=== PATIENT | male | born 1955 | race Caucasian/White ===

== ENCOUNTER 2023-05-24 15:45 | Emergency (ER) | payer OTHER, MEDICARE, SELFPAY ==
[2023-05-24 15:53] VITALS: BP 158/92; PULSE 96; RESP 16; TEMP 36.8; O2SAT 97; BMI 26.6
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
== END 2023-05-24 17:04 | disposition home or self-care (01) ==
PROVIDERS: Emergency Provider Emergency Medicine; PCP Specialist
DX: Z04.1 Encounter for examination and observation following transport accident (principal); R07.9 Chest pain, unspecified
CPT/HCPCS: 71045; 99283

== ENCOUNTER 2023-10-22 07:29 | Day surgery (SDC) | payer MEDICARE, SELFPAY ==
[2023-10-22] MEDS: LIDOCAINE 2% JELLY 10 ML UR (08:18)
[2023-10-22 08:20] VITALS: BP 140/90; PULSE 85; RESP 18; O2SAT 96
[2023-10-22 08:26] VITALS: BP 178/88; PULSE 83; RESP 18; O2SAT 97
--- NOTE | 2023-10-22 08:31 | P.URON_ITS ---
Urology Surgery Operative Note Operative Note Procedure Date: 10/22/23 Time Out Performed: yes Pre-op Diagnosis: Weak stream Post-op Diagnosis: same as pre-op Procedures performed: 1. Cystoscopy. Anesthesia: local Primary Surgeon: Jb Limon Complications: None Estimated blood loss (mL): 0 Findings: Obstructed prostate apex. High-grade bladder damage. No bladder tumors. Specimens: None Drains: None Indications for Procedures: This gentleman has a long history of BPH with LUTS for which he had a greenlight laser done in 2014. He did well after the procedure. Over the last year he has developed more bladder outlet obstructive symptoms with a weaker stream and incomplete emptying. Flomax has helped quite a bit but he is getting side effects from Flomax that is intolerable to him. He now presents for cystoscopy. He has signed an informed consent after risks were explained. Detailed description of Procedure: The patient was kept on the rmaljamar bed and brought into the endoscopy suite. He was in the supine position. Genitalia were sterilely prepped and draped in the usual fashion. 2% lidocaine was passed per urethra. Timeout was done by all parties in the room. We all agreed upon the patient's identification and the planned procedures for this patient. I then started by passing a flexible cystoscope per urethra and into the bladder. The anterior urethra was normal. The prostatic urethra showed regrowth and obstruction at the apex. The majority of the prostate and bladder neck were wide open. Careful panendoscopy in the bladder showed no evidence of any tumors or stones. There was high-grade trabeculation with multiple diverticuli. The scope was then removed. He was then discharged to home.
== END 2023-10-22 08:35 | disposition home or self-care (01) ==
PROVIDERS: PCP Specialist; Visit Provider Urology
PROC: (CPT 52000; principal; 2023-10-22 08:00)
DX: N40.1 Benign prostatic hyperplasia with lower urinary tract symptoms (principal); R39.14 Feeling of incomplete bladder emptying; R01.1 Cardiac murmur, unspecified; E78.00 Pure hypercholesterolemia, unspecified; E29.1 Testicular hypofunction; G47.30 Sleep apnea, unspecified; R39.12 Poor urinary stream; N32.89 Other specified disorders of bladder; N32.3 Diverticulum of bladder; H40.9 Unspecified glaucoma; I10 Essential (primary) hypertension; Z79.899 Other long term (current) drug therapy; Z87.891 Personal history of nicotine dependence
CPT/HCPCS: 52000

== ENCOUNTER 2024-01-23 19:56 | Outpatient (OUT) | payer MEDICARE, SELFPAY ==
--- OUTSIDE RECORDS SUMMARY | 2024-01-23 20:00 | XMS_ITS | CCD ---
Author Organization [facility] Care Team Providers Care Supervisor [place] Name Role Phone Nicolasa Favian Unavailable [phone] Favian Baldwin Admitting UnavailSaray Cobb Primary Care Unavailable Favian Baldwin Attending Unavailviky Mckeon, Saray Chaudhry Primary Care Unavailable Favian Baldwin Attending Unavailabl Favian Amhadi Admitting Unavailabl e MCKEON ., DR SARAY Chaudhry Attending Unavailable LINDA ., DR SARAY Chaudhry Consulting Unavailable MCKEON ., DR SARAY Chaudhry Primary Care Unavailable MCKEON ., DR SARAY Chaudhry Admitting Unavailable GUILLE NATHAN Attending Unavailable GUILLE NATHAN Attending Unavailable Shanti Estrella Attending Unavailable Stewart Mahajan Attending Unavailable Stewart Mahajan Attending Unavailable Stewart Mahajan Attending Unavailable Jb LIMON Attending Unavailable Jb LIMON Attending Unavailable SARAY MCKEON Referring Unavailable WESLEY FRANK Attending UnavailStewart Figueroa Admitting Unavailable Stewart Mahajan Attending Unavailable Stewart Mahajan Attending Unavailable Stewart Mahajan Admitting Unavailable Shanti Estrella Admitting Unavailable Shanti Estrella Attending Unavailable Jb LIMON Attending Unavailable Stewart Mahajan Attending Unavailable Stewart Mahajan Attending Unavailable SARAY MCKEON Attending Unavailable Stewart Mahajan Attending Unavailable Medications Current Medications Medication Drug Class(es) Dates Sig (Normalized) Sig (Original) atorvastatin 20 mg oral tablet (1 source) HMG-CoA Reductase Inhibitor Atorvastatin Calcium 20 MG Oral for 90 Days Active Citalopram (1 source) Serotonin Reuptake Inhibitor Citalopram Hydrobromide Active dicyclomine hydrochloride 20 mg oral tablet (1 source) Anticholinergic Dicyclomine HCl 20 MG Oral for 90 Days Active DULoxetine 60 mg delayed release oral capsule (1 source) Serotonin and Norepinephrine Reuptake Inhibitor DULoxetine HCl 60 MG Oral for 90 Days Active lansoprazole (2 sources) Proton Pump Inhibitor Prevacid A ctive Losartan (2 sources) Angiotensin 2 Receptor Arturo Losartan Potassium Active meloxicam 15 mg oral tablet (2 sources) Nonsteroidal Anti-inflammatory Drug take 1 tablet by mouth every twenty-four hours Meloxicam 15 MG 1 tablet Orally Once a day Active testosterone cypionate 200 mg/ml injectable solution (1 source) Androgen Testosterone Cypionate 200 MG/ML Intramuscular for 84 Days Active 12 hr timolol 5 mg/ml ophthalmic solution (1 source) beta-Adrenergic Arturo Timolol Maleate 0.5 % Ophthalmic for 80 Days Active Completed/Discontinued Medications Medication Drug Class(es) Dates Sig (Normalized) Sig (Original) busPIRone hydrochloride 5 mg oral tablet (2 sources) take 1 tablet by mouth every twelve hours busPIRone HCl 5 MG 1 tablet Orally Twice a day Not-Taking latanoprost 0.05 mg/ml ophthalmic solution (1 source) Prostaglandin Analog Latanoprost 0.005 % Ophthalmic for 108 Days Not-Taking Problems Problem Classification Problem Date Documented Date Episodic/Chronic Aortic; peripheral; and visceral artery aneurysms (4 sources) Abdominal aortic aneurysm 3.0 to 5.5 centimeters in male; Translations: [Abdominal aortic aneurysm, without rupture] Onset: 2 Resolved: 2 Chronic Disorders of lipid metabolism (4 sources) Pure hypercholesterolemia, unspecified; Translations: [PURE HYPERCHOLESTEROLEMIA UNSPEC] Onset: 3 Chronic Essential hypertension (1 source) Essential (primary) hypertension; Translations: [ESSENTIAL PRIMARY HYPERTENSION] Onset: 3 Chronic Other endocrine disorders (1 source) Testicular hypofunction; Translations: [TESTICULAR HYPOFUNCTION] Onset: 3 Chronic Other male genital disorders (1 source) Disorder of prostate, unspecified; Translations: [DISORDER OF PROSTATE UNSPECIFIED] Onset: 3 Episodic Unclassified (1 source) Abdominal aortic aneurysm, without rupture, unspecified; Translations: [Abdominal aortic aneurysm, without rupture, unspecified] Onset: 2 Unclassified (1 source) Occlusion and stenosis of bilateral carotid arteries; Translations: [Occlusion and stenosis of bilateral carotid arteries] Onset: 2 Results Test Name Value Interpretation Reference Range Facil ity Discharge Note - PTon 2023 Discharge Note - PT [id number] 0TIFF [facility] Ambulatory Visit Summaryon 0 01-14-2024 Ambulatory Visit Summary ASHLEY STAPLES :1955 Visit Date:01/14/2024 Ambulatory Visit Instructions Your Diagnosis BPH with obstruction/lower urinary tract symptoms Hypogonadism male Your Care Team Attending Physician - STEPHEN RODGERS, Jb Abad Primary Care Physician - Keyshawn RODGERS, Stewart Zamarripa This Is Your Medications List alfuzosin (alfuzosin 10 mg ER Tab) Contact prescribing physician if questions or concerns Misc Prescription (Misc DME Prescription) Misc Prescription (Misc DME Prescription) atorvastatin (atorvastatin 20 mg Tab) cholecalciferol (Vitamin D3) dicyclomine (dicyclomine 20 mg Tab) ketoconazole topical (ketoconazole Top 2% Crm) lansoprazole (lansoprazole 30 mg Cap-DR) latanoprost ophthalmic losartan (losartan 100 mg Tab) pseudoephedrine (Sudafed) testosterone (Testosterone Cypionate 200 mg/mL intramuscular solution) vortioxetine (Trintellix 5 mg oral tablet) Procedures Performed Cystoscopy (10/22/2023), Epidural injection of lumbar spine using fluoroscopic guidance (08/11/2020), Epidural injection of lumbar spine using fluoroscopic guidance (04/30/2019), Interlaminar Epidural Steroid Injection (02/27/2018), Epidural injection of lumbar spine using fluoroscopic guidance (10/25/2016), Epidural injection of lumbar spine using fluoroscopic guidance (03/15/2016), Laser ablation of prostate (02/24/2015), Urodynamics (01/21/2015), Lumbar epidural steroid injection (01/28/2014), Lumbar epidural steroid injection (08/27/2013), Stripping of varicose vein of lower limb (10/15/1989), Cholecystectomy, History of shoulder surgery, LASIK, Low back disc surgery, Torn meniscus repair. Discharge Vitals Heart Rate (Peripheral) 78 Respiratory Rate 16 Blood Pressure 138/83 Height 179 cm Height 70 in Weight 86.5 kg Weight 190.3 lb BMI 27 What to do next Scheduled Follow-Up Appointments 2023 1:00 PM EDT With: Where: [facility] [place] [facility] [address] [place] [address]- \.br\ You Need to Schedule the Following Appointments\.br\ Follow Up with STEPHEN RODGERS, Jb Abad, IRVINL When: \.br\ Where:\.br\ [facility] [address]br\ [place] [address]-\.br\ [phone]\.br\ Medications\.br\ What How Much When Instructions\.br\ Unchanged alfuzosin (alfuzosin 10 mg ER Tab)\.br\ Unchanged atorvastatin (atorvastatin 20 mg Tab) 1 Tablets By Mouth Every day Contact prescribing physician if questions or concerns \.br\ Unchanged cholecalciferol (Vitamin D3) By Mouth Every day Contact prescribing physician if questions or concerns \.br\ Unchanged dicyclomine (dicyclomine 20 mg Tab) 1 Tablets By Mouth 3 times a day Contact prescribing physician if questions or concerns \.br\ Unchanged ketoconazole topical (ketoconazole Top 2% Crm) 1 Application Topical Every day Contact prescribing physician if questions or concerns \.br\ Unchanged lansoprazole (lansoprazole 30 mg Carlos-) See instructions TAKE 1 CAPSULE BY MOUTH DAILY Contact prescribing physician if questions or concerns \.br\ Unchanged latanoprost ophthalmic 1 Drops Both eyes Once a day (at bedtime) Contact prescribing physician if questions or concerns \.br\ Unchanged losartan (losartan 100 mg Tab) See instructions TAKE 1 TABLET BY MOUTH DAILY Contact prescribing physician if questions or concerns \.br\ Unchanged Misc Prescription (Misc DME Prescription) See instructions 18G 1 needles to use to draw up his testosterone Contact prescribing physician if questions or concerns \.br\ Unchanged Misc Prescription (Misc DME Prescription) See instructions 21G1 needles to administer the testosterone Contact prescribing physician if questions or concerns \.br\ Unchanged pseudoephedrine (Sudafed) By Mouth Every 6 hours Contact prescribing physician if questions or concerns \.br\ Unchanged testosterone (Testosterone Cypionate 200 mg/ mL intramuscular solution) 1 Milliliter Intramuscular Every other week Contact prescribing physician if questions or concerns \.br\ Unchanged vortioxetine (Trintellix 5 mg oral tablet) Contact prescribing physician if questions or concerns \.br\ Allergies\.br\ No Known Allergies\.br\ Problems\.br\ Ongoing - Any problem that you are currently receiving treatment for.\.br\ BPH with obstruction/lower urinary tract symptoms\.br\ CPAP (continuous positive airway pressure) dependence\.br\ Gastroesophageal reflux disease without esophagitis\.br\ Glaucoma\.br\ Heart murmur\.br\ Hypercholesterolem ia\.br\ Hypogonadism male\.br\ Incomplete bladder emptying\.br\ Low back pain\.br\ Over weight\.br\ Primary hypertension\.br\ Prostate cancer screening\.br\ Shoulder pain, left\.br\ Sleep apnea\.br\ Historical - Any problem that you are no longer receiving treatment for.\.br\ BPH (benign prostatic hyperplasia)\.br\ Enlarged prostate\.br\ Hypogonadism in male\.br\ Patient Survey\.br\ You may receive a survey via text or e-mail asking about your office visit. Please share your experience with us by completing your survey. We appreciate your feedback and thank you for choosing us for your care.\.br\ Education Materials\.br\ Benign Prostatic Hyperplasia\.br\ \.br\ Benign prostatic hyperplasia (BPH) is an enlarged prostate gland that is caused by the normal aging process. The prostate may get bigger as a man gets older. The condition is not caused by cancer. The prostate is a walnut-sized gland that is involved in the production of semen. It is located in front of the rectum and below the bladder. The bladder stores urine. The urethra carries stored urine out of the body.\.br\ An enlarged prostate can press on the urethra. This can make it harder to pass urine. The buildup of urine in the bladder can cause infection. Back pressure and infection may progress to bladder damage and kidney (renal) failure.\.br\ What are the causes?\.br\ This condition is part of the normal aging process. However, not all men develop problems from this condition. If the prostate enlarges away from the urethra, urine flow will not be blocked. If it enlarges toward the urethra and compresses it, there will be problems passing urine.\.br\ What increases the risk?\.br\ This condition is more likely to develop in men older than 50 years.\.br\ What are the signs or symptoms?\.br\ Symptoms of this condition include:\.br\ ? \.br\ Getting up often during the night to urinate.\.br\ ? \.br\ Needing to urinate frequently during the day.\.br\ ? \.br\ Difficulty starting urine flow.\.br\ ? \.br\ Decrease in size and strength of your urine stream.\.br\ ? \.br\ Leaking (dribbling) after urinating.\.br\ ? \.br\ Inability to pass urine. This needs immediate treatment.\.br\ ? \.br\ Inability to completely empty your bladder.\.br\ ? \.br\ Pain when you pass urine. This is more common if there is also an infection.\.br\ ? \.br\ Urinary tract infection (UTI).\.br\ How is this diagnosed?\.br\ This condition is diagnosed based on your medical history, a physical exam, and your symptoms. Tests will also be done, such as:\.br\ ? \.br\ A post-void bladder scan. This measures any amount of urine that may remain in your bladder after you finish urinating.\.br\ ? \.br\ A digital rectal exam. In a rectal exam, your health care provider checks your prostate by putting a lubricated, gloved finger into your rectum to feel the back of your prostate gland. This exam detects the size of your gland and any abnormal lumps or growths.\.br\ ? \.br\ An exam of your urine (urinalysis).\.br\ ? \.br\ A prostate specific antigen (PSA) screening. This is a blood test used to screen for prostate cancer.\.br\ ? \.br\ An ultrasound. This test uses sound waves to electronically produce a picture of your prostate gland.\.br\ Your health care provider may refer you to a specialist in kidney and prostate diseases (urologist).\.br\ How is this treated?\.br\ Once symptoms begin, your health care provider will monitor your condition (active surveillance or watchful waiting). Treatment for this condition will depend on the severity of your condition. Treatment may include:\.br\ ? \.br\ Observation and yearly exams. This may be the only treatment needed if your condition and symptoms are mild.\.br\ ? \.br\ Medicines to relieve your symptoms, including:\.br\ ? \.br\ Medicines to shrink the prostate.\.br\ ? \.br\ Medicines to relax the muscle of the prostate.\.br\ ? \.br\ Surgery in severe cases. Surgery may include:\.br\ ? \.br\ Prostatectomy. In this procedure, the prostate tissue is removed completely through an open incision or with a laparoscope or robotics.\.br\ ? \.br\ Transurethral resection of the prostate (TURP). In this procedure, a tool is inserted through the opening at the tip of the penis (urethra). It is used to cut away tissue of the inner core of the prostate. The pieces are removed through the same opening of the penis. This removes the blockage.\.br\ ? \.br\ Transurethral incision (TUIP). In this procedure, small cuts are made in the prostate. This lessens the prostate's pressure on the urethra.\.br\ ? \.br\ Transurethral microwave thermotherapy (TUMT). This procedure uses microwaves to create heat. The heat destroys and removes a small amount of prostate tissue.\.br\ ? \.br\ Transurethral needle ablation (TUNA). This procedure uses radio frequencies to destroy and remove a small amount of prostate tissue.\.br\ ? \.br\ Interstitial laser coagulation (ILC). This procedure [facility] Patient Educationon 01-14-20 24 Patient Education Urology Benign Prostatic Hyperplasia Benign prostatic hyperplasia (BPH) is an enlarged prostate gland that is caused by the normal aging process. The prostate may get bigger as a man gets older. The condition is not caused by cancer. The prostate is a walnut-sized gland that is involved in the production of semen. It is located in front of the rectum and below the bladder. The bladder stores urine. The urethra carries stored urine out of the body. An enlarged prostate can press on the urethra. This can make it harder to pass urine. The buildup of urine in the bladder can cause infection. Back pressure and infection may progress to bladder damage and kidney (renal) failure. What are the causes? This condition is part of the normal aging process. However, not all men develop problems from this condition. If the prostate enlarges away from the urethra, urine flow will not be blocked. If it enlarges toward the urethra and compresses it, there will be problems passing urine. What increases the risk? This condition is more likely to develop in men older than 50 years. What are the signs or symptoms? Symptoms of this condition include: ? Getting up often during the night to urinate. ? Needing to urinate frequently during the day. ? Difficulty starting urine flow. ? Decrease in size and strength of your urine stream. ? Leaking (dribbling) after urinating. ? Inability to pass urine. This needs immediate treatment. ? Inability to completely empty your bladder. ? Pain when you pass urine. This is more common if there is also an infection. ? Urinary tract infection (UTI). How is this diagnosed? This condition is diagnosed based on your medical history, a physical exam, and your symptoms. Tests will also be done, such as: ? A post-void bladder scan. This measures any amount of urine that may remain in your bladder after you finish urinating. ? A digital rectal exam. In a rectal exam, your health care provider checks your prostate by putting a lubricated, gloved finger into your rectum to feel the back of your prostate gland. This exam detects the size of your gland and any abnormal lumps or growths. ? An exam of your urine (urinalysis). ? A prostate specific antigen (PSA) screening. This is a blood test used to screen for prostate cancer. ? An ultrasound. This test uses sound waves to electronically produce a picture of your prostate gland. Your health care provider may refer you to a specialist in kidney and prostate diseases (urologist). How is this treated? Once symptoms begin, your health care provider will monitor your condition (active surveillance or watchful waiting). Treatment for this condition will depend on the severity of your condition. Treatment may include: ? Observation and yearly exams. This may be the only treatment needed if your condition and symptoms are mild. ? Medicines to relieve your symptoms, including: ? Medicines to shrink the prostate. ? Medicines to relax the muscle of the prostate. ? Surgery in severe cases. Surgery may include: ? Prostatectomy. In this procedure, the prostate tissue is removed completely through an open incision or with a laparoscope or robotics. ? Transurethral resection of the prostate (TURP). In this procedure, a tool is inserted through the opening at the tip of the penis (urethra). It is used to cut away tissue of the inner core of the prostate. The pieces are removed through the same opening of the penis. This removes the blockage. ? Transurethral incision (TUIP). In this procedure, small cuts are made in the prostate. This lessens the prostate's pressure on the urethra. ? Transurethral microwave thermotherapy (TUMT). This procedure uses microwaves to create heat. The heat destroys and removes a small amount of prostate tissue. ? Transurethral needle ablation (TUNA). This procedure uses radio frequencies to destroy and remove a small amount of prostate tissue. ? Interstitial laser coagulation (ILC). This procedure uses a laser to destroy and remove a small amount of prostate tissue. ? Transurethral electrovaporization (TUVP). This procedure uses electrodes to destroy and remove a small amount of prostate tissue. ? Prostatic urethral lift. This procedure inserts an implant to push the lobes of the prostate away from the urethra. Follow these instructions at home: ? Take rejj-hvf-yiptyeb and prescription medicines only as told by your health care provider. ? Monitor your symptoms for any changes. Contact your health care provider with any changes. ? Avoid drinking large amounts of liquid before going to bed or out in public. ? Avoid or reduce how much caffeine or alcohol you drink. ? Give yourself time when you urinate. ? Keep all follow-up visits. This is important. Contact a health care provider if: ? You have unexplained back pain. ? Your symptoms do not get better with treatment. ? You develop side effects from the medicine (more content not included)... [facility] Urology Office/Clinic Noteon 01-14-2024 Urology Office/Clinic Note Chief Complaint S/P Cysto HPI Staff 3 month f/u to cysto done 10/22/23 Dx: BPH with obstruction/LUTS (green light laser by DLS 02/24/15, incomplete bladder emptying and hypogonadism male. Tamsulosin 0.4mg qd- could not tolerate SE (messed with libido) Started on Alfuzosin qd therapy instead *Testosterone INj 200mg q2wks from PCP. Feels empty only when he waits until the last minute to void. Getting up 0-1x/night. Stream is stronger, and easier to void with Alfuzosin. (vs without anything, flomax worked better) PVR 40ml History of Present Illness Tests reviewed: reviewed UA I have reviewed the previous health record information and history for this patient from Dr. Limon and CINTHIA Davis. I have reviewed and verified the staff HPI to be accurate for this encounter. Review of Systems PHQ Score Initial Depression Screen Score: 0 SCORE ROS - Provider Constitutional: denies weight loss, denies hot flashes. Eyes: denies eye problems. Gastrointestinal: denies nausea, denies vomiting. Cardiovascular: denies chest pain or angina. Integumentary: no dryness Musculoskeletal: denies musculoskeletal symptoms. ENMT: denies otolaryngeal symptoms. Respiratory: no shortness of breath. Heme/Lymph: denies easy bleeding tendency, denies easy bruising tendency. Psychiatric: no confusion, no anxiety. Genitourinary: See HPI. Physical Exam Vitals & Measurements HR: 78(Peripheral) RR: 16 BP: 138/83 HT: 70 in HT: 179 cm WT: 86.5 kg WT: 190.3 lb BMI: 27 General Appearance: alert, no distress, well nourished, well developed male. Genitourinary: normal scrotum, normal testes, normal urethra, normal epididymis, normal vas deferens/spermatic cord. Flank Pain: none. Bladder: nonpalpable. Assessment/Plan 1. BPH with obstruction/lower urinary tract symptoms (N40.1: Benign prostatic hyperplasia with lower urinary tract symptoms) S/p Green Light Laser of Prostate 02/24/[address] Ramos. S/p Cysto 10/22/23 - Prostate regrowth and obstruction at apex. Majority of bladder neck and prostate were wide open. Took Flomax 0.4mg bid 04/2023 but did not like SE so he was unwilling to stay on increased dosage despite this improving urinary sxs. Was taking Flomax 0.4mg qd. Pt was later switched to Alfuzosin ER 10mg qd at time of cysto. Feels this works well but is not as effective as Flomax but still is unwilling to retry Flomax due to SE affecting his libido. Admits he prefers Alfuzosin to no med. Feels his stream is good, steady. PVR today 40 (50) mL. UA today negative for blood and infection. Discussed TOVAR procedure options. Pt wishes to wait to proceed due to upcoming cataract surgery. Did advise pt procedures are scheduling out to March and would recommend he schedule soon so he has a spot. Pt will call with decision. -Cont Alfuzosin as above -Consider TOVAR procedures, pt to call to schedule 2. Hypogonadism male (E29.1: Testicular hypofunction) Latest testosterone level 912 drawn 12/26/22 Receives Testosterone injection 200mg every 2 weeks, primary care manages. [1] Follow-up With When Contact Information STEPHEN RODGERS, Jb Abad, URL [facility] [address] [place] [address] [phone] Additional Instructions: pt to call to schedule prostate procedure Patient Education Benign Prostatic Hyperplasia I, Herminia Shultz, personally scribed for Dr. Limon on 01/14/2024 14:49:57. . Documentation recorded by the scribe, Herminia Shultz, accurately reflects the services(s) I performed and decisions made by me. Authenticated by Dr. Limon on 01/14/2024 14:53:15. Problem List/Past Medical History Ongoing BPH with obstruction/lower urinary tract symptoms CPAP (continuous positive airway pressure) dependence Gastroesophageal reflux disease without esophagitis Glaucoma Heart murmur Hypercholesterolemia Hypogonadism male Incomplete bladder emptying Low back pain Over weight Primary hypertension Prostate cancer screening Shoulder pain, left Sleep apnea Historical BPH (benign prostatic hyperplasia) Enlarged prostate Hypogonadism in male Procedure/Surgical History Cystoscopy (10/22/2023), Epidural injection of lumbar spine using fluoroscopic guidance (08/11/2020), Epidural injection of lumbar spine using fluoroscopic guidance (04/30/2019), Interlaminar Epidural Steroid Injection (02/27/2018), Epidural injection of lumbar spine using fluoroscopic guidance (10/25/2016), Epidural injection of lumbar spine using fluoroscopic guidance (03/15/2016), Laser ablation of prostate (02/24/2015), Urodynamics (01/21/2015), Lumbar epidural steroid injection (01/28/2014), Lumbar epidural steroid injection (08/27/2013), Stripping of varicose vein of lower limb (10/15/1989), Cholecystectomy, History of shoulder surgery, LASIK, Low back disc surgery, Torn meniscus repair. Medications alfuzosin 10 mg ER Tab atorvastatin 20 mg Tab, 20 mg= 1 tab(s), Oral, Daily, (more content not included)... [facility] Comment on above: Result Comment: Elec tronically Signed By: Jb LIMON MD\.br\Date and Time Signed: 01/14/24 14:53 EDT\.br\Electronically Co-Signed By: Herminia Shultz\.br\Date and Time Co-Signed: 01/14/24 14:50 EDT Pre-Certification Formon Pre-Certification Form [id number] 0TIFF [facility] Testosterone F&Ton 4 Testosterone [Mass/Vol] 673 ng/dL Invalid Interpretation Code 264-886 [facility] Comment on above: Result Comment: Adul t male reference interval is based on a population of healthy nonobese males (BMI <30) between 19 and 39 years old. Leeroy et.al. JCEM 2017,102;4908-5735. PMID: [id number]. Performed By: #### 1 5221442, 2258929, 6601975, 9600245, 96345329, 66340473 ####[facility] [address] [place] [address] Testosterone Free [Mass/Vol] 12.5 pg/mL Invalid Interpretation Code 6.6-18.1 [facility] Comment on above: Result Comment: Perf ormed at: [facility] [address] [id number] PhD Reji Kang Performed at: [facility] [address] [id number] MD Arnold Colvin Performed By: #### 1 2122831, 1405172, 4156425, 4903443, 99332657, 73858677 ####[facility] [address] [place] [address] CBC w/ Auto Diffon 4 Basophil Absolute 0.0 E9/L Normal 0.0-0.2 [facility] Comment on above: Performed By: #### 1 4009748, 3848247, 2941136, 1567585, 61213340, 24265707 ####[address] [place] [address] Basophils/100 WBC (Bld) 0.7 % Normal 0.0-2.0 [facility] Comment on above: Performed By: #### 1 7278700, 5427861, 6010251, 5516951, 96006198, 25879253 ####[address] [place] [address] Eos Absolute 0.1 E9/L Normal 0.0-0.5 [facility] Comment on above: Performed By: #### 1 3711229, 1012608, 0189862, 9295264, 37029933, 38016771 ####[address] [address] Eosinophils/100 WBC (Bld) 1.8 % Normal 0.0-8.0 [facility] Comment on above: Performed By: #### 1 2982435, 3673204, 5915022, 6128546, 00892583, 02669744 ####[address] [address] Erythrocyte distribution width (RBC) [Ratio] 14.8 % High 10.9-14.2 [facility] Comment on above: Performed By: #### 1 5565285, 9093663, 1586735, 3050574, 70674925, 21171990 ####[address] [address] Hematocrit (Bld) [Volume fraction] 50.0 % High 37.7-49.0 [facility] Comment on above: Performed By: #### 1 1035937, 2138495, 9519485, 6560796, 47216683, 08136694 ####[address] [place] [address] Hemoglobin (Bld) [Mass/Vol] 16.6 g/dL Normal 13.5-17.5 [facility] Comment on above: Performed By: #### 1 0900844, 0347435, 0698672, 1599954, 70724771, 46255223 ####[facility] [address] [place] [address] Lymph Absolute 2.0 E9/L Normal 1.0-4.0 [facility] Comment on above: Performed By: #### 1 1224518, 6888237, 8320153, 6137111, 81369153, 31859139 ####[address] Lymphocytes/100 WBC (Bld) 33.2 % Normal 14.0-50.0 [facility] Comment on above: Performed By: #### 1 1410552, 4688208, 2161424, 5416803, 03729028, 06833751 ####[address] MCH (RBC) [Entitic mass] 28.8 pg Normal 27.0-34.0 [facility] Comment on above: Performed By: #### 1 9809627, 7436760, 4627615, 7417614, 84863388, 89651896 ####[address] [address] MCHC (RBC) [Mass/Vol] 33.0 g/dL Normal 31.4-36.0 [facility] Comment on above: Performed By: #### 1 4752776, 4796796, 5349394, 9493173, 09505965, 42039985 ####[address] [address] MCV (RBC) [Entitic vol] 87.4 fL Normal 80.0-100.0 [facility] Comment on above: Performed By: #### 1 4342387, 8727608, 8479405, 6224770, 71114490, 62810111 ####[address] [address] [place] Absolute 0.4 E9/L Normal 0.2-1.0 [facility] Comment on above: Performed By: #### 1 0353496, 9710414, 2687957, 9314414, 94286765, 81852919 ####[facility] [address] [place] [address] Monocytes/100 WBC (Bld) 6.9 % Normal 4.0-14.0 [facility] Comment on above: Performed By: #### 1 5496948, 4630707, 7319322, 8669391, 75795125, 13196033 ####[facility] [address] [place] [address] Neutro Absolute 3.4 E9/L Normal 2.0-7.5 [facility] Comment on above: Performed By: #### 1 5876201, 5610454, 9631259, 3917588, 55216005, 54825540 ####[address] [address] Neutro Auto 57.4 % Normal 36.0-75.0 [facility] Comment on above: Performed By: #### 1 5958927, 2450086, 8626683, 3771749, 99101479, 46380630 ####[address] [address] Platelet 176.0 E9/L Normal 150.0-500.0 [facility] Comment on above: Performed By: #### 1 8346737, 1865406, 4271498, 4845191, 02921541, 71529685 ####[address] [place] [address] Platelet mean volume (Bld) [Entitic vol] 8.5 fL Normal 6.4-10.8 [facility] Comment on above: Performed By: #### 1 8893896, 5724225, 8972358, 7983797, 94853902, 78170929 ####[address] [place] [address] RBC 5.8 E12/L Normal 4.3-5.9 [facility] Comment on above: Performed By: #### 1 8472651, 4009580, 0821252, 9481022, 22623977, 22081094 ####[facility] [address] [place] [address] WBC 5.9 E9/L Normal 4.0-11.0 [facility] Comment on above: Performed By: #### 1 0184461, 2987577, 6432563, 8668019, 69086042, 05158032 ####[facility] [address] [place] [address] CMPon 12-04-2023 Albumin [Mass/Vol] 4.7 g/dL Normal 3.3-5.0 [facility] Comment on above: Performed By: #### 1 3867398, 6538231, 8363793, 4580628, 48453729, 53437196 ####[address] [place] [address] Albumin/Globulin [Mass ratio] 1.7 {ratio} Normal 1.1-2.2 [facility] Comment on above: Performed By: #### 1 5665197, 0747393, 1168154, 5556062, 27570011, 72494991 ####[facility] [address] [place] [address] Alk Phos 45 Int._Unit/L Normal 21-98 [facility] Comment on above: Performed By: #### 1 3120134, 4422668, 2763458, 9004200, 61031248, 41646421 ####[facility] [address] [place] [address] ALT 23 Int._Unit/L Normal 6-46 [facility] Comment on above: Performed By: #### 1 3796678, 1528816, 1560754, 8239759, 84037869, 88867564 ####[facility] [address] [place] [address] Anion gap [Moles/Vol] 9 mmol/L Normal 6-16 [facility] Comment on above: Performed By: #### 1 1323710, 0452549, 6572137, 0940597, 32075894, 78332860 ####[facility] [address] [place] [address] AST 19 Int._Unit/L Normal 5-43 [facility] Comment on above: Performed By: #### 1 5190104, 9840549, 5261897, 8734158, 35783121, 30821173 ####[facility] [address] [place] [address] Bili Total 0.8 mg/dL Normal 0.0-1.1 [facility] Comment on above: Performed By: #### 1 6238242, 3287814, 9681009, 1179033, 27418357, 23203920 ####[facility] [address] [place] [address] BUN/Creat Ratio 16 No Units Normal 10-20 [facility] Comment on above: Performed By: #### 1 6834675, 6627723, 8916259, 1214950, 78347535, 71979626 ####[facility] [address] [place] [address] Calcium [Mass/Vol] 9.9 mg/dL Normal 8.9-11.1 [facility] Comment on above: Performed By: #### 1 0400292, 9069764, 1977921, 5252670, 58930391, 97536130 ####[facility] [address] [place] [address] Chloride [Moles/Vol] 97 mmol/L Low 101-111 [facility] Comment on above: Performed By: #### 1 8103016, 0004988, 3571292, 0959066, 44739472, 02425770 ####[facility] [address] [place] [address] CO2 [Moles/Vol] 34 mmol/L High 21-31 [facility] Comment on above: Performed By: #### 1 3410532, 6208668, 2818835, 1487208, 77799345, 80889002 ####[facility] [address] [place] [address] Creatinine [Mass/Vol] 0.9 mg/dL Normal 0.5-1.3 [facility] Comment on above: Performed By: #### 1 7177605, 5879185, 7992308, 4577940, 88416741, 72878873 ####[facility] [address] [place] [address] Globulin (S) [Mass/Vol] 2.7 g/dL Normal 1.4-4.0 [facility] Comment on above: Performed By: #### 1 6343793, 2436371, 7707198, 7477196, 80198007, 17732764 ####[facility] [address] [place] [address] Glucose [Mass/Vol] 119 mg/dL Normal 55-199 [facility] Comment on above: Performed By: #### 1 2100192, 3666194, 2805852, 6080297, 78536283, 25090204 ####[facility] [address] [place] [address] Potassium [Moles/Vol] 4.0 mmol/L Normal 3.5-5.3 [facility] Comment on above: Performed By: #### 1 0998076, 0456401, 6711887, 2485755, 37031104, 04772377 ####[facility] [address] [place] [address] Protein [Mass/Vol] 7.4 g/dL Normal 6.0-7.8 [facility] Comment on above: Performed By: #### 1 3261353, 8548364, 7463082, 7497809, 57501057, 38593887 ####[facility] [address] [place] [address] Sodium [Moles/Vol] 136 mmol/L Normal 135-145 [facility] Comment on above: Performed By: #### 1 1348694, 5056809, 6980914, 3242583, 64528991, 91724426 ####[facility] [address] [facility] [place] [address] Urea nitrogen [Mass/Vol] 14 mg/dL Normal 5-21 [facility] Comment on above: Performed By: #### 1 0860455, 4589549, 5037023, 2778330, 75225271, 77161704 ####[facility] [address] [facility] [place] [address] Lipid Panelon 12-04-2023 Cholesterol [Mass/Vol] 147 mg/dL Normal 120-200 [facility] Comment on above: Performed By: #### 1 0213547, 5349449, 0092895, 3967069, 95655415, 15259670 ####[facility] [address] [place] [address] Cholesterol in HDL [Mass/Vol] 49 mg/dL Invalid Interpretation Code [facility] Comment on above: Result Comment: '>= 60 LOW RISK' '<= 40 HIGH RISK' Performed By: #### 1 7396214, 2752226, 1638832, 1558187, 44715709, 27021483 ####[facility] [address] [place] [address] Cholesterol in LDL [Mass/Vol] 80 mg/dL Normal <=129 [facility] Comment on above: Performed By: #### 1 8403468, 3666755, 7628336, 0194484, 61712050, 98448799 ####[facility] [address] [place] [address] Cholesterol in VLDL [Mass/Vol] 24 mg/dL Normal 7-40 [facility] Comment on above: Performed By: #### 1 1227858, 6564380, 4389499, 6519000, 57821246, 70970198 ####[facility] [address] [place] [address] Triglyceride [Mass/Vol] 120 mg/dL Normal <=149 [facility] Comment on above: Performed By: #### 1 5132049, 0565328, 4041160, 1419156, 71301542, 94238206 ####[facility] [address] [place] [address] PSA Screen, Totalon 12-04-19 PSA Scrn Tot. 0.6 ng/mL Normal 0.1-3.5 [facility] Comment on above: Result Comment: The concentration of PSA determined by different manufacturers can vary due to differences in assay methods and reagent specificity. Values obtained from different assay methods cannot be used interchangeably. The methodology used for this result was chemiluminescence using [employer] PSA reagent. Performed By: #### 1 5802983, 1494045, 8207220, 6716546, 80136025, 86852546 ####[facility] [address] [place] [address] Vitamin D 25 Hydroxyon 12-04 Vitamin D 25 Hydroxy 65.1 ng/mL Normal 30.0-100.0 [facility] Comment on above: Performed By: #### 5 81744907 ####[facility] [address] [place] [address] eGFRon 12-04-2023 eGFR 92 mL/min/1.73 m2 Normal >=59 [facility] Comment on above: Order Comment: Order added by Discern Expert. Performed By: #### 1 2816497, 7390279, 3402464, 0507576, 91309418, 52004844 ####[address] [place] [address] Ambulatory Visit Summaryon 0 11-29-2023 Ambulatory Visit Summary ASHLEY STAPLES :1955 Visit Date:11/29/2023 Ambulatory Visit Instructions Your Diagnosis Hypogonadism male Primary hypertension Heart murmur BMI 27.0-27.9,adult Over weight Former smoker Your Care Team Attending Physician - Stewart Mahajan MD Primary Care Physician - Stewart Mahajan MD This Is Your Medications List Misc Prescription (Misc DME Prescription) Misc Prescription (Misc DME Prescription) atorvastatin (atorvastatin 20 mg Tab) cholecalciferol (Vitamin D3) dicyclomine (dicyclomine 20 mg Tab) ketoconazole topical (ketoconazole Top 2% Crm) lansoprazole (lansoprazole 30 mg Cap-DR) latanoprost ophthalmic losartan (losartan 100 mg Tab) pseudoephedrine (Sudafed) testosterone (Testosterone Cypionate 200 mg/mL intramuscular solution) timolol ophthalmic (Timolol Maleate (Eqv-Timoptic) 0.5% ophthalmic solution) vortioxetine (Trintellix 5 mg oral tablet) Procedures Performed Epidural injection of lumbar spine using fluoroscopic guidance (08/11/2020), Epidural injection of lumbar spine using fluoroscopic guidance (04/30/2019), Interlaminar Epidural Steroid Injection (02/27/2018), Epidural injection of lumbar spine using fluoroscopic guidance (10/25/2016), Epidural injection of lumbar spine using fluoroscopic guidance (03/15/2016), Laser ablation of prostate (02/24/2015), Urodynamics (01/21/2015), Lumbar epidural steroid injection (01/28/2014), Lumbar epidural steroid injection (08/27/2013), Stripping of varicose vein of lower limb (10/15/1989), Cholecystectomy, History of shoulder surgery, LASIK, Low back disc surgery, Torn meniscus repair. Discharge Vitals Temperature (Oral) 36.7 ?C Heart Rate (Peripheral) 72 Respiratory Rate 16 Blood Pressure 126/72 Height 179 cm Height 70 in Weight 87.2 kg Weight 191.84 lb BMI 27.22 What to do next Scheduled Follow-Up Appointments Sunday 7:40 AM EST With: Where: [facility] Invalid Interpretation Code [address] [place] [address]- \.br\ 2023 1:00 PM EDT \.br\ With:\.br\ Where: [facility] Office/Clini c Noteon 11-29-2023 Family Medicine Office/Clinic Note HPI Staff Ashley is a 68 year old male presenting for 6 month follow up hypogonadism and htn Patient is here for follow up on hypertension. How often are you checking your blood pressure? Doesnt check BP at home What are your average readings? N/A, Not checking at home Yearly BMP: ??_ flu: UTD 08/29/23 questions/concerns: newly rxed trintellix by Dr Jarquin and it's working History of Present Illness - Pt doing well. - Need test rechecked. - No other issues today. Review of Systems PHQ Score Initial Depression Screen Score: 0 SCORE Physical Exam Vitals & Measurements T: 36.7 ?C(Oral) HR: 72(Peripheral) RR: 16 BP: 126/72 SpO2: 99% HT: 70 in HT: 179 cm WT: 87.2 kg WT: 191.84 lb BMI: 27.22 General: alert, no acute distress ENMT: oral mucosa moist, Cardiovascular: regular rate and rhythm, normal peripheral perfusion Respiratory: Lungs CTA, respirations non labored Extremities: no deformity, no trauma Neurological: oriented x 4, LOC appropriate for age, CN II-XII intact, motor strength equal & normal bilaterally, speech normal Abdomen: Soft, Nontender, Non-distended, + BS Assessment/Plan 1. Hypogonadism male (E29.1: Testicular hypofunction) - Will recheck labs in the next week. - Follow up in 6 months Ordered: Body Mass Index (BMI) documented 3008F CBC w/ Auto Diff Comprehensive Metabolic Panel Current tobacco non-user 1036F Depression Screening Negative 3352F Influenza immunization administered or previously received 4274F Lipid Panel Most recent diastolic blood pressure <80 mm Hg 3078F Patient screen for fall risk: no falls in last year or 1 fall with no injury in last year 1101F PSA Screen, Total Systolic BP <130 mm Hg (Most Recent) 3074F Testosterone F&T 2. Primary hypertension (I10: Essential (primary) hypertension) - At goal. - Follow up in 6 months Ordered: Body Mass Index (BMI) documented 3008F CBC w/ Auto Diff Comprehensive Metabolic Panel Current tobacco non-user 1036F Depression Screening Negative 3352F Influenza immunization administered or previously received 4274F Lipid Panel Most recent diastolic blood pressure <80 mm Hg 3078F Patient screen for fall risk: no falls in last year or 1 fall with no injury in last year 1101F PSA Screen, Total Systolic BP <130 mm Hg (Most Recent) 3074F Testosterone F&T 3. Heart murmur (R01.1: Cardiac murmur, unspecified) - Long hx of heart mumur - NO symptoms - Pt states he has been worked up for this. Ordered: Body Mass Index (BMI) documented 3008F CBC w/ Auto Diff Comprehensive Metabolic Panel Current tobacco non-user 1036F Depression Screening Negative 3352F Influenza immunization administered or previously received 4274F Lipid Panel Most recent diastolic blood pressure <80 mm Hg 3078F Patient screen for fall risk: no falls in last year or 1 fall with no injury in last year 1101F PSA Screen, Total Systolic BP <130 mm Hg (Most Recent) 3074F Testosterone F&T 4. BMI 27.0-27.9,adult (Z68.27: Body mass index [BMI] 27.0-27.9, adult) - BMI education given Ordered: Body Mass Index (BMI) documented 3008F CBC w/ Auto Diff Comprehensive Metabolic Panel Current tobacco non-user 1036F Depression Screening Negative 3352F Influenza immunization administered or previously received 4274F Lipid Panel Most recent diastolic blood pressure <80 mm Hg 3078F Patient screen for fall risk: no falls in last year or 1 fall with no injury in last year 1101F PSA Screen, Total Systolic BP <130 mm Hg (Most Recent) 3074F Testosterone F&T 5. Over weight (E66.3: Overweight) - Diet and exercise advised Ordered: Body Mass Index (BMI) documented 3008F CBC w/ Auto Diff Comprehensive Metabolic Panel Current tobacco non-user 1036F Depression Screening Negative 3352F Influenza immunization administered or previously received 4274F Lipid Panel Most recent diastolic blood pressure <80 mm Hg 3078F Patient screen for fall risk: no falls in last year or 1 fall with no injury in last year 1101F PSA Screen, Total Systolic BP <130 mm Hg (Most Recent) 3074F Testosterone F&T 6. Former smoker (Z87.891: Personal history of nicotine dependence) - Please continue to not smoke. 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 Normal [facility] Comment on above: Result Comment: Elec tronically Signed By: Keyshawn RODGERS, Stewart Zamarripa\.br\Date and Time Signed: 11/29/23 10:50 EST Patient Educationon 11-29-19 24 Patient Education Nutrition BMI for Adults What is BMI? Body mass index (BMI) is a number that is calculated from a person's weight and height. BMI can help estimate how much of a person's weight is composed of fat. BMI does not measure body fat directly. Rather, it is an alternative to procedures that directly measure body fat, which can be difficult and expensive. BMI can help identify people who may be at higher risk for certain medical problems. What are BMI measurements used for? BMI is used as a screening tool to identify possible weight problems. It helps determine whether a person is obese, overweight, a healthy weight, or underweight. BMI is useful for: ? Identifying a weight problem that may be related to a medical condition or may increase the risk for medical problems. ? Promoting changes, such as changes in diet and exercise, to help reach a healthy weight. BMI screening can be repeated to see if these changes are working. How is BMI calculated? BMI involves measuring your weight in relation to your height. Both height and weight are measured, and the BMI is calculated from those numbers. This can be done either in [place] or metric measurements. Note that charts and online BMI calculators are available to help you find your BMI quickly and easily without having to do these calculations yourself. To calculate your BMI in [place] measurements: 1. Measure your weight in pounds (lb). 2. Multiply the number of pounds by 703. ? For example, for a person who weighs 180 lb, multiply that number by 703, which equals 126,540. 3. Measure your height in inches. Then multiply that number by itself to get a measurement called inches squared. ? For example, for a person who is 70 inches tall, the inches squared measurement is 70 inches x 70 inches, which equals 4,900 inches squared. 4. Divide the total from step 2 (number of lb x 703) by the total from step 3 (inches squared): 126,540 ? 4,900 = 25.8. This is your BMI. To calculate your BMI in metric measurements: 1. Measure your weight in kilograms (kg). 2. Measure your height in meters (m). Then multiply that number by itself to get a measurement called meters squared. ? For example, for a person who is 1.75 m tall, the meters squared measurement is 1.75 m x 1.75 m, which is equal to 3.1 meters squared. 3. Divide the number of kilograms (your weight) by the meters squared number. In this example: 70 ? 3.1 = 22.6. This is your BMI. What do the results mean? BMI charts are used to identify whether you are underweight, normal weight, overweight, or obese. The following guidelines will be used: ? Underweight: BMI less than 18.5. ? Normal weight: BMI between 18.5 and 24.9. ? Overweight: BMI between 25 and 29.9. ? Obese: BMI of 30 or above. Keep these notes in mind: ? Weight includes both fat and muscle, so someone with a muscular build, such as an athlete, may have a BMI that is higher than 24.9. In cases like these, BMI is not an accurate measure of body fat. ? To determine if excess body fat is the cause of a BMI of 25 or higher, further assessments may need to be done by a health care provider. ? BMI is usually interpreted in the same way for men and women. Where to find more information For more information about BMI, including tools to quickly calculate your BMI, go to these websites: ? Centers for Disease Control and Prevention: www.cdc.gov ? [place] [employer]: www.heart.org ? National Heart, Lung, and Blood [place]: www.nhlbi.nih.gov Summary ? Body mass index (BMI) is a number that is calculated from a person's weight and height. ? BMI may help estimate how much of a person's weight is composed of fat. BMI can help identify those who may be at higher risk for certain medical problems. ? BMI can be measured using [place] measurements or metric measurements. ? BMI charts are used to identify whether you are underweight, normal weight, overweight, or obese. This information is not intended to replace advice given to you by your health care provider. Make sure you discuss any questions you have with your health care provider. Document Revised: 06/23/2020 Document Reviewed: 04/30/2020 [employer] Patient Education ? 2022 [employer]. [facility] Consultation Noteon 11-26-19 Consultation Note [id number]#1.0 0TIFF [facility] Plan of Care - PT/OT/Speecho n 11-15-2023 Plan of Care - PT/OT/Speech [id number]#1.0 0TIFF [facility] Physician Referralon 024 Physician Referral [id number]#1. 00TIFF [facility] Consultation Noteon 11-02-19 Consultation Note [id number]#1.0 0TIFF [facility] Operative Reporton Operative Report [id number]#1.0 0TIFF [facility] Insurance Correspondenceon 0 10-17-2023 Insurance Correspondence [id number] 0TIFF [facility] Physician Referralon 024 Physician Referral [id number]#1. 00TIFF [facility] Ambulatory Visit Summaryon 0 10-16-2023 Ambulatory Visit Summary ASHLEY STAPLES :1955 Visit Date:10/16/2023 Ambulatory Visit Instructions Your Diagnosis Rash Hypercholesterolemia Primary hypertension BMI 27.0-27.9,adult Excess weight Former smoker Gastroesophageal reflux disease without esophagitis Other chronic pain, Other chronic pain Chronic left shoulder pain Your Care Team Attending Physician - Stewart Mahajan MD Primary Care Physician - Stewart Mahajan MD This Is Your Medications List Misc Prescription (Misc DME Prescription) Misc Prescription (Misc DME Prescription) atorvastatin (atorvastatin 20 mg Tab) cholecalciferol (Vitamin D3) dicyclomine (dicyclomine 20 mg Tab) ketoconazole topical (ketoconazole Top 2% Crm) lansoprazole (lansoprazole 15 mg Cap-DR) latanoprost ophthalmic losartan (losartan 100 mg Tab) mirtazapine (Remeron 15 mg Tab) pseudoephedrine (Sudafed) tamsulosin (tamsulosin 0.4 mg Cap) testosterone (Testosterone Cypionate 200 mg/mL intramuscular solution) timolol ophthalmic (Timolol Maleate (Eqv-Timoptic) 0.5% ophthalmic solution) Procedures Performed Epidural injection of lumbar spine using fluoroscopic guidance (08/11/2020), Epidural injection of lumbar spine using fluoroscopic guidance (04/30/2019), Interlaminar Epidural Steroid Injection (02/27/2018), Epidural injection of lumbar spine using fluoroscopic guidance (10/25/2016), Epidural injection of lumbar spine using fluoroscopic guidance (03/15/2016), Laser ablation of prostate (02/24/2015), Urodynamics (01/21/2015), Lumbar epidural steroid injection (01/28/2014), Lumbar epidural steroid injection (08/27/2013), Stripping of varicose vein of lower limb (10/15/1989), Cholecystectomy, History of shoulder surgery, LASIK, Low back disc surgery, Torn meniscus repair. Discharge Vitals Temperature (Temporal Artery) 37.1 ?C Heart Rate (Peripheral) 82 Respiratory Rate 16 Blood Pressure 152/84 Height 179 cm Height 70 in Weight 87.1 kg Weight 191.62 lb BMI 27.18 What to do next Scheduled Follow-Up Appointments 2023 10:15 AM EST With: Stewart Mahajan MD Where: [facility] [place] [facility] [address] [place] [id number]- \.br\ Medications\.br\ What How Much When Instructions\.br\ New ketoconazole topical (ketoconazole Top 2% Crm) 1 Application Topical Every day Pickup at [facility]/pharmacy #[id number]\.br\ Unchanged atorvastatin (atorvastatin 20 mg Tab) 1 Tablets By Mouth Every day\.br\ Unchanged cholecalciferol (Vitamin D3) By Mouth Every day\.br\ Unchanged dicyclomine (dicyclomine 20 mg Tab) 1 Tablets By Mouth 3 times a day\.br\ Unchanged lansoprazole (lansoprazole 15 mg Cap-DR) By Mouth Every day\.br\ Unchanged latanoprost ophthalmic 1 Drops Both eyes Once a day (at bedtime)\.br\ Unchanged losartan (losartan 100 mg Tab) 100 Milligram By Mouth Every day\.br\ Unchanged mirtazapine (Remeron 15 mg Tab) 1 Tablets By Mouth At bedtime\.br\ Unchanged Misc Prescription (Misc DME Prescription) See instructions 18G 1 needles to use to draw up his testosterone \.br\ Unchanged Misc Prescription (Misc DME Prescription) See instructions 21G1 needles to administer the testosterone \.br\ Unchanged pseudoephedrine (Sudafed) By Mouth Every 6 hours\.br\ Unchanged tamsulosin (tamsulosin 0.4 mg Cap) 1 Capsules By Mouth Every day\.br\ Unchanged testosterone (Testosterone Cypionate 200 mg/ mL intramuscular solution) 1 Milliliter Intramuscular Every other week\.br\ Unchanged timolol ophthalmic (Timolol Maleate (Eqv-Timoptic) 0.5% ophthalmic solution) INSTILL 1 DROP INTO BOTH EYES EVERY MORNING \.br\ Pharmacy Information\.br\ [facility]/pharmacy #[id number]: [address], [place] [phone]\.br\ Allergies\.br\ No Known Allergies\.br\ Problems\.br\ Ongoing - Any problem that you are currently receiving treatment for.\.br\ BPH with obstruction/lower urinary tract symptoms\.br\ CPAP (continuous positive airway pressure) dependence\.br\ Gastroesophageal reflux disease without esophagitis\.br\ Glaucoma\.br\ Heart murmur\.br\ Hypercholesterolem ia\.br\ Hypogonadism male\.br\ Incomplete bladder emptying\.br\ Low back pain\.br\ Over weight\.br\ Primary hypertension\.br\ Prostate cancer screening\.br\ Rash\.br\ Shoulder pain, left\.br\ Sleep apnea\.br\ Stomach cramps\.br\ Historical - Any problem that you are no longer receiving treatment for.\.br\ BPH (benign prostatic hyperplasia)\.br\ Enlarged prostate\.br\ Hypogonadism in male\.br\ Patient Survey\.br\ You may receive a survey via text or e-mail asking about your office visit. Please share your experience with us by completing your survey. We appreciate your feedback and thank you for choosing us for your care.\.br\ \.br\ [facility] Office/Clini c Noteon 10-16-2023 Family Medicine Office/Clinic Note HPI Staff Ashley is a 68 year old male presenting for acute visit Acute: growth on chest right side of collarbone and now spreading to right side and now some on his leg, not a growth more like a rash. Itches sometimes, first noticed it about a month ago but it wasn't bothering him but when he showers and water gets on it really noticeable with the redness flu: UTD questions/concerns: needs refills of atorvastatin History of Present Illness Patient presents for multiple complaints today. Patient has a rash on his chest that is getting worse. Patient states it itches but has no other concerns. Patient states it gets worse after a shower. Patient has multiple Ortho complaints. Patient has an orthopedic surgeon. Patient needs refills of medication. Patient states he recently had to go up with his PPI from 15-30 as he was having symptoms of GERD. Patient states is well-controlled and would like a prescription for that. Review of Systems PHQ Score Initial Depression Screen Score: 2 SCORE Physical Exam Vitals & Measurements T: 37.1 ?C(Temporal Artery) HR: 82(Peripheral) RR: 16 BP: 152/84 SpO2: 98% HT: 70 in HT: 179 cm WT: 87.1 kg WT: 191.62 lb BMI: 27.18 General: alert, no acute distress ENMT: oral mucosa moist, Cardiovascular: regular rate and rhythm, normal peripheral perfusion Respiratory: Lungs CTA, respirations non labored Extremities: no deformity, no trauma Neurological: oriented x 4, LOC appropriate for age, CN II-XII intact, motor strength equal & normal bilaterally, speech normal Abdomen: Soft, Nontender, Non-distended, + BS Thumb on the right hand is triggering and patient states he sometimes gets the middle and the ring finger on the right triggering as well. Assessment/Plan 1. Rash (R21: Rash and other nonspecific skin eruption) Will treat with topical antifungal as I am unsure what type of rash this is. If no improvement in the next few weeks we will send to dermatology for further workup. Ordered: Body Mass Index (BMI) documented 3008F Current tobacco non-user 1036F Depression Screening Negative 3352F Influenza immunization administered or previously received 4274F Most recent diastolic blood pressure 80-89 mm Hg 3079F Most recent systolic blood pressure >= 140 mm Hg 3077F Patient screen for fall risk: no falls in last year or 1 fall with no injury in last year 1101F 2. Hypercholesterolemia (E78.00: Pure hypercholesterolemia, unspecified) Will refill the statin Ordered: Body Mass Index (BMI) documented 3008F Current tobacco non-user 1036F Depression Screening Negative 3352F Influenza immunization administered or previously received 4274F Most recent diastolic blood pressure 80-89 mm Hg 3079F Most recent systolic blood pressure >= 140 mm Hg 3077F Patient screen for fall risk: no falls in last year or 1 fall with no injury in last year 1101F 3. Primary hypertension (I10: Essential (primary) hypertension) Blood pressure is elevated today as the patient has recently changed his antidepressant. Patient states that has him very worked up. Will recheck in 6 weeks. Ordered: Body Mass Index (BMI) documented 3008F Current tobacco non-user 1036F Depression Screening Negative 3352F Influenza immunization administered or previously received 4274F Most recent diastolic blood pressure 80-89 mm Hg 3079F Most recent systolic blood pressure >= 140 mm Hg 3077F Patient screen for fall risk: no falls in last year or 1 fall with no injury in last year 1101F 4. BMI 27.0-27.9,adult (Z68.27: Body mass index [BMI] 27.0-27.9, adult) BMI education uploaded to the portal. Ordered: Body Mass Index (BMI) documented 3008F Current tobacco non-user 1036F Depression Screening Negative 3352F Influenza immunization administered or previously received 4274F Most recent diastolic blood pressure 80-89 mm Hg 3079F Most recent systolic blood pressure >= 140 mm Hg 3077F Patient screen for fall risk: no falls in last year or 1 fall with no injury in last year 1101F 5. Excess weight (E66.3: Overweight) Diet and exercise advised. Ordered: Body Mass Index (BMI) documented 3008F Current tobacco non-user 1036F Depression Screening Negative 3352F Influenza immunization administered or previously received 4274F Most recent diastolic blood pressure 80-89 mm Hg 3079F Most recent systolic blood pressure >= 140 mm Hg 3077F Patient screen for fall risk: no falls in last year or 1 fall with no injury in last year 1101F 6. Former smoker (Z87.891: Personal history of nicotine dependence) Please continue not to smoke. Ordered: Body Mass Index (BMI) documented 3008F Current tobacco non-user 1036F Depression Screening Negative 3352F Influenza immunization administered or previously received 4274F Most recent diastolic blood pressure 80-89 mm Hg 3079F Most recent systolic blood pressure >= 140 mm Hg 3077F Patient screen for fall risk: no falls in last year or 1 fall with no injury (more content not included)... [facility] Comment on above: Result Comment: Elec tronically Signed By: Keyshawn RODGERS, Stewart Zamarripa\.br\Date and Time Signed: 10/16/23 13:34 EST Consent for Procedure/Surger yon 09-21-2023 Consent for Procedure/Surgery [id number]#1.0 0TIFF [facility] Screenson 09-12-2023 Screens [id number]#1.0 0TIFF [facility] Ambulatory Visit Summaryon 1 11-11-2022 Ambulatory Visit Summary KOURTNEYNUPURBouchraASHLEY Bradley :1955 Visit Date:09/11/2023 Ambulatory Visit Instructions Your Diagnosis BPH with obstruction/lower urinary tract symptoms Incomplete bladder emptying Hypogonadism male Prostate cancer screening Other obstructive and reflux uropathy Tests Performed Urnls Dip Stick Auto w/o Microscopy POC 96839 Your Care Team Attending Physician - ALYSSA FRANK PA-C Primary Care Physician - Stewart Mahajan MD This Is Your Medications List Misc Prescription (Misc DME Prescription) Misc Prescription (Misc DME Prescription) atorvastatin (atorvastatin 20 mg Tab) cholecalciferol (Vitamin D3) dicyclomine (dicyclomine 20 mg Tab) duloxetine (duloxetine 60 mg Cap-DR) lansoprazole (lansoprazole 15 mg Cap-DR) latanoprost ophthalmic losartan (losartan 100 mg Tab) pseudoephedrine (Sudafed) tamsulosin (tamsulosin 0.4 mg Cap) testosterone (Testosterone Cypionate 200 mg/mL intramuscular solution) timolol ophthalmic (Timolol Maleate (Eqv-Timoptic) 0.5% ophthalmic solution) Procedures Performed Epidural injection of lumbar spine using fluoroscopic guidance (08/11/2020), Epidural injection of lumbar spine using fluoroscopic guidance (04/30/2019), Interlaminar Epidural Steroid Injection (02/27/2018), Epidural injection of lumbar spine using fluoroscopic guidance (10/25/2016), Epidural injection of lumbar spine using fluoroscopic guidance (03/15/2016), Laser ablation of prostate (02/24/2015), Urodynamics (01/21/2015), Lumbar epidural steroid injection (01/28/2014), Lumbar epidural steroid injection (08/27/2013), Stripping of varicose vein of lower limb (10/15/1989), Cholecystectomy, History of shoulder surgery, LASIK, Low back disc surgery, Torn meniscus repair. Discharge Vitals Heart Rate (Peripheral) 80 Respiratory Rate 16 Blood Pressure 132/79 Height 179 cm Height 70 in Weight 85 kg Weight 187 lb BMI 26.53 What to do next Scheduled Follow-Up Appointments Sunday 1:15 PM EST With: Keyshawn RODGERS, Stewart Zamarripa Where: [address] [address]- \.br\ You Need to Schedule the Following Appointments\.br\ Follow Up with [facility] When: \.br\ Comments:\.br\ our paleontology teacher will be contacting you for follow-up\.br\ Where:\.br\ [address]br\ [place] [address]\.br\ [facility] (1)\.br\ Medications\.br\ What How Much When Instructions\.br\ Changed tamsulosin (tamsulosin 0.4 mg Cap) 1 Capsules By Mouth Every day\.br\ Unchanged atorvastatin (atorvastatin 20 mg Tab) 1 Tablets By Mouth Every day\.br\ Unchanged cholecalciferol (Vitamin D3) By Mouth Every day\.br\ Unchanged dicyclomine (dicyclomine 20 mg Tab) 1 Tablets By Mouth 3 times a day\.br\ Unchanged duloxetine (duloxetine 60 mg Cap-DR) 60 Milligram By Mouth 2 times a day\.br\ Unchanged lansoprazole (lansoprazole 15 mg Cap-DR) By Mouth Every day\.br\ Unchanged latanoprost ophthalmic 1 Drops Both eyes Once a day (at bedtime)\.br\ Unchanged losartan (losartan 100 mg Tab) 100 Milligram By Mouth Every day\.br\ Unchanged Misc Prescription (Misc DME Prescription) See instructions 18G 1 needles to use to draw up his testosterone \.br\ Unchanged Misc Prescription (Misc DME Prescription) See instructions 21G1 needles to administer the testosterone \.br\ Unchanged pseudoephedrine (Sudafed) By Mouth Every 6 hours\.br\ Unchanged testosterone (Testosterone Cypionate 200 mg/ mL intramuscular solution) 1 Milliliter Intramuscular Every other week\.br\ Unchanged timolol ophthalmic (Timolol Maleate (Eqv-Timoptic) 0.5% ophthalmic solution) INSTILL 1 DROP INTO BOTH EYES EVERY MORNING \.br\ Test Results\.br\ Urnls Dip Stick Auto w/o Microscopy POC 02780 (09/11/2023)\.br\ Bilirubin Urine Dipstick - Negative\.br\ Blood Urine Dipstick - Negative\.br\ Glucose Urine Dipstick - Negative\.br\ Ketones Urine Dipstick - Negative\.br\ Leukocytes Urine Dipstick - Negative\.br\ Nitrite Urine Dipstick - Negative\.br\ Protein Urine Dipstick - Negative\.br\ Specific Hodgen Urine Dipstick - 1.020\.br\ Urine Appearance Urine Dipstick - Clear\.br\ Urine Color Urine Dipstick - Yellow\.br\ Urobilinogen Urine Dipstick - Normal 0.2-1 EU/dl\.br\ pH Urine Dipstick - 6\.br\ Allergies\.br\ No Known Allergies\.br\ Problems\.br\ Ongoing - Any problem that you are currently receiving treatment for.\.br\ BPH with obstruction/lower urinary tract symptoms\.br\ CPAP (continuous positive airway pressure) dependence\.br\ Gastroesophageal reflux disease without esophagitis\.br\ Glaucoma\.br\ Heart murmur\.br\ Hypercholesterolem ia\.br\ Hypogonadism male\.br\ Incomplete bladder emptying\.br\ Low back pain\.br\ Over weight\.br\ Primary hypertension\.br\ Prostate cancer screening\.br\ Shoulder pain, left\.br\ Sleep apnea\.br\ Stomach cramps\.br\ Historical - Any problem that you are no longer receiving treatment for.\.br\ BPH (benign prostatic hyperplasia)\.br\ Enlarged prostate\.br\ Hypogonadism in male\.br\ Patient Survey\.br\ You may receive a survey via text or e-mail asking about your office visit. Please share your experience with us by completing your survey. We appreciate your feedback and thank you for choosing us for your care.\.br\ Education Materials\.br\ Benign Prostatic Hyperplasia\.br\ \.br\ Benign prostatic hyperplasia (BPH) is an enlarged prostate gland that is caused by the normal aging process. The prostate may get bigger as a man gets older. The condition is not caused by cancer. The prostate is a walnut-sized gland that is involved in the production of semen. It is located in front of the rectum and below the bladder. The bladder stores urine. The urethra carries stored urine out of the body.\.br\ An enlarged prostate can press on the urethra. This can make it harder to pass urine. The buildup of urine in the bladder can cause infection. Back pressure and infection may progress to bladder damage and kidney (renal) failure.\.br\ What are the causes?\.br\ This condition is part of the normal aging process. However, not all men develop problems from this condition. If the prostate enlarges away from the urethra, urine flow will not be blocked. If it enlarges toward the urethra and compresses it, there will be problems passing urine.\.br\ What increases the risk?\.br\ This condition is more likely to develop in men older than 50 years.\.br\ What are the signs or symptoms?\.br\ Symptoms of this condition include:\.br\ ? \.br\ Getting up often during the night to urinate.\.br\ ? \.br\ Needing to urinate frequently during the day.\.br\ ? \.br\ Difficulty starting urine flow.\.br\ ? \.br\ Decrease in size and strength of your urine stream.\.br\ ? \.br\ Leaking (dribbling) after urinating.\.br\ ? \.br\ Inability to pass urine. This needs immediate treatment.\.br\ ? \.br\ Inability to completely empty your bladder.\.br\ ? \.br\ Pain when you pass urine. This is more common if there is also an infection.\.br\ ? \.br\ Urinary tract infection (UTI).\.br\ How is this diagnosed?\.br\ This condition is diagnosed based on your medical history, a physical exam, and your symptoms. Tests will also be done, such as:\.br\ ? \.br\ A post-void bladder scan. This measures any amount of urine that may remain in your bladder after you finish urinating.\.br\ ? \.br\ A digital rectal exam. In a rectal exam, your health care provider checks your prostate by putting a lubricated, gloved finger into your rectum to feel the back of your prostate gland. This exam detects the size of your gland and any abnormal lumps or growths.\.br\ ? \.br\ An exam of your urine (urinalysis).\.br\ ? \.br\ A prostate specific antigen (PSA) screening. This is a blood test used to screen for prostate cancer.\.br\ ? \.br\ An ultrasound. This test uses sound waves to electronically produce a picture of your prostate gland.\.br\ Your health care provider may refer you to a specialist in kidney and prostate diseases (urologist).\.br\ How is this treated?\.br\ Once symptoms begin, your health care provider will monitor your condition (active surveillance or watchful waiting). Treatment for this condition will depend on the severity of your condition. Treatment may include:\.br\ ? \.br\ Observation and yearly exams. This may be the only treatment needed if your condition and symptoms are mild.\.br\ ? \.br\ Medicines to relieve your symptoms, including:\.br\ ? \.br\ Medicines to shrink the prostate.\.br\ ? \.br\ Medicines to relax the muscle of the prostate.\.br\ ? \.br\ Surgery in severe cases. Surgery may include:\.br\ ? \.br\ Prostatectomy. In this procedure, the prostate tissue is removed completely through an open incision or with a laparoscope or robotics.\.br\ ? \.br\ Transurethral resection of the prostate (TURP). In this procedure, a tool is inserted through the opening at the tip of the penis (urethra). It is used to cut away tissue of the inner core of the prostate. The pieces are removed through the same opening of the penis. This removes the blockage.\.br\ ? \.br\ Transurethral incision (TUIP). In this procedure, small cuts are made in the prostate. This lessens the prostate's pressure on the urethra.\.br\ ? \.br\ Transurethral microwave thermotherapy (TUMT). This procedure uses microwaves to create heat. The heat destroys and removes a small amount of prostate tissue.\.br\ ? \.br\ Transurethral needle ablation (TUNA). This pr [facility] Patient Educationon 09-11-20 Patient Education Urology Benign Prostatic Hyperplasia Benign prostatic hyperplasia (BPH) is an enlarged prostate gland that is caused by the normal aging process. The prostate may get bigger as a man gets older. The condition is not caused by cancer. The prostate is a walnut-sized gland that is involved in the production of semen. It is located in front of the rectum and below the bladder. The bladder stores urine. The urethra carries stored urine out of the body. An enlarged prostate can press on the urethra. This can make it harder to pass urine. The buildup of urine in the bladder can cause infection. Back pressure and infection may progress to bladder damage and kidney (renal) failure. What are the causes? This condition is part of the normal aging process. However, not all men develop problems from this condition. If the prostate enlarges away from the urethra, urine flow will not be blocked. If it enlarges toward the urethra and compresses it, there will be problems passing urine. What increases the risk? This condition is more likely to develop in men older than 50 years. What are the signs or symptoms? Symptoms of this condition include: ? Getting up often during the night to urinate. ? Needing to urinate frequently during the day. ? Difficulty starting urine flow. ? Decrease in size and strength of your urine stream. ? Leaking (dribbling) after urinating. ? Inability to pass urine. This needs immediate treatment. ? Inability to completely empty your bladder. ? Pain when you pass urine. This is more common if there is also an infection. ? Urinary tract infection (UTI). How is this diagnosed? This condition is diagnosed based on your medical history, a physical exam, and your symptoms. Tests will also be done, such as: ? A post-void bladder scan. This measures any amount of urine that may remain in your bladder after you finish urinating. ? A digital rectal exam. In a rectal exam, your health care provider checks your prostate by putting a lubricated, gloved finger into your rectum to feel the back of your prostate gland. This exam detects the size of your gland and any abnormal lumps or growths. ? An exam of your urine (urinalysis). ? A prostate specific antigen (PSA) screening. This is a blood test used to screen for prostate cancer. ? An ultrasound. This test uses sound waves to electronically produce a picture of your prostate gland. Your health care provider may refer you to a specialist in kidney and prostate diseases (urologist). How is this treated? Once symptoms begin, your health care provider will monitor your condition (active surveillance or watchful waiting). Treatment for this condition will depend on the severity of your condition. Treatment may include: ? Observation and yearly exams. This may be the only treatment needed if your condition and symptoms are mild. ? Medicines to relieve your symptoms, including: ? Medicines to shrink the prostate. ? Medicines to relax the muscle of the prostate. ? Surgery in severe cases. Surgery may include: ? Prostatectomy. In this procedure, the prostate tissue is removed completely through an open incision or with a laparoscope or robotics. ? Transurethral resection of the prostate (TURP). In this procedure, a tool is inserted through the opening at the tip of the penis (urethra). It is used to cut away tissue of the inner core of the prostate. The pieces are removed through the same opening of the penis. This removes the blockage. ? Transurethral incision (TUIP). In this procedure, small cuts are made in the prostate. This lessens the prostate's pressure on the urethra. ? Transurethral microwave thermotherapy (TUMT). This procedure uses microwaves to create heat. The heat destroys and removes a small amount of prostate tissue. ? Transurethral needle ablation (TUNA). This procedure uses radio frequencies to destroy and remove a small amount of prostate tissue. ? Interstitial laser coagulation (ILC). This procedure uses a laser to destroy and remove a small amount of prostate tissue. ? Transurethral electrovaporization (TUVP). This procedure uses electrodes to destroy and remove a small amount of prostate tissue. ? Prostatic urethral lift. This procedure inserts an implant to push the lobes of the prostate away from the urethra. Follow these instructions at home: ? Take qkwg-wmr-smanqww and prescription medicines only as told by your health care provider. ? Monitor your symptoms for any changes. Contact your health care provider with any changes. ? Avoid drinking large amounts of liquid before going to bed or out in public. ? Avoid or reduce how much caffeine or alcohol you drink. ? Give yourself time when you urinate. ? Keep all follow-up visits. This is important. Contact a health care provider if: ? You have unexplained back pain. ? Your symptoms do not get better with treatment. ? You develop side effects from the medicine (more content not included)... [facility] Urology Office/Clinic Noteon 09-11-2023 Urology Office/Clinic Note Chief Complaint 3m PVR HPI Staff Dr. Limon pt 68 yo male here for 3 month f/u with PVR. Previous Dx: BPH, incomplete bladder emptying, hypogonadism. S/p green light laser of prostate 02/24/15. Began taking Tamsulosin 0.4mg BID at prior OV. Receives testosterone injection 200mg q2wks per PCP. Pt decreased Tamsulosin down to QD vs BID, due to it messing with his libido. Was doing well on the BID but isn't willing to go back on that dose due to side effects. Takes in the morning, has noticed improvement in stream. Does slow down in the evening. Dribbles when he does timed voids. Would like to discuss possible prostate procedure. States he had good results following Laser of Prostate done in 2015. Review of Systems PHQ Score Initial Depression Screen Score: 0 SCORE no fever, chills, malaise, myalgia. no rash/lesions. no chest pain, palpitations, or SOB. no abdominal pain, nausea, vomiting. no unilateral calf swelling, redness, pain Physical Exam Vitals & Measurements HR: 80(Peripheral) RR: 16 BP: 132/79 HT: 70 in HT: 179 cm WT: 85 kg WT: 187 lb BMI: 26.53 General: nontoxic, NAD Mouth: moist mucosa Lungs: normal respiratory effort Cardio: regular rate, good distal perfusion Abdomen: nondistended, no suprapubic distention or tenderness, no CVA tenderness Neurologic: Grossly normal Skin: No rashes or suspicious lesions Assessment/Plan UA today neg for infection or blood. 1. BPH with obstruction/lower urinary tract symptoms (N40.1: Benign prostatic hyperplasia with lower urinary tract symptoms) S/p Green Light Laser of Prostate 02/24/[address] Ramos States he had great improvement following procedure, but urination is starting to become bothersome again over the last year or so. Nocturia 1x. Denies straining w/ urination, weak stream unless he holds it for awhile. PRW started pt on Flomax BID at last ov April 2023. Pt decreased Tamsulosin down to QD vs BID, due to it messing with his libido. Was doing well on the BID but isn't willing to go back on that dose due to side effects. We discussed current dose and optional changes: adding an additional agent such as finasteride/dutasterid e Pt will be scheduled for cystoscopy with MD for visualization of the prostatic urethra and possible surgical planning. Discussed risks of cysto including but not limited to pain, bleeding, infection. Pt prescribed abx to reduce risk of infection. Pt understands risks/benefits and wishes to proceed. Ordered: E&M of Est. Patient Moderate 30-39 Min 61724 2. Incomplete bladder emptying (R33.9: Retention of urine, unspecified) improved, 252ml last visit, 50ml today since starting Flomax Ordered: E&M of Est. Patient Moderate 30-39 Min 15943 3. Hypogonadism male (E29.1: Testicular hypofunction) Latest testosterone level 912 drawn 12/26/22 Receives Testosterone injection 200mg every 2 weeks, primary care manages. Ordered: E&M of Est. Patient Moderate 30-39 Min 04378 4. Prostate cancer screening (Z12.5: Encounter for screening for malignant neoplasm of prostate) denies family hx prostate cancer PSA 12/26/22- 0.58 JOSH Apr 2023 nl Ordered: E&M of Est. Patient Moderate 30-39 Min 45558 Other obstructive and reflux uropathy (N13.8: Other obstructive and reflux uropathy) Orders: tamsulosin, 0.4 mg = 1 cap(s), Oral, Daily, # 180 caplet(s), Refills(s) 3, Pharmacy: [facility]/pharmacy #[id number], 179, cm, 04/27/23 9:12:00 EDT, Height/Length Dosing, 82.8, kg, 05/14/23 13:11:00 EDT, Weight Dosing Urnls Dip Stick Auto w/o Microscopy POC 97198 Follow-up With When Contact Information [facility] [address] [place] [address] Business (1) Additional Instructions: our paleontology teacher will be contacting you for follow-up Patient Education Benign Prostatic Hyperplasia Problem List/Past Medical History Ongoing BPH with obstruction/lower urinary tract symptoms CPAP (continuous positive airway pressure) dependence Gastroesophageal reflux disease without esophagitis Glaucoma Heart murmur Hypercholesterolemia Hypogonadism male Incomplete bladder emptying Low back pain Over weight Primary hypertension Prostate cancer screening Shoulder pain, left Sleep apnea Stomach cramps Historical BPH (benign prostatic hyperplasia) Enlarged prostate Hypogonadism in male Procedure/Surgical History Epidural injection of lumbar spine using fluoroscopic guidance (08/11/2020), Epidural injection of lumbar spine using fluoroscopic guidance (04/30/2019), Interlaminar Epidural Steroid Injection (02/27/2018), Epidural injection of lumbar spine using fluoroscopic guidance (10/25/2016), Epidural injection of lumbar spine using fluoroscopic guidance (03/15/2016), Laser ablation of prostate (02/24/2015), Urodynamics (01/21/2015), Lumbar epidural steroid injection (01/28/2014), Lumbar epidural steroid injection (08/27/2013), Stripping of varicose vein (more content not included)... [facility] Comment on above: Result Comment: Elec tronically Signed By: ALYSSA FRANK PA-C\Date and Time Signed: 09/11/23 12:28 EST PT - Progress Noteson 2022 PT - Progress Notes [id number] 0TIFF [facility] Plan of Care - PT/OT/Speecho n 07-06-2023 Plan of Care - PT/OT/Speech [id number] CD:127 [facility] RAD - MISCon 05-30-2023 RAD - MISC [id number] 0CD:127 [facility] Family Medicine Office/Clini c Noteon 05-15-2023 Family Medicine Office/Clinic Note Chief Complaint establish care, check left shoulder HPI Staff establish care, former patient of Dr Mckeon's Establish Care: History: GERD, HTN, hypercholesterolemia, sleep apnea,hypogonadism Last provider: Linda Any recent labs: 12/2022 Health Maintenance UTD: Colonoscopy: unsure when may be due PSA: 0.58 12/26/22 covid: UTD redent phq9-5 recent charlie-0 Acute: Current issues/complaints: needs his bentyl ( dicyclomine) refilled left shoulder bothering him some, scoped in Dec. then had PT, was a little better, it's bothering him again History of Present Illness Ashley Staples is a 67-year-old male who presents today for an evaluation. He takes medication for hypertension. He has low testosterone. He states that his body does not produce testosterone. He gets an injection twice a month at his house administered by his . It is prescribed by Dr. Mckeon. He states that he already feels better with the dosage. He is still using his CPAP machine. He does not like using it. He had to go in for another study and he quit using it a few years ago. It has been 3 years since he got it changed. He no longer smokes. He has acid reflux. He takes lansoprazole 15 mg. He was taking 30 mg when it was covered. He has a heart murmur. He has had it tacked out since he was a child. He denies any lightheadedness or dizziness. He is and does not have any children. He worked at [employer]. He retired early. Review of Systems PHQ Score Initial Depression Screen Score: 1 Physical Exam Vitals & Measurements T: 36.7 ?C(Oral) HR: 80(Peripheral) RR: 14 BP: 118/80 SpO2: 99% HT: 70 in HT: 179 cm WT: 82.8 kg WT: 182.16 lb BMI: 25.84 General: alert, no acute distress Cardiovascular: regular rate and rhythm, normal peripheral perfusion Respiratory: Lungs CTA, respirations non labored Extremities: no deformity, no trauma. Limited range of motion to the left shoulder secondary to pain. Neurological: oriented x 4, LOC appropriate for age, CN II-XII intact, motor strength equal & normal bilaterally, speech normal Assessment/Plan 1. Primary hypertension (I10: Essential (primary) hypertension) Patient is at goal today. Patient should continue taking his losartan as needed. We will continue to monitor. 2. Hypogonadism in male (E29.1: Testicular hypofunction) Continue taking testosterone. Patient to get labs at next lab draw. Patient is agreeable to this. We will review patient's previous labs. 3. Gastroesophageal reflux disease without esophagitis (K21.9: Gastro-esophageal reflux disease without esophagitis) Well controlled on PPI. No other issues at this time. 4. CPAP (continuous positive airway pressure) dependence (Z99.89: Dependence on other enabling machines and devices) Continue using your CPAP machine. 5. Smoker (F17.200: Nicotine dependence, unspecified, uncomplicated) Patient is not a smoker. We are going to remove this at this time. 6. Heart murmur (R01.1: Cardiac murmur, unspecified) Patient does have a 3 out of 6 systolic murmur. Patient is asymptomatic at this time, so we will continue to monitor. No further work-up needed at this time. 7. Shoulder pain, left (M25.512: Pain in left shoulder) We will send back to physical therapy for further review and further treatment of this. We will follow up as needed. 8. Stomach cramps (R10.9: Unspecified abdominal pain) We will refill the Bentyl. 9. BMI 25.0-25.9,adult (Z68.25: Body mass index [BMI] 25.0-25.9, adult) BMI education given 10. Overweight (E66.3: Overweight) As above. We will see the patient back in 6 months. We will get lab work at that time. Portions of this record may have been created with voice recognition artificial intelligence software, specifically Sw[employer]dom, [employer] and or Take[employer]. Substitutions may have occurred due to the inherent limitations of voice recognition and artificial intelligence software. Documentation services were performed after patient or guardian consented to allow [employer] to record this visit. TODD mailing specialist and provider reviewed before signing. TODD: Karmen Justice Follow-up No qualifying data available Problem List/Past Medical History Ongoing BPH (benign prostatic hyperplasia) CPAP (continuous positive airway pressure) dependence Enlarged prostate Gastroesophageal reflux disease without esophagitis Glaucoma Heart murmur Hypercholesterolemia Hypogonadism in male Hypogonadism male Incomplete bladder emptying Low back pain Over weight Primary hypertension Shoulder pain, left Sleep apnea Stomach cramps Historical No qualifying data Procedure/Surgical History Epidural injection of lumbar spine using fluoroscopic guidance (08/11/2020), Epidural injection of lumbar spine using fluoroscopic guidance (04/30/2019), Interlaminar Epidural Steroid Injection (02/27/2018), Epidural injection of lumbar spi (more content not included)... [facility] Comment on above: Result Comment: Elec tronically Signed By: Stewart Mahajan MD\.br\Date and Time Signed: 05/15/23 08:32 EDT\.br\Electronically Co-Signed By: Karmen Justice\.br\Date and Time Co-Signed: 05/14/23 17:19 EDT Physician Referralon 023 Physician Referral [id number]. 00CD:127 [facility] Ambulatory Visit Summaryon 0 05-14-2023 Ambulatory Visit Summary ASHLEY STAPLES :1955 Visit Date:05/14/2023 Ambulatory Visit Instructions Your Diagnosis Primary hypertension Hypogonadism in male Gastroesophageal reflux disease without esophagitis CPAP (continuous positive airway pressure) dependence Smoker Heart murmur Shoulder pain, left Stomach cramps BMI 25.0-25.9,adult Overweight Your Care Team Attending Physician - Stewart Mahajan MD. Primary Care Physician - Stewart Mahajan MD This Is Your Medications List Misc Prescription (Misc DME Prescription) Misc Prescription (Misc DME Prescription) atorvastatin (atorvastatin 20 mg Tab) cholecalciferol (Vitamin D3) dicyclomine (Bentyl) duloxetine (duloxetine 60 mg Cap-DR) lansoprazole (lansoprazole 15 mg Cap-DR) latanoprost ophthalmic losartan (losartan 100 mg Tab) pseudoephedrine (Sudafed) tamsulosin (tamsulosin 0.4 mg Cap) testosterone (Testosterone Cypionate 200 mg/mL intramuscular solution) timolol ophthalmic (Timolol Maleate (Eqv-Timoptic) 0.5% ophthalmic solution) Procedures Performed Epidural injection of lumbar spine using fluoroscopic guidance (08/11/2020), Epidural injection of lumbar spine using fluoroscopic guidance (04/30/2019), Interlaminar Epidural Steroid Injection (02/27/2018), Epidural injection of lumbar spine using fluoroscopic guidance (10/25/2016), Epidural injection of lumbar spine using fluoroscopic guidance (03/15/2016), Laser ablation of prostate (02/24/2015), Urodynamics (01/21/2015), Lumbar epidural steroid injection (01/28/2014), Lumbar epidural steroid injection (08/27/2013), Stripping of varicose vein of lower limb (10/15/1989), Cholecystectomy, History of shoulder surgery, LASIK, Low back disc surgery, Torn meniscus repair. What to do next Scheduled Follow-Up Appointments Sunday 10:45 AM EDT With: Jb LIMON MD Where: [facility] Invalid Interpretation Code [address] [place] [address]- \.br\ Sunday 1:00 PM EDT \.br\ With:\.br\ Where: [facility] Ambulatory Visit Summaryon 0 04-27-2023 Ambulatory Visit Summary ASHLEY STAPLES DOB:1955 Visit Date:12/26/2022 Ambulatory Visit Instructions Your Diagnosis Acute lumbar back pain Your Care Team Attending Physician - LINDA RODGERS, SARAY Chaudhry Primary Care Physician - Stewart Mahajan MD This Is Your Medications List Misc Prescription (Misc DME Prescription) Misc Prescription (Misc DME Prescription) atorvastatin (atorvastatin 20 mg Tab) cholecalciferol (Vitamin D3) dicyclomine (Bentyl) duloxetine (duloxetine 60 mg Cap-DR) lansoprazole (lansoprazole 15 mg Cap-DR) latanoprost ophthalmic losartan (losartan 100 mg Tab) pseudoephedrine (Sudafed) testosterone (Testosterone Cypionate 200 mg/mL intramuscular solution) timolol ophthalmic (Timolol Maleate (Eqv-Timoptic) 0.5% ophthalmic solution) Procedures Performed Epidural injection of lumbar spine using fluoroscopic guidance (08/11/2020), Epidural injection of lumbar spine using fluoroscopic guidance (04/30/2019), Interlaminar Epidural Steroid Injection (02/27/2018), Epidural injection of lumbar spine using fluoroscopic guidance (10/25/2016), Epidural injection of lumbar spine using fluoroscopic guidance (03/15/2016), Laser ablation of prostate (02/24/2015), Urodynamics (01/21/2015), Lumbar epidural steroid injection (01/28/2014), Lumbar epidural steroid injection (08/27/2013), Stripping of varicose vein of lower limb (10/15/1989), Cholecystectomy, History of shoulder surgery, LASIK, Low back disc surgery, Torn meniscus repair. What to do next Scheduled Follow-Up Appointments Sunday 1:00 PM EDT With: Stewart Mahajan MD Where: [facility] Invalid Interpretation Code [address] [place] [address]- \.br\ Sunday 1:00 PM EDT \.br\ With:\.br\ Where: [facility] Patient Educationon 04-27-20 Patient Education Urology Benign Prostatic Hyperplasia Benign prostatic hyperplasia (BPH) is an enlarged prostate gland that is caused by the normal aging process. The prostate may get bigger as a man gets older. The condition is not caused by cancer. The prostate is a walnut-sized gland that is involved in the production of semen. It is located in front of the rectum and below the bladder. The bladder stores urine. The urethra carries stored urine out of the body. An enlarged prostate can press on the urethra. This can make it harder to pass urine. The buildup of urine in the bladder can cause infection. Back pressure and infection may progress to bladder damage and kidney (renal) failure. What are the causes? This condition is part of the normal aging process. However, not all men develop problems from this condition. If the prostate enlarges away from the urethra, urine flow will not be blocked. If it enlarges toward the urethra and compresses it, there will be problems passing urine. What increases the risk? This condition is more likely to develop in men older than 50 years. What are the signs or symptoms? Symptoms of this condition include: ? Getting up often during the night to urinate. ? Needing to urinate frequently during the day. ? Difficulty starting urine flow. ? Decrease in size and strength of your urine stream. ? Leaking (dribbling) after urinating. ? Inability to pass urine. This needs immediate treatment. ? Inability to completely empty your bladder. ? Pain when you pass urine. This is more common if there is also an infection. ? Urinary tract infection (UTI). How is this diagnosed? This condition is diagnosed based on your medical history, a physical exam, and your symptoms. Tests will also be done, such as: ? A post-void bladder scan. This measures any amount of urine that may remain in your bladder after you finish urinating. ? A digital rectal exam. In a rectal exam, your health care provider checks your prostate by putting a lubricated, gloved finger into your rectum to feel the back of your prostate gland. This exam detects the size of your gland and any abnormal lumps or growths. ? An exam of your urine (urinalysis). ? A prostate specific antigen (PSA) screening. This is a blood test used to screen for prostate cancer. ? An ultrasound. This test uses sound waves to electronically produce a picture of your prostate gland. Your health care provider may refer you to a specialist in kidney and prostate diseases (urologist). How is this treated? Once symptoms begin, your health care provider will monitor your condition (active surveillance or watchful waiting). Treatment for this condition will depend on the severity of your condition. Treatment may include: ? Observation and yearly exams. This may be the only treatment needed if your condition and symptoms are mild. ? Medicines to relieve your symptoms, including: ? Medicines to shrink the prostate. ? Medicines to relax the muscle of the prostate. ? Surgery in severe cases. Surgery may include: ? Prostatectomy. In this procedure, the prostate tissue is removed completely through an open incision or with a laparoscope or robotics. ? Transurethral resection of the prostate (TURP). In this procedure, a tool is inserted through the opening at the tip of the penis (urethra). It is used to cut away tissue of the inner core of the prostate. The pieces are removed through the same opening of the penis. This removes the blockage. ? Transurethral incision (TUIP). In this procedure, small cuts are made in the prostate. This lessens the prostate's pressure on the urethra. ? Transurethral microwave thermotherapy (TUMT). This procedure uses microwaves to create heat. The heat destroys and removes a small amount of prostate tissue. ? Transurethral needle ablation (TUNA). This procedure uses radio frequencies to destroy and remove a small amount of prostate tissue. ? Interstitial laser coagulation (ILC). This procedure uses a laser to destroy and remove a small amount of prostate tissue. ? Transurethral electrovaporization (TUVP). This procedure uses electrodes to destroy and remove a small amount of prostate tissue. ? Prostatic urethral lift. This procedure inserts an implant to push the lobes of the prostate away from the urethra. Follow these instructions at home: ? Take zvps-idc-vtyyjdx and prescription medicines only as told by your health care provider. ? Monitor your symptoms for any changes. Contact your health care provider with any changes. ? Avoid drinking large amounts of liquid before going to bed or out in public. ? Avoid or reduce how much caffeine or alcohol you drink. ? Give yourself time when you urinate. ? Keep all follow-up visits. This is important. Contact a health care provider if: ? You have unexplained back pain. ? Your symptoms do not get better with treatment. ? You develop side effects from the medicine (more content not included)... [facility] Discharge Note - PTon 2022 Discharge Note - PT [id number] 0CD:127 [facility] Family Medicine Office/Clini c Noteon 03-13-2023 Family Medicine Office/Clinic Note Chief Complaint Subsequent Medicare Wellness visit Review of Systems PHQ Score Initial Depression Screen Score: 0 Physical Exam Vitals & Measurements HR: 76(Peripheral) BP: 136/86 SpO2: 98% HT: 175 cm HT: 69 in WT: 81.9 kg WT: 180.18 lb BMI: 26.74 Assessment/Plan 1. Annual visit for general adult medical examination without abnormal findings (Z00.00: Encounter for general adult medical examination without abnormal findings) The patient was given a customized and personalized print out of all the current AHRQ USPSTF?s recommendations for preventative services and all current CDC recommended immunizations, relevant risk recommendations and the following patient brochures were given. Reviewed Medicare preventative services checklist. CDC-Falls Prevention and home safety screening reviewed. Patient denies any falls in last 12 months, voices no worry about falling, exhibits no problems with sitting, standing, or ambulating. Pt voices understanding with keeping walk way area free of clutter to prevent tripping and/or falling. [place] Advance Directives reviewed, patient does not have advanced directives and declined further information at time. Patient denies any problems with ADL?s and Instrumental ADL?s. Cognitive screening completed with memory and clock face drawing, no deficits noted. Immunization Record reviewed with the patient, and is up to date. Shingrix vaccine is up to date. COVID vaccines have been administered, with 1 booster. Allergies and medications reviewed and up to date. Patient denies concerns with taking medication as prescribed, reviewed OTC medications with patient, medication list up to date. Blood tests were reviewed: Discussed what tests need to be updated. Labs were ordered, and completed in office today. Colonoscopy not on file, per patient, this was possibly done at unknown facility. Cologuard information provided to patient, if he considers testing at later time. Reviewed pain symptoms with patient: back pain present 04/23, states better since PT was completed 03/08/2023. Take ibuprofen states effectiveness. Reviewed all outside providers that patient follows. Last visit summary notes available in chart and/or have been requested. AWV has been scheduled, 03/21/2024 Medicare provides yearly screening for alcohol and depression concerns. This is completed during our Medicare Wellness visit for those who do not have a current diagnosis of depression or concerns with alcohol use. I spent a total of 17 minutes on this date of service which included preparing to see the patient, face to face patient care, completing clinical documentation, obtaining and/or reviewing separately obtained history, counseling and educating the patient with handouts. Explanations were provided with reviewing questionnaires. AUDIT risk assessment screening completed, risk score 0 with patient denying concerns with use. Completed PHQ-2 risk assessment for depression with risk score 0, negative findings. Patient has been reminded to notify the provider if there would be a change or concerns with symptoms with fear, unable to sleep, worrying too much or feeling down and/or sad with lost of interest with daily activities. Will continue to monitor with screening yearly during Medicare wellness visits. 2. Encounter for hepatitis C screening test for low risk patient (Z11.59: Encounter for screening for other viral diseases) Discussed with patient the risk of Hepatitis C for people born between 9484-8215. Handout CDC-Hepatitis C given. Patient to have labs drawn for Hepatitis C screening based on year of . Will follow up with PCP at next appointment. 3. HTN (hypertension) (I10: Essential (primary) hypertension) Patient is taking losartan daily as directed. HTN stoplight reviewed with BP goal to be <140/90. Reviewed different factors that can alter blood pressure readings. Education handout provided with signs and symptoms to monitor for and report to provider. Patient is encouraged to increase portions of fruit, vegetables, fiber and increase exercise as much as tolerable. Reviewed importance with monitoring foods high in salt content and encouraged to limit intake, if unsure encouraged to discuss with their PCP. Encouraged to eat more chicken, fish and lean white meats and limits red meats in diet. Discussed importance with keeping BP under good control to reduce CVA risk factors. Patient remains active with Golf and gardening. Will continue to f/u with PCP during office visits and as needed. 4. Enlarged prostate (N40.0: Benign prostatic hyperplasia without lower urinary tract symptoms) Patient has follow up with Urology, Dr Limon, 04/27/2023. Denies issues or concerns at this time. 5. Low back pain (M54.50: Low back pain, unspecified) Patient completed PT 03/08/2023 and takes ibuprofen as prescribed. States effectiveness of medication. Patient will follow up with PCP needed. 6. Glaucoma (H40.9: Unspecified glaucoma) Patient follows with Dr. Brandt (more content not included)... Normal [facility] Comment on above: Result Comment: Elec tronically Signed By: Shanti Augustin\.br\Date and Time Signed: 03/13/23 08:09 EDT\.br\Electronically Co-Signed By: Deni Monge\.br\Date and Time Co-Signed: 03/09/23 15:42 EDT [place] 03-13-2023 Screens [id number] CD:127 Normal [facility] .Interpretation:on HCV Ab IA Ql Comment Invalid Interpretation Code [facility] Comment on above: Result Comment: Not infected with HCV unless early or acute infection is suspected (which may be delayed in an immunocompromised individual), or other evidence exists to indicate HCV infection. Performed at: [facility] [address] [id number] PhD Reji Kang Performed By: #### 2 [id number] ####[facility] [address] [place] [address] HCV Antibody RFX to [facility] [place] 03-11-2023 HCV IgG IA Ql Non-Reactive Invalid Interpretation Code Non Reactive [facility] Comment on above: Result Comment: Perf ormed at: [facility] [place] [address] [place] [id number] PhD Reji Kang Performed By: #### 2 [id number] ####[facility] [address] [place] [address] Ambulatory Visit Summaryon 0 03-09-2023 Ambulatory Visit Summary ASHLEY STAPLES :1955 Visit Date:03/09/2023 Ambulatory Visit Instructions Your Diagnosis Annual visit for general adult medical examination without abnormal findings Encounter for hepatitis C screening test for low risk patient HTN (hypertension) Enlarged prostate Low back pain Glaucoma Your Care Team Attending Physician - Keyshawn RODGERS, Stewart Chaudhry. Primary Care Physician - LINDA RODGERS, SARAY Chaudhry This Is Your Medications List atorvastatin (atorvastatin 20 mg Tab) busPIRone (busPIRone 10 mg Tab) cholecalciferol (Vitamin D3) citalopram dicyclomine (dicyclomine 20 mg Tab) duloxetine (duloxetine 60 mg Cap-DR) ibuprofen lansoprazole (Prevacid 15 mg Tab-Dis) latanoprost ophthalmic losartan testosterone (Testosterone Cypionate 200 mg/mL intramuscular solution) timolol ophthalmic (Timolol Maleate (Eqv-Timoptic) 0.5% ophthalmic solution) Procedures Performed Epidural injection of lumbar spine using fluoroscopic guidance (08/11/2020), Epidural injection of lumbar spine using fluoroscopic guidance (04/30/2019), Interlaminar Epidural Steroid Injection (02/27/2018), Epidural injection of lumbar spine using fluoroscopic guidance (10/25/2016), Epidural injection of lumbar spine using fluoroscopic guidance (03/15/2016), Lumbar epidural steroid injection (01/28/2014), Lumbar epidural steroid injection (08/27/2013), Stripping of varicose vein of lower limb (10/15/1989), Cholecystectomy, History of shoulder surgery, LASIK, Low back disc surgery, Torn meniscus repair. Discharge Vitals Heart Rate (Peripheral) 76 Blood Pressure 136/86 Height 175 cm Height 69 in Weight 81.9 kg Weight 180.18 lb BMI 26.74 What to do next Scheduled Follow-Up Appointments Sunday 9:00 AM EDT With: STEPHEN RODGERS, Jb Abad Where: [facility] [place] [id number] \.br\ Medications\.br\ What How Much When Instructions\.br\ Unchanged atorvastatin (atorvastatin 20 mg Tab) 1 Tablets By Mouth Every day\.br\ Unchanged busPIRone (busPIRone 10 mg Tab) 1 Tablets By Mouth Every day\.br\ Unchanged cholecalciferol (Vitamin D3) By Mouth Every day\.br\ Unchanged citalopram 20 Milligram By Mouth Every day\.br\ Unchanged dicyclomine (dicyclomine 20 mg Tab) 1 Tablets By Mouth 3 times a day\.br\ Unchanged duloxetine (duloxetine 60 mg Cap-DR) 60 Milligram By Mouth 2 times a day\.br\ Unchanged ibuprofen 600 Milligram By Mouth Every 8 hours as needed for as needed for pain\.br\ Unchanged lansoprazole (Prevacid 15 mg Tab-Dis) 1 Tablets By Mouth Every day\.br\ Unchanged latanoprost ophthalmic 1 Drops Both eyes Once a day (at bedtime)\.br\ Unchanged losartan 100 Milligram By Mouth Every day\.br\ Unchanged testosterone (Testosterone Cypionate 200 mg/ mL intramuscular solution) 1 Milliliter Intramuscular Every other week Unsure of actual dosage - believes its 1ml Q 2 weeks \.br\ Unchanged timolol ophthalmic (Timolol Maleate (Eqv-Timoptic) 0.5% ophthalmic solution) INSTILL 1 DROP INTO BOTH EYES EVERY MORNING \.br\ Allergies\.br\ No Known Allergies\.br\ Problems\.br\ Ongoing - Any problem that you are currently receiving treatment for.\.br\ BMI 26.0-26.9,adult\.b r\ CPAP (continuous positive airway pressure) dependence\.br\ Enlarged prostate\.br\ GERD (gastroesophageal reflux disease)\.br\ Glaucoma\.br\ Heart murmur\.br\ HTN (hypertension)\.br \ Hypercholesterolem ia\.br\ Low back pain\.br\ Over weight\.br\ Sleep apnea\.br\ Smoker\.br\ Education Materials\.br\ DASH Eating Plan\.br\ DASH stands for Dietary Approaches to Stop Hypertension. The DASH eating plan is a healthy eating plan that has been shown to:\.br\ ? \.br\ Reduce high blood pressure (hypertension).\.b r\ ? \.br\ Reduce your risk for type 2 diabetes, heart disease, and stroke.\.br\ ? \.br\ Help with weight loss.\.br\ What are tips for following this plan?\.br\ Reading food labels\.br\ ? \.br\ Check food labels for the amount of salt (sodium) per serving. Choose foods with less than 5 percent of the Daily Value of sodium. Generally, foods with less than 300 milligrams (mg) of sodium per serving fit into this eating plan.\.br\ ? \.br\ To find whole grains, look for the word whole as the first word in the ingredient list.\.br\ Shopping\.br\ ? \.br\ Buy products labeled as low-sodium or no salt added. \.br\ ? \.br\ Buy fresh foods. Avoid canned foods and pre-made or frozen meals.\.br\ Cooking\.br\ ? \.br\ Avoid adding salt when cooking. Use salt-free seasonings or herbs instead of table salt or sea salt. Check with your health care provider or pharmacist before using salt substitutes.\.br\ ? \.br\ Do not faria foods. Cook foods using healthy methods such as baking, boiling, grilling, roasting, and broiling instead.\.br\ ? \.br\ Cook with heart-healthy oils, such as olive, canola, avocado, soybean, or sunflower oil.\.br\ Meal planning\.br\ \.br\ ? \.br\ Eat a balanced diet that includes:\.br\ ? \.br\ 4 or more servings of fruits and 4 or more servings of vegetables each day. Try to fill one-half of your plate with fruits and vegetables.\.br\ ? \.br\ 6?8 servings of whole grains each day.\.br\ ? \.br\ Less than 6 oz (170 g) of lean meat, poultry, or fish each day. A 3-oz (85-g) serving of meat is about the same size as a deck of cards. One egg equals 1 oz (28 g).\.br\ ? \.br\ 2?3 servings of low-fat dairy each day. One serving is 1 cup (237 mL).\.br\ ? \.br\ 1 serving of nuts, seeds, or beans 5 times each week.\.br\ ? \.br\ 2?3 servings of heart-healthy fats. Healthy fats called omega-3 fatty acids are found in foods such as walnuts, flaxseeds, fortified milks, and eggs. These fats are also found in cold-water fish, such as sardines, salmon, and mackerel.\.br\ ? \.br\ Limit how much you eat of:\.br\ ? \.br\ Canned or prepackaged foods.\.br\ ? \.br\ Food that is high in trans fat, such as some fried foods.\.br\ ? \.br\ Food that is high in saturated fat, such as fatty meat.\.br\ ? \.br\ Desserts and other sweets, sugary drinks, and other foods with added sugar.\.br\ ? \.br\ Full-fat dairy products.\.br\ ? \.br\ Do not salt foods before eating.\.br\ ? \.br\ Do not eat more than 4 egg yolks a week.\.br\ ? \.br\ Try to eat at least 2 vegetarian meals a week.\.br\ ? \.br\ Eat more home-cooked food and less restaurant, buffet, and fast food.\.br\ Lifestyle\.br\ ? \.br\ When eating at a restaurant, ask that your food be prepared with less salt or no salt, if possible.\.br\ ? \.br\ If you drink alcohol:\.br\ ? \.br\ Limit how much you use to:\.br\ ? \.br\ 0?1 drink a day for women who are not .\.br\ ? \.br\ 0?2 drinks a day for men.\.br\ ? \.br\ Be aware of how much alcohol is in your drink. In the [place] one drink equals one 12 oz bottle of beer (355 mL), one 5 oz glass of wine (148 mL), or one 1? oz glass of hard liquor (44 mL).\.br\ General information\.br\ ? \.br\ Avoid eating more than 2,300 mg of salt a day. If you have hypertension, you may need to reduce your sodium intake to 1,500 mg a day.\.br\ ? \.br\ Work with your health care provider to maintain a healthy body weight or to lose weight. Ask what an ideal weight is for you.\.br\ ? \.br\ Get at least 30 minutes of exercise that causes your heart to beat faster (aerobic exercise) most days of the week. Activities may include walking, swimming, or biking.\.br\ ? \.br\ Work with your health care provider or dietitian to adjust your eating plan to your individual calorie needs.\.br\ What foods should I eat?\.br\ Fruits\.br\ All fresh, dried, or frozen fruit. Canned fruit in natural juice (without added sugar).\.br\ Vegetables\.br\ Fresh or frozen vegetables (raw, steamed, roasted, or grilled). Low-sodium or reduced-sodium tomato and vegetable juice. Low-sodium or reduced-sodium tomato sauce and tomato paste. Low-sodium or reduced-sodium canned vegetables.\.br\ Grains\.br\ Whole-grain or whole-wheat bread. Whole-grain or whole-wheat pasta. Brown rice. Oatmeal. Quinoa. Bulgur. Whole-grain and low-sodium cereals. Makenzie bread. Low-fat, low-sodium crackers. Whole-wheat flour tortillas.\.br\ Meats and other proteins\.br\ Skinless chicken or turkey. Ground chicken or turkey. Pork with fat trimmed off. Fish and seafood. Egg whites. Dried beans, peas, or lentils. Unsalted nuts, nut butters, and seeds. Unsalted canned beans. Lean cuts of beef with fat trimmed off. Low-sodium, lean precooked or cured meat, such as sausages or meat loaves.\.br\ Dairy\.br\ Low-fat (1%) or fat-free (skim) milk. Reduced-fat, low-fat, or fat-free cheeses. Nonfat, low-sodium ricotta or cottage cheese. Low-fat or nonfat yogurt. Low-fat, low-sodium cheese.\.br\ Fats and oils\.br\ Soft margarine without trans fats. Vegetable oil. Reduced-fat, low-fat, or light mayonnaise and salad dressings (reduced-sodium). Canola, safflower, olive, avocado, soybean, and sunflower oils. Avocado.\.br\ Seasonings and condiments\.br\ Herbs. Spices. Seasoning mixes without salt.\.br\ Other foods\.br\ Unsalted popcorn and pretzels. Fat-free sweets.\.br\ The items listed above may not be a complete list of foods and beverages you can eat. Contact a dietitian for more information.\.br\ What foods should I avoid? [facility] Ambulatory Visit Summary ASHLEY STAPLES :1955 Visit Date:03/09/2023 Ambulatory Visit Instructions Your Diagnosis Annual visit for general adult medical examination without abnormal findings Encounter for hepatitis C screening test for low risk patient HTN (hypertension) Enlarged prostate Your Care Team Attending Physician - Keyshawn RODGERS, Stewart Chaudhry. Primary Care Physician - LINDA RODGERS, SARAY Chaudhry This Is Your Medications List atorvastatin (atorvastatin 20 mg Tab) busPIRone (busPIRone 10 mg Tab) cholecalciferol (Vitamin D3) citalopram dicyclomine (dicyclomine 20 mg Tab) duloxetine (duloxetine 60 mg Cap-DR) ibuprofen lansoprazole (Prevacid 15 mg Tab-Dis) latanoprost ophthalmic losartan testosterone (Testosterone Cypionate 200 mg/mL intramuscular solution) timolol ophthalmic (Timolol Maleate (Eqv-Timoptic) 0.5% ophthalmic solution) Procedures Performed Epidural injection of lumbar spine using fluoroscopic guidance (08/11/2020), Epidural injection of lumbar spine using fluoroscopic guidance (04/30/2019), Interlaminar Epidural Steroid Injection (02/27/2018), Epidural injection of lumbar spine using fluoroscopic guidance (10/25/2016), Epidural injection of lumbar spine using fluoroscopic guidance (03/15/2016), Lumbar epidural steroid injection (01/28/2014), Lumbar epidural steroid injection (08/27/2013), Stripping of varicose vein of lower limb (10/15/1989), Cholecystectomy, History of shoulder surgery, LASIK, Low back disc surgery, Torn meniscus repair. What to do next Scheduled Follow-Up Appointments Sunday 9:00 AM EDT With: STEPHEN RODGERS, Jb Abad Where: [facility] [address] [id number]- \.br\ Medications\.br\ What How Much When Instructions\.br\ Unchanged atorvastatin (atorvastatin 20 mg Tab) 1 Tablets By Mouth Every day\.br\ Unchanged busPIRone (busPIRone 10 mg Tab) 1 Tablets By Mouth Every day\.br\ Unchanged cholecalciferol (Vitamin D3) By Mouth Every day\.br\ Unchanged citalopram 20 Milligram By Mouth Every day\.br\ Unchanged dicyclomine (dicyclomine 20 mg Tab) 1 Tablets By Mouth 3 times a day\.br\ Unchanged duloxetine (duloxetine 60 mg Cap-DR) 60 Milligram By Mouth 2 times a day\.br\ Unchanged ibuprofen 600 Milligram By Mouth Every 8 hours as needed for as needed for pain\.br\ Unchanged lansoprazole (Prevacid 15 mg Tab-Dis) 1 Tablets By Mouth Every day\.br\ Unchanged latanoprost ophthalmic 1 Drops Both eyes Once a day (at bedtime)\.br\ Unchanged losartan 100 Milligram By Mouth Every day\.br\ Unchanged testosterone (Testosterone Cypionate 200 mg/ mL intramuscular solution) 1 Milliliter Intramuscular Every other week Unsure of actual dosage - believes its 1ml Q 2 weeks \.br\ Unchanged timolol ophthalmic (Timolol Maleate (Eqv-Timoptic) 0.5% ophthalmic solution) INSTILL 1 DROP INTO BOTH EYES EVERY MORNING \.br\ Allergies\.br\ No Known Allergies\.br\ Problems\.br\ Ongoing - Any problem that you are currently receiving treatment for.\.br\ BMI 26.0-26.9,adult\.b r\ CPAP (continuous positive airway pressure) dependence\.br\ Enlarged prostate\.br\ GERD (gastroesophageal reflux disease)\.br\ Glaucoma\.br\ Heart murmur\.br\ HTN (hypertension)\.br \ Hypercholesterolem ia\.br\ Low back pain\.br\ Over weight\.br\ Sleep apnea\.br\ Smoker\.br\ \.br\ [facility] Patient Educationon 03-09-20 Patient Education Cardiovascular Hypertension, Adult High blood pressure (hypertension) is when the force of blood pumping through the arteries is too strong. The arteries are the blood vessels that carry blood from the heart throughout the body. Hypertension forces the heart to work harder to pump blood and may cause arteries to become narrow or stiff. Untreated or uncontrolled hypertension can lead to a heart attack, heart failure, a stroke, kidney disease, and other problems. A blood pressure reading consists of a higher number over a lower number. Ideally, your blood pressure should be below 120/80. The first ( top ) number is called the systolic pressure. It is a measure of the pressure in your arteries as your heart beats. The second ( bottom ) number is called the diastolic pressure. It is a measure of the pressure in your arteries as the heart relaxes. What are the causes? The exact cause of this condition is not known. There are some conditions that result in high blood pressure. What increases the risk? Certain factors may make you more likely to develop high blood pressure. Some of these risk factors are under your control, including: ? Smoking. ? Not getting enough exercise or physical activity. ? Being overweight. ? Having too much fat, sugar, calories, or salt (sodium) in your diet. ? Drinking too much alcohol. Other risk factors include: ? Having a personal history of heart disease, diabetes, high cholesterol, or kidney disease. ? Stress. ? Having a family history of high blood pressure and high cholesterol. ? Having obstructive sleep apnea. ? Age. The risk increases with age. What are the signs or symptoms? High blood pressure may not cause symptoms. Very high blood pressure (hypertensive crisis) may cause: ? Headache. ? Fast or irregular heartbeats (palpitations). ? Shortness of breath. ? Nosebleed. ? Nausea and vomiting. ? Vision changes. ? Severe chest pain, dizziness, and seizures. How is this diagnosed? This condition is diagnosed by measuring your blood pressure while you are seated, with your arm resting on a flat surface, your legs uncrossed, and your feet flat on the floor. The cuff of the blood pressure monitor will be placed directly against the skin of your upper arm at the level of your heart. Blood pressure should be measured at least twice using the same arm. Certain conditions can cause a difference in blood pressure between your right and left arms. If you have a high blood pressure reading during one visit or you have normal blood pressure with other risk factors, you may be asked to: ? Return on a different day to have your blood pressure checked again. ? Monitor your blood pressure at home for 1 week or longer. If you are diagnosed with hypertension, you may have other blood or imaging tests to help your health care provider understand your overall risk for other conditions. How is this treated? This condition is treated by making healthy lifestyle changes, such as eating healthy foods, exercising more, and reducing your alcohol intake. You may be referred for counseling on a healthy diet and physical activity. Your health care provider may prescribe medicine if lifestyle changes are not enough to get your blood pressure under control and if: ? Your systolic blood pressure is above 130. ? Your diastolic blood pressure is above 80. Your personal target blood pressure may vary depending on your medical conditions, your age, and other factors. Follow these instructions at home: Eating and drinking ? Eat a diet that is high in fiber and potassium, and low in sodium, added sugar, and fat. An example of this eating plan is called the DASH diet. DASH stands for Dietary Approaches to Stop Hypertension. To eat this way: ? Eat plenty of fresh fruits and vegetables. Try to fill one half of your plate at each meal with fruits and vegetables. ? Eat whole grains, such as whole-wheat pasta, brown rice, or whole-grain bread. Fill about one fourth of your plate with whole grains. ? Eat or drink low-fat dairy products, such as skim milk or low-fat yogurt. ? Avoid fatty cuts of meat, processed or cured meats, and poultry with skin. Fill about one fourth of your plate with lean proteins, such as fish, chicken without skin, beans, eggs, or tofu. ? Avoid pre-made and processed foods. These tend to be higher in sodium, added sugar, and fat. ? Reduce your daily sodium intake. Many people with hypertension should eat less than 1,500 mg of sodium a day. ? Do not drink alcohol if: ? Your health care provider tells you not to drink. ? You are , may be , or are planning to become . ? If you drink alcohol: ? Limit how much you have to: ? 0?1 drink a day for women. ? 0?2 drinks a day for men. ? Know how much alcohol is in your drink. In the [place] one drink equals one 12 oz bottle of beer (355 mL), one 5 oz glass of wine (148 mL), or one 1? oz glass (more content not included)... Normal [facility] Physician Referralon 023 Physician Referral [id number]:127 Normal [facility] Physician Referralon 023 Physician Referral [id number] 31 [id number] 0CD:127 Normal [facility] Ambulatory Visit Summaryon 0 01-23-2023 Ambulatory Visit Summary ASHLEY STAPLES :1955 Visit Date:01/23/2023 Ambulatory Visit Instructions Your Diagnosis Over weight CPAP (continuous positive airway pressure) dependence Enlarged prostate GERD (gastroesophageal reflux disease) HTN (hypertension) Hypercholesterolemia Low back pain Sleep apnea Your Care Team Attending Physician - SARAY MCKEON MD Primary Care Physician - LINDA RODGERS, SARAY Chaudhry This Is Your Medications List atorvastatin (atorvastatin 20 mg Tab) busPIRone (busPIRone 10 mg Tab) cholecalciferol (Vitamin D3) citalopram dicyclomine (dicyclomine 20 mg Tab) duloxetine (duloxetine 60 mg Cap-DR) ibuprofen lansoprazole (Prevacid 15 mg Tab-Dis) latanoprost ophthalmic losartan testosterone (Testosterone Cypionate 200 mg/mL intramuscular solution) timolol ophthalmic (Timolol Maleate (Eqv-Timoptic) 0.5% ophthalmic solution) Procedures Performed Epidural injection of lumbar spine using fluoroscopic guidance (08/11/2020), Epidural injection of lumbar spine using fluoroscopic guidance (04/30/2019), Interlaminar Epidural Steroid Injection (02/27/2018), Epidural injection of lumbar spine using fluoroscopic guidance (10/25/2016), Epidural injection of lumbar spine using fluoroscopic guidance (03/15/2016), Lumbar epidural steroid injection (01/28/2014), Lumbar epidural steroid injection (08/27/2013), Stripping of varicose vein of lower limb (10/15/1989), Cholecystectomy, History of shoulder surgery, LASIK, Low back disc surgery, Torn meniscus repair. Discharge Vitals Heart Rate (Peripheral) 74 Respiratory Rate 16 Blood Pressure 120/76 Height 177.80 cm Height 70 in Weight 84.4 kg Weight 185.68 lb BMI 26.7 Medications What How Much When Instructions New dicyclomine (dicyclomine 20 mg Tab) 1 Tablets By Mouth 3 times a day Refills: 1 Pickup at [facility]/pharmacy #[id number] Unchanged atorvastatin (atorvastatin 20 mg Tab) 1 Tablets By Mouth Every day Unchanged busPIRone (busPIRone 10 mg Tab) 1 Tablets By Mouth Every day Unchanged cholecalciferol (Vitamin D3) By Mouth Every day Unchanged citalopram 20 Milligram By Mouth Every day Unchanged duloxetine (duloxetine 60 mg Cap-DR) 60 Milligram By Mouth 2 times a day Unchanged ibuprofen 600 Milligram By Mouth Every 8 hours as needed for as needed for pain Unchanged lansoprazole (Prevacid 15 mg Tab-Dis) 1 Tablets By Mouth Every day Unchanged latanoprost ophthalmic 1 Drops Both eyes Once a day (at bedtime) Unchanged losartan 100 Milligram By Mouth Every day Unchanged testosterone (Testosterone Cypionate 200 mg/ mL intramuscular solution) 1 Milliliter Intramuscular Every other week Unsure of actual dosage - believes its 1ml Q 2 weeks Unchanged timolol ophthalmic (Timolol Maleate (Eqv-Timoptic) 0.5% ophthalmic solution) INSTILL 1 DROP INTO BOTH EYES EVERY MORNING Pharmacy Information [facility]/pharmacy #[id number]: [address], [place] [id number] [phone] Allergies No Known Allergies Problems Ongoing - Any problem that you are currently receiving treatment for. BMI 26.0-26.9,adult CPAP (continuous positive airway pressure) dependence Enlarged prostate GERD (gastroesophageal reflux disease) Glaucoma Heart murmur HTN (hypertension) Hypercholesterolemia Low back pain Over weight Sleep apnea Smoker Normal [facility] Family Medicine Office/Clini c Noteon 01-23-2023 Family Medicine Office/Clinic Note Chief Complaint elevated blood sugars HPI Staff Elevated blood sugars feels it was diet related and things are better Health Maintenance: Colonoscopy: yes but unsure when PSA: 0.58 12/26/22 covid: UTD [id number] charlie-2 questions/concerns: History of Present Illness HYPOTESTOSTERONISM GERD HEART MURMUR HYPERCHOLESTEROLEMIA HTN LUCIA trouble urinating HAS HAD TROUBLE WITH THE PROSTATE. Still with problems o the back and would like pt at [facility] WITH DIARRHEA Review of Systems PHQ Score Initial Depression Screen Score: 0 Constitutional: no fever, no chills, no sweats, no weakness Skin: no Jaundice, no rash, no lesions, nopetechiae ENMT: no ear pain, no sore throat, no congestion, no hoarseness Respiratory: no shortness of breath, no cough, no orthopnea, no wheezing Cardiovascular: no chest pain, no palpitations, no edema Gastrointestinal: no nausea, no vomiting, no diarrhea, no GI bleeding Genitourinary: no dysuria, no hematuria, no discharge, no pain Musculoskeletal: no back pain, no trauma Neurologic: no headache, no dizziness, no numbness, no weakness Psychiatric: no sleeping problems, no irritability, no mood swings/depression. Additional ROS info: Except as noted in the above Review of Systems and in the History of Present Illness all other systems have been reviewed and are negative or noncontributory. Physical Exam Vitals & Measurements HR: 74(Peripheral) RR: 16 BP: 120/76 SpO2: 96% HT: 70 in HT: 177.80 cm WT: 84.4 kg WT: 185.68 lb BMI: 26.7 General: alert, no acute distress Skin: warm, dry Head: no trauma, normocephalic Neck: Trachea midline, no adenopathy, no tenderness Eye: normal conjunctiva, sclera clear ENMT: TM's clear, oral mucosa moist, no pharyngeal erythema or exudate Cardiovascular: regular rate and rhythm, normal peripheral perfusion 2/3 HOLOSYSTOLIC MURMUR Respiratory: Lungs CTA, respirations non labored Chest wall: no deformity. Gastrointestinal: soft, non distended, no tenderness, no guarding. Back: No tenderness, Normal ROM, Normal alignment. Extremities: no deformity, no trauma Neurological: oriented x 4, LOC appropriate for age, CN II-XII intact, motor strength equal & normal bilaterally, sensation equal & normal bilaterally, speech normal Psychiatric: cooperative, affect appropriate for age, normal judgement, normal psychiatric thoughts. Assessment/Plan REFER TO PT FOR LOW BACK PAIN. CONTINUE THE CICYCLOMINE EXPLAINED REFER TO RULOGY FOR BPH. MEDS REVIEWED DIET AND EXERCISE EXPLAINED. 1. Over weight (E66.3: Overweight) Ordered: Body Mass Index (BMI) documented 3008F Current tobacco non-user 1036F Depression Screening Negative 3352F Influenza immunization administered or previously received 4274F Most recent diastolic blood pressure <80 mm Hg 3078F Patient screen for fall risk: no falls in last year or 1 fall with no injury in last year 1101F Systolic BP <130 mm Hg (Most Recent) 3074F 2. CPAP (continuous positive airway pressure) dependence (Z99.89: Dependence on other enabling machines and devices) 3. Enlarged prostate (N40.0: Benign prostatic hyperplasia without lower urinary tract symptoms) 4. GERD (gastroesophageal reflux disease) (K21.9: Gastro-esophageal reflux disease without esophagitis) 5. HTN (hypertension) (I10: Essential (primary) hypertension) 6. Hypercholesterolemia (E78.00: Pure hypercholesterolemia, unspecified) 7. Low back pain (M54.50: Low back pain, unspecified) 8. Sleep apnea (G47.30: Sleep apnea, unspecified) Orders: dicyclomine, 20 mg = 1 tab(s), Oral, TID, # 270 tab(s), Refills(s) 1, Pharmacy: [facility]/pharmacy #[id number], 177.8, cm, 01/23/23 13:58:00 EDT, Height/Length Dosing, 84.4, kg, 01/23/23 13:58:00 EDT, Weight Dosing Follow-up No qualifying data available Problem List/Past Medical History Ongoing BMI 26.0-26.9,adult CPAP (continuous positive airway pressure) dependence Enlarged prostate GERD (gastroesophageal reflux disease) Glaucoma Heart murmur HTN (hypertension) Hypercholesterolemia Low back pain Over weight Sleep apnea Smoker Historical No qualifying data Procedure/Surgical History Epidural injection of lumbar spine using fluoroscopic guidance (08/11/2020), Epidural injection of lumbar spine using fluoroscopic guidance (04/30/2019), Interlaminar Epidural Steroid Injection (02/27/2018), Epidural injection of lumbar spine using fluoroscopic guidance (10/25/2016), Epidural injection of lumbar spine using fluoroscopic guidance (03/15/2016), Lumbar epidural steroid injection (01/28/2014), Lumbar epidural steroid injection (08/27/2013), Stripping of varicose vein of lower limb (10/15/1989), Cholecystectomy, History of shoulder surgery, LASIK, Low back disc surgery, Torn meniscus repair. Medications atorvastatin 20 mg Tab, 20 mg= 1 tab(s), Oral, Daily busPIRone 10 mg Tab, 10 mg= 1 tab(s), Oral, Daily, Not taking citalopram, 20 mg, Oral, (more content not included)... Normal [facility] Comment on above: Result Comment: Elec tronically Signed By: LINDA RODGERS, SARAY Chaudhry\.br\Date and Time Signed: 01/23/23 14:59 EDT TESTOSTERONE, TOTALon 2022 Testosterone [Mass/Vol] 912 ng/dL Normal 264-916 [facility] Comment on above: Result Comment: Adul t male reference interval is based on a population of healthy nonobese males (BMI <30) between 19 and 39 years old. Leeroy et.al. JCEM 2017,102;4502-1474. PMID: [id number]. Performed By: #### T ESTTOT #### [facility] [address] [place] [address] Dr. Clive Savage CBC AUTO DIFFon 12-26-2022 BASO # 0.0 103/ul Normal 0.0-0.1 [facility] Comment on above: Performed By: #### C BC #### [facility] [address] [place] [address] Dr. Clive Savage Basophils/100 WBC (Bld) 0.5 % Normal 0.2-2.0 [facility] Comment on above: Performed By: #### C BC #### [facility] [address] [place] [address] Dr. Clive Savage EO # 0.1 103/ul Normal 0.0-0.7 [facility] Comment on above: Performed By: #### C BC #### [facility] [address] [place] [address] Dr. Clive Savage Eosinophils/100 WBC (Bld) 2.1 % Normal 0.9-7.0 [facility] Comment on above: Performed By: #### C BC #### [facility] [address] [place] [address] Dr. Clive Savage Erythrocyte distribution width (RBC) [Ratio] 13.6 % Normal 11.0-15.0 [facility] Comment on above: Performed By: #### C BC #### [facility] [address] [place] [address] Dr. Clive Savage Hematocrit (Bld) [Volume fraction] 52.1 % Normal 42.0-54.0 [facility] Comment on above: Performed By: #### C BC #### [facility] [address] [place] [address] Dr. Clive Savage Hemoglobin (Bld) [Mass/Vol] 16.9 g/dL Normal 14.0-18.0 [facility] Comment on above: Performed By: #### C BC #### [facility] [address] [place] [address] Dr. Clive Savage IG # 0.01 10e3/ul Normal 0.00-0.03 [facility] Comment on above: Performed By: #### C BC #### [facility] [address] [place] [address] Dr. Clive Savage IG % 0.2 % Normal 0.0-0.5 [facility] Comment on above: Performed By: #### C BC #### [facility] [address] [place] [address] Dr. Clive Savage LYMPH # 1.9 103/ul Normal 1.2-3.8 [facility] Comment on above: Performed By: #### C BC #### [facility] [address] [place] [address] Dr. Clive Savage Lymphocytes/100 WBC (Bld) 32.6 % Normal 20.5-60.0 [facility] Comment on above: Performed By: #### C BC #### [facility] [address] [place] [address] Dr. Clive Savage MANUAL DIFF REQ NO Normal [facility] Comment on above: Performed By: #### C BC #### [facility] [address] [place] [address] Dr. Clive Savage MCH (RBC) [Entitic mass] 28.5 pg Normal 25.9-34.0 [facility] Comment on above: Performed By: #### C BC #### [facility] [address] [place] [address] Dr. Clive Savage MCHC (RBC) [Mass/Vol] 32.4 g/dL Normal 29.9-35.2 [facility] Comment on above: Performed By: #### C BC #### [facility] [address] [address] [address] Clive Savage MCV (RBC) [Entitic vol] 87.7 fL Normal 80.0-94.0 [facility] Comment on above: Performed By: #### C BC #### [facility] [address] [address] [address] Clive Savage MONO # 0.4 103/ul Normal 0.3-0.8 [facility] Comment on above: Performed By: #### C BC #### [facility] [address] [place] [address] Dr. Clive Savage Monocytes/100 WBC (Bld) 6.7 % Normal 1.7-12.0 [facility] Comment on above: Performed By: #### C BC #### [facility] [address] [place] [address] Dr. Clive Savage NEUT # 3.4 103/ul Normal 1.4-6.5 [facility] Comment on above: Performed By: #### C BC #### [facility] [address] [place] [address] Dr. Clive Savage Neutrophils/100 WBC (Bld) 57.9 % Normal 43.0-75.0 [facility] Comment on above: Performed By: #### C BC #### [facility] [address] [place] [address] Dr. Clive Savage Platelet mean volume (Bld) [Entitic vol] 9.1 fL Critically low 9.5-13.5 [facility] Comment on above: Performed By: #### C BC #### [facility] [address] [place] [address] Dr. Clive Savage PLT 169 103/ul Normal 150-450 [facility] Comment on above: Performed By: #### C BC #### [facility] [address] [place] [address] Dr. Clive Savage RBC 5.94 106/ul Normal 4.70-6.10 [facility] Comment on above: Performed By: #### C BC #### [facility] [address] [address] [address] Clive Savage WBC 5.8 103/ul Normal 4.0-11.0 [facility] Comment on above: Performed By: #### C BC #### [facility] [address] [address] [address] Clive Savage LIPID PROFILEon 12-26-2022 CHOL-HDL RATIO NORM SEE BELOW Normal [facility] Comment on above: Result Comment: 3.3 - 4.4 LOW RISK 4.4 - 7.1 AVERAGE RISK 7.1 - 11.0 MODERATE RISK >11.0 HIGH RISK Performed By: #### L IPID, CMP #### [facility] [address] [place] [address] Dr. Clive Savage Cholesterol [Mass/Vol] 132 mg/dL Normal <=200 [facility] Comment on above: Performed By: #### L IPID, CMP #### [facility] [address] [place] [address] Dr. Clive Savage Cholesterol in HDL [Mass/Vol] 45 mg/dL Normal 40-60 [facility] Comment on above: Performed By: #### L IPID, CMP #### [facility] [address] [place] [address] Dr. Clive Savage Cholesterol in LDL [Mass/Vol] 70.8 mg/dL Normal [facility] Comment on above: Performed By: #### L IPID, CMP #### [facility] [address] [address] [address] Clive Savage Cholesterol.total/ Cholesterol in HDL [Mass ratio] 2.9 {ratio} Normal [facility] Comment on above: Performed By: #### L IPID, CMP #### [facility] [address] [place] [address] Dr. Clive Savage HDL NORMAL > or = 60 mg/dl - LO W CARDIOVASCULAR RISK <40 mg/dl - HIGH CARDIOVASCULAR RISK Normal [facility] Comment on above: Performed By: #### L IPID, CMP #### [facility] [address] [place] [address] Dr. Clive Savage LDL CALC NORMAL SEE BELOW Normal [facility] Comment on above: Result Comment: <100 mg/dl OPTIMAL 100 - 129 mg/dl NEAR OR ABOVE OPTIMAL 130 - 159 mg/dl BORDERLINE HIGH 160 - 189 mg/dl HIGH >190 mg/dl VERY HIGH Performed By: #### L IPID, CMP #### [facility] [address] [place] [address] Dr. Clive Savage Triglyceride [Mass/Vol] 81 mg/dL Normal <=150 [facility] Comment on above: Performed By: #### L IPID, CMP #### [facility] [address] [address] [address] Clive Savage VLDL CALC 16.2 mg/dL Normal [facility] Comment on above: Performed By: #### L IPID, CMP #### [facility] [address] [place] [address] Dr. Clive Savage PROF 14(COMP METB)on 023 Albumin [Mass/Vol] 4.0 g/dL Normal 3.4-5.0 [facility] Comment on above: Performed By: #### L IPID, CMP #### [facility] [address] [place] [address] Dr. Clive Savage Albumin/Globulin [Mass ratio] 1.2 {ratio} Normal [facility] Comment on above: Performed By: #### L IPID, CMP #### [facility] [address] [place] [address] Dr. Clive Savage ALP [Catalytic activity/Vol] 60 U/L Normal 46-116 [facility] Comment on above: Performed By: #### L IPID, CMP #### [facility] [address] [place] [address] Dr. Clive Savage ALT [Catalytic activity/Vol] 42 U/L Normal 16-63 [facility] Comment on above: Performed By: #### L IPID, CMP #### [facility] [address] [place] [address] Dr. Clive Savage Anion gap [Moles/Vol] 6.6 mmol/L Normal [facility] Comment on above: Performed By: #### L IPID, CMP #### [facility] [address] [address] [address] Clive Savage AST [Catalytic activity/Vol] 17 U/L Normal 15-37 [facility] Comment on above: Performed By: #### L IPID, CMP #### [facility] [address] [address] [address] Clive Savage Bilirubin [Mass/Vol] 0.4 mg/dL Normal 0.2-1.0 [facility] Comment on above: Performed By: #### L IPID, CMP #### [facility] [address] [address] [address] Clive Savage Calcium [Mass/Vol] 9.4 mg/dL Normal 8.5-10.1 [facility] Comment on above: Performed By: #### L IPID, CMP #### [facility] [address] [place] [address] Dr. Clive Savage Chloride [Moles/Vol] 102 mmol/L Normal 98-107 [facility] Comment on above: Performed By: #### L IPID, CMP #### [facility] [address] [address] [address] Clive Savage CO2 [Moles/Vol] 34.8 mmol/L Critically high 21.0-32.0 [facility] Comment on above: Performed By: #### L IPID, CMP #### [facility] [address] [address] [address] Clive Savage Creatinine [Mass/Vol] 0.88 mg/dL Normal 0.70-1.30 [facility] Comment on above: Performed By: #### L IPID, CMP #### [facility] [address] [place] [address] Dr. Clive Savage EGFR-AF [place] ISLANDER >60 Normal >=60 [facility] Comment on above: Performed By: #### L IPID, CMP #### [facility] [address] [place] [address] Dr. Clive Savage EGFR-NON AF [place]ER >60 Normal >=60 [facility] Comment on above: Performed By: #### L IPID, CMP #### [facility] [address] [address] [address] Clive Savage Globulin (S) [Mass/Vol] 3.3 g/dL Normal [facility] Comment on above: Performed By: #### L IPID, CMP #### [facility] [address] [address] [address] Clive Savage Glucose [Mass/Vol] 123 mg/dL Critically high 74-106 T [facility] Comment on above: Performed By: #### L IPID, CMP #### [facility] [address] [address] [address] Clive Savage Potassium [Moles/Vol] 4.4 mmol/L Normal 3.5-5.1 [facility] Comment on above: Performed By: #### L IPID, CMP #### [facility] [address] [address] [address] Clive Savage Protein [Mass/Vol] 7.3 g/dL Normal 6.4-8.2 [facility] Comment on above: Performed By: #### L IPID, CMP #### [facility] [address] [address] [address] Clive Savage Sodium [Moles/Vol] 139 mmol/L Normal 136-145 [facility] Comment on above: Performed By: #### L IPID, CMP #### [facility] [address] [address] [address] Clive Savage Urea nitrogen [Mass/Vol] 9.0 mg/dL Normal 7.0-18.0 [facility] Comment on above: Performed By: #### L IPID, CMP #### [facility] [address] [address] [address] Clive Savage Urea nitrogen/Creatinin e [Mass ratio] 10.2 mg/mg Normal [facility] Comment on above: Performed By: #### L IPID, CMP #### [facility] [address] [address] [address] Clive Savage aortaon 09-27-2022 [facility] [address] [address] Ultrasound Report Signed Patient: Ashley Staples MR#: [id number] : 1955 Acct:[id number] Age/Sex: 67 / M ADM Date: 09/21/22 Loc: [facility]: [facility] Attending Dr: Favian Baldwin MD Ordering Provider: Favian Baldwin MD Date of Service: 09/21/22 US/US aorta: I71.4 Copies to: Favian Baldwin MD ULTRASOUND OF THE ABDOMINAL AORTA: CLINICAL INFORMATION: 3.5 cm abdominal aortic aneurysm COMPARISON : None TECHNIQUE AND FINDINGS: Multiple ultrasonographic scans of the abdominal aorta were obtained and show: Following measurement were obtained: Mid height: 2.8cm width : 2.8cm Distal height: 3.2cm width : 3.4cm US/US aorta IMPRESSION: 3.4 cm stable, infrarenal abdominal aortic aneurysm without, complicating features. Impression dictated by: Favian Baldwin MD09/28/2022 8:50 AM Dictation Location: [place] [address] Tech: Alyssa Munguia Transcribed By: LING 09/28/22 0850 Dictated By: Favian Baldwin MD 09/27/22 1522 Signed By: 09/28/22 0850 Normal [facility] US carotid doppler BIon 09-0 US carotid doppler BI [facility] [address] [place] [id number] Ultrasound Report Signed Patient: Ashley Staples MR#: [id number] : 1955 Acct:[id number] Age/Sex: 66 / M ADM Date: 06/15/22 Loc: [facility]: [facility] Attending Dr: Favian Baldwin MD Ordering Provider: Favian Baldwin MD Date of Service: 06/15/22 US/US carotid doppler BI: I65.23 Copies to: Favian Baldwin MD CAROTID DUPLEX INDICATION: Bruit PROCEDURE: Color-flow duplex scanning is used to interrogate the extracranial carotid arterial system, as well as both vertebral arteries. Both carotid bifurcations show some smooth homogeneous plaque formation. The right internal carotid artery shows a highest peak systolic velocity of 84 with an end-diastolic velocity of 21 cm per second. The velocities of the right common carotid artery are 81peak systolic and 14 cm/sec 1.30end-diastolic. The peak systolic velocity ratio of the internal to the common carotid artery is1.08. The right vertebral artery is patent with antegrade flow. The left internal carotid artery shows a highest peak systolic velocity of 109 with an end- diastolic velocity of 22 cm per second. The velocities of the left common carotid artery are 157peak systolic and 20cm/sec end-diastolic. The peak systolic velocity ratio of the internal to the common carotid artery is 1.3. The left vertebral artery is patent with antegrade flow. 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 BOTH VERTEBRAL ARTERIES ARE PATENT WITH ANTEGRADE FLOW. Impression dictated by: Favian Baldwin MD06/27/2022 12:23 PM Dictation Location: [place] [address] Tech: Alysas Munguia Transcribed By: LING 06/27/22 1223 Dictated By: Favian Baldwin MD 06/23/22 1234 Signed By: 06/27/22 1223 [facility] MRI Shoulder w/o Lefton 03-16 MRI Shoulder w/o Left HISTORY: Anterior and lateral shoulder pain for 2 years. With limited range of motion. TECHNIQUE: Routine non-contrast MRI of the shoulder , left side COMPARISON: None RESULT: Rotator Cuff Tendons: Mild tendinosis involving supraspinatus, infraspinatus, and subscapularis, without tear. Teres minor appears intact. Long Head Biceps Tendon: Intact with appropriate location. Muscle: Muscle bulk and signal intensity are within normal limits. Labrum: Appears grossly intact. Bones and Marrow: No evidence of fracture or bone marrow replacing process. Glenohumeral Joint: Cartilage appears grossly preserved. No joint effusion. Thickening of the joint capsule with increased signal, associated with adhesive capsulitis. Acromioclavicular Joint: Mild degenerative changes. Other: Mild subacromial-subdeltoid bursal thickening/fluid. IMPRESSION: Rotator cuff tendinosis without tear. Findings associated with adhesive capsulitis. Report reported and signed by Satnam Clayton on 04/12/2022 1452 Normal [facility] CNOVon 12-15-2021 CNOV Office Visit (DEVENDRAT ) ASHLEY STAPLES ([id number]) 1955 M Date Time Provider Department 12/15/21 9:00 AM PINO BARRON During your visit today, we recorded the following information about you: Pulse Blood pressure Weight 68/minute 148/79 83.5 kg Shasta Montess 12/15/2021 9:13 AM Signed Ashley Staples is a 66 year old year old right handed man Accompanied by: spouse. 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 What would you like to accomplish with this visit today? I want more information about what I got. Vital Signs: BP 148/79 Pulse 68 Wt 83.5 kg (184 lb) Pino Barron MD 12/16/2021 10:13 AM Signed [facility] New Patient Evaluation Ashley Staples : 1955 12/15/2021 9:30 AM Referral Source Saray Goldbergusky [facility] [address] Accompanied by: spouse Identifying Information: Ashley Staples is a 66 year old White, male with a past medical history of HTN, HLD, T2DM, AVS, AAA, testicular hypofunction, migraines and past neuropsychiatric history of anxiety who is presenting to [facility] today with a chief complaint of abnormal MRI findings. Subjective History of Present Illness: Mr. Staples presents to clinic today with his with an MRI scan with findings they were unable to interpret. The patient received the MRI as an order from his primary care provider for evaluation of panic attack and anxiety. Per patient was becoming increasingly anxious over the summer and on it culminated in an intense panic attack. The patient has been seeing his primary care provider for management of his anxiety and has been started on buspirone and Tegretol and reports notable benefits with these. 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 They were beginning to bother him over the summer and he became increasing hyper-focused on them and distressed by them around . When describes the panic attack she states that he had been drinking excess caffeine that day and was very hyper and agitated. He was unable to be calmed in the acute setting but eventually lied down in bed and felt better the next morning. In the days surrounding the panic attack noticed mild word finding difficulties. Patient reports that since starting BuSpar and Tegretol he feels that he is back to his normal self. states that he is improved to 99% at this point. However through the course of these events patient's primary care provider obtained an MRI which revealed white matter changes which they were unable to interpret. Patient's PCP referred him to our clinic for further evaluation. Patient reports a significant history of multiple brain injuries. He had multiple episodes of head trauma and loss of consciousness when he was a child and in his teen years. He denies ever having any brain bleeds but he is aware. Patient inquired if our clinic would be able to manage his anxiety medications. I discussed with him the need to obtain a psychiatrist and he was understanding. Neuropsychiatric symptoms ? Cognition: ? Memory: mild memory concerns but has been better than in the past ? Language: fluency, comprehension, naming, word finding ? Executive functioning: reasoning, judgement, planning; poor concentration at baseline ? Visuospatial: no losing items, getting lost, trouble putting on clothes, unable to perceive objects ? Fluctuations: no fluctuations, episodes of confusion, sundowning spells, episodes of nonsensical speech ? Behavior: ? Mood: good ? Personality: good ? Sleep: never poor ? Appetite: tegretol increased appetite, 10lb weight gain ? Hallucinations/Delusio ns: ? Socially inappropriate behavior: none ? Perseverative behaviors: denies ? Change in eating habits: denies ? Physical changes: denies ? Sense of Smell: denies difficulties ? Balance: denies difficulties ? Gait: denies difficulties ? Motor: deneis tremor, rigidity, weakness, myoclonus ? Continence: maintained Ability to function: ADLs: Independent Driving: yes, no concerns Medication Management: Independent Falls: denies Social History: Marital Status: Housing: with Agencies involved: none Education: 12 years Occupation: retired Reports that he has been smoking cigars. He has never used smokeless tobacco. Alcohol Use: Not Currently - used to binge drink but quit 5 years ago Denies drug use Past Medical History: The patient has a past medical history of Abdominal ao (more content not included)... Normal [facility] Vital Signs Date Time Vital Sign Value Performing Clinician Facility 09-21-2022 12:00-0500 Body height 180.34 cm Favian Pottsanna [facility] 09-21-2022 12:00-0500 Body mass index (BMI) [Ratio] 25.38 kg/m2 Favian Baldwin [facility] 09-21-2022 12:00-0500 Body temperature 97.4 [degF] Favian Baldwin Other [facility] 09-21-2022 12:00-0500 Body weight 82.56 kg Favian Baldwin Other [facility] 09-21-2022 12:00-0500 Diastolic blood pressure 66 mm[Hg] Favian Baldwin [facility] 09-21-2022 12:00-0500 SaO2% (BldA) [Mass fraction] 99 % Favian Baldwin [facility] 09-21-2022 12:00-0500 Systolic blood pressure 116 mm[Hg] Favian Baldwin [facility] 06-15-2022 13:30-0400 Body height 180.34 cm Favian Baldwin Other [facility] 06-15-2022 13:30-0400 Body mass index (BMI) [Ratio] 25.38 kg/m2 Favian Baldwin Other [facility] Other 06-15-2022 13:30-0400 Body temperature 97.4 [degF] Favian Baldwin Other [facility] Other 06-15-2022 13:30-0400 Body weight 82.56 kg Favian Baldwin Other [facility] Other 06-15-2022 13:30-0400 Diastolic blood pressure 78 mm[Hg] Favian Baldwin Other [facility] Other 06-15-2022 13:30-0400 SaO2% (BldA) [Mass fraction] 98 % Favian Baldwin [facility] Other 06-15-2022 13:30-0400 Systolic blood pressure 128 mm[Hg] Favian Baldwin [facility] Other Encounters Encounter Date Encounter Type Care Provider Facility Start: 01-14-2024 End: 01-15-2024 ambulatory Jb LIMON Facility: [place] Start: 12-04-2023 End: 12-05-2023 ambulatory Stewart Mahajan [place] Start: 11-29-2023 End: 11-30-2023 ambulatory Stewart Zamarripa Keyshawn Facility:[facility] Jessica ellington Start: 10-30-2023 End: 10-30-2023 ambulatory GUILLE NATHAN Not Available Start: 10-23-2023 End: 10-23-2023 ambulatory GUILLE Shipman NATHAN Not Available Start: 10-22-2023 End: 10-23-2023 ambulatory Jb R STEPHEN Facility:[id number] Start: 10-16-2023 End: 10-17-2023 ambulatory Stewart Mahajan Facility:[facility] Jessica ellington Start: 09-18-2023 ambulatory Shanti Estrella [facility] Start: 09-11-2023 End: 09-12-2023 ambulatory PAGisselleC ALYSSA FRANK [facility] [place] Start: 05-14-2023 End: 05-15-2023 ambulatory Stewart Mahajan Facility:[facility] Jessica [place] Start: 04-27-2023 End: 04-28-2023 ambulatory Jb R STEPHEN Facility:[facility] Start: 03-09-2023 End: 03-10-2023 ambulatory Shanti Estrella [place] Start: 01-23-2023 End: 01-24-2023 ambulatory SARAY MCKEON Facility:[facility] Jessica smalle Start: 12-26-2022 End: 12-27-[address] SARAY MCKEON . Facility: Start: 09-21-2022 Office outpatient visit 15 minutes [facility] Start: 09-21-2022 End: 09-21-2022 ambulatory Favian Baldwin [facility] Other Start: 06-15-2022 End: 06-15-2022 ambulatory Saray Mckeon [facility] Other Start: 06-15-2022 Office outpatient visit 15 minutes Favian Baldwin [facility] Procedures Date Procedure Procedure Detail Performing Clinician Start: 12-26-[address] SARAY BECERRAT . Comment on above: Performed By: #### P SAD #### [facility] [address] [place] [address] Dr. Clive Savage Plan of Treatment Date Care Activity Detail Author Start: 05-27-2024 ambulatory Ambulatory Facility:[facility] Start: 03-20-2024 ambulatory Ambulatory Facility:[facility] [place] Payers Date Payer Category Payer Medicare [id number] 2022 Private Health Insurance [facility] [id number] 2022 Self-pay 1960 Medicare [id number] 1955 Unknown [id number] 2.16.84 [id number] 1955 Unknown [id number] 2.16.84 0.1.583538.3.579.2.1259 1954 Unknown [id number] 2.16.84 0.1.147399.3.579.2.1259 1954 Unknown [id number] 2.16.8 40.1.098097.3.579.2.727 1954 Unknown [id number] 2.16.8 40.1.484240.3.579.2.727 1954 Unknown [id number] 2.16.8 40.1.712455.3.579.2.727 1954 Unknown [id number] 2.16.8 40.1.460483.3.579.2.727 1954 Unknown [id number] 2.16.8 40.1.995350.3.579.2.727 1954 Unknown [id number] 2.16.8 40.1.730058.3.579.2.727 1954 Unknown [id number] 2.16.8 40.1.639687.3.579.2.727 1954 Unknown [id number] 2.16.8 40.1.042581.3.579.2.727 1954 Unknown [id number] 2.16.8 40.1.014351.3.579.2.727 1954 Unknown [id number] 2.16.8 40.1.260500.3.579.2.727 1954 Unknown [id number] 2.16.8 40.1.911311.3.579.2.727 1954 Unknown [id number] 2.16.8 40.1.999430.3.579.2.727 1954 Unknown [id number] 2.16.8 40.1.271993.3.579.2.727 1954 Unknown [id number] 2.16.8 40.1.434373.3.579.2.727 1954 Unknown [id number] 2.16.8 40.1.735731.3.579.2.727 Medicare [id number] 2 .16.840.1.430083.19 Unknown [id number] 2.16.8 40.1.588060.3.579.2.531 Unknown [id number] 2.16.8 40.1.970240.3.579.2.531 Social History Date Type Detail Facility Sex Assigned At [facility] Other Clinical Note 04-27-2023 Note Date & Type Note Facility 04-27-2023 Note Chief Complaint referral for enlarged prostate HPI Staff Evaluation requested by Dr Saray Mckeon due to enlarged prostate. Pt is a new pt, last seen in our office 06/08/15 by DLS due to BPH, Incomplete Bladder Emptying, Post Void Dribbling, Frequency, Nocturia & Urgency. Pt states that he still feels as if he is not emptying and today his PVR is 252ml. S/P [facility] of Prostate 02/24/15 PSA 12/26/22- 0.58 Testosterone 12/26/22- 912 Dysuria: no Incomplete bladder emptying: pt feels he is not emptying Hematuria: no Frequency: a little more than before Urgency: no Nocturia: 1-2x Stream: no straining but has a weak stream unless he holds it for a while Leaking: no Post void dripping: yes Wearing pads/ Depends: no Urge incontinence: no Stress incontinence: no Incontinence without Sensory Awareness: no Abdominal pain: no Flank pain: no Sexual complaints: no History of Present Illness Tests reviewed: reviewed UA, PSA, Testosterone. I have reviewed the previous health record information and history for this patient from Dr. Limon. I have reviewed and verified the staff HPI to be accurate for this encounter. There have been no associated fever, chills, flank pain, or blood in the urine. Denies any urinary infections since last encounter. Review of Systems PHQ Score Initial Depression Screen Score: 0 ROS - Provider Constitutional: denies weight loss, denies hot flashes. Eyes: denies eye problems. Gastrointestinal: denies nausea, denies vomiting. Cardiovascular: denies chest pain or angina. Integumentary: no dryness Musculoskeletal: denies musculoskeletal symptoms. ENMT: denies otolaryngeal symptoms. Respiratory: no shortness of breath. Heme/Lymph: denies easy bleeding tendency, denies easy bruising tendency. Psychiatric: no confusion, no anxiety. Genitourinary: See HPI. Physical Exam Vitals & Measurements HR: 89(Peripheral) RR: 16 BP: 136/78 HT: 70 in HT: 179 cm WT: 85 kg WT: 187 lb BMI: 26.53 General Appearance: alert, no distress, well nourished, well developed male. Head: normocephalic . Eyes: normal orbit and globe. ENMT: normal examination of external ears. Chest: Lungs CTA, respirations non labored. Cardiovascular: regular rate and rhythm. Abdomen: soft, non distended, no tenderness, no mass or organomegaly, no hernia. Genitourinary: normal scrotum, normal testes, normal urethra, normal epididymis, normal vas deferens/spermatic cord. Flank Pain: none. Bladder: nonpalpable. Penis: normal shaft, normal glans. Lymph Nodes: unremarkable palpation of the cervical area. Skin: warm, dry, no bruising. Psychiatric: cooperative, affect appropriate for age, normal judgement, euthymic mood. Assessment/Plan Patient last seen by Dr. Ramos 2014. 1. BPH (benign prostatic hyperplasia) (N40.0: Benign prostatic hyperplasia without lower urinary tract symptoms) New patient referred by Dr. Mckeon for enlarged prostate. S/p Green Light Laser of Prostate 02/24/[address] Ramos. Patient unsure if he has tried Flomax in the past. States he had great improvement following procedure, but urination is starting to become bothersome again over the last year or so. Nocturia 1x. Denies straining w/ urination, weak stream unless he holds it for awhile. UA today neg for infection or blood. Discussed starting prostate medication to aide with urination. Will start Tamsulosin 0.4mg BID, trial for at least 2 months. Discussed side effects. Possible cystoscopic evaluation if symptoms would not improve. PSA 12/26/22- 0.58 Follow up in 3 months w/ PVR. All questions/concerns were discussed. Pt to call the office if he encounters any issues prior. Pt acknowledges understanding and agrees with plan. 2. Incomplete bladder emptying (R33.9: Retention of urine, unspecified) PVR 252 ml. Biggest complaint is that patient feels he is not emptying. Repeat PVR at next visit. 3. Hypogonadism male (E29.1: Testicular hypofunction) Latest testosterone level 912 drawn 12/26/22 Receives Testosterone injection 200mg every 2 weeks, primary care manages. Follow-up With When Contact Information Jb LIMON MD, [facility] [address], [place] [address]- Additional Instructions: 3 weeks w/ PVR Patient Education Benign Prostatic Hyperplasia I, Sanjuanita Espitia, personally scribed for Dr. Limon on 04/27/2023 10:03:31. . Documentation recorded by the scribe, Sanjuanita Espitia, accurately reflects the services(s) I performed and decisions made by me. Problem List/Past Medical History Ongoing BMI 26.0-26.9,adult BPH (benign prostatic hyperplasia) CPAP (continuous positive airway pressure) dependence Enlarged prostate GERD (gastroesophageal reflux disease) Glaucoma Heart murmur HTN (hypertension) Hypercholesterolemia Hypogonadism in male Hypogonadism male Incomplete bladder emptying Low yoni (more content not included)... [facility] Comment on above: Result Comment: Elec tronically Signed By: Jb LIMON MD\.br\Date and Time Signed: 04/27/23 10:06 EDT\.br\Electronically Co-Signed By: Sanjuanita Espitia\.br\Date and Time Co-Signed: 04/27/23 10:03 EDT Evaluation note 09-21-2022 Note Date & Type Note Facility 09-21-2022 Evaluation note Encounter Date Diagnosis Assessment Notes Sep, Abdominal aortic aneurysm (AAA) 3.0 cm to 5.5 cm in diameter in male (ICD-10 - I71.4) I reviewed the abdominal or aortic duplex today. His aneurysm remains small. We will see him in 2 years for continued surveillance. Patient understands agrees the plan all his questions were addressed. Is very likely this patient will never need repair. [facility] Other Evaluation note 06-15-2022 Note Date & Type Note Facility 06-15-2022 Evaluation note Encounter Date Diagnosis Assessment Notes Jun, Abdominal aortic aneurysm (AAA) 3.0 cm to 5.5 cm in diameter in male (ICD-10 - I71.4) I reviewed the carotid duplex results with the patient today. His carotid is normal and his carotid duplex today was normal today. I do not recommend any further surveillance or screening studies of the carotid arteries at this time. We were not able to complete the abdominal aortic ultrasound due to bowel gas. We want to reschedule this. Although I am not too concerned about the size since he was 3.5 last year. Patient understands agrees the plan all his questions were addressed. [facility] Other [facility] note 12-15-2021 Note Date & Type Note Facility 12-15-2021 Note HNO ID: [id number] Author: Pino Barron MD Service: ? Author Type: Physician Type: Progress Notes Filed: 12/16/2021 10:13 AM Note Text: [facility] New Patient Evaluation Ashley Staples : 1955 12/15/2021 9:30 AM Referral Source Saray [address] [facility] [address] Accompanied by: spouse Identifying Information: Ashley Staples is a 66 year old White, male with a past medical history of HTN, HLD, T2DM, AVS, AAA, testicular hypofunction, migraines and past neuropsychiatric history of anxiety who is presenting to [facility] today with a chief complaint of abnormal MRI findings. Subjective History of Present Illness: Mr. Staples presents to clinic today with his with an MRI scan with findings they were unable to interpret. The patient received the MRI as an order from his primary care provider for evaluation of panic attack and anxiety. Per patient was becoming increasingly anxious over the summer and on it culminated in an intense panic attack. The patient has been seeing his primary care provider for management of his anxiety and has been started on buspirone and Tegretol and reports notable benefits with these. 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 They were beginning to bother him over the summer and he became increasing hyper-focused on them and distressed by them around . When describes the panic attack she states that he had been drinking excess caffeine that day and was very hyper and agitated. He was unable to be calmed in the acute setting but eventually lied down in bed and felt better the next morning. In the days surrounding the panic attack noticed mild word finding difficulties. Patient reports that since starting BuSpar and Tegretol he feels that he is back to his normal self. states that he is improved to 99% at this point. However through the course of these events patient's primary care provider obtained an MRI which revealed white matter changes which they were unable to interpret. Patient's PCP referred him to our clinic for further evaluation. Patient reports a significant history of multiple brain injuries. He had multiple episodes of head trauma and loss of consciousness when he was a child and in his teen years. He denies ever having any brain bleeds but he is aware. Patient inquired if our clinic would be able to manage his anxiety medications. I discussed with him the need to obtain a psychiatrist and he was understanding. Neuropsychiatric symptoms ? Cognition: ? Memory: mild memory concerns but has been better than in the past ? Language: fluency, comprehension, naming, word finding ? Executive functioning: reasoning, judgement, planning; poor concentration at baseline ? Visuospatial: no losing items, getting lost, trouble putting on clothes, unable to perceive objects ? Fluctuations: no fluctuations, episodes of confusion, sundowning spells, episodes of nonsensical speech ? Behavior: ? Mood: good ? Personality: good ? Sleep: never poor ? Appetite: tegretol increased appetite, 10lb weight gain ? Hallucinations/Delusions: ? Socially inappropriate behavior: none ? Perseverative behaviors: denies ? Change in eating habits: denies ? Physical changes: denies ? Sense of Smell: denies difficulties ? Balance: denies difficulties ? Gait: denies difficulties ? Motor: deneis tremor, rigidity, weakness, myoclonus ? Continence: maintained Ability to function: ADLs: Independent Driving: yes, no concerns Medication Management: Independent Falls: denies Social History: Marital Status: Housing: with Agencies involved: none Education: 12 years Occupation: retired Reports that he has been smoking cigars. He has never used smokeless tobacco. Alcohol Use: Not Currently - used to binge drink but quit 5 years ago Denies drug use Past Medical History: The patient has a past medical history of Abdominal aortic aneurysm (AAA) without rupture (HCC), Anxiety, Aortic valve stenosis, Essential hypertension, Migraine, Testicular hypofunction, and Type 2 diabetes mellitus without complication, without long-term current use of insulin (HCC). Mental Health: Anxious If history of traumatic brain injury? Yes Past Surgical History: The patient has a past surgical history that includes epidural steroid lumbar/caudal (ag). Family History: The patient family history includes Parkinson?s Disease in his father. The patient He indicated that the status of his father is unknown. Family history of dementia: father in late stages of PD Family history of movement disorder: yes Medications: Current Outpatient Medications on File Prior to Visit Medication Sig - atorvastatin (LIPITOR) 20 (more content not included)... [facility] History general Narrative - Reported Note Date & Type Note Facility History general Narrative - Reported Type Medical History venous insufficiency Medical History AAA Surgical History back surgery 2010 Surgical History vein stripping 1989 Surgical History gall bladder Hospitalization History see surgical history [facility] Other History general Narrative - Reported Note Date & Type Note Facility History general Narrative - Reported Type Medical History venous insufficiency Medical History AAA Surgical History back surgery 2010 Surgical History vein stripping 1989 Surgical History gall bladder 2000 Hospitalization History see surgical history [facility] Other Summary Purpose Family History No Family History Records FoundNo Family History Records FoundNo Family History Records FoundNo Family History Records FoundNo Family History Records FoundNo Family History Records Found Advance Directives No Advanced Directives Records FoundNo Advanced Directives Records FoundNo Advanced Directives Records FoundNo Advanced Directives Records FoundNo Advanced Directives Records FoundNo Advanced Directives Records Found Additional Source Comments (unrecognized sect ion and content) No Status Records FoundNo Status Records FoundNo Status Records FoundNo Status Records FoundNo Status Records FoundNo Status Records Found INFORMATION SOURCE (unrecogn ized section and content) DATE CREATED AUTHOR 01/06/2022 [facility] DATE CREATED AUTHOR AUTHOR'S ORGANIZ ATION 04/13/2022 [facility] DATE CREATED AUTHOR AUTHOR'S ORGANIZ ATION 10/05/2022 [facility] DATE CREATED AUTHOR AUTHOR'S ORGANIZ ATION 01/02/2023 [facility] DATE CREATED AUTHOR AUTHOR'S ORGANIZ ATION 10/31/2023 [facility] EPIC DATE CREATED AUTHOR AUTHOR'S ORGANIZ ATION 01/16/2024 [facility] REASON FOR VISIT (unrecogniz ed section and content) 1 year follow up; AAA ,CAR I NITIAL2 MONTH FOLLOW UP; ABDOMINAL ULTRASOUND 10:30 FOR RECORDS PERTAINING TO PATIENTS WHO ARE OR HAVE BEEN ENROLLED IN A CHEMICAL DEPENDENCY/SUBSTANCEABUSE PROGRAM, SOME INFORMATION MAY BE OMITTED. This clinical summary was aggregated from multiple sources. Caution should be exercised in using it in the provision of clinical care. This summary normalizes information from multiple sources, and as a consequence, information in this document may materially change the coding, format and clinical context of patient data. In addition, data may be omitted in some cases. CLINICAL DECISIONS SHOULD BE BASED ON THE PRIMARY CLINICAL RECORDS. [employer] provides no warranty or guarantee of the accuracy or completeness of information in this document.
== END 2024-01-23 19:57 | disposition home or self-care (01) ==
LOC: SLEEP 19:56
PROVIDERS: PCP Nurse Practitioner Family; Visit Provider Nurse Practitioner Family
DX: G47.33 Obstructive sleep apnea (adult) (pediatric) (principal)
CPT/HCPCS: 95810

== ENCOUNTER 2024-06-02 10:09 | Emergency (ER) | payer MEDICARE, SELFPAY ==
[2024-06-02 10:19] VITALS: BP 130/70; PULSE 73; TEMP 36.8; O2SAT 97; BMI 27.3
[2024-06-02] MEDS: BACITRACIN 0.9 GM PACKET 1 PACKET TOPICAL (11:10)
--- NOTE | 2024-06-02 11:16 | ED.GENADUL1 ---
HPI HPI - General Adult General Chief complaint: Wound/Laceration Stated complaint: WOUND CHECK Time Seen by Provider: 06/02/24 10:30 Mode of arrival: walk-in History of Present Illness HPI narrative: The patient presented to us with area of redness and itching in the right foot, mentioned that he recently almost 2 days ago noticed that after he was wearing a new sandals , he mentioned that this new sandals irritated his foot There is no pain there is no fever no other complaints Related Data Home Medications ?Medication ?Instructions ?Recorded ?Confirmed atorvastatin 20 mg tablet 20 mg PO DAILY 10/18/23 10/18/23 cholecalciferol (vitamin D3) 10 400 unit PO DAILY 10/18/23 10/18/23 mcg (400 unit) capsule (Vitamin D3) duloxetine 60 mg capsule,delayed 60 mg PO BID 10/18/23 10/18/23 release lansoprazole 15 mg delayed 15 mg PO DAILY 10/18/23 10/18/23 release,disintegrating tablet latanoprost 0.005 % eye drops 1 drp ophthalmic (eye) QPM 10/18/23 10/18/23 losartan 100 mg tablet (Cozaar) 100 mg PO DAILY 10/18/23 10/18/23 pseudoephedrine HCl 30 mg tablet 30 mg PO Q4H PRN nasal congestion 10/18/23 10/18/23 (Sudafed) tamsulosin 0.4 mg capsule 0.4 mg PO Q24H 10/18/23 10/18/23 testosterone cypionate 200 mg/mL 100 mg IM QWEEK 10/18/23 10/18/23 intramuscular oil timolol maleate 0.5 % eye drops 1 drp ophthalmic (eye) DAILY 10/18/23 10/18/23 Previous Rx's ?Medication ?Instructions ?Recorded alfuzosin 10 mg tablet,extended 10 mg PO DAILY #30 tabs 10/22/23 release 24 hr alclometasone 0.05 % topical cream 1 applic topical DAILY #15 grams 06/02/24 cephalexin 500 mg capsule 500 mg PO Q8H 7 days #21 caps 06/02/24 Allergies Allergy/AdvReac Type Severity Reaction Status Date / Time No Known Drug Allergies Allergy Verified 05/24/23 15:53 Opioid HPI Opioid Management Most Recent Opioid Data: No Data to Display Review of Systems ROS Status of ROS 10 or more systems reviewed and unremarkable except as noted in history and below PFSH PFSH Surgical History (Updated 10/18/23 @ 10:27 by Marya Pedraza) S/P lateral meniscal repair ?Z98.890 - Other specified postprocedural states (ICD-10) H/O lumbar discectomy ?Z98.890 - Other specified postprocedural states (ICD-10) Hx of LASIK ?Z98.890 - Other specified postprocedural states (ICD-10) H/O arthroscopy of shoulder ?Z98.890 - Other specified postprocedural states (ICD-10) History of cholecystectomy ?Z90.49 - Acquired absence of other specified parts of digestive tract (ICD-10) H/O varicose vein stripping ?Z98.890 - Other specified postprocedural states (ICD-10) S/P epidural steroid injection ?Z92.241 - Personal history of systemic steroid therapy (ICD-10) Family History (Updated 10/18/23 @ 10:47 by Marya Pedraza) Other Bipolar 1 disorder Dementia Social History (Updated 10/18/23 @ 10:48 by Marya Basilio) Within the past year, how often did you have a drink containing alcohol: monthly or less Smoking status: Former smoker Non-prescribed substance use: denies use Previous occupational history: retired Highest level of school completed/degree received: high school graduate Exam Narrative Exam Narrative: Nurses notes and vital signs reviewed and patient is not hypoxic. Bilateral lower extremity evaluation: Evaluation of the patient's right foot showed that the patient have irritation of the skin around the small toe although the patient had no fungal infection between the toe webs and all the foot, but there is an area of almost 2 cm area of irritation and swelling. Mild redness no fluctuation Patient have a good anterior tibial pulse bilaterally and no vascular injury detected General: Well-appearing and in no apparent distress. Skin: Warm, dry, no pallor noted. No rash. Head: Normocephalic, atraumatic. Neck: Supple, non-tender. Eye: Pupils are equal, round and EOMI. No scleral icterus. Ears, Nose, Mouth, and Throat: TM are clear, no nasal mucosal hypertrophy. Oral mucosa is moist, no posterior oropharynx erythema, uvula is mid-line Cardiovascular: Regular Rate and Rhythm without murmur, gallop or rub. Respiratory: No accessory muscle use or respiratory distress. Lungs are clear to auscultation, no wheezing, rales or rhonchi Chest Wall: no tenderness Back: No midline thoracic or lumbar vertebral tenderness. No CVA tenderness GI: Abdomen is soft, non-distended. Normal bowel sounds. No masses appreciated. No tenderness to palpation. No rebound, guarding, or rigidity noted. Neurological: A&O x4. No cranial nerve dysfunction observed. No truncal ataxia. Moves all extremities. Sensation intact. Psychiatric: Cooperative and interactive. Normal mood and affect. Constitutional Vital Signs, click to edit/add: Last Vital Signs Temp 98.2 F 06/02/24 10:19 Pulse 73 06/02/24 10:19 Resp 18 06/02/24 10:19 BP 130/70 06/02/24 10:19 Pulse Ox 97 06/02/24 10:19 O2 Del Method Room Air 06/02/24 10:19 Course Vital Signs Vital signs: Vital Signs Temperature 98.2 F 06/02/24 10:19 Pulse Rate 73 06/02/24 10:19 Respiratory Rate 18 06/02/24 10:19 Blood Pressure 130/70 06/02/24 10:19 Pulse Oximetry 97 06/02/24 10:19 Oxygen Delivery Method Room Air 06/02/24 10:19 Temperature 98.2 F 06/02/24 10:19 Pulse Rate 73 06/02/24 10:19 Respiratory Rate 18 06/02/24 10:19 Blood Pressure 130/70 06/02/24 10:19 Pulse Oximetry 97 06/02/24 10:19 Oxygen Delivery Method Room Air 06/02/24 10:19 Medical Decision Making [facility] Narrative Medical decision making narrative: The patient can irritation looks more of a contact dermatitis as it is leaking and the skin is hardened but the patient have no signs of abscess formation The patient will be covered for possible cellulitis he had the lesion marked so that he follow-up and monitor The patient was started on Keflex in addition to a small dose steroid to be applied daily The patient is to follow up with primary care physician in next 2-3 days or to return to the emergency department should any of the signs or symptoms worsen or new symptoms develop. The patient agrees with the following Diagnosis and Treatment plan and the patient will be discharged home. Discharge Plan Discharge Stand Alone Forms: Portal Instructions Chief Complaint: Wound/Laceration Clinical Impression: Cellulitis of foot Contact dermatitis Qualifiers: Contact dermatitis type: allergic Contact dermatitis trigger: unspecified trigger Qualified Code(s): L23.9 - Allergic contact dermatitis, unspecified cause Patient Disposition: Home, Self-Care Time of Disposition Decision: 11:00 Condition: Good Prescriptions / Home Meds: New cephalexin 500 mg capsule 500 mg PO Q8H 7 Days Qty: 21 0RF alclometasone 0.05 % cream 1 applic topical DAILY Qty: 15 0RF Rx Instructions: for 5 days No Action duloxetine 60 mg capsule,delayed release(DR/EC) 60 mg PO BID tamsulosin 0.4 mg capsule 0.4 mg PO Q24H atorvastatin 20 mg tablet 20 mg PO DAILY lansoprazole 15 mg tablet,disintegrat, delay rel 15 mg PO DAILY latanoprost 0.005 % drops 1 drp ophthalmic (eye) QPM losartan [Cozaar] 100 mg tablet 100 mg PO DAILY pseudoephedrine HCl [Sudafed] 30 mg tablet 30 mg PO Q4H PRN (Reason: nasal congestion) Rx Instructions: DNExceed 4 doses/24h testosterone cypionate 200 mg/mL oil 100 mg IM QWEEK timolol maleate 0.5 % drops 1 drp ophthalmic (eye) DAILY cholecalciferol (vitamin D3) [Vitamin D3] 10 mcg (400 unit) capsule 400 unit PO DAILY alfuzosin 10 mg tablet extended release 24 hr 10 mg PO DAILY Qty: 30 6RF Rx Instructions: administer after the same meal each day Print Language: New Zealander Instructions: Contact Dermatitis (DC), Cellulitis (ED) Referrals: Shraddha Yeung NP [Primary Care Provider] - 1 week Rick Lazaro DPM [Physician] - 1 week
[2024-06-02 11:22] VITALS: PULSE 63; O2SAT 97
== END 2024-06-02 11:25 | disposition home or self-care (01) ==
PROVIDERS: Emergency Provider Emergency Medicine; PCP Nurse Practitioner Family
DX: L03.115 Cellulitis of right lower limb (principal); Z87.891 Personal history of nicotine dependence
CPT/HCPCS: 99283

== ENCOUNTER 2024-10-20 09:52 | Outpatient (OUT) | payer MEDICARE, SELFPAY ==
--- NOTE | 2024-10-20 10:01 | ECG_ITS ---
[facility] Test Date: 2024-10-20 Pat Name: ASHLEY CHAPMAN Department: Room: - Gender: Male [employer] Up Worker: : 1955 Requested By: CHRISTINE MITCHELL Order Number: [id number] Reading MD: VELMA ACOSTA Measurements Intervals [place] Rate: 62 P: 66 TN: 179 QRS: 42 QRSD: 84 T: 87 QT: 379 QTc: 387 Interpretive Statements SINUS RHYTHM POSSIBLE LEFT ATRIAL ENLARGEMENT [-0.1mV P WAVE IN V1/V2] MODERATE T-WAVE ABNORMALITY, CONSIDER LATERAL ISCHEMIA [-0.1+ mV T WAVE IN I/aVL/V5/V6] No previous ECG available for comparison Electronically Signed On 10-20-2024 20:27:14 EST by VELMA ACOSTA
[2024-10-20 11:27] LABS: Basophils Absolute Auto 0.1 10^3/uL (0.0-0.1); Basophils Percent Auto 1.1 % (0.2-2.0); Eosinophils Absolute Auto 0.1 10^3/uL (0.0-0.7); Eosinophils Percent Auto 2.6 % (0.9-7.0); Hematocrit 49.4 % (42.0-54.0); Immature Granulocytes Abs Auto 0.09 10^3/uL (0.00-0.03); Immature Granulocytes Pct Auto 1.7 % (0.0-0.5); Lymphocytes Absolute Auto 1.6 10^3/uL (1.2-3.8); Lymphocytes Percent Auto 29.4 % (20.5-60.0); Mean Corpuscular HGB Conc 32.4 g/dL (29.9-35.2); Mean Corpuscular Hemoglobin 28.8 pg (25.9-34.0); Monocytes Absolute Auto 0.5 10^3/uL (0.3-0.8); Monocytes Percent Auto 8.7 % (1.7-12.0); Neutrophils Absolute Auto 3.1 10^3/uL (1.4-6.5); Neutrophils Percent Auto 56.5 % (43.0-75.0); Platelet Count 142 10^3/uL (150-450); Red Blood Count 5.55 10^6/uL (4.70-6.10); Red Cell Distribution Width 13.1 % (11.0-15.0); White Blood Count 5.4 10^3/uL (4.0-11.0)
[2024-10-20 11:30] LABS: INR 1.03; Partial Thromboplastin Time 27.3 sec (22.3-36.2); Prothrombin Time 10.9 sec (9.0-11.6)
[2024-10-20 13:27] LABS: Anion Gap 13.1; BUN Creatinine Ratio 16.1; Calcium 9.4 mg/dL (8.5-10.1); Carbon Dioxide 28.3 mmol/L (21.0-32.0); Chloride 104 mmol/L (98-107); Estimated GFR (African America >60 (>=60 mL/min/1.73m^2); Estimated GFR (Non-African Ame >60 (>=60 mL/min/1.73m^2); Glucose 113 mg/dL (74-106); Potassium 4.4 mmol/L (3.5-5.1); Sodium 141 mmol/L (136-145)
== END 2024-10-20 09:53 | disposition home or self-care (01) ==
PROVIDERS: PCP Family Medicine; Visit Provider Urology
DX: Z01.810 Encounter for preprocedural cardiovascular examination (principal); Z01.812 Encounter for preprocedural laboratory examination; N40.1 Benign prostatic hyperplasia with lower urinary tract symptoms
CPT/HCPCS: 36415; 80048; 85025; 85610; 85730; 93005

== ENCOUNTER 2024-10-31 12:53 | Outpatient (OUT) | payer MEDICARE, SELFPAY ==
--- NOTE | 2024-10-31 13:00 | CA_ITS ---
Patient Name: ASHLEY CHAPMAN MR#: [id number] : 1955 Exam Date: 10/31/2024 Ordering Doctor: RADHA DAVIS M.D. ECHOCARDIOGRAM REPORT PROCEDURE: CA ECHO DOPPLER COMPLETE INDICATIONS: Murmur, hypertension COMPARISON: None. DESCRIPTION: COMPLETE ECHOCARDIOGRAM Real-time transthoracic echocardiography with 2D, M-mode, spectral and color flow Doppler performed. QUALITY: Technical quality was good. LEFT VENTRICLE: Normal chamber size. Moderate concentric left ventricular hypertrophy. LV EF: Normal left ventricular ejection fraction, (65%). DIASTOLIC: Grade I diastolic dysfunction. ATRIAL SEPTUM: LEFT ATRIUM: Mild dilatation. RIGHT ATRIUM: Normal chamber size. RIGHT VENTRICLE: Normal chamber size. Normal right ventricular systolic function. TRICUSPID VALVE: Normal mobility and thickness. No stenosis with trivial regurgitation. No evidence of pulmonary hypertension. RVSP 27 mmHg MITRAL VALVE: Normal mobility and thickness. No evidence of mitral valve stenosis. Moderate mitral annular calcification. Trivial mitral regurgitation. AORTIC VALVE: Normal trileaflet appearance. Mildly calcified aortic valve. Normal leaflet mobility. No evidence of aortic valve stenosis. No aortic regurgitation. AORTIC ROOT: Normal diameter and appearance. PULMONIC VALVE: Normal thickness and mobility. No stenosis. No regurgitation. PERICARDIUM: No evidence of pericardial effusion. IVC: Collapses with inspirations. PLEURA: CONCLUSION: 1. Moderate concentric left ventricular hypertrophy with normal systolic function. LVEF is 65%. 2. Normal right ventricular size and systolic function. 3. Grade I diastolic dysfunction. 4. No significant valvular dysfunction. 5. Normal right sided pressures. Adult Echocardiography Procedure Report Left Ventricle LVEDD (3.7 - 5.6 cm): 4.24 cm LVESD (2.2 - 4.0 cm): 2.92 cm LVIVS thickness (0.6 - 1.2 cm): 1.53 cm LVPW thickness (0.5 - 1.0 cm): 1.17 cm e': 0.05 m/s E - e': 20.34 LVOT Max Gradient: 5.42 mm[Hg] LVOT Area (cm2): 1.16 m/s Peak Velocity (LVOT): 1.16 m/s Mean Velocity (LVOT): 0.81 m/s LVOT Diameter 2.08 cm Left Atrium Left Atrium Systolic Dimension: 4.26 cm Mitral Valve MV E to A Ratio: 0.76 Mitral Valve A-Wave Peak Velocity: 1.45 m/s Mitral Valve E-Wave Peak Velocity: 1.10 m/s Right Ventricle Aorta AO Root Diam: 3.83 cm Aortic Valve AoV Area (Peak Alexis): 2.25 cm2, 3.45 cm2 AoV Area (VTI): 2.09 cm2, 3.33 cm2 Peak Velocity(Antegrade Flow): 1.15 m/s, 1.76 m/s Peak Gradient(Antegrade Flow): 5.26 mm[Hg], 12.44 mm[Hg] Mean Velocity(Antegrade Flow): 0.75 m/s, 1.30 m/s Mean Gradient(Antegrade Flow): 2.54 mm[Hg], 7.37 mm[Hg] Velocity Time Integral: 24.84 cm, 39.51 cm Tricuspid Valve Peak Velocity (Regurgitant Flow): 2.46 m/s Pulmonic Valve Mean Gradient: 2.62 mm[Hg] Mean Velocity: 0.73 m/s Peak Velocity: 1.21 m/s, 1.09 m/s Peak Gradient: 4.76 mm[Hg], 5.83 mm[Hg] Right Atrium Dictated by: Shankar Beltran M.D. on 11/01/2024 at 15:51 Approved by: Shankar Beltran M.D. on 11/01/2024 at 15:55
== END 2024-10-31 12:54 | disposition home or self-care (01) ==
LOC: CARD 12:53
PROVIDERS: PCP Family Medicine; Visit Provider Internal Medicine Cardiovascular Disease
DX: R01.1 Cardiac murmur, unspecified (principal)
CPT/HCPCS: 93306

== ENCOUNTER 2024-11-06 13:14 | Day surgery (SDC) | payer MEDICARE, SELFPAY ==
[2024-10-20 10:13] VITALS: BP 155/73; PULSE 68; TEMP 36.2; O2SAT 99; BMI 28.5
[2024-11-06] VITALS (14 sets, daily range): BP systolic 149–179; BP diastolic 82–97; PULSE 68–100; TEMP 36.2–36.8; O2SAT 93–99; BMI 28.8
[2024-11-06] MEDS: LACTATED RINGER'S SOLUTION 1,000 ML 50 ML IV (15:45)
[2024-11-06] MEDS: LEVOFLOXACIN IN DEXTROSE 5 % 500 MG/100 ML PREMIX 100 MG IV (15:45)
--- NOTE | 2024-11-06 16:48 | PM.URSON ---
Urology Surgery Operative Note Operative Note Procedure Date: 11/06/24 Time Out Performed: yes Pre-op Diagnosis: BPH with LUTS. Post-op Diagnosis: same as pre-op Procedures performed: 1. Cystoscopy. 2. Transurethral resection of the prostate. Anesthesia: GETA Primary Surgeon: Jb Limon Complications: None Estimated blood loss (mL): 10 Findings: Apical obstruction Specimens: Prostate chips Drains: 22 Citizen [place] three-way coud? Vasquez catheter taped to traction and CBI Indications for Procedures: This gentleman has BPH with LUTS. He had a greenlight laser done about a decade ago. He is not tolerating Flomax due to side effects. Endoscopically he has an obstructed apex and some lateral lobe regrowth. He is desirous for a transurethral resection of the prostate so that he can stay off of medications for BPH. He has signed an informed consent after risks were explained. Some of these risks include bleeding, infection, anesthesia, urinary incontinence both temporary and permanent, erectile dysfunction, possible persistence of his bladder outlet obstructive symptoms, retrograde ejaculation and possible need for other operations to name a few. Detailed description of Procedure: The patient was brought to the operating room and placed on the operating room table in the supine position. SCDs were placed on the lower extremities and turned on and functioning during the entire case. Timeout was done by all parties in the room. We all agreed upon the patient's identification and the planned procedures for this patient. Genn. anesthesia was then administered. The patient was then repositioned into the modified dorsal lithotomy position. All pressure points were satisfactorily padded. Genitalia were sterilely prepped and draped in usual fashion. I started by passing a 26 Citizen [place] Olympus resectoscope with a standard bipolar loop electrode per urethra and into the bladder. The ureteral orifices were marked with the electrode. I then brought the scope back into the prostatic urethra. There was a fair amount of regrowth posteriorly. The apex was also obstructed. I started at the posterior prostate and resected this down from the bladder neck to the Veru. The bladder neck was open. The lateral lobes had not regrown a lot. Some of the left lateral lobe was then resected. I then brought the scope back to the apex. This was opened up so as to relieve coapting obstructing lobes. The resection bed was coagulated. The Ilich was used to get all the chips out of the bladder and these were sent for permanent sections. Upon completion with the scope at the Veru, the prostatic urethra and bladder neck were now wide open. There was no bleeding. There were no chips remaining in the bladder. The scope was then removed. A 22 Citizen [place] three-way coud? was placed in the bladder. It was manually irrigated with a Radha syringe. 30 cc of fluid was placed in the balloon. It was taped to traction and CBI was started. It irrigated to clear color. The anesthetic was reversed. He was then transferred to a [facility] bed and wheeled to PACU in stable condition. Urinary Catheter Management Urinary Catheter Management 3-way Urethral: Cath placed during this visit: no
[2024-11-06] MEDS: SOLIFENACIN SUCCINATE 10 MG TABLET PO (17:04)
[2024-11-06] MEDS: 0.9 % SODIUM CHLORIDE 1,000 ML 80 ML IV (18:01)
[2024-11-06] MEDS: SODIUM CHLORIDE IRRIG SOLUTION 3,000 ML 3000 ML IRR ×2 (18:32→22:07)
[2024-11-06] MEDS: ATORVASTATIN CALCIUM 20 MG TABLET PO (22:07)
[2024-11-06] MEDS: DICYCLOMINE HCL 10 MG CAPSULE 20 MG PO (22:08)
[2024-11-06] MEDS: CEFAZOLIN SODIUM/DEXTROSE,ISO 1 GM/50 ML PREMIX IV (22:08)
[2024-11-06] MEDS: TEMAZEPAM 15 MG CAPSULE PO (22:54)
[2024-11-06] MEDS: HYDROCODONE/ACET 5-325 MG TABLET 1 TAB PO (23:32)
[2024-11-07] MEDS: SODIUM CHLORIDE IRRIG SOLUTION 3,000 ML 3000 ML IRR ×2 (00:15→02:45)
[2024-11-07 00:59] VITALS: BP 156/80
[2024-11-07] MEDS: HYDROMORPHONE HCL 0.5 MG/0.5 ML SYRINGE IV (01:58)
[2024-11-07 04:00] VITALS: BP 135/80; PULSE 97; TEMP 36.7; O2SAT 92
[2024-11-07] MEDS: CEFAZOLIN SODIUM/DEXTROSE,ISO 1 GM/50 ML PREMIX IV (04:01)
[2024-11-07] MEDS: OMEPRAZOLE 20 MG CAPSULE.DR PO (05:31)
[2024-11-07] MEDS: DICYCLOMINE HCL 10 MG CAPSULE 20 MG PO (05:31)
[2024-11-07] MEDS: SOLIFENACIN SUCCINATE 10 MG TABLET PO (09:27)
== END 2024-11-07 11:31 | disposition home or self-care (01) ==
LOC: SURGOUT 16:41 → MS 17:25
PROVIDERS: PCP Nurse Practitioner Family; Visit Provider Urology
PROC: (CPT 52630; principal; 2024-11-06 15:05)
DX: N40.1 Benign prostatic hyperplasia with lower urinary tract symptoms (principal); E78.00 Pure hypercholesterolemia, unspecified; K21.9 Gastro-esophageal reflux disease without esophagitis; R01.1 Cardiac murmur, unspecified; I10 Essential (primary) hypertension; Z90.49 Acquired absence of other specified parts of digestive tract; Z87.891 Personal history of nicotine dependence
CPT/HCPCS: 52630; 36415; 88305; J0690; J1100; J1171; J2250; J2405; J2704; J3010

== ENCOUNTER 2025-04-22 18:55 | Observation (INO) | payer MEDICARE, SELFPAY ==
--- OUTSIDE RECORDS SUMMARY | 2024-06-17 07:15 | XMS_ITS ---
Author Organization [facility] [place] Address [address] [place] [address] Care Team Providers Care Chiropractic Care Name Role Phone Stewart Mahajan MD Primary Care Provider Michelle EastpremaRick [phone] REASON FOR VISIT 10 day follow up RT foot infection Medications Medication SIG (Take, Route, Frequency, Duration) Notes Start Date End Date Status Sudafed 30 MG 2 tablets as needed Orally every 6 hrs Active Losartan Potassium 100 MG 1 tablet Orally Once a day Active Trintellix 5 MG 1 tablet Orally Once a day Active Testosterone 200 MG as directed Implant Active Vitamin D3 125 MCG (5000 UT) 1 capsule Orally Once a day Active Bactrim DS 800-160 MG 1 tablet Orally Tw ice a day for 10 days 06/06/2024 Active Atorvastatin Calcium 20 MG 1 tablet Orally Once a day Active Lansoprazole 15 MG 1 capsule before a m eal Orally Once a day Active Bentyl 10 MG/ML 1 mL Intramuscular F our times a day Active Alfuzosin HCl ER 10 MG 1 tablet immediat sujit after the same meal Orally Once a day Active Social History Tobacco Use: Social History Observation Description Date Details (start date - stop date) Former Smoker NA - NA Tobacco Control (Standard) Question Answer Notes Tobacco use: Former smoker Vital Signs Weight 180 lbs 06/17/2024 Height 69 in 06/17/2024 Temperature 98.2 degrees Fahrenheit 06/17/20 24 Heart Rate 95 /min 06/17/2024 BMI 26.58 kg/m2 06/17/2024 Oximetry 99 % 06/17/2024 Encounters Encounter Location Date Provider Diagnosis [facility] (PODIATRY) [address] [place] [address] [place] [address] 06/17/2024 Rick Lazaro Tinea pedis B35.3 Assessments Encounter Date Diagnosis (ICD Code) Assessment Notes Treatment Notes Treatment Clinical Notes Section Notes 06/17/2024 Tinea pedis (ICD-10 - B35.3) Patient is doing very well and has been in open toed shoes. He may return to close toed shoes regular shoes and activity as tolerated. Recommended [id number] antifungals directed to athletes feet for prevention and to monitor closely otherwise patient will follow-up as needed Plan Of Treatment Treatment Notes Assessment Notes Tinea pedis Patient is doing susie y well and has been in open toed shoes. He may return to close toed shoes regular shoes and activity as tolerated. Recommended [id number] antifungals directed to athletes feet for prevention and to monitor closely otherwise patient will follow-up as needed Progress Notes * Ulysses CHAPMAN WDOB:[birth year] (68 yo M)Acc No.[id number]:06/17/2024 Follow Up Patient: Ulysses AGUILERA W Provider: Layne Lazaro DPM MS :1955 A ge:68 Y S ex:Male Date:06/17/2024 Address:[address] [place], [place] [id number] Pcp:Stewart Mahajan MD Check In:11:11 AM ESTCheck O ut:11:39 AM EST Subjective: * Chief Complaints: * 1 0 day follow up RT foot infection * HPI: G eneral: PAtient returns to office today for reevaluation of right foot infection. He did finish his antibiotic on sunday. He is no longer having drainage to the area. He is wearing open toed shoes today, using paper tape and 4x4 gauze over the area of infection. It is dry, brown and has scabs across the top of the area. Patient did not use steroid cream over area, states that his foot did not itch and felt he did not need to use it. * Active Problem List ?Problem List has not been verified* Medical History: * Surgical History: b ack sx 2010shoulder sx 2021knee sx cataract sx 2023 * Hospitalization/Major Diagno stic Procedure: N o Hospitalization History. * Family History: N o Family History documented.. * Social History: T obacco Use: T obacco Control (Standard) T obacco use: F ormer smoker * Medications: T akingAlfuzosin HCl ER 10 MG Tablet Extended Release 24 Hour 1 tablet immediately after the same meal Orally Once a day Atorvastatin Calcium 20 MG Tablet 1 tablet Orally Once a day Bactrim DS(Sulfamethoxazole-Trimethoprim) 800-160 MG Tablet 1 tablet Orally Twice a day Bentyl(Dicyclomine HCl) 10 MG/ML Solution 1 mL Intramuscular Four times a day Lansoprazole 15 MG Capsule Delayed Release 1 capsule before a meal Orally Once a day Losartan Potassium 100 MG Tablet 1 tablet Orally Once a day Sudafed(Pseudoephedrine HCl) 30 MG Tablet 2 tablets as needed Orally every 6 hrs Testosterone 200 MG Pellet as directed Implant Trintellix(Vortioxetine HBr) 5 MG Tablet 1 tablet Orally Once a day Vitamin D3 125 MCG (5000 UT) Capsule 1 capsule Orally Once a day Medication List reviewed and reconciled with the patientTaking Alfuzosin HCl ER 10 MG Tablet Extended Release 24 Hour 1 tablet immediately after the same meal Orally Once a day Taking Atorvastatin Calcium 20 MG Tablet 1 tablet Orally Once a day Taking Bactrim DS(Sulfamethoxazole-Trimethoprim) 800-160 MG Tablet 1 tablet Orally Twice a day Taking Bentyl(Dicyclomine HCl) 10 MG/ML Solution 1 mL Intramuscular Four times a day Taking Lansoprazole 15 MG Capsule Delayed Release 1 capsule before a meal Orally Once a day Taking Losartan Potassium 100 MG Tablet 1 tablet Orally Once a day Taking Sudafed(Pseudoephedrine HCl) 30 MG Tablet 2 tablets as needed Orally every 6 hrs Taking Testosterone 200 MG Pellet as directed Implant Taking Trintellix(Vortioxetine HBr) 5 MG Tablet 1 tablet Orally Once a day Taking Vitamin D3 125 MCG (5000 UT) Capsule 1 capsule Orally Once a day Medication List reviewed and reconciled with the patient * Allergies: n o[Allergies Verified] Objective: * Vitals: W t:180lbs, Ht: 69 in, Temp:98.2F, HR:95/min, BMI:26.58Index, Pain scale:01-10, Oxygen sat %:99%, Ht-cm: 175.26 cm, Wt-k.65 kg. * Examination: P odiatry Examination: SKIN: s kin intact, n o sign of infection. Interdigital spaces are clean and dry. Stable dry scab over dorsal lateral foot. MUSCULOSKELETAL: N o pain to palpation, N o gross deformity, S trength equal & symmetric. NEUROLOGICAL: l ight touch sensation intact, n egative tinel's sign. VASCULAR: P edal pulses palpable, C apillary refill is brisk to toe, D igital hair intact. Assessment: * Assessment: 1. T dony gaspar - B35.3 (Primary) Plan: * Treatment: * Procedure Codes: * * Sign off status: Completed Visit Status: C HK (Check Out) true * Provider: Layne Lazaro DPM, MS Date: 06/17/2024 Generated for Sanjana cisse/Mable/Clementitting on: 04/22/2025 07:08 PM EDT History and Physical Notes * HPI (History of Present Illness) Category Sub-Category Detail Notes Category Not es General PAtient returns to office today for reevaluation of right foot infection. He did finish his antibiotic on sunday. He is no longer having drainage to the area. He is wearing open toed shoes today, using paper tape and 4x4 gauze over the area of infection. It is dry, brown and has scabs across the top of the area. Patient did not use steroid cream over area, states that his foot did not itch and felt he did not need to use it. Examination Category Sub-Category Detail Notes Category Not es Podiatry Examination SKIN: skin intact , no sign of infection. Interdigital spaces are clean and dry. Stable dry scab over dorsal lateral foot MUSCULOSKELETAL: No pain to palpation , No gross deformity, Strength equal & symmetric NEUROLOGICAL: light touch sensatio n intact, negative tinel's sign VASCULAR: Pedal pulses palpabl e, Capillary refill is brisk to toe, Digital hair intact
--- OUTSIDE RECORDS SUMMARY | 2024-12-03 10:45 | XMS_ITS ---
Author Organization [facility] [place] Address [address] [place] [address] Care Team Providers Care Farebox Repairer Name Role Phone Stewart Mahajan MD Primary Care Provider Rick Saldana [phone] REASON FOR VISIT right foot redness, ?tinea Medications Medication SIG (Take, Route, Frequency, Duration) Notes Start Date End Date Status Trintellix 5 MG 1 tablet Orally Once a day Active Vitamin D3 125 MCG (5000 UT) 1 capsule Orally Once a day Active Losartan Potassium 100 MG 1 tablet Orally Once a day Active Testosterone 200 MG as directed Implant Active Sudafed 30 MG 2 tablets as needed Orally every 6 hrs Active Atorvastatin Calcium 20 MG 1 tablet Orally Once a day Active Alfuzosin HCl ER 10 MG 1 tablet immediat sujit after the same meal Orally Once a day Active Lansoprazole 15 MG 1 capsule before a m eal Orally Once a day Active Bentyl 10 MG/ML 1 mL Intramuscular F our times a day Active Bactrim DS 800-160 MG 1 tablet Orally Tw ice a day for 10 days 06/06/2024 Not-Taking Social History Tobacco Use: Social History Observation Description Date Details (start date - stop date) Former Smoker NA - NA Tobacco Control (Standard) Question Answer Notes Tobacco use: Former smoker Vital Signs Height 69 in 12/03/2024 Temperature 98.2 degrees Fahrenheit 12/03/19 25 Heart Rate 71 /min 12/03/2024 Oximetry 98 % 12/03/2024 Encounters Encounter Location Date Provider Diagnosis [facility] (PODIATRY) [address] [place] [address] [place] [address] 12/03/2024 Rick Lazaro Other enthesopathy of right foot and ankle M77.51 Assessments Encounter Date Diagnosis (ICD Code) Assessment Notes Treatment Notes Treatment Clinical Notes Section Notes 12/03/2024 Other enthesopathy of right foot and ankle (ICD-10 - M77.51) Patient presents for follow-up secondary to residual pain that is seemingly deeper into the joint on the right fifth metatarsal phalangeal joint and findings are consistent with capsulitis. He does take ibuprofen on a daily basis and I recommended that he attempt meloxicam which was sent to his pharmacy today as well as a prednisone taper. If this does not alleviate his symptoms he will call for follow-up otherwise follow-up as needed Plan Of Treatment Treatment Notes Assessment Notes Other enthesopathy of right foot and ank le Patient presents for follow-up secondary to residual pain that is seemingly deeper into the joint on the right fifth metatarsal phalangeal joint and findings are consistent with capsulitis. He does take ibuprofen on a daily basis and I recommended that he attempt meloxicam which was sent to his pharmacy today as well as a prednisone taper. If this does not alleviate his symptoms he will call for follow-up otherwise follow-up as needed Progress Notes * Ulysses CHAPMAN WDOB:[birth year] (69 yo M)Acc No.[id number]:12/03/2024 Follow Up Patient: Jerardo WALTERSKOKOUlysses Shook Provider: Layne Lazaro DPM, MS :1955 A ge:69 Y S ex:Male Date:12/03/2024 Address:[address] [place], [place] [id number] Pcp:Stewart Mahajan MD Check In:02:41 PM ESTCheck O ut:03:22 PM EST Subjective: * Chief Complaints: * R ight foot redness, ?tinea * HPI: G eneral: Patient in office today for small bump to medial 5th toe on his right foot. Patient states that his last office visit he was diagnosed with athletes foot that never fully went away. He has been dealing with dryn skin, itchyness to the area of his medial 5th toe and redness to area. He states that when he is walking in shoes that it causes flares up and the bump become agitated. There is no visible bump or redness noted to the area today. He does use lotion for the dry skin. * Active Problem List ?Problem List has [...] Tablet 1 tablet Orally Once a day Bentyl(Dicyclomine HCl) 10 MG/ML Solution [...] Capsule 1 capsule Orally Once a day Taking Alfuzosin HCl ER 10 MG Tablet Extended Release 24 Hour 1 tablet immediately after the same meal Orally Once a day Taking Atorvastatin Calcium 20 MG Tablet 1 tablet Orally Once a day Taking Bentyl(Dicyclomine HCl) 10 MG/ML [...] Capsule 1 capsule Orally Once a day Not-Taking/PRNBactrim DS(Sulfamethoxazole-Trimethoprim) 800-160 MG Tablet 1 tablet Orally Twice a day Medication List reviewed and reconciled with the patientNot-Taking/PRN Bactrim DS(Sulfamethoxazole-Trimethoprim) 800-160 MG Tablet 1 tablet Orally Twice a day Medication List reviewed and reconciled with the patient * Allergies: n o[Allergies Verified] Objective: * Vitals: H t: 69 in, Temp:98.2F, HR:71/min, Pain scale:01-10, Oxygen sat %:98%, Ht-cm: 175.26 cm. * Examination: P odiatry Examination: SKIN: s kin intact, n o sign of infection. MUSCULOSKELETAL: M ild pain to palpation as with range of motion of the fifth MPJ mild adductovarus deformity of the fifth toe but otherwise N o gross deformity, S trength equal & symmetric. NEUROLOGICAL: l ight touch sensation intact, n egative tinel's sign. VASCULAR: P edal pulses palpable, C apillary refill is brisk to toe, no swelling or bruising. Assessment: * Assessment: 1. O ther enthesopathy of right foot and ankle - M77.51 (Primary) Plan: * Treatment: * Procedure Codes: * * Sign off status: Completed Visit Status: Tiffany TSE (Check Out) true * Provider: Layne Lazaro DPM, MS Date: 0 12/03/2024 Generated for [facility] tanna/Mable/Patriciasmitting on: 0 04/22/2025 07:07 PM EDT History and Physical Notes * HPI (History of Present Illness) Category Sub-Category Detail Notes Category Not es General Patient in offi ce today for small bump to medial 5th toe on his right foot. Patient states that his last office visit he was diagnosed with athletes foot that never fully went away. He has been dealing with dryn skin, itchyness to the area of his medial 5th toe and redness to area. He states that when he is walking in shoes that it causes flares up and the bump become agitated. There is no visible bump or redness noted to the area today. He does use lotion for the dry skin. Examination Category Sub-Category Detail Notes Category Not es Podiatry Examination SKIN: skin intact, no sign of infection MUSCULOSKELETAL: Mild pain to palpati on as with range of motion of the fifth MPJ mild adductovarus deformity of the fifth toe but otherwise No gross deformity, Strength equal & symmetric NEUROLOGICAL: light touch sensatio n intact, negative tinel's sign VASCULAR: Pedal pulses palpabl e, Capillary refill is brisk to toe, no swelling or bruising
--- OUTSIDE RECORDS SUMMARY | 2025-04-21 11:00 | XMS_ITS | Encounter Summary ---
Author Organization [facility] Address [address] [place] [address] Care Team Providers Care Hotel Guest Service Agent Name Role Phone Stewart Mahajan MD Primary Care Provider [phone] Reason for Referral * Clinic-Administered Medication (Routine) - Closed Specialty Diagnoses / Procedures Referred By Marika becerra Referred To Contact Orthopaedic Surgery Diagnoses Primary osteoarthritis of left knee Procedures L Inj/Asp: L knee Ulysses Maxwell DO [address] [place] [address] Phone: tel: fax: Referral ID Status Reason Start Date Expiration Date Visits Re quested Visits Authorized [id number] Closed 04/21/2025 10/18/2025 1 1 Reason for Visit * Reason Comments Pain Encounter Details Date Type Department Care Team (Latest Contact Info) Description 04/21/2025 11:00 AM EDT Procedure Visit [facility] [address] [address] Ulysses Maxwell DO [address] [place] [address] Primary osteoarthritis of left knee (Primary Dx); Left knee pain, unspecified chronicity Social History Tobacco Use Types Packs/Day Years Used Date Smoking Tobacco: Former Cigarettes Sex and Gender Information Value Date Recorded Sex Assigned at Not on file Legal Sex Male 7:10 PM EDT Gender Identity Not on file Sexual Orientation Not on file documented as of this encounter Last Filed Vital Signs Vital Sign Reading Time Taken Comments Blood Pressure - - Pulse - - Temperature - - Respiratory Rate - - Oxygen Saturation - - Inhaled Oxygen Concentration - - Weight 81.2 kg (179 lb) 04/21/2025 10:42 AM EDT Height 175.3 cm (5' 9 ) 04/21/2025 10:42 AM EDT Body Mass Index 26.43 04/21/2025 10:42 AM EDT documented in this encounter Progress Notes * Omaira Ramos MA - 04/21/2025 11:00 AM EDTAssociated Order(s): L Inj/Asp: L knee Post-Procedure Diagnose(s): Primary osteoarthritis of left knee L Inj/Asp: L knee on 04/21/2025 10:42 AM Indications: diagnostic evaluation Details: 22 G needle Medications: 2 mL sodium hyaluronate 16.8 MG/2ML Outcome: tolerated well, no immediate complications Consent was given by the patient. * Ulysses Maxwell DO - 04/21/2025 11:00 AM EDT GelSyn 1 of 3 Injection Left knee Patient is seen and evaluated today for left knee pain and stiffness. Continued swelling and stiffness despite conservative course with ice, Tylenol, NSAID's and compression. Occasional buckle sensation. Night disruption is present and increasing. Progression of pain. Occasional assistive device required. Here today to review non-operative conservative options and discuss indications and overview of knee arthroplasty. Physical Exam: The patient is examined in the office today. The left knee has mild aseptic swelling. Hypertrophic changes are noted. AROM is decreased with pain. Crepitance is present in multiple compartments. Tenderness is moderate to severe thru multiple compartments. Collateral ligaments are intact to stress testing at 0 and 30 degrees. Positive grind test of the patella. Gait is stiff and antalgic with occasional assistive device reported. Hip exam is stable. Negative bench and straight leg raise testing. NVM intact distally without footdrop. Calves are supple without sign of infection, ulceration or DVT. Xrays: Multiple weightbearing views (AP, Lateral and sunrise) are reviewed for the permanent PACS record. Advanced grade 3-4 degenerative changes are present of the left knee. No fracture, dislocation, tumor or infection seen. Images are reviewed with the patient at length. Assessment: Left knee Osteoarthritis-M17.12 Left knee pain-M25.562 Antalgic gait-R26 Treatment/Plan: The nature of the findings were discussed at length. Xray imaging and severity discussed. Conservative management with ice, heat, exercise, strengthening, weight loss, compression wrap/bracing was reviewed. Anti-inflammatory medication , if stable with GI and kidney function, was reviewed. OTC and prescription options were discussed. Tylenol dosing parameters and daily limits for breakt thru painwas reviewed. Cortisone injections can be provided up to 3 per year and no closer than a month interval. Hyaluronic acid viscosupplementation options and expectations were discussed at length. Patient is aware results are not guaranteed. We discussed the role of knee replacement surgery, indications, approach, implants, and rehab process were all reviewed. After lengthy discussion, the patient elects to move forward with viscosupplementation injection with GelSyn to the left knee. Under steriletechnique with the knee extended and supported, 2 ml of GelSyn was injected to the left knee suprapa tellar pouch. Needle was removed and adequate hemostasis was achieved. The patient tolerated the injection well. Post injection restriction of 50% activity reduction the day of the injection with icing techniques 1-2 times per 10-15 minutes to the knee was reviewed. Patient was ambulatory and discharged in stable condition. Any reactions, concerns or continued pain will be reported via phone callor return visit. All questions were answered. Follow-up next week for second GelSyn injection left knee. documented in this encounter Plan of Treatment Upcoming Encounters Date Type Department Care Team (Late st Contact Info) Description 04/28/2025 11:00 AM EDT Procedure Visit [facility] [address] [place] [id number] Ulysses Maxwell DO [address] [place] [address] 05/05/2025 11:00 AM EDT Procedure Visit [facility] [address] [place] [id number] Ulysses Maxwell DO [address] [place] [address] documented as of this encounter Procedures Procedure Name Priority Date/Time Associated Diagnosis Comments W[place] ARTHROCENTESIS ASPIR&/INJ MAJOR JT/BURSA W/O US Routine 04/21/2025 10:42 AM EDT Primary osteoarthritis of left knee documented in this encounter Results * W[place] ARTHROCENTESIS ASPIR&/INJ MAJOR JT/BURSA W/O US (04/21/2025 10:42 AM EDT) Omaira Woods MA - 04/21/2025 10:42 AM EDT Omaira Ramos MA 04/21/2025 11:52 AM L Inj/Asp: L knee on 04/21/2025 10:42 AM Indications: diagnostic evaluation Details: 22 G needle Medications: 2 mL sodium hyaluronate 16.8 MG/2ML Outcome: tolerated well, no immediate complications Consent was given by the patient. Ulysses Maxwell DO IN CLINIC/BEDSIDE ORDERABLES Final Result documented in this encounter Visit Diagnoses Diagnosis Primary osteoarthritis of left knee- Primary Left knee pain, unspecified chronicity documented in this encounter Administered Medications Inactive Administered Medications - up to 3 most recent administrations Medication Order MAR Action Action Date Dose Rate Site sodium hyaluronate (Gelsyn-3) injection 2 mL 2 mL, Intra-articular, Once PRN Procedure, Starting on Sun04/21/25 at 1042, For 1 doseIndications:Primary osteoarthritis of left knee Given 04/21/2025 10:42 AM EDT 2 mL documented in this encounter Care Teams Hotel Guest Service Agent Relationship Specialty Start Date End Date Stewart Mahajan MD [address] [place] [address] PCP - General Family Medicine 10/23/23 documented as of this encounter
[2025-04-22] VITALS (28 sets, daily range): BP systolic 180–230; BP diastolic 81–100; PULSE 69–80; TEMP 36.9; O2SAT 97–100; BMI 26.7; BMI 26.3
--- OUTSIDE RECORDS SUMMARY | 2025-04-22 19:08 | XMS_ITS | Clinical Summary ---
Author Organization [facility] Address [address] [place] [address] Care Team Providers Care Rn Pediatric Name Role Phone Stewart Mahajan MD Primary Care Provider [phone] Allergies No known active allergies Medications alfuzosin (Uroxatral) 10 mg 24 hr tablet Take 10 mg by mouth in the morning. Active testosterone cypionate (Depo-Testostero ne) 200 mg/mL injection 10/12/2021 Active atorvastatin (Lipitor) 20 mg tablet Take 20 mg by mouth at bedtime. Active Trintellix 5 mg tablet Take 5 mg by mouth 1 (one) time each day at the same time. Active losartan (Cozaar) 100 mg tablet Take 100 mg by mouth in the morning. 12/11/2021 Active lansoprazole (Prevacid) [address] capsule Take 30 mg by mouth before breakfast. 12/18/2023 Active Active Problems Problem Noted Date Diagnosed Date Pseudophakia 03/28/2024 Primary open angle glaucoma (POAG) of both eyes, mild stage 01/17/2024 Family History Medical History Relation Name Comments No Known Problems Father No Known Problems Mother Relation Name Status Comments Father Mother Alive Social History Tobacco Use Types Packs/Day Years Used Date Smoking Tobacco: Former Cigarettes Smokeless Tobacco: Never Tobacco Cessation:Counseling Given: Not Answered Alcohol Use Standard Drinks/Week Comments Not Currently 0 (1 standard drink = 0.6 oz pur e alcohol) rarely [place] Safety & Environment Answer Date Rec orded Fear of Current or Ex-Partner Not on file Emotionally Abused Not on file 12/06/2023 Physically Abused Not on file 12/06/2023 Sexually Abused Not on file 12/06/2023 Physically or Sexually Abused Not on file Sex and Gender Information Value Date Recorded Sex Assigned at Not on file Legal Sex Male 12:43 AM EDT Gender Identity Not on file Sexual Orientation Not on file Last Filed Vital Signs Vital Sign Reading Time Taken Comments Blood Pressure 142/84 10/24/2024 3:26 PM EST Pulse 74 10/24/2024 3:26 PM EST Temperature - - Respiratory Rate - - Oxygen Saturation 99% 10/24/2024 3:26 PM EST Inhaled Oxygen Concentration - - Weight 86.2 kg (190 lb) 10/24/2024 3:26 PM EST Height 177.8 cm (5' 10 ) 10/24/2024 3:26 PM EST Body Mass Index 27.26 10/24/2024 3:26 PM EST Plan of Treatment Health Maintenance Due Date Last Done Comments CT Colonography 1955 Colonoscopy 1955 Colorectal Cancer Screening 1955 FIT-DNA 1955 FIT 1955 FOBT 1955 Medicare Annual Wellness (AWV) 1955 Sigmoidoscopy 1954 Depression Screening 1966 Adult Tetanus 1976 Fall Risk Screening 2019 Pneumococcal Vaccine: 50+ Years (2 of 2 - PCV20 or PCV21) 09/13/2021 09/13/2020 COVID-19 Vaccine (4 - season) 2024 10/05/2021, 01/05/2021, 12/09/2020 Influenza Vaccine (#1) 2025 , 08/29/2023, 08/07/2022, Additional history exists Zoster Vaccines Completed 10/02/2020, 07/15, 09/28/2014 HIB Vaccines Aged Out No longer eligi ble based on patient's age to complete this topic HPV Vaccines Aged Out No longer eligi ble based on patient's age to complete this topic IPV Vaccines Aged Out No longer eligi ble based on patient's age to complete this topic Meningococcal B Vaccine Aged Out No l onger eligible based on patient's age to complete this topic Meningococcal Vaccine Aged Out No elinor quin eligible based on patient's age to complete this topic Rotavirus Vaccines Aged Out No longer eligible based on patient's age to complete this topic Insurance [employer] MEDICARE [place] [id number] Care Teams Rn Pediatric Relationship Specialty Start Date End Date Stewart Mahajan MD [address] [place] [id number] PCP - General Family Medicine 10/24/24
--- OUTSIDE RECORDS SUMMARY | 2025-04-22 19:08 | XMS_ITS | Clinical Summary ---
Author Organization [facility] Address [address] [place], [place] [id number] Care Team Providers Care Electronic Device Monitor Name Role Phone Saray Mckeon MD Unavailable [phone] Medications atorvastatin (LIPITOR) 20 mg tablet 10/03/20 21 Active busPIRone (BUSPAR) 10 mg tablet TAKE 1 AND 1/2 TABLET IN THE MORNING, 1 TABLET IN THE AFTERNOON, AND 1/2 TABLET AT BEDTIME 10/04/20 21 Active carBAMazepine XR (TEGRETOL XR) 100 mg 12 hr tablet Take 100 mg by mouth twice daily. 11/26/19 22 Active citalopram (CELEXA) 20 mg tablet 10/20/19 22 Active dicyclomine (BENTYL) 20 mg tablet Take 20 mg by mouth four times daily. 11/08/19 22 Active latanoprost (XALATAN) 0.005 % ophthalmic solution 10/05/20 21 Active losartan (COZAAR) 100 mg tablet 12/11/19 22 Active testosterone cypionate (DEPO-TESTOSTE CORWIN) 200 mg/mL injection INJECT 1ML INTRAMUSCULARLY ONCE EVERY 2 WEEKS 10/12/20 21 Active timolol maleate (TIMOPTIC) 0.5 % ophthalmic solution 11/13/19 22 Active BD LUER-ALEX SYRINGE 3 mL 18 x 1 1/2 USE FOR INJECTIONS 10/25/19 22 Active BD LUER-ALEX SYRINGE 3 mL 22 gauge x 1 USE TO INJECT TESTOSTERONE INTO THE MUSCLE EVERY OTHER WEEK 10/12/20 21 Active cholecalcifero l (VITAMIN D-3) 5,000 unit tab Take 5,000 Units by mouth once daily. Active diphenhydrAMIN E (BENADRYL) 25 mg capsule Take 25 mg by mouth every 6 hours as needed. Active pseudoephedrin e (SUDAFED) 30 mg tablet Take 30 mg by mouth every 4 hours as needed. Active Family History Medical History Relation Comments Parkinson s Disease Father Relation Status Comments Father Social History Tobacco Use Types Packs/Day Years Used Date Smoking Tobacco: Some Days Cigars Smokeless Tobacco: Never Alcohol Use Standard Drinks/Week Comments Not Currently 0 (1 standard drink = 0.6 oz pur e alcohol) Sex and Gender Information Value Date Recorded Sex Assigned at Not on file Legal Sex Male 8:24 AM EST Gender Identity Not on file Sexual Orientation Not on file Last Filed Vital Signs Vital Sign Reading Time Taken Comments Blood Pressure 148/79 12/15/2021 9:08 AM EST Pulse 68 12/15/2021 9:08 AM EST Temperature - - Respiratory Rate - - Oxygen Saturation - - Inhaled Oxygen Concentration - - Weight 83.5 kg (184 lb) 12/15/2021 9:08 AM EST Height - - Body Mass Index - - Plan of Treatment Health Maintenance Due Date Last Done Comments Abdominal Aortic Aneurysm Screening 1955 Anxiety Screening 1972 Depression Screening 1972 Hepatitis C Screening 1972 DTaP,Tdap,Td Vaccine (1 - Tdap) [address] Colonography 1999 Cologuard (FIT-DNA) 1999 Colonoscopy 1999 Colorectal Cancer Screening 1999 Diabetes Screening 1999 Fecal Occult Blood 1999 Sigmoidoscopy 1999 Pneumococcal Vaccine: 50+ (1 of 1 - PCV) 2004 Shingrix Vaccine (1 of 2) 2004 Covid-19 Vaccine (1 - 2023- season) 2024 Advance Directive Discussion 10/15/2024 Influenza Vaccine (#1) 2025 RSV Vaccine (1 - 1-dose 75+ series) 2029 Insurance [employer] MEDICARE Care Teams Electronic Device Monitor Relationship Specialty Start Date End Date Saray Mckeon MD [address] [place] [address] Referring Family Medicine 11/15/21
--- OUTSIDE RECORDS SUMMARY | 2025-04-22 19:08 | XMS_ITS | Encounter Summary ---
Author Organization [facility] Address [address] [facility] [place] [address] Care Team Providers Care Cardiac Cath Lab Manager Name Role Phone Stewart Mahajan MD Primary Care Provider [phone] Encounter Details Date Type Department Care Team (Latest Contact Info) Description 04/21/2025 Travel Social History Tobacco Use Types Packs/Day Years Used Date Smoking Tobacco: Former Cigarettes Sex and Gender Information Value Date Recorded Sex Assigned at Not on file Legal Sex Male 7:10 PM EDT Gender Identity Not on file Sexual Orientation Not on file documented as of this encounter Plan of Treatment Upcoming Encounters Date Type Department Care Team (Late st Contact Info) Description 04/28/2025 11:00 AM EDT Procedure Visit [facility] [address] [place] [facility] [address] Ulysses Maxwell, DO [address] [place] [address] 05/05/2025 11:00 AM EDT Procedure Visit [facility] [address] [place] [address] [facility] [place] [address] Ulysses Maxwell, [address] [place] [address] documented as of this encounter Visit Diagnoses Not on filedocumented in this encounter Care Teams Cardiac Cath Lab Manager Relationship Specialty Start Date End Date Stewart Mahajan MD [address] [place] [address] PCP - General Family Medicine 10/23/23 documented as of this encounter
--- OUTSIDE RECORDS SUMMARY | 2025-04-22 19:08 | XMS_ITS | Encounter Summary ---
Author Organization [facility] Address [address] [place] [address] Care Team Providers Care Horticultural Farmworker Name Role Phone Stewart Mahajan MD Primary Care Provider [phone] Encounter Details Date Type Department Care Team (Late st Contact Info) Description 04/21/2025 Bamboo flowsheet [facility] [address] [place] [address] Ulysses Maxwell, DO [address] [place], [place] [id number] Social History Tobacco Use Types Packs/Day Years [...] [facility] [address] [place] [address] Ulysses Maxwell, DO [address] [place], [place] [id number] 05/05/2025 11:00 AM EDT Procedure Visit [facility] [address] [place] [address] Ulysses Maxwell, DO [address] [place] [place] [address] documented as of this encounter Visit Diagnoses Not on filedocumented in this encounter Care Teams Horticultural Farmworker Relationship Specialty Start Date End Date Stewart Mahajan MD [address] [place] [address] PCP - General Family Medicine 10/23/23 documented as of this encounter
--- OUTSIDE RECORDS SUMMARY | 2025-04-22 19:08 | XMS_ITS | Patient Health Record ---
Author Organization The [facility] [place] Address [address] [place] [address] Care Team Providers Care Machine Etcher Name Role Phone Stewart Mahajan MD Primary Care Provider Rick Saldana [phone] Allergies No Known Allergies Reason For Referral No Information Medications Medication SIG (Take, Route, Frequency, Duration) Notes Start Date End Date Status Trintellix 5 MG 1 tablet Orally Once a day Active Atorvastatin Calcium 20 MG 1 tablet Orally Once a day Active Alfuzosin HCl ER 10 MG 1 tablet immediat sujit after the same meal Orally Once a day Active Vitamin D3 125 MCG (5000 UT) 1 capsule Orally Once a day Active Meloxicam 15 MG 1 tablet Orally Once a day for 30 days 12/03/2024 Active Losartan Potassium 100 MG 1 tablet Orally Once a day Active Lansoprazole 15 MG 1 capsule before a m eal Orally Once a day Active Bentyl 10 MG/ML 1 mL Intramuscular F our times a day Active predniSONE 10 MG 3 tablets once a day for 3 days, 2 tablets once a day for 3 days, 1 tablet once a day for 3 days Orally for 9 days 12/03/2024 Active Bactrim DS 800-160 MG 1 tablet Orally Tw ice a day for 10 days 06/06/2024 Not-Taking Testosterone 200 MG as directed Implant Active Sudafed 30 MG 2 tablets as needed Orally every 6 hrs Active Social History Tobacco Use: Social History Observation Description Date Details (start date - stop date) Former Smoker NA - NA Tobacco Control (Standard) Question Answer Notes Tobacco use: Former smoker Vital Signs Heart Rate 71 /min 12/03/2024 Temperature 98.2 degrees Fahrenheit 12/03/2024 Oximetry 98 % 12/03/2024 Height 69 in 12/03/2024 Weight 180 lbs 06/17/2024 BMI 26.58 kg/m2 06/17/2024 Encounters Encounter Location Date Provider Diagnosis [facility] (PODIATRY) [address] [place] [address] [place] [address] 12/03/2024 Rick Lazaro [facility] (PODIATRY) [address] [place] [address] [place] [address] 06/17/2024 Rick Lazaro Tinea pedis B35.3 [facility] (PODIATRY) [address] [place] [address] [place] [address] 12/03/2024 Rick Lazaro Other enthesopathy of right foot and ankle M77.51 [facility] (PODIATRY) [address] [place] [address] [place] [address] 06/06/2024 Rick Lazaro Cellulitis of right lower limb L03.115 and Tinea pedis B35.3 Assessments Encounter Date Diagnosis (ICD Code) Assessment Notes Treatment Notes Treatment Clinical Notes Section Notes 06/06/2024 Cellulitis of right lower limb (ICD-10 - L03.115) Patient presents upon referral from the emergency department. Patient has signs and symptoms of tinea pedis with superimposed cellulitis. Erythema has slightly gotten better with 5 days of Keflex I recommended that he continue until completed but also added 10 additional days of Bactrim DS. He should continue using the steroid cream on the intact skin but to avoid placing on the wound. I also recommended Betadine to be placed between the fourth and fifth toes as well as over the wound after washing with soap and water. Patient is to keep the area clean and keep open to air as much as possible. When he does need to wear close toed shoes he should place a 4 x 4 between his fourth and fifth toes. He will follow-up in a week no new x-rays are needed 06/06/2024 Tinea pedis (ICD-10 - B35.3) 06/17/2024 Tinea pedis (ICD-10 - B35.3) Patient is doing very well and has been in open toed shoes. He may return to close toed shoes regular shoes and activity as tolerated. Recommended [id number] antifungals directed to athletes feet for prevention and to monitor closely otherwise patient will follow-up as needed 12/03/2024 Other enthesopathy of right foot and [...] otherwise follow-up as needed Plan Of Treatment No Information Insurance Providers Payer Name Payer Address Payer Phone Subscriber Number Group Number Insured Name Patient Relationship to Insured Coverage Start Date Coverage End Date [facility] [employer] [address] [address] [place] [phone] [id number] Ulysses Staples Self - patient is the insured Medical (General) History Medical History History ICD Code arthritis GERD high blood pressure high cholesterol varicose veins Surgical History Surgery Date(Month/Year) cataract sx 2023 knee sx shoulder sx 2021 back sx 2010
--- OUTSIDE RECORDS SUMMARY | 2025-04-22 19:08 | XMS_ITS | Clinical Summary ---
Author Organization [facility] Healthcare Address [address] [place] [address] Care Team Providers Care Rn Medical Surgical Name Role Phone Stewart Mahajan MD Primary Care Provider [phone] Allergies No known active allergies Medications losartan (Cozaar) 100 MG tablet 1 (one) time each day at the same time Active latanoprost (Xalatan) 0.005 % ophthalmic solution 1 (one) time each day at the same time Active Cholecalciferol (Vitamin D3) 125 MCG (5000 UT) tablet dispersible Active atorvastatin (Lipitor) 20 MG tablet Take 20 mg by mouth Daily Active timolol (Betimol) 0.25 % ophthalmic solution 1 (one) time each day at the same time Active Vortioxetine HBr (Trintellix) 10 MG tablet Take by mouth Active alfuzosin ER (Uroxatral) 10 MG 24 hr tablet Take 10 mg by mouth Daily Do not crush, chew, or split. Active dicyclomine (Bentyl) 20 MG tablet Take 20 mg by mouth in the morning and 20 mg in the evening and 20 mg before bedtime. 11/19/19 24 Active testosterone cypionate (Depo-Testoster one) 200 MG/ML injection 09/24/20 23 Active lansoprazole (Prevacid) [address] capsule 12/18/19 24 Active pseudoephedrine (Sudafed) 30 MG tablet every 6 (six) hours Active Rexulti 1 MG tablet 03/25/20 25 Active B-D 5CC LUER-ALEX SYR 21GX1 21G X 1 5 ML misc USE TO ADMINISTER TESTOSTERONE EVERY 2 WEEKS 03/26/20 25 Active tamsulosin (Flomax) 0.4 MG 24 hr capsule TAKE 1 CAPSULE BY MOUTH ONCE A DAY *MONITOR FOR LIGHTHEADEDNESS OR DIZZINESS* 03/27/20 25 Active Hospital, Clinic, or Other Facility Administered Medication Ordered Dose Route Frequency Start Date End Date Status sodium hyaluronate (Gelsyn-3) injection 2 mLIndications:Primary osteoarthritis of left knee 2 mL IX Once PRN Procedure 04/21/2025 04/21/2025 Ended Active Problems Problem Noted Date Diagnosed Date Pseudophakia 03/28/2024 Primary open angle glaucoma (POAG) of both eyes, mild stage 01/17/2024 Resolved Problems Problem Noted Date Diagnosed Date Resolved Date Age-related nuclear cataract of both eyes 01/17/2024 03/28/2024 Encounters Date Type Department Care Team Description 04/21/2025 11:00 AM EDT Procedure Visit [facility] [address] [place] [address] Ulysses Maxwell DO Primary osteoarthritis of left knee (Primary Dx); Left knee pain, unspecified chronicity 04/21/2025 Bamboo flowsheet [facility] [address] [place] [address] Ulysses Maxwell DO 04/21/2025 Travel 04/07/2025 9:00 AM EDT Office Visit [facility] [address] [id number] Ulysses Maxwell DO Left knee pain, unspecified chronicity (Primary Dx); Primary osteoarthritis of left knee 04/07/2025 Bamboo flowsheet [facility] [address] [place] [address] Ulysses Maxwell DO 04/07/2025 Travel 03/20/2025 9:05 AM EDT Ancillary Procedure [facility] [address] [place] [address] 03/20/2025 8:45 AM EDT Office Visit [facility] [address] [place] [address] Dannie Wang NP Primary osteoarthritis of left knee (Primary Dx); Left knee pain, unspecified chronicity 03/20/2025 Bamboo flowsheet [facility] [address] [place] [address] Dannie Wang NP 03/20/2025 Travel from Last 3 Months Family History Medical History Relation Name Comments Hypertension Brother Hypertension Mother Relation Name Status Comments Brother Mother Social History Tobacco Use Types Packs/Day Years Used Date Smoking Tobacco: Former Cigarettes Tobacco Cessation:Counseling Given: Not Answered Sex and Gender Information Value Date Recorded Sex Assigned at Not on file Legal Sex Male 7:10 PM EDT Gender Identity Not on file Sexual Orientation Not on file Last Filed Vital Signs Vital Sign Reading Time Taken Comments Blood Pressure 140/80 04/14/2024 3:04 PM EDT Pulse - - Temperature - - Respiratory Rate - - Oxygen Saturation - - Inhaled Oxygen Concentration - - Weight 81.2 kg (179 lb) 04/21/2025 10:42 AM EDT Height 175.3 cm (5' 9 ) 04/21/2025 10:42 AM EDT Body Mass Index 26.43 04/21/2025 10:42 AM EDT Plan of Treatment Upcoming Encounters Date Type Department Care Team (Late st Contact Info) Description 04/28/2025 11:00 AM EDT Procedure Visit [facility] [address] [place] [facility] [place] [address] Ulysses Maxwell, [address] [place] [address] 05/05/2025 11:00 AM EDT Procedure Visit [facility] [address] [place] [facility] [place] [address] Ulysses Maxwell, [address] [place], [place] [id number] Procedures Procedure Name Priority Date/Time Associated Diagnosis Comments [place] ARTHROCENTESIS ASPIR&/INJ MAJOR JT/BURSA W/O US Routine 04/21/2025 10:42 AM EDT Primary osteoarthritis of left knee XR KNEE 3 VIEWS LEFT Routine 03/20/2025 9:02 AM EDT Left knee pain, unspecified chronicity from Last 3 Months Results * [place] ARTHROCENTESIS ASPIR&/INJ MAJOR JT/BURSA W/O US (04/21/2025 10:42 AM EDT) Narrative Omaira RamosJOSE CARLOS - 04/21/2025 10:42 AM EDT Omaira Ramos JOSE CARLOS 04/21/2025 11:52 AM L Inj/Asp: L knee on 04/21/2025 10:42 AM Indications: diagnostic evaluation Details: 22 G needle Medications: 2 mL sodium hyaluronate 16.8 MG/2ML Outcome: tolerated well, no immediate complications Consent was given by the patient. us Ulysses Maxwell DO IN CLINIC/BEDSIDE ORDERABLES Final Result * XR knee 3 views left (03/20/2025 9:02 AM EDT) Anatomical Region Laterality Modality Lower Extremities, Knee Left [facility] Imaging Narrative 03/20/2025 12:22 PM EDT Imaging Result: 03/20/2025: AP, Lat and [place] view of the left knee demonstrates medial joint space narrowing with subchondral sclerosis and flattening of the surfaces of tibial plateau and femoral condyle. Patella is noted to be midline with marginal osteophyte formation. Impression: osteoarthritis of the left knee. Dannie Wang APRN FOREPART ROUNDER-C us Dannie Wang NP IMG XR PROCEDURES Final Result from Last 3 Months Insurance [employer] MED[employer] Care Teams Rn Medical Surgical Relationship Specialty Start Date End Date Stewart Mahajan MD [address] [place] [address] PCP - General Family Medicine 10/23/23
--- NOTE | 2025-04-22 20:18 | PC.NURSE ---
this patient voices concerns of memory loss after a migraine today, this patient denies any recent falls, injury and trauma to cause this migraine. currently this patient no migraine and voices no concerns and shows no signs of distress
--- NOTE | 2025-04-22 20:28 | ED.GENADUL1 ---
HPI HPI - General Adult General Chief complaint: Headache Stated complaint: MEMORY LOSS W HEADACHE Time Seen by Provider: 04/22/25 20:09 Source: patient Mode of arrival: walk-in Limitations: no limitations History of Present Illness HPI narrative: past history of Hypertension. States last time he seen his PCP his blood pressure was 180s systolic. States no changes were made to his medications. Past history of migraines. States another migraine today about 4 or 4:30pm. Describes visual scintillations of spots in his right vision which is usually a sign of his migraine. No bad headache however. His became concern because he would ask her the same questions over after she had told him the answer. This went on for about 2 hours. He also was not able to recall some of the events of earlier activity today. For example, forgot who he played bull against. Now that he is here his memory has retuned and he is no longer asking same questions. His BP is 230 systolic but mild headache. No chest pain Related Data Home Medications ?Medication ?Instructions ?Recorded ?Confirmed atorvastatin 20 mg tablet 20 mg PO DAILY 10/18/23 04/22/25 cholecalciferol (vitamin D3) 10 2,000 unit PO DAILY 10/18/23 04/22/25 mcg (400 unit) capsule (Vitamin D3) lansoprazole 15 mg delayed 30 mg PO DAILY 10/18/23 04/22/25 release,disintegrating tablet losartan 100 mg tablet (Cozaar) 100 mg PO DAILY 10/18/23 04/22/25 pseudoephedrine HCl 30 mg tablet 30 mg PO Q4H PRN nasal congestion 10/18/23 11/06/24 (Sudafed) testosterone cypionate 200 mg/mL 100 mg IM .Q14 days 10/18/23 04/22/25 intramuscular oil dicyclomine 20 mg tablet 20 mg PO TID 10/20/24 04/22/25 vortioxetine 5 mg tablet 5 mg PO DAILY 10/20/24 04/22/25 (Trintellix) brexpiprazole 1 mg tablet (Rexulti) 1 mg PO DAILY 04/22/25 04/22/25 tamsulosin 0.4 mg capsule 0.4 mg PO Q24H 04/22/25 04/22/25 Allergies Allergy/AdvReac Type Severity Reaction Status Date / Time No Known Drug Allergies Allergy Verified 04/22/25 19:18 Opioid HPI Opioid Management Most Recent Opioid Data: Last Pain Scale 0 11/07/24, 02:58 Review of Systems ROS Status of ROS 10 or more systems reviewed and unremarkable except as noted in history and below [facility] History (Updated 04/22/25 @ 22:22 by Yefri Valdivia MD) BPH (benign prostatic hyperplasia) ?N40.0 - Benign prostatic hyperplasia without lower urinary tract symptoms (ICD-10) GERD (gastroesophageal reflux disease) ?K21.9 - Gastro-esophageal reflux disease without esophagitis (ICD-10) Glaucoma ?H40.9 - Unspecified glaucoma (ICD-10) Heart murmur ?R01.1 - Cardiac murmur, unspecified (ICD-10) Hypercholesterolemia ?E78.00 - Pure hypercholesterolemia, unspecified (ICD-10) Hypogonadism Overweight ?E66.3 - Overweight (ICD-10) Low back pain ?M54.50 - Low back pain, unspecified (ICD-10) Hypertension ?I10 - Essential (primary) hypertension (ICD-10) Left anterior shoulder pain ?M25.512 - Pain in left shoulder (ICD-10) Sleep apnea ?G47.30 - Sleep apnea, unspecified (ICD-10) Surgical History History of prostate surgery ?Z98.890 - Other specified postprocedural states (ICD-10) Hx of cystoscopy ?Z98.890 - Other specified postprocedural states (ICD-10) S/P lateral meniscal repair ?Z98.890 - Other specified postprocedural states (ICD-10) H/O lumbar discectomy ?Z98.890 - Other specified postprocedural states (ICD-10) Hx of LASIK ?Z98.890 - Other specified postprocedural states (ICD-10) H/O arthroscopy of shoulder ?Z98.890 - Other specified postprocedural states (ICD-10) History of cholecystectomy ?Z90.49 - Acquired absence of other specified parts of digestive tract (ICD-10) H/O varicose vein stripping ?Z98.890 - Other specified postprocedural states (ICD-10) S/P epidural steroid injection ?Z92.241 - Personal history of systemic steroid therapy (ICD-10) Family History (Updated 11/06/24 @ 13:32 by Henrietta Balbuena RN) Other Bipolar 1 disorder Dementia Family history of cancer Family history of hypertension Social History (Updated 11/06/24 @ 13:31 by Henrietta Balbuena RN) Within the past year, how often did you have a drink containing alcohol: monthly or less Smoking status: Former smoker Second hand tobacco smoke exposure: No Non-prescribed substance use: denies use Previous occupational history: retired Highest level of school completed/degree received: high school graduate Little interest or pleasure in doing things: not at all Feeling down, depressed, or hopeless: not at all Exam Constitutional Vital Signs, click to edit/add: Last Vital Signs Temp 98.4 F 04/22/25 19:12 Pulse 78 04/22/25 20:07 Resp 18 04/22/25 20:07 BP 193/85 H 04/22/25 21:30 Pulse Ox 99 04/22/25 21:40 O2 Del Method Room Air 04/22/25 19:12 Common normals: no apparent distress, average body habitus, oriented x3, no limitations, healthy appearing, alert and well nourished [facility] Common normals: normocephalic and head/scalp atraumatic Eye Common normals: PERRL, EOMs intact bilaterally and conjunctivae normal Respiratory Common normals: normal respiratory effort, no retractions, no use of accessory muscles and clear to auscultation bilaterally Cardio Common normals: regular rate, regular rhythm, S1 normal heart sound and S2 normal heart sound GI Common normals: Normal to inspection, nondistended, normoactive bowel sounds present, soft to palpation and non-tender Extremity Common normals: normal to inspection and full ROM Neuro Common normals: oriented x3, CN's II-XII intact bilaterally, moves all extremities and no focal motor deficits Psych Appearance: grossly normal Course Vital Signs Vital signs: Vital Signs Temperature 98.4 F 04/22/25 19:12 Pulse Rate 80 04/22/25 19:12 Respiratory Rate 18 04/22/25 19:12 Blood Pressure 224/94 H 04/22/25 19:12 Pulse Oximetry 99 04/22/25 19:12 Oxygen Delivery Method Room Air 04/22/25 19:12 Temperature 98.4 F 04/22/25 19:12 Pulse Rate 78 04/22/25 20:07 Respiratory Rate 18 04/22/25 20:07 Blood Pressure 193/85 H 04/22/25 21:30 Pulse Oximetry 99 04/22/25 21:40 Oxygen Delivery Method Room Air 04/22/25 19:12 Medical Decision Making MDM Narrative Medical decision making narrative: patient presents with transient loss of memory and confusion. Kept asking his same question several times after she answered him. 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 Patient is back to his normal self with NIH 0. His BP is elevated at 230/96. Treated with Hydralazine and repeart BP 193/85. CT brain without acute findings and labs unremarkable. labs WNL as well. Discussed with Hospitalist Dr Dumont and he has accepted the patient and will manage his BP from here Lab Data Labs: Lab Results 04/22/25 Range/Units 21:15 WBC 7.9 (4.0-11.0) 10^3/uL RBC 5.28 (4.70-6.10) 10^6/uL Hgb 15.5 (14.0-18.0) g/dL Hct 46.2 (42.0-54.0) % MCV 87.5 (80.0-94.0) fL MCH 29.4 (25.9-34.0) pg MCHC 33.5 (29.9-35.2) g/dL RDW 13.5 (11.0-15.0) % Plt Count 174 (150-450) 10^3/uL MPV 9.9 (9.5-13.5) fL Neut % (Auto) 77.3 H (43.0-75.0) % Lymph % (Auto) 17.4 L (20.5-60.0) % Centre % (Auto) 4.4 (1.7-12.0) % Eos % (Auto) 0.5 L (0.9-7.0) % Baso % (Auto) 0.3 (0.2-2.0) % Neut # (Auto) 6.1 (1.4-6.5) 10^3/uL Lymph # (Auto) 1.4 (1.2-3.8) 10^3/uL Centre # (Auto) 0.4 (0.3-0.8) 10^3/uL Eos # (Auto) 0.0 (0.0-0.7) 10^3/uL Baso # (Auto) 0.0 (0.0-0.1) 10^3/uL Abs Immat Gran (auto) 0.01 (0.00-0.03) 10^3/uL Imm/Tot Granulo (auto) 0.1 (0.0-0.5) % Sodium 141 (136-145) mmol/L Potassium 3.8 (3.5-5.1) mmol/L Chloride 101 (98-107) mmol/L Carbon Dioxide 32.0 (21.0-32.0) mmol/L Anion Gap 11.8 BUN 13.0 (7.0-18.0) mg/dL Creatinine 0.78 (0.70-1.30) mg/dL Est GFR ( Amer) >60 (>=60 mL/min/1.73m^2) Est GFR (Non-Af Amer) >60 (>=60 mL/min/1.73m^2) BUN/Creatinine Ratio 16.7 Glucose 105 (74-106) mg/dL Calcium 9.9 (8.5-10.1) mg/dL Troponin I High Sens 19.8 (4.0-76.1) pg/mL Discharge Plan Discharge Chief Complaint: Headache Clinical Impression: TIA (transient ischemic attack), Hypertension Patient Disposition: Admitted as Observation
--- NOTE | 2025-04-22 20:36 | CT_ITS ---
The [address] [address] Patient Name: ASHLEY CHAPMAN MRN: [id number] date: 1955 Sex: M Assigned Patient Location: ER Current Patient Location: ED.MAIN Accession/Order Number: [id number] Exam Date: 04/22/2025 20:59 Report Date: 04/22/2025 21:07 At the request of: DEEPAK VALDIVIA MD Procedure: CT stroke head/brain wo con CT BRAIN WITHOUT CONTRAST: CLINICAL HISTORY: TIA COMPARISON: None TECHNIQUE: Contiguous axial unenhanced images were obtained through the brain. This CT exam was performed using one or more following dose reduction techniques: Automated exposure control, adjustment of the mA and/or kV according to patient size, or use of iterative reconstruction technique. FINDINGS: There is no evidence of midline shift, intra or extra-axial fluid collection, hemorrhage or CT evidence of acute large vascular distribution stroke. Chronic small vessel ischemic disease noted. Intracranial vascular calcifications. Visualized intraorbital contents appear unremarkable. Visualized paranasal sinuses are clear. The surrounding soft tissues are normal. CT/CT stroke head/brain wo con IMPRESSION: NO ACUTE INTRACRANIAL ABNORMALITY. MILD CHRONIC SMALL VESSEL CHANGES Findings were communicated to Dr. Valdivia over the telephone 04/22/2025 9:06 PM Impression dictated by: Peter Curtis M.D. 04/22/2025 9:07 PM Dictation Location: [place] [address] Electronically authenticated by: [id number] Y Date: 04/22/2025 21:07
[2025-04-22] MEDS: HYDRALAZINE HCL 20 MG/ML VIAL 5 MG IVP (21:16)
[2025-04-22 21:41] LABS: Hematocrit 46.2 % (42.0-54.0); Hemoglobin 15.5 g/dL (14.0-18.0); Immature Granulocytes Abs Auto 0.01 10^3/uL (0.00-0.03); Immature Granulocytes Pct Auto 0.1 % (0.0-0.5); Lymphocytes Absolute Auto 1.4 10^3/uL (1.2-3.8); Mean Corpuscular HGB Conc 33.5 g/dL (29.9-35.2); Mean Corpuscular Hemoglobin 29.4 pg (25.9-34.0); Mean Corpuscular Volume 87.5 fL (80.0-94.0); Platelet Count 174 10^3/uL (150-450); Red Blood Count 5.28 10^6/uL (4.70-6.10); White Blood Count 7.9 10^3/uL (4.0-11.0)
[2025-04-22 22:04] LABS: Anion Gap 11.8; Blood Urea Nitrogen 13.0 mg/dL (7.0-18.0); Calcium 9.9 mg/dL (8.5-10.1); Carbon Dioxide 32.0 mmol/L (21.0-32.0); Chloride 101 mmol/L (98-107); Estimated GFR (African America >60 (>=60 mL/min/1.73m^2); Estimated GFR (Non-African Ame >60 (>=60 mL/min/1.73m^2); Glucose 105 mg/dL (74-106); Potassium 3.8 mmol/L (3.5-5.1); Sodium 141 mmol/L (136-145)
--- OUTSIDE RECORDS SUMMARY | 2025-04-22 22:17 | XMS_ITS | CCD ---
Author Organization [facility] Care Team Providers Care Accounts Payable Manager Name Role Phone Favian Baldwin Unavailable [phone] MCKEON ., DR AURE Chaudhry Attending Unavailable MCKEON ., DR AURE Chaudhry Consulting Unavailable MCKEON ., DR AURE Chaudhry Primary Care Unavailable MCKEON ., DR AURE Chaudhry Admitting Unavailable Sunita Carty MD Primary Care Provider Jb Mitchell Admitting Unavailable Jb Mitchell Attending Unavailable Favian Baldwin Admitting UnavailFavian Clarke Attending UnavailSunita Melchor Primary Care Unavailable RADHA DAVIS Attending Sunita Quarles MD Primary Care Provider [phone] MD Sunita Carty Admitting Unavailable MD Sunita Carty Attending Unavailable Sunita Carty Attending Unavailable Sunita aCrty Attending Unavailable Sunita Carty Attending Unavailable Jb MITCHELL Attending Unavailable Jb MITCHELL Attending Unavailable Jb MITCHELL Attending Unavailable Sunita Carty Attending Unavailable Sunita Carty Referring Unavailable Sunita Carty Admitting Unavailable Sunita Carty Admitting Unavailable Sunita Carty Attending Unavailable Jb MITCHELL Attending Unavailable MD Sunita Carty Admitting Unavailable MD Sunita Carty Attending Unavailable Yolanda Guajardo Attending Unavaila MD Sunita Rashid Attending Unavailable MD Sunita Carty Attending Unavailable MD Sunita Carty Attending Unavailable MD Sunita Carty Attending Unavailable JOSIE EAST Attending Unavailable SUNITA CARTY Referring Unavailable GUILLE NATHAN Attending Unavailable GUILLE NATHAN Referring Unavailable ASHLEY STEIN Attending Unavailable GUILLE NATHAN Referring Unavailable MAYE WASHINGTON Attending Unavailable GUILLE NATHAN Attending Unavailable GUILLE NATHAN Attending Unavailable GUILLE NATHAN Referring Unavailable GUILLE NATHAN Attending Unavailable Jb MITCHELL Attending Unavailable Shanti Estrella Attending Unavailable Sunita Carty Attending Unavailable Shanti Estrella Attending Unavailable Medications Current Medications Medication Drug Class(es) Dates Sig (Normalized) Sig (Original) 24 hr alfuzosin hydrochloride 10 mg extended release oral tablet (14 sources) alpha-Adrenergic Arturo take 1 tablet by mouth once daily, then take 1 tablet by mouth every twenty-four hours alfuzosin ER (Uroxatral) 10 MG 24 hr tablet Take 10 mg by mouth Daily Do not crush, chew, or split. Active atorvastatin 20 mg oral tablet (15 sources) HMG-CoA Reductase Inhibitor take 1 tablet by mouth once daily atorvastatin (Lipitor) 20 MG tablet Take 20 mg by mouth Daily Active B-D 5CC LUER-ALEX SYR 21GX1 21G X 1 5 ML misc (2 sources) Start: 03-26-2025 B-D 5CC LUER-ALEX SYR 21GX1 21G X 1 5 ML misc USE TO ADMINISTER TESTOSTERONE EVERY 2 WEEKS 03/26/2025 Active brexpiprazole 1 mg oral tablet (2 sources) Atypical Antipsychotic Start: 03-25-2025 Rexulti 1 MG tablet 03/25/2025 Active cholecalciferol 0.125 mg disintegrating oral tablet (14 sources) Vitamin D Cholecalciferol (Vitamin D3) 125 MCG (5000 UT) tablet dispersible Active Citalopram (1 source) Serotonin Reuptake Inhibitor Citalopram Hydrobromide Active dicyclomine hydrochloride 20 mg oral tablet (15 sources) Anticholinergic Start: 11-19-2023 take 1 tablet by mouth in the morning, then take 1 tablet by mouth in the evening, then take 1 tablet by mouth at bedtime dicyclomine (Bentyl) 20 MG tablet Take 20 mg by mouth in the morning and 20 mg in the evening and 20 mg before bedtime. 11/19/2023 Active Dicyclomine HCl 20 MG Oral for 90 Days Active DULoxetine 60 mg delayed release oral capsule (1 source) Serotonin and Norepinephrine Reuptake Inhibitor DULoxetine HCl 60 MG Oral for 90 Days Active lansoprazole 30 mg delayed release oral capsule (16 sources) Proton Pump Inhibitor Start: 12-18-2023 lansoprazole (Prevacid) [address] capsule 12/18/2023 Active Prevacid Active latanoprost 0.05 mg/ml ophthalmic solution (15 sources) Prostaglandin Analog latanoprost (Xalatan) 0.005 % ophthalmic solution 1 (one) time each day at the same time Active Latanoprost 0.00 5 % Ophthalmic for 108 Days Not-Taking losartan potassium 100 mg oral tablet (16 sources) Angiotensin 2 Receptor Arturo losartan (Cozaar) 10 0 MG tablet 1 (one) time each day at the same time Active Losartan Potassi um Active meloxicam 15 mg oral tablet (2 sources) Nonsteroidal Anti-inflammatory Drug take 1 tablet by mouth every twenty-four hours Meloxicam 15 MG 1 tablet Orally Once a day Active pseudoephedrine hydrochloride 30 mg oral tablet (14 sources) alpha-Adrenergic Agonist pseudoephedrine (Sudafed) 30 MG tablet every 6 (six) hours Active tamsulosin hydrochloride 0.4 mg oral capsule (2 sources) alpha-Adrenergic Arturo Start : 03-27 take 1 capsule by mouth once daily for dizziness tamsulosin (Flomax) 0.4 MG 24 hr capsule TAKE 1 CAPSULE BY MOUTH ONCE A DAY *MONITOR FOR LIGHTHEADEDNESS OR DIZZINESS* 03/27/2025 Active 1 ml testosterone cypionate 200 mg/ml injection (15 sources) Androgen Start : 09-24 testosterone cypionate (Depo-Testosterone) 200 MG/ML injection 09/24/2023 Active Testosterone Cyp ionate 200 MG/ML Intramuscular for 84 Days Active timolol 2.5 mg/ml ophthalmic solution (15 sources) beta-Adrenergic Arturo timolol (Betimol) 0.25 % ophthalmic solution 1 (one) time each day at the same time Active Timolol Maleate 0.5 % Ophthalmic for 80 Days Active vortioxetine 10 mg oral tabl et (14 sources) Vortioxetine HBr (Trintellix) 10 MG tablet Take by mouth Active Completed/Discontinued Medications Medication Drug Class(es) Dates Sig (Normalized) Sig (Original) busPIRone hydrochloride 5 mg oral tablet (2 sources) take 1 tablet by jasiel th every twelve hours busPIRone HCl 5 MG 1 tablet Orally Twice a day Not-Taking Problems Problem Classification Problem Date Documented Date Episodic/Chronic Aortic; peripheral; and visceral artery aneurysms (4 sources) Abdominal aortic aneurysm 3.0 to 5.5 centimeters in male; Translations: [Abdominal aortic aneurysm, without rupture] Onset: 2 Resolved: 2 Chronic Cataract (20 sources) Artificial lens present; Translations: [Presence of intraocular lens] Onset: 4 Resolved: 4 03-28-2024 Chronic Disorders of lipid metabolism (4 sources) Pure hypercholesterolemia, unspecified; Translations: [PURE HYPERCHOLESTEROLEMIA UNSPEC] Onset: 3 Chronic Essential hypertension (1 source) Essential (primary) hypertension; Translations: [ESSENTIAL PRIMARY HYPERTENSION] Onset: 3 Chronic Glaucoma (14 sources) Primary open angle glaucoma; Translations: [Primary open-angle glaucoma, bilateral, mild stage] Onset: 4 01-17-2024 Chronic Osteoarthritis (14 sources) Osteoarthritis of left knee joint; Translations: [Osteoarthritis of right knee joint] 09-10-2024 Chronic Other and unspecified benign neoplasm (2 sources) Melanocytic nevus of trunk; Translations: [Melanocytic nevi of trunk] 11-25-2024 Episodic Other circulatory disease (2 sources) Spider nevus; Translations: [Nevus, non-neoplastic] 11-25-2024 Episodic Other endocrine disorders (1 source) Testicular hypofunction; Translations: [TESTICULAR HYPOFUNCTION] Onset: 3 Chronic Other male genital disorders (1 source) Disorder of prostate, unspecified; Translations: [DISORDER OF PROSTATE UNSPECIFIED] Onset: 3 Episodic Other non-traumatic joint disorders (4 sources) Pain in left knee; Translations: [Pain in joint, lower leg] 03-20-2025 Episodic Other skin disorders (2 sources) Seborrheic keratosis; Translations: [Other seborrheic keratosis] 11-25-2024 Episodic Other skin disorders (2 sources) Lentigo simplex; Translations: [Other melanin hyperpigmentation] 11-25-2024 Episodic Other skin disorders (2 sources) Actinic keratosis; Translations: [Actinic keratosis] 11-25-2024 Episodic Unclassified (1 source) Abdominal aortic aneurysm, without rupture, unspecified; Translations: [Abdominal aortic aneurysm, without rupture, unspecified] Onset: 4 Results Test Name Value Interpretation Reference Range Facility Ambulatory Visit Summaryon 0 04-13-2025 Ambulatory Visit Summary Ambulatory Visit Summary ASHLEY STAPLES :1955 Visit Date:04/13/2025 Ambulatory Visit Instructions Your Diagnosis AAA (abdominal aortic aneurysm) without rupture Hypogonadism male Overweight (BMI 25.0-29.9) BMI 25.0-25.9,adult Former smoker Your Care Team Attending Physician - Shanti Augustin Primary Care Physician - Shanti Augustin This Is Your Medications List Misc Prescription (Misc DME Prescription) Misc Prescription (Misc DME Prescription) atorvastatin (atorvastatin 20 mg Tab) brexpiprazole (Rexulti 1 mg oral tablet) cholecalciferol (Vitamin D3) dicyclomine (dicyclomine 20 mg Tab) lansoprazole (lansoprazole 30 mg Cap-DR) losartan (losartan 100 mg Tab) meloxicam (meloxicam 15 mg Tab) predniSONE (predniSONE 20 mg Tab) tamsulosin (tamsulosin 0.4 mg Cap) testosterone (Testosterone Cypionate 200 mg/mL intramuscular solution) tramadol (traMADOL 50 mg Tab) vortioxetine (Trintellix 5 mg oral tablet) Procedures Performed Post operative bleeding after TURP (transurethral resection of prostate) (11/06/2024), Cystoscopy (10/22/2023), Epidural injection of lumbar spine [...] of varicose vein of lower limb (10/15/1989), Cataract, Cholecystectomy, History of shoulder surgery, LASIK, Low back disc surgery, Torn meniscus repair. Discharge Vitals Temperature (Temporal Artery) 36.7 ???C Heart Rate (Peripheral) 73 Respiratory Rate 18 Blood Pressure 186/82 Height 179.0 cm Height 70 in Weight 82.2 kg Weight 181.22 lb BMI 25.65 What to do next Scheduled Follow-Up Appointments Sunday 8:20 AM EDT With: Where: [address] [address]- Sunday 11:00 AM EDT With: Where: [address] [address]- Sunday 12:15 PM EDT With: STEPHEN RODGERS, Jb Abad Where: [facility] [address] [place] [address]- Medications What How Much When Why Instructions Unchanged atorvastatin (atorvastatin 20 mg Tab) See instructions TAKE 1 TABLET BY MOUTH DAILY Unchanged brexpiprazole (Rexulti 1 mg oral tablet) By Mouth Every day Unchanged cholecalciferol (Vitamin D3) By Mouth Every day Unchanged dicyclomine (dicyclomine 20 mg Tab) See instructions TAKE 1 TABLET BY MOUTH THREE TIMES A DAY Unchanged lansoprazole (lansoprazole 30 mg Cap-DR) See instructions TAKE 1 CAPSULE BY MOUTH DAILY Unchanged losartan (losartan 100 mg Tab) See instructions TAKE 1 TABLET BY MOUTH DAILY Unchanged meloxicam (meloxicam 15 mg Tab) 1 Tablets By Mouth Every day TAKE 1 TABLET BY MOUTH EVERY DAY FOR 30 DAYS Unchanged Misc Prescription ([facility] DME Prescription) See instructions 18G 1 needles to use to draw up his testosterone Unchanged Misc Prescription (Misc DME Prescription) See instructions 3ml syringes w/ 21G X 1 needles to administer the testosterone every 2 weeks Unchanged predniSONE (predniSONE 20 mg Tab) 1 Tablets By Mouth As Directed BMI 26.0-26.9,adult Former smoker Overweight (BMI 25.0-29.9) Sciatica, left side Other specified postprocedural states Testicular hypofunction Take three tabs by mouth for one day, then two tabs for one day, then one tab for one day Unchanged tamsulosin (tamsulosin 0.4 mg Cap) 1 Capsules By Mouth Every day Monitor for lightheadedness or dizziness. Unchanged testosterone (Testosterone Cypionate 200 mg/ mL intramuscular solution) 1 Milliliter Intramuscular Every other week Unchanged tramadol (traMADOL 50 mg Tab) 1 Tablets By Mouth Every 6 hours BMI 26.0-26.9,adult Former smoker Overweight (BMI 25.0-29.9) Sciatica, left side Other specified postprocedural states Testicular hypofunction Unchanged vortioxetine (Trintellix 5 mg oral tablet) 1 Tablets By Mouth Every day Allergies No Known Allergies Problems Ongoing - Any problem that you are currently receiving treatment for. AAA (abdominal aortic aneurysm) without rupture BMI 26.0-26.9,adult BPH with obstruction/lower urinary tract symptoms CPAP (continuous positive airway pressure) dependence Feeling of incomplete bladder emptying Former smoker Gastroesophageal reflux disease without esophagitis Glaucoma Heart murmur Hypercholesterolemia Hypogonadism male Incomplete bladder emptying Low back pain (more content not included)... Normal [facility] Family Medicine Office/Clini c Noteon 04-13-2025 Family Medicine Office/Clinic Note Family Medicine Office/Clinic Note HPI Staff Patient is presenting to have varicose veins on legs checked * Keyshawn patient* Testosterone was too high and he has been getting injection every two weeks, it will be three weeks then it will be rechecked as per Dr. Carty. He is wondering if you will continue this with him? PSA Scrn Tot.: 0.5 ng/mL (02/27/25 09:31:00) Pt states that Losartan is being sent to [facility] and he wants that to be mail order History of Present Illness pt presents today to establish care. he is concerned no one will manage his testosterone. Review of Systems PHQ Score Initial Depression Screen Score: 0 SCORE Physical Exam Vitals & Measurements T: 36.7 ???C(Temporal Artery) HR: 73(Peripheral) RR: 18 BP: 186/82 SpO2: 99% HT: 179.0 cm HT: 70 in WT: 181.22 lb WT: 82.2 kg BMI: 25.65 General: alert, no acute distress ENMT: oral mucosa moist, no pharyngeal erythema or exudate Cardiovascular: regular rate and rhythm, normal peripheral perfusion Respiratory: Lungs CTA, respirations non labored Extremities: no deformity, no trauma Neurological: oriented x 4, LOC appropriate for age, CN II-XII intact, motor strength equal & normal bilaterally, speech normal Assessment/Plan 1. Hypogonadism male (E29.1: Testicular hypofunction) Starting March 15 Dr. Carty had him start taking testosterone every 3 weeks instead of every 2 weeks. Will re check testosterone level after May 04. 2. Major depressive disorder, recurrent, mild (F33.0: Major depressive disorder, recurrent, mild) Depression screening is 0 today. pt is doing well. denies needs at this time. 3. Left knee pain (M25.562: Pain in left knee) pt asking for oxycodone for knee pain. he is scheduled to see Dr. Stein for gel insertion. I offered anti-inflammatory and medrol dose pack. but do not feel comfortable prescribing a narcotic at this time. pt declines and says he will talk to Dr. Stein about it 4. BMI 25.0-25.9,adult (Z68.25: Body mass index [BMI] 25.0-25.9, adult) BMI education 5. Overweight (BMI 25.0-29.9) (E66.3: Overweight) see above 6. Former smoker (Z87.891: Personal history of nicotine dependence) continue not smoking Follow-up No qualifying data available Problem List/Past Medical History Ongoing AAA (abdominal aortic aneurysm) without rupture BMI 26.0-26.9,adult BPH with obstruction/lower urinary tract symptoms CPAP (continuous positive airway pressure) dependence Feeling of incomplete bladder emptying Former smoker Gastroesophageal reflux disease without esophagitis Glaucoma Heart murmur Hypercholesterolemia Hypogonadism male Incomplete bladder emptying Left knee pain Low back pain Major depressive disorder, recurrent, mild Overweight (BMI 25.0-29.9) Primary hypertension Sleep apnea Historical BPH (benign prostatic hyperplasia) Enlarged prostate Hypogonadism in male Procedure/Surgical History Post operative bleeding after TURP (transurethral resection of prostate) (11/06/2024), Cystoscopy (10/22/2023), Epidural injection of lumbar spine [...] of varicose vein of lower limb (10/15/1989), Cataract, Cholecystectomy, History of shoulder surgery, LASIK, Low back disc surgery, Torn meniscus repair. Medications atorvastatin 20 mg Tab, See Instructions, 4 refills dicyclomine 20 mg Tab, See Instructions, 1 refills lansoprazole 30 mg Cap-DR, See Instructions losartan 100 mg Tab, See Instructions meloxicam 15 mg Tab, 15 mg= 1 tab(s), Oral, Daily, 1 refills Misc DME Prescription, See Instructions, 3 refills Misc DME Prescription, See Instructions, 3 refills predniSONE 20 mg Tab, 20 mg= 1 tab(s), Oral, As Directed Rexulti 1 mg oral tablet, Oral, Daily tamsulosin 0.4 mg Cap, 0.4 mg= 1 cap(s), Oral, Daily, 11 refills Testosterone Cypionate 200 mg/mL intramuscular solution, 200 mg= 1 mL, IntraMuscular, q2wk traMADOL 50 mg Tab, 50 mg= 1 tab(s), Oral, q6hr Trintellix 5 mg oral tablet, 5 mg= 1 tab(s), Oral, Daily Vitamin D3, Oral, Daily Allergies No Known Allergies Social History Alcohol - Low Risk, 03/20/2024 Current. Beer, Liquor. 3-5 times per week., 11/18/2024 Substance Abuse - Denies Substance Abuse, 10/18/2016 Never., 11/18/2024 Tobacco - Denies Tobacco Use, 10/18/2016 Former smoker, quit more than 30 days ago Tobacco Use:. Never Smokeless Tobacco Use:. Cigarettes, Household tobacco concerns: No. Yes, 04/13/2025 Family History Dementia: Father. Immunizations Vaccine Date Status influenza v (more content not included)... Normal [facility] Comment on above: Result Comment: Elec tronically Signed By: Shanti Augustin\.br\Date and Time Signed: 04/13/25 12:45 EDT Pre-Visit Planningon 025 Pre-Visit Planning Pre-Visit Planning From: Henrietta Siegel To: Shanti Augustin; Sent: 04/10/2025 14:13:36 EDT Subject: Pre-Visit Planning Due Date/Time: 04/10/2025 14:13:00 EDT Caller Name: ASHLEY STAPLES; Caller Number: Rajani , Opal Chip Moser. During a pre-visit planning chart review, I noted the following documentation in the medical record: Current Medication List: brexpiprazole and vortioxetine. PHQ-9 Score: =5 on 05/14/2023. Based on your medical judgment, can you please clarify which, if any, of the following conditions are present? I can update the Chronic Problem List with your response if you would like. Major Depressive Disorder, Single Episode ??? Major depressive disorder, single episode, mild ??? Major depressive disorder, single episode, moderate ??? Major depressive disorder, single episode, severe without mention of psychotic behavior ??? Major depressive disorder, single episode, severe specified as with psychotic behavior ??? Major depressive disorder, single episode, in partial remission ??? Major depressive disorder, single episode in full remission Major Depressive Disorder, Recurrent ??? Major depressive disorder, recurrent, mild ??? Major depressive disorder, recurrent, moderate ??? Major depressive disorder, recurrent, severe without mention of psychotic behavior ??? Major depressive disorder, recurrent, severe specified as with psychotic behavior ??? Major depressive disorder, recurrent, in partial remission ??? Major depressive disorder, recurrent, in full remission Generalized Anxiety Disorder Obsessive-Compulsive Disorder Schizophrenia Dementia in Alzheimer's disease with early onset with behavioral disturbance Other (Please Specify): In responding to this request, please exercise your independent professional judgement. The fact that a question is asked does not imply that any particular answer is desired or expected. If you have any questions, please feel free to contact me at extension [phone]. Thank you! Henrietta Siegel LPN Clinical [employer] [place] [id number] Extension: [phone] [email or web address] From: Shanti Augustin To: Henrietta Siegel; Sent: 04/13/2025 11:35:20 EDT Subject: RE: Pre-Visit Planning Caller Name: ASHLEY STAPLES; Caller Number: Rajani , M His depression score was 0 today. 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 Normal [facility] Ambulatory Visit Summaryon 0 03-27-2025 Ambulatory Visit Summary Ambulatory Visit Summary ASHLEY STAPLES :1955 Visit Date:03/27/2025 Ambulatory Visit Instructions Your Diagnosis BPH with obstruction/lower urinary tract symptoms Feeling of incomplete bladder emptying Hypogonadism male Your Care Team Attending Physician - STEPHEN RODGERS, Jb Abad Primary Care Physician - Keyshawn RODGERS, Sunita Zamarripa This Is Your Medications List brexpiprazole (Rexulti 1 mg oral tablet) tamsulosin (tamsulosin 0.4 mg Cap) Contact prescribing physician if questions or concerns Misc Prescription (Misc DME Prescription) Misc Prescription (Misc DME Prescription) atorvastatin (atorvastatin 20 mg Tab) cholecalciferol (Vitamin D3) dicyclomine (dicyclomine 20 mg Tab) lansoprazole (lansoprazole 30 mg Cap-DR) losartan (losartan 100 mg Tab) meloxicam (meloxicam 15 mg Tab) predniSONE (predniSONE 20 mg Tab) testosterone (Testosterone Cypionate 200 mg/mL intramuscular solution) tramadol (traMADOL 50 mg Tab) vortioxetine (Trintellix 5 mg oral tablet) Procedures Performed Post operative bleeding after TURP (transurethral resection of prostate) (11/06/2024), Cystoscopy (10/22/2023), Epidural injection of lumbar spine [...] of varicose vein of lower limb (10/15/1989), Cataract, Cholecystectomy, History of shoulder surgery, LASIK, Low back disc surgery, Torn meniscus repair. Discharge Vitals Heart Rate (Peripheral) 63 Blood Pressure 163/88 Height 179 cm Height 70 in Weight 82.6 kg Weight 182.102 lb BMI 25.78 What to do next Scheduled Follow-Up Appointments Sunday 1:00 PM EDT With: Where: [address] [address]- Sunday 10:00 AM EDT With: Keyshawn RODGERS, Sunita Zamarripa Where: [address] [address]- You Need to Schedule the Following Appointments Follow Up with STEPHEN RODGERS, LEXIS Herrera When: Where: [address] [place] [id number]- Medications What How Much When Why Instructions New tamsulosin (tamsulosin 0.4 mg Cap) 1 Capsules By Mouth Every day Refills: 11 Monitor for lightheadedness or dizziness. Pickup at [facility]/pharmacy #[id number] Unchanged brexpiprazole (Rexulti 1 mg oral tablet) By Mouth Every day Unchanged atorvastatin (atorvastatin 20 mg Tab) See instructions TAKE 1 TABLET BY MOUTH DAILY Contact prescribing physician if questions or concerns Unchanged cholecalciferol (Vitamin D3) By Mouth Every day Contact prescribing physician if questions or concerns Unchanged dicyclomine (dicyclomine 20 mg Tab) See instructions TAKE 1 TABLET BY MOUTH THREE TIMES A DAY Contact prescribing physician if questions or concerns Unchanged lansoprazole (lansoprazole 30 mg Cap-DR) See instructions TAKE 1 CAPSULE BY MOUTH DAILY Contact prescribing physician if questions or concerns Unchanged losartan (losartan 100 mg Tab) See instructions TAKE 1 TABLET BY MOUTH DAILY Contact prescribing physician if questions or concerns Unchanged meloxicam (meloxicam 15 mg Tab) 1 Tablets By Mouth Every day TAKE 1 TABLET BY MOUTH EVERY DAY FOR 30 DAYS Contact prescribing physician if questions or concerns Unchanged Misc Prescription (Misc DME Prescription) See instructions 18G 1 needles to use to draw up his testosterone Contact prescribing physician if questions or concerns Unchanged Misc Prescription (Misc DME Prescription) See instructions 3ml syringes w/ 21G X 1 needles to administer the testosterone every 2 weeks Contact prescribing physician if questions or concerns Unchanged predniSONE (predniSONE 20 mg Tab) 1 Tablets By Mouth As Directed BMI 26.0-26.9,adult Former smoker Overweight (BMI 25.0-29.9) Sciatica, left side Other specified postprocedural states Testicular hypofunction Take three tabs by mouth for one day, then two tabs for one day, then one tab for one day Contact prescribing physician if questions or concerns Unchanged testosterone (Testosterone Cypionate 200 mg/ mL intramuscular solution) 1 Milliliter Intramuscular Every other week Contact prescribing physician if questions or concerns Unchanged tramadol (traMADOL 50 mg Tab) 1 Tablets By Mouth Every 6 hours BMI 26.0-26.9,adult Former smoker Overweight (BMI 25.0-29.9) Sciatica, left side Other specified postprocedural states Testicular hypofunction Contact prescribing physician if questions or concerns Unchanged vort (more content not included)... Normal [facility] Urology Office/Clinic Noteon 03-27-2025 Urology Office/Clinic Note Urology Office/Clinic Note Chief Complaint fu HPI Staff 69 year old male patient here for 4 month follow up. Previous dx: BOH with obstruction/LUTS, hypogonadism male. S/P cysto 10/22/23, TURP 11/06/24 * Testosterone 200 mg IM q2wks PCP manages Patient denies any dysuria or gross hematuria. Denies any flank or abdomen pain. Penis aches a little when urinates, urgency sometimes, burning sometimes, feels like he emptyies all the way when really has to go and goes alot at night History of Present Illness Tests reviewed: reviewed UA, PSA, T level. I have reviewed the previous health record information and history for this patient from Dr. Mitchell I have reviewed and verified the staff [...] HPI. Physical Exam Vitals & Measurements HR: 63(Peripheral) BP: 163/88 HT: 179 cm HT: 70 in WT: 82.6 kg WT: 182.102 lb BMI: 25.78 General Appearance: alert, no distress, well nourished, well developed male. Assessment/Plan JOY N/A 1. BPH with obstruction/lower urinary tract symptoms (N40.1: Benign prostatic hyperplasia with lower urinary tract symptoms) PSA 02/27/25 - 0.5 S/p [facility] Laser of Prostate 02/24/[address] Ramos. Had great results, worked amazing . S/p Cysto 10/22/23 - Prostate regrowth and obstruction at apex. Majority of bladder neck and prostate were wide open. S/p Cysto, TURP 11/06/24 - Path negative for malignancy. Took Flomax 0.4mg bid 04/2023 but did not like SE so he was unwilling to stay on increased dosage despite this improving urinary sxs. Was taking Flomax 0.4mg qd. Pt was later switched to Alfuzosin ER 10mg qd, felt this worked well but was not as effective as Flomax but still was unwilling to retry Flomax due to SE affecting his libido. Admitted he preferred Alfuzosin to no med. UA today negative for blood or infection. IPSS 21 (20) Reports he has not noticed much improvement from TURP. Stream is strong majority of the time, dribbles during the night. Does not feel he empties. Denies UTIs. Discussed possible etiologies as to why pt has not had improvement since TURP. Likely bladder dysfunction. Taking Trintellix. Also states he is on a new medication Rexulti. Possible SEs include constipation which can affect urination. No specific SE listed for UR. States he is willing to restart Flomax. -Start Flomax 0.4 mg qd, monitor for lightheadedness or dizziness -F/up in 4 mos w/ PVR 2. Feeling of incomplete bladder emptying (R39.14: Feeling of incomplete bladder emptying) PVR 01/14/24 - 40 mL 06/13/25 - 278 mL PVR does not warrant CIC currently but it could be warranted in the future pending PVR levels. See #1. 3. Hypogonadism male (E29.1: Testicular hypofunction) Testosterone 12/26/22 - 912 02/27/25 - 1086 and 18.9 Hgb 16.3 and hct 48.7 02/27/25. Receives Testosterone injection 200 mg. Pt states since his elevated level in February, he now receives T injection q 3 wks. TRT managed through Dr. Carty. Encouraged close follow up of T level through primary care. Follow-up With When Contact Information Jb MITCHELL MD, URL [address] [id number]- Additional Instructions: 4 mos w/ PVR Patient Education Benign Prostatic Hyperplasia I, Stacia Garcia, personally scribed for Dr. Mitchell on 03/27/2025 11:22:37. . Documentation recorded by the scribe, Stacia Garcia, accurately reflects the services(s) I performed and decisions made by me. Authenticated by Dr. Mitchell on 03/27/2025 11:24:35. Problem List/Past Medical History Ongoing BMI 26.0-26.9,adult BPH with obstruction/lower urinary tract symptoms CPAP (continuous positive airway pressure) dependence Encounter for screening colonoscopy Feeling of incomplete bladder emptying Former smoker Gastroesophageal reflux disease without esophagitis Glaucoma Heart murmur Hypercholesterolemia Hypogonadism male Incomplete bladder emptying Low back pain Overweight (BMI 25.0-29.9) Primary hypertension Prostate cancer screening Shoulder pain, left Skin cancer screening Sleep apnea Historical BPH (benign prostatic hyperplasia) Enlarged prostate Hypogonadism in male Procedure/Surgical History Post operative ble (more content not included)... Normal [facility] Comment on above: Result Comment: Elec tronically Signed By: Jb MITCHELL MD\.br\Date and Time Signed: 03/27/25 11:24 EDT\.br\Electronically Co-Signed By: Stacia Garcia\.br\Date and Time Co-Signed: 03/27/25 11:22 EDT XR Knee - left 3 [facility] Result: 03/20/2025: AP, Lat and [place] view of the left knee demonstrates medial joint space narrowing with subchondral sclerosis and flattening of the surfaces of tibial plateau and femoral condyle. Patella is noted to be midline with marginal osteophyte formation. Impression: osteoarthritis of the left knee. Guille Nathan APRN, [employer]-C [facility] Study observation (narrative) [facility] Testosterone F&Ton Testosterone [Mass/Vol] 1086 ng/dL High 264-916 [facility] Comment on above: Result Comment: Adul t male reference interval is based on a population of healthy nonobese males (BMI <30) between 19 and 39 years old. Leeroy, et.al. JCEM 2017,102;[id number]. PMID: [id number]. Performed By: #### 1 [id number] #### [facility] [address] [place] [address] Testosterone Free [Mass/Vol] 18.9 pg/mL High 6.6-18.1 [facility] Comment on above: Result Comment: Perf ormed at: [facility] [address] [id number] PhD Reji Kang Performed at: [facility] [address] [id number] MD Arnold Colvin Performed By: #### 1 [id number] #### [facility] [address] [place] [address] Ambulatory Visit Summaryon 0 02-27-2025 Ambulatory Visit Summary Ambulatory Visit Summary ASHLEY STAPLES :1955 Visit Date:02/27/2025 Ambulatory Visit Instructions Your Diagnosis Hypogonadism male Prostate cancer screening Hypercholesterolemia Primary hypertension Gastroesophageal reflux disease without esophagitis Your Care Team Attending Physician - Sunita Carty MD. Primary Care Physician - Sunita Carty MD This Is Your Medications List Misc Prescription (Misc DME Prescription) Misc Prescription (Misc DME Prescription) atorvastatin (atorvastatin 20 mg Tab) cholecalciferol (Vitamin D3) dicyclomine (dicyclomine 20 mg Tab) lansoprazole (lansoprazole 30 mg Cap-DR) losartan (losartan 100 mg Tab) meloxicam (meloxicam 15 mg Tab) predniSONE (predniSONE 20 mg Tab) testosterone (Testosterone Cypionate 200 mg/mL intramuscular solution) tramadol (traMADOL 50 mg Tab) vortioxetine (Trintellix 5 mg oral tablet) Procedures Performed Post operative bleeding after TURP (transurethral resection of prostate) (11/06/2024), Cystoscopy (10/22/2023), Epidural injection of lumbar spine [...] of varicose vein of lower limb (10/15/1989), Cataract, Cholecystectomy, History of shoulder surgery, LASIK, Low back disc surgery, Torn meniscus repair. What to do next Scheduled Follow-Up Appointments Sunday 10:15 AM EDT With: Jb MITCHELL MD Where: [facility] [address] [id number]- Sunday 1:00 PM EDT With: Where: [address] [id number]- Sunday 10:00 AM EDT With: Sunita Carty MD Where: [address] [address]- Medications What How Much When Why Instructions Unchanged atorvastatin (atorvastatin 20 mg Tab) See instructions TAKE 1 TABLET BY MOUTH DAILY Unchanged cholecalciferol (Vitamin D3) By Mouth Every day Unchanged dicyclomine (dicyclomine 20 mg Tab) See instructions TAKE 1 TABLET BY MOUTH THREE TIMES A DAY Unchanged lansoprazole (lansoprazole 30 mg Cap-DR) See instructions TAKE 1 CAPSULE BY MOUTH DAILY Unchanged losartan (losartan 100 mg Tab) See instructions TAKE 1 TABLET BY MOUTH DAILY Unchanged meloxicam (meloxicam 15 mg Tab) 1 Tablets By Mouth Every day TAKE 1 TABLET BY MOUTH EVERY DAY FOR 30 DAYS Unchanged Misc Prescription (Misc DME Prescription) See instructions 18G 1 needles to use to draw up his testosterone Unchanged Misc Prescription (Misc DME Prescription) See instructions 3ml syringes w/ 21G X 1 needles to administer the testosterone every 2 weeks Unchanged predniSONE (predniSONE 20 mg Tab) 1 Tablets By Mouth As Directed BMI 26.0-26.9,adult Former smoker Overweight (BMI 25.0-29.9) Sciatica, left side Other specified postprocedural states Testicular hypofunction Take three tabs by mouth for one day, then two tabs for one day, then one tab for one day Unchanged testosterone (Testosterone Cypionate 200 mg/ mL intramuscular solution) 1 Milliliter Intramuscular Every other week Unchanged tramadol (traMADOL 50 mg Tab) 1 Tablets By Mouth Every 6 hours BMI 26.0-26.9,adult Former smoker Overweight (BMI 25.0-29.9) Sciatica, left side Other specified postprocedural states Testicular hypofunction Unchanged vortioxetine (Trintellix 5 mg oral tablet) 1 Tablets By Mouth Every day Allergies No Known Allergies Problems Ongoing - Any problem that you are currently receiving treatment for. BMI 26.0-26.9,adult BPH with obstruction/lower urinary tract symptoms CPAP (continuous positive airway pressure) dependence Encounter for screening colonoscopy Former smoker Gastroesophageal reflux disease without esophagitis Glaucoma Heart murmur Hypercholesterolemia Hypogonadism male Incomplete bladder emptying Low back pain Overweight (BMI 25.0-29.9) Primary hypertension Prostate cancer screening Shoulder pain, left Skin cancer screening Sleep apnea Historical - Any problem that you are no longer receiving treatment for. BPH (benign prostatic hyperplasia) Enlarged prostate Hypogonadism in male Patient Survey You may receive a survey via text or e-mail asking about your office visit. Please share your experience with us by completing your survey. We appreciate your feedback and thank you for choosing us for your care. [I (more content not included)... Normal [facility] CBC w/ Auto Diffon 5 Basophils/100 WBC (Bld) 0.5 % Normal 0.0-2.0 [facility] Comment on above: Performed By: #### 2 [id number] #### [facility] [address] [place] [address] Basophils/Leukocytes Auto (Bld) [Pure # fraction] 0.0 E9/L Normal 0.0-0.2 [facility] Comment on above: Performed By: #### 2 [id number] #### [facility] [address] [place] [address] Eosinophils (Bld) [#/Vol] 0.1 E9/L Normal 0.0-0.5 [facility] Comment on above: Performed By: #### 2 [id number] #### [facility] [address] [place] [address] Eosinophils/100 WBC (Bld) 2.2 % Normal 0.0-8.0 [facility] Comment on above: Performed By: #### 2 [id number] #### [facility] [address] [place] [address] Erythrocyte distribution width (RBC) [Ratio] 14.2 % Normal 10.9-14.2 [facility] Comment on above: Performed By: #### 2 [id number] #### [facility] [address] [place] [address] Hematocrit (Bld) [Volume fraction] 48.7 % Normal 37.7-49.0 [facility] Comment on above: Performed By: #### 2 [id number] #### [facility] [address] [place] [address] Hemoglobin (Bld) [Mass/Vol] 16.3 g/dL Normal 13.5-17.5 [facility] Comment on above: Performed By: #### 2 375174 #### [facility] [address] [place] [address] Lymphocytes (Bld) [#/Vol] 1.8 E9/L Normal 1.0-4.0 [facility] Comment on above: Performed By: #### 2 [id number] #### [facility] [address] [place] [address] Lymphocytes/100 WBC (Bld) 30.9 % Normal 14.0-50.0 [facility] Comment on above: Performed By: #### 2 [id number] #### [facility] [address] [place] [address] MCH (RBC) [Entitic mass] 28.7 pg Normal 27.0-34.0 [facility] Comment on above: Performed By: #### 2 [id number] #### [facility] [address] [place] [address] MCHC (RBC) [Mass/Vol] 33.5 g/dL Normal 31.4-36.0 [facility] Comment on above: Performed By: #### 2 [id number] #### [facility] [address] [place] [address] MCV (RBC) [Entitic vol] 85.6 fL Normal 80.0-100.0 [facility] Comment on above: Performed By: #### 2 [id number] #### [facility] [address] [place] [address] Monocytes (Bld) [#/Vol] 0.3 E9/L Normal 0.2-1.0 [facility] Comment on above: Performed By: #### 2 [id number] #### [facility] [address] [place] [address] Neutrophils (Bld) [#/Vol] 3.5 E9/L Normal 2.0-7.5 [facility] Comment on above: Performed By: #### 2 [id number] #### [facility] [address] [place] [address] Neutrophils/100 WBC (Bld) 61.2 % Normal 36.0-75.0 [facility] Comment on above: Performed By: #### 2 547605 #### [facility] [address] [place] [address] Platelet mean volume (Bld) [Entitic vol] 8.7 fL Normal 6.4-10.8 [facility] Comment on above: Performed By: #### 2 [id number] #### [facility] [address] [place] [address] Platelets (Bld) [#/Vol] 170.0 E9/L Normal 150.0-500.0 [facility] Comment on above: Performed By: #### 2 [id number] #### [facility] [address] [place] [address] RBC (Bld) [#/Vol] 5.7 E12/L Normal 4.3-5.9 [facility] Comment on above: Performed By: #### 2 [id number] #### [facility] [address] [place] [address] WBC corrected for nucl RBC Auto (Bld) [#/Vol] 5.7 E9/L Normal 4.0-11.0 [facility] Comment on above: Performed By: #### 2 [id number] #### [facility] [address] [place] [address] CMPon 02-27-2025 Albumin [Mass/Vol] 4.5 g/dL Normal 3.3-5.0 [facility] Comment on above: Performed By: #### 2 [id number] #### [facility] [address] [place] [address] Albumin/Globulin (S) [Mass conc ratio] 1.6 Normal 1.1-2.2 [facility] Comment on above: Performed By: #### 2 [id number] #### [facility] [address] [place] [address] ALP [Catalytic activity/Vol] 52 Int._Unit/L Normal 21-98 [facility] Comment on above: Performed By: #### 2 [id number] #### [facility] [address] [place] [address] ALT No additional P-5'-P [Catalytic activity/Vol] 11 Int._Unit/L Normal 6-46 [facility] Comment on above: Performed By: #### 2 [id number] #### [facility] [address] [place] [address] Anion gap [Moles/Vol] 12 mmol/L Normal 6-16 [facility] Comment on above: Performed By: #### 2 [id number] #### [facility] [address] [place] [address] AST [Catalytic activity/Vol] 23 Int._Unit/L Normal 5-43 [facility] Comment on above: Performed By: #### 2 [id number] #### [facility] [address] [place] [address] Bilirubin [Mass/Vol] 0.6 mg/dL Normal 0.0-1.1 [facility] Comment on above: Performed By: #### 2 [id number] #### [facility] [address] [place] [address] Calcium [Mass/Vol] 9.3 mg/dL Normal 8.9-11.1 [facility] Comment on above: Performed By: #### 2 [id number] #### [facility] [address] [place] [address] Chloride [Moles/Vol] 101 mmol/L Normal 101-111 [facility] Comment on above: Performed By: #### 2 184821 #### [facility] [address] [place] [address] CO2 [Moles/Vol] 26 mmol/L Normal 21-31 [facility] Comment on above: Performed By: #### 2 [id number] #### [facility] [address] [place] [address] Creatinine [Mass/Vol] 0.8 mg/dL Normal 0.5-1.3 [facility] Comment on above: Performed By: #### 2 [id number] #### [facility] [address] [place] [address] Globulin (S) [Mass/Vol] 2.8 g/dL Normal 1.4-4.0 [facility] Comment on above: Performed By: #### 2 [id number] #### [facility] [address] [place] [address] Glucose [Mass/Vol] 101 mg/dL Normal 55-199 [facility] Comment on above: Performed By: #### 2 [id number] #### [facility] [address] [place] [address] Potassium [Moles/Vol] 4.7 mmol/L Normal 3.5-5.3 [facility] Comment on above: Performed By: #### 2 [id number] #### [facility] [address] [place] [address] Protein [Mass/Vol] 7.3 g/dL Normal 6.0-7.8 [facility] Comment on above: Performed By: #### 2 127087 #### [facility] [address] [place] [address] Sodium [Moles/Vol] 134 mmol/L Low 135-145 [facility] Comment on above: Performed By: #### 2 [id number] #### [facility] [address] [place] [address] Urea nitrogen [Mass/Vol] 14 mg/dL Normal 5-21 [facility] Comment on above: Performed By: #### 2 [id number] #### [facility] [address] [place] [address] Urea nitrogen/Creatinine [Mass ratio] 18 No Units Normal 10-20 [facility] Comment on above: Performed By: #### 2 [id number] #### [facility] [address] [place] [address] Lipid Panelon 02-27-2025 Cholesterol [Mass/Vol] 151 mg/dL Normal 120-200 [facility] Comment on above: Performed By: #### 2 [id number] #### [facility] [address] [place] [address] Cholesterol in HDL [Mass/Vol] 51 mg/dL Invalid Interpretation Code [facility] Comment on above: Result Comment: '>= 60 LOW RISK' '<= 40 HIGH RISK' Performed By: #### 2 [id number] #### [facility] [address] [place] [address] Cholesterol in LDL [Mass/Vol] 86 mg/dL Normal <=129 [facility] Comment on above: Performed By: #### 2 [id number] #### [facility] [address] [place] [address] Cholesterol in VLDL [Mass/Vol] 13 mg/dL Normal 7-40 [facility] Comment on above: Performed By: #### 2 571974 #### [facility] [address] [place] [address] Triglyceride [Mass/Vol] 65 mg/dL Normal <=149 [facility] Comment on above: Performed By: #### 2 [id number] #### [facility] [address] [place] [address] PSA Screen, Totalon 02-28-20 25 Prostate specific Ag [Mass/Vol] 0.5 ng/mL Normal 0.1-3.5 [facility] Comment on above: Result Comment: The concentration of PSA determined by different manufacturers can vary due to differences in assay methods and reagent specificity. Values obtained from different assay methods cannot be used interchangeably. The methodology used for this result was chemiluminescence using [employer] PSA reagent. Performed By: #### 1 [id number] #### [facility] [address] [place] [address] eGFRon 02-27-2025 eGFR 95 mL/min/1.73 m2 Normal >=59 [facility] Comment on above: Performed By: #### 1 [id number] #### [facility] [address] [place] [address] Ambulatory Visit Summaryon 0 02-19-2025 Ambulatory Visit Summary Ambulatory Visit Summary ASHLEY STAPLES :1955 Visit Date:02/19/2025 Ambulatory Visit Instructions Your Diagnosis BMI 26.0-26.9,adult Former smoker Overweight (BMI 25.0-29.9) Sciatica, left side Other specified postprocedural states Testicular hypofunction Your Care Team Attending Physician - Sunita Carty MD Primary Care Physician - Sunita Carty MD This Is Your Medications List Misc Prescription (Misc DME Prescription) Misc Prescription (Misc DME Prescription) atorvastatin (atorvastatin 20 mg Tab) cholecalciferol (Vitamin D3) dicyclomine (dicyclomine 20 mg Tab) lansoprazole (lansoprazole 30 mg Cap-DR) losartan (losartan 100 mg Tab) meloxicam (meloxicam 15 mg Tab) testosterone (Testosterone Cypionate 200 mg/mL intramuscular solution) vortioxetine (Trintellix 5 mg oral tablet) Procedures Performed Post operative bleeding after TURP (transurethral resection of prostate) (11/06/2024), Cystoscopy (10/22/2023), Epidural injection of lumbar spine [...] of varicose vein of lower limb (10/15/1989), Cataract, Cholecystectomy, History of shoulder surgery, LASIK, Low back disc surgery, Torn meniscus repair. Discharge Vitals Heart Rate (Peripheral) 76 Respiratory Rate 18 Blood Pressure 142/90 Height 179 cm Height 70 in Weight 85.2 kg Weight 187.834 lb BMI 26.59 What to do next Scheduled Follow-Up Appointments Sunday 9:20 AM EDT With: Where: [address] [address]- Sunday 10:15 AM EDT With: bJ MITCHELL MD Where: [facility] [address] [place] [address]- Sunday 1:00 PM EDT With: Where: [address] [address]- Sunday 10:00 AM EDT With: Keyshawn RODGERS, Sunita Zamarripa Where: [facility] [address] [place] [address]- Medications What How Much When Instructions Unchanged atorvastatin (atorvastatin 20 mg Tab) See instructions TAKE 1 TABLET BY MOUTH DAILY Unchanged cholecalciferol (Vitamin D3) By Mouth Every day Unchanged dicyclomine (dicyclomine 20 mg Tab) See instructions TAKE 1 TABLET BY MOUTH THREE TIMES A DAY Unchanged lansoprazole (lansoprazole 30 mg Cap-DR) See instructions TAKE 1 CAPSULE BY MOUTH DAILY Unchanged losartan (losartan 100 mg Tab) See instructions TAKE 1 TABLET BY MOUTH DAILY Unchanged meloxicam (meloxicam 15 mg Tab) 1 Tablets By Mouth Every day TAKE 1 TABLET BY MOUTH EVERY DAY FOR 30 DAYS Unchanged Misc Prescription (Misc DME Prescription) See instructions 18G 1 needles to use to draw up his testosterone Unchanged Misc Prescription (Misc DME Prescription) See instructions 3ml syringes w/ 21G X 1 needles to administer the testosterone every 2 weeks Unchanged testosterone (Testosterone Cypionate 200 mg/ mL intramuscular solution) 1 Milliliter Intramuscular Every other week Unchanged vortioxetine (Trintellix 5 mg oral tablet) 1 Tablets By Mouth Every day Allergies No Known Allergies Problems Ongoing - Any problem that you are currently receiving treatment for. BMI 26.0-26.9,adult BPH with obstruction/lower urinary tract symptoms CPAP (continuous positive airway pressure) dependence Encounter for screening colonoscopy Former smoker Gastroesophageal reflux disease without esophagitis Glaucoma Heart murmur Hypercholesterolemia Hypogonadism male Incomplete bladder emptying Low back pain Overweight (BMI 25.0-29.9) Primary hypertension Prostate cancer screening Shoulder pain, left Skin cancer screening Sleep apnea Historical - Any problem that you are no longer receiving treatment for. BPH (benign prostatic hyperplasia) Enlarged prostate Hypogonadism in male Patient Survey You may receive a survey via text or e-mail asking about your office visit. Please share your experience with us by completing your survey. We appreciate your feedback and thank you for choosing us for your care. Normal [facility] Family Medicine Office/Clini c Noteon 02-19-2025 Family Medicine Office/Clinic Note Family Medicine Office/Clinic Note Chief Complaint Acute Visit Pain radiating from the left hip down to the foot HPI Staff Pt presents today for acute visit. Pain characteristics: Pain location: Hip Intensity:04/23 Onset: 1wk ago Medication used: Not using meloxicam. Taking 1200mg Ibuprofen TID. History of Present Illness - The patient is a 69-year-old male presenting with sciatic pain. - Pain initiated by golf and yard activities, starting in left hip extending to foot. - Exacerbated by movement; follows hip and back surgeries. - Concern for disc pathology post 2011 back surgery. - Monitoring required for testosterone therapy management. - Review of testosterone therapy management with planned dosing adjustments and timing of blood tests. Review of Systems PHQ Score Initial Depression Screen Score: 0 SCORE Physical Exam Vitals & Measurements HR: 76(Peripheral) RR: 18 BP: 142/90 SpO2: 98% HT: 179 cm HT: 70 in WT: 187.834 lb WT: 85.2 kg BMI: 26.59 General: alert, no acute distress ENMT: oral mucosa moist Cardiovascular: Regular rate and rhythm, normal peripheral perfusion Respiratory: Lungs clear to auscultation, respirations non labored Extremities: no deformity, no trauma Neurological: oriented x 4, level of consciousness appropriate for age, CN II-XII intact, motor strength equal & normal bilaterally, speech normal Abdomen: Soft, Non-tender, Non-distended, + Bowel sounds Assessment/Plan 1. Sciatica, left side (M54.32) - Initiate steroid therapy and prescribe tramadol. - Begin physical therapy for pain management. Ordered: predniSONE, 20 mg = 1 tab(s), Oral, As Directed, Take three tabs by mouth for one day, then two tabs for one day, then one tab for one day, # 6 tab(s), Refills(s) 0, [facility]acy: [id number], 179, cm, 02/19/25 9:54:00 EDT, Height/Length Dosing, 85.2, kg, ... tramadol, 50 mg = 1 tab(s), Oral, q6hr, # 12 tab(s), Refills(s) 0, Pharmacy: [id number], 179, cm, 02/19/25 9:54:00 EDT, Height/Length Dosing, 85.2, kg, 02/19/25 9:54:00 EDT, Weight Dosing Physical Therapy Evaluation - External Facility 2. BMI 26.0-26.9,adult (Z68.26: Body mass index [BMI] 26.0-26.9, adult) - BMI education added Ordered: predniSONE, 20 mg = 1 tab(s), Oral, As Directed, Take three tabs by mouth for one day, then two tabs for one day, then one tab for one day, # 6 tab(s), Refills(s) 0, [id number], 179, cm, 02/19/25 9:54:00 EDT, Height/Length Dosing, 85.2, kg, 05/0... tramadol, 50 mg = 1 tab(s), Oral, q6hr, # 12 tab(s), Refills(s) 0, [id number], 179, cm, 02/19/25 9:54:00 EDT, Height/Length Dosing, 85.2, kg, 02/19/25 9:54:00 EDT, Weight Dosing Physical Therapy Evaluation - External Facility 3. Former smoker (Z87.891: Personal history of nicotine dependence) - Please continue to not smoke Ordered: predniSONE, 20 mg = 1 tab(s), Oral, As Directed, Take three tabs by mouth for one day, then two tabs for one day, then one tab for one day, # 6 tab(s), Refills(s) 0, Pharmacy: [facility] #[id number], 179, cm, 02/19/25 9:54:00 EDT, Height/Length Dosing, 85.2, kg, 05/0... tramadol, 50 mg = 1 tab(s), Oral, q6hr, # 12 tab(s), Refills(s) 0, Pharmacy: [id number], 179, cm, 02/19/25 9:54:00 EDT, Height/Length Dosing, 85.2, kg, 02/19/25 9:54:00 EDT, Weight Dosing Physical Therapy Evaluation - External Facility 4. Overweight (BMI 25.0-29.9) (E66.3: Overweight) - Diet and exercise advised Ordered: predniSONE, 20 mg = 1 tab(s), Oral, As Directed, Take three tabs by mouth for one day, then two tabs for one day, then one tab for one day, # 6 tab(s), Refills(s) 0, Pharmacy: [facility]/pharmacy #[id number], 179, cm, 02/19/25 9:54:00 EDT, Height/Length Dosing, 85.2, kg, 05/0... tramadol, 50 mg = 1 tab(s), Oral, q6hr, # 12 tab(s), Refills(s) 0, Pharmacy: [facility]/pharm[facility] #[id number], 179, cm, 02/19/25 9:54:00 EDT, Height/Length Dosing, 85.2, kg, 02/19/25 9:54:00 EDT, Weight Dosing Body Mass Index (BMI) documented 3008F Current tobacco non-user 1036F Depression Screening Negative 3352F Discharge medications reconciled with current medications in outpatient record 1111F Influenza immunization status assessed 1030F Medication list documented in medical record 1159F Most recent diastolic blood pressure >=90 mm Hg 3080F Most recent systolic blood pressure >= 140 mm Hg 3077F Patient screen for fall risk: no falls in last year or 1 fall with no injury in last year 1101F Physical Therapy Evaluation - External Facility Review of all meds by a prescribing practitioner or clinical pharmacist documented in EHR 1160F 5. Other specified postprocedural states (Z98.890) - Review surgical history, discuss sciatic nerve involvement implications. Ordered: predniSONE, 20 mg = 1 tab(s), Oral, As Directed, Take three tabs by mouth for one day, then two tabs for one day, then one tab for one day, # 6 tab(s), Refills(s) 0, Pharmacy: [facility] #[id number], 179, cm, 02/19/25 9:54:00 EDT, Height/ (more content not included)... Normal [facility] Comment on above: Result Comment: Elec tronically Signed By: Keyshawn RODGERS, Sunita Zamarripa\.br\Date and Time Signed: 02/19/25 10:16 EDT No Panel InformationOrdered By: Vanessa Perez on 11-25-2024 [facility] Healthcare Ambulatory Visit Summaryon 0 11-24-2024 Ambulatory Visit Summary Ambulatory Visit Summary ASHLEY STAPLES :1955 Visit Date:11/24/2024 Ambulatory Visit Instructions Your Diagnosis BPH with obstruction/lower urinary tract symptoms Hypogonadism male Other obstructive and reflux uropathy Your Care Team Attending Physician - STEPHEN RODGERS, Jb Abad Primary Care Physician - Keyshawn RODGERS, Sunita Zamarripa This Is Your Medications List Contact prescribing physician if questions or concerns Misc Prescription (Misc DME Prescription) Misc Prescription (Misc DME Prescription) atorvastatin (atorvastatin 20 mg Tab) cholecalciferol (Vitamin D3) dicyclomine (dicyclomine 20 mg Tab) lansoprazole (lansoprazole 30 mg Cap-DR) losartan (losartan 100 mg Tab) testosterone (Testosterone Cypionate 200 mg/mL intramuscular solution) vortioxetine (Trintellix 5 mg oral tablet) Procedures Performed Post operative bleeding after TURP (transurethral resection of prostate) (11/06/2024), Cystoscopy (10/22/2023), Epidural injection of lumbar spine [...] of varicose vein of lower limb (10/15/1989), Cataract, Cholecystectomy, History of shoulder surgery, LASIK, Low back disc surgery, Torn meniscus repair. Discharge Vitals Heart Rate (Peripheral) 65 Respiratory Rate 18 Blood Pressure 137/71 Height 179 cm Height 70 in Weight 88.8 kg Weight 195.77 lb BMI 27.71 What to do next Scheduled Follow-Up Appointments Sunday 10:15 AM EDT With: Jb MITCHELL MD Where: [facility] [address] [address]- Sunday 1:00 PM EDT With: Where: [address] [address]- Sunday 10:00 AM EDT With: Keyshawn RODGERS, Sunita Zamarripa Where: [address] [address]- You Need to Schedule the Following Appointments Follow Up with STEPHEN RODGERS, LEXIS Herrera When: In 4 days Where: [facility] [address], [place] [address]- Medications What How Much When Instructions Unchanged atorvastatin (atorvastatin 20 mg Tab) See instructions TAKE 1 TABLET BY MOUTH DAILY Contact prescribing physician if questions or concerns Unchanged cholecalciferol (Vitamin D3) By Mouth Every day Contact prescribing physician if questions or concerns Unchanged dicyclomine (dicyclomine 20 mg Tab) See instructions TAKE 1 TABLET BY MOUTH THREE TIMES A DAY Contact prescribing physician if questions or concerns Unchanged lansoprazole (lansoprazole 30 mg Cap-DR) See instructions TAKE 1 CAPSULE BY MOUTH DAILY Contact prescribing physician if questions or concerns Unchanged losartan (losartan 100 mg Tab) See instructions TAKE 1 TABLET BY MOUTH DAILY Contact prescribing physician if questions or concerns Unchanged Misc Prescription (Misc DME Prescription) See instructions 18G 1 needles to use to draw up his testosterone Contact prescribing physician if questions or concerns Unchanged Misc Prescription (Misc DME Prescription) See instructions 3ml syringes w/ 21G X 1 needles to administer the testosterone every 2 weeks Contact prescribing physician if questions or concerns Unchanged testosterone (Testosterone Cypionate 200 mg/ mL intramuscular solution) 1 Milliliter Intramuscular Every other week Contact prescribing physician if questions or concerns Unchanged vortioxetine (Trintellix 5 mg oral tablet) 1 Tablets By Mouth Every day Contact prescribing physician if questions or concerns Allergies No Known Allergies Problems Ongoing - Any problem that you are currently receiving treatment for. BMI 28.0-28.9,adult BPH with obstruction/lower urinary tract symptoms CPAP (continuous positive airway pressure) dependence Encounter for screening colonoscopy Former smoker Gastroesophageal reflux disease without esophagitis Glaucoma Heart murmur Hypercholesterolemia Hypogonadism male Incomplete bladder emptying Low back pain Nicotine dependence in remission Over weight Overweight (BMI 25.0-29.9) Primary hypertension Prostate cancer screening Shoulder pain, left Skin cancer screening Sleep apnea Historical - Any problem that you are no longer receiving treatment for. BPH (benign prostatic hyperplasia) Enlarged prostate Hypogonadism in male Patient Survey You may receive a survey via t (more content not included)... Normal [facility] Urology Office/Clinic Noteon 11-24-2024 Urology Office/Clinic Note Urology Office/Clinic Note Chief Complaint PO TURP HPI Staff 69yr old pt here for PO TURP visit and to review path. TURP done 11/06/24. S/p cysto done 10/22/23. Pt says symptoms have improved but he continues to have issues urinating. States had laser treatment a few years ago that worked amazing . Also says he also continues to have discomfort/soreness. Previously prescribed Alfuzosin, but quit taking because he felt it did not help. Previous Dx: BPH with obstruction/lower urinary tract symptoms, hypogonadism male *Testosterone INj 200mg q2wks from PCP Dysuria: denies Incomplete bladder emptying: still does not feel empty, has improved a little since procedure but not much Hematuria: denies any blood recently, only after catheter removal Frequency: urinates 2-3x in the morning, improves throughout the day, about 3-4x in afternoon Urgency: denies Nocturia: rarely, only 1x Stream: weak stream, unless he waits until he has severe urgency Leaking: denies Post void dripping: denies Wearing pads/ Depends: denies Urge incontinence: denies Stress incontinence: denies Incontinence without Sensory Awareness: denies Abdominal pain: denies Flank pain: denies Sexual complaints: _ History of Present Illness Tests reviewed: reviewed UA and Path Results. I have reviewed the previous health record information and history for this patient from . I have reviewed and verified the staff [...] HPI. Physical Exam Vitals & Measurements HR: 65(Peripheral) RR: 18 BP: 137/71 HT: 70 in HT: 179 cm WT: 88.8 kg WT: 195.77 lb BMI: 27.71 General Appearance: alert, no distress, well nourished, well developed male. Assessment/Plan 1. BPH with obstruction/lower urinary tract symptoms (N40.1: Benign prostatic hyperplasia with lower urinary tract symptoms) S/p Green Light Laser of Prostate 02/24/[address] Ramos. S/p Cysto 10/22/23 - Prostate regrowth and obstruction at apex. Majority of bladder neck and prostate were wide open. S/p Cysto, TURP 11/06/24 - Path negative for malignancy. Took Flomax 0.4mg bid 04/2023 but did not like SE so he was unwilling to stay on increased dosage despite this improving urinary sxs. Was taking Flomax 0.4mg qd. Pt was later switched to Alfuzosin ER 10mg qd, felt this worked well but was not as effective as Flomax but still was unwilling to retry Flomax due to SE affecting his libido. Admitted he preferred Alfuzosin to no med. Pt says symptoms have improved but he continues to have issues urinating. States had laser treatment 15 years ago that worked amazing . Also says he also continues to have discomfort/soreness. Previously prescribed Alfuzosin, but quit taking because he felt it did not help, rx ran out. IPSS 20, JOY N/A PVR at prior OV was 40 mL. UA today shows large blood and small leuks. Pt states that he had post voiding dribbles, and does not feel he is emptying. Advised pt that he is still healing and it will take time for him to see improvement. Counseled pt on why there is a difference in sxs improvement now vs when he had the Green Light Laser done in the past. Advised pt that he can stay off of the Alfuzosin for now and see how well his sxs improve over time. Pt states that he drinks a 20oz full of water mixed with sugar free Gatorade when he's golfing, only drinks water when he's home, drinks at least 60oz-1/2 a gallon a day, has one 1 cup of black coffee a day. Advised pt that how he urinates once he is completely healed depends on his bladder function. Advised pt that he should increase his fluid intake to be able to train his bladder. Discussed path report with pt, negative for malignancy. Follow up in 4 mos. All questions/concerns were discussed. Pt to call the office if he encounters any issues prior. Pt acknowledges understanding. -Cont monitor sxs. -Increase fluid intake. 2. Hypogonadism male (E29.1: Testicular hypofunction) Latest testosterone level 912 drawn 12/26/22 Receives Testosterone injection 200mg every 2 weeks, primary care manages Follow-up With When Contact Information Patient Education Benign Prostatic Hyperplasia I, Sanjuanita Espitia , personally scribed for Dr. Mitchell on 11/24/2024 11:05:53. Electronically signed by francesco Amaral (more content not included)... Normal [facility] Comment on above: Result Comment: Elec tronically Signed By: Jb MITCHELL MD\.br\Date and Time Signed: 11/24/24 11:08 EST\.br\Electronically Co-Signed By: Sanjuanita Espitia\.br\Date and Time Co-Signed: 11/24/24 11:06 EST Ambulatory Visit Summaryon 0 11-18-2024 Ambulatory Visit Summary Ambulatory Visit Summary ASHLEY STAPLES :1955 Visit Date:11/18/2024 Ambulatory Visit Instructions Your Diagnosis Primary hypertension Gastroesophageal reflux disease without esophagitis BMI 28.0-28.9,adult Overweight (BMI 25.0-29.9) Former smoker Hypogonadism male Sleep apnea Skin cancer screening Your Care Team Attending Physician - Sunita Carty MD. Primary Care Physician - Sunita Carty MD. This Is Your Medications List Misc Prescription (Misc DME Prescription) Misc Prescription (Misc DME Prescription) atorvastatin (atorvastatin 20 mg Tab) cholecalciferol (Vitamin D3) dicyclomine (dicyclomine 20 mg Tab) lansoprazole (lansoprazole 30 mg Cap-DR) losartan (losartan 100 mg Tab) testosterone (Testosterone Cypionate 200 mg/mL intramuscular solution) vortioxetine (Trintellix 5 mg oral tablet) Procedures Performed Post operative bleeding after TURP (transurethral resection of prostate) (11/06/2024), Cystoscopy (10/22/2023), Epidural injection of lumbar spine [...] of varicose vein of lower limb (10/15/1989), Cataract, Cholecystectomy, History of shoulder surgery, LASIK, Low back disc surgery, Torn meniscus repair. Discharge Vitals Temperature (Tympanic) 36.8 ???C Heart Rate (Peripheral) 57 Respiratory Rate 18 Blood Pressure 124/78 Height 176 cm Height 69 in Weight 88.2 kg Weight 194.447 lb BMI 28.47 What to do next Scheduled Follow-Up Appointments Sunday 9:30 AM EST With: Jb MITCHELL MD Where: [facility] [address] [id number]- Sunday 1:00 PM EDT With: Where: [place] [id number]- Sunday 10:00 AM EDT With: Sunita Carty MD Where: [address] [address]- Medications What How Much When Instructions Unchanged atorvastatin (atorvastatin 20 mg Tab) See instructions TAKE 1 TABLET BY MOUTH DAILY Unchanged cholecalciferol (Vitamin D3) By Mouth Every day Unchanged dicyclomine (dicyclomine 20 mg Tab) See instructions TAKE 1 TABLET BY MOUTH THREE TIMES A DAY Unchanged lansoprazole (lansoprazole 30 mg Cap-DR) See instructions TAKE 1 CAPSULE BY MOUTH DAILY Unchanged losartan (losartan 100 mg Tab) See instructions TAKE 1 TABLET BY MOUTH DAILY Unchanged Misc Prescription (Misc DME Prescription) See instructions 18G 1 needles to use to draw up his testosterone Unchanged Misc Prescription (Misc DME Prescription) See instructions 3ml syringes w/ 21G X 1 needles to administer the testosterone every 2 weeks Unchanged testosterone (Testosterone Cypionate 200 mg/ mL intramuscular solution) 1 Milliliter Intramuscular Every other week Unchanged vortioxetine (Trintellix 5 mg oral tablet) 1 Tablets By Mouth Every day Allergies No Known Allergies Problems Ongoing - Any problem that you are currently receiving treatment for. BMI 28.0-28.9,adult BPH with obstruction/lower urinary tract symptoms CPAP (continuous positive airway pressure) dependence Encounter for screening colonoscopy Former smoker Gastroesophageal reflux disease without esophagitis Glaucoma Heart murmur Hypercholesterolemia Hypogonadism male Incomplete bladder emptying Low back pain Nicotine dependence in remission Over weight Overweight (BMI 25.0-29.9) Primary hypertension Prostate cancer screening Shoulder pain, left Skin cancer screening Sleep apnea Historical - Any problem that you are no longer receiving treatment for. BPH (benign prostatic hyperplasia) Enlarged prostate Hypogonadism in male Patient Survey You may receive a survey via text or e-mail asking about your office visit. Please share your experience with us by completing your survey. We appreciate your feedback and thank you for choosing us for your care. [facility] Family Medicine Office/Clini c Noteon 11-18-2024 Family Medicine Office/Clinic Note Family Medicine Office/Clinic Note Chief Complaint 6m follow up Management of chronic health conditions and evaluation of skin lesions. HPI Staff 6m follow up to hypogonadism, HTN, GERD & heart murmur Testoster Free: 10.4 (05/27/24 08:11:00) Testoster Tot: [phone] (05/27/24 08:11:00) Testosterone Inj 200mg q2wks Patient is here for follow up on hypertension. How often are you checking your blood pressure? Doesnt check BP at home What are your average readings? _NA Yearly BMP: 10/20/24 NEG LDCT 07/07/24 Would like a couple spots on his back looked at. Thinks they are moles. Does need refill of testosterone History of Present Illness The patient is a 69 year old male presenting with a history of well-managed essential hypertension. He reports that his blood pressure is currently well-controlled. Sleep apnea treatment is ongoing with CPAP therapy; however, the machine has experienced functionality issues, leading to intermittent heater failure, though it is currently operational. He underwent a transurethral resection of the prostate (TURP) with an overnight hospital stay, where issues with the CPAP were noted but subsided. Regarding his gastro-esophageal reflux disease, he indicates effective management with current therapy, experiencing typical symptoms only sporadically, particularly after certain dietary indiscretions such as consuming spicy foods. He notes significant improvement in irritable bowel syndrome symptoms with dicyclomine, except mild exacerbations when consuming certain foods. The patient also has a history of testicular hypofunction, for which testosterone levels were reviewed, and appears stable and satisfactory. He denies issues with his cholesterol management, and no adverse reactions to atorvastatin are reported. Additionally, he has not had a comprehensive skin examination and presents for evaluation of a skin lesion on his back. The lesion, presumed to be seborrheic keratosis, raises concerns due to his limited past dermatological screening, compounded by limited sun protection and prior geographical residency in [place]. - Refilled testosterone therapy with adequate monitoring of levels. - Emphasized the importance of regular skin checks due to past sun exposure and identified skin lesions. - Discussed diet impact on irritable bowel syndrome and acid reflux, noting improvement with dietary changes. - Continued use of CPAP machine recommended for sleep apnea management. - Blood pressure management stable; routine monitoring advised. - Atorvastatin for cholesterol management continued with current regimen. - Low dose CT scan was noted as normal. Review of Systems PHQ Score Initial Depression Screen Score: 0 SCORE Physical Exam Vitals & Measurements T: 36.8 ???C(Tympanic) HR: 57(Peripheral) RR: 18 BP: 124/78 SpO2: 100% HT: 69 in HT: 176 cm WT: 88.2 kg WT: 194.447 lb BMI: 28.47 General: alert, no acute distress ENMT: oral mucosa moist Cardiovascular: Regular rate and rhythm, normal peripheral perfusion Respiratory: Lungs clear to auscultation, respirations non labored Extremities: no deformity, no trauma Neurological: oriented x 4, level of consciousness appropriate for age, CN II-XII intact, motor strength equal & normal bilaterally, speech normal Abdomen: Soft, Non-tender, Non-distended, + Bowel sounds Assessment/Plan 1. Primary hypertension (I10: Essential (primary) hypertension) Continue current management regimen, monitoring blood pressure regularly. Current blood pressure control is satisfactory. Ordered: [facility] External Ambulatory Referral 2. Gastroesophageal reflux disease without esophagitis (K21.9: Gastro-esophageal reflux disease without esophagitis) Symptoms under control with current therapy. Advise continued avoidance of trigger foods to prevent exacerbation. Ordered: [facility] External Ambulatory Referral 3. BMI 28.0-28.9,adult (Z68.28: Body mass index [BMI] 28.0-28.9, adult) BMI education added Ordered: [facility] External Ambulatory Referral 4. Overweight (BMI 25.0-29.9) (E66.3: Overweight) Suggest maintaining healthy diet and exercise regimen to manage weight effectively. Ordered: [facility] External Ambulatory Referral 5. Former smoker (Z87.891: Personal history of nicotine dependence) Former smoker status noted, with no further management required for dependence. Ordered: [facility] External Ambulatory Referral 6. Hypogonadism male (E29.1: Testicular hypofunction) Maintain current testosterone therapy, previously adequate. Monitor levels periodically to ensure efficacy. 7. Sleep apnea (G47.30: Sleep apnea, unspecified) Continued use of CPAP recommended. Addressed functionality issues of the machine and continuation of use despite past disruptions. 8. Skin cancer screening (Z12.83: Encounter for screening for malignant neoplasm of skin) Will send to derm for further screening. spots are likely SKs. Orders: atorvastatin, See Instructions, TAKE 1 TABLE (more content not included)... Normal [facility] Comment on above: Result Comment: Elec tronically Signed By: Keyshawn RODGERS, Sunita Watt.helena\Date and Time Signed: 11/18/24 10:22 EST Ron 11-06-2024 L - -------- Specimen: [id number] Received: 11/07/24 Status: ARA Byers Num: [id number] Spec Type: Surgical Subm Dr: Jb Mitchell MD Tissues: A Prostate - Tur (PROSTATE TISSUE) Procedures: HE/2, Gross/Micro L4 -------- Age/ Patient Sex Location Account Attending Physician -------- Ashley Staples 69/Opal LABELL [id number] Jb Mitchell MD -------- SPEC NUM: [id number] RECD: 11/07/24 STATUS: ARA BYERS NUM: [id number] THOMAS: 11/06/24 [facility] DR: Jb Mitchell MD ENTERED: 11/07/[address] [facility] [address]: Daniela Gamble SPEC TYPE: Surgical DEPT: [facility] ORDERED: HE/2, Gross/Micro L4 ORDERED: HE2, Gross/Micro L4 Pathological Diagnosis Prostate chips, TURP: -Severe nodular glandular hyperplasia in all chips, consistent with benign prostate hypertrophy -No evidence of malignancy Clinical Information Benign prostatic hyperplasia with obstruction Gross Description Part A is received in formalin labeled with the patients name, date of , and prostate tissue are 0.9 g of bass-young to pink, rubbery tissue chips, 2.8 x 2 x 0.5 cm in aggregate. The specimen is entirely submitted in A1?A2. (2, ns, BS25 A) Microscopic Description Microscopic examinations are performed supporting the above interpretation -------- Specimen: [id number] Received: 11/07/24 Status: ARA Thad Num: [id number] Spec Type: Surgical Subm Dr: Jb Mitchell MD Tissues: A Prostate - Tur (PROSTATE TISSUE) Procedures: HE/2, Gross/Micro L4 -------- Patient: Ashley Staples [id number] (Continued) -------- Specimen: [id number] Received: 11/07/24 (Continued) Signed (signature on file) Myron Savage MD 11/10/24 1648 -------- Specimen: [id number] Received: 11/07/24 Status: ARA Byers Num: [id number] Spec Type: Surgical Subm Dr: Jb Mitchell MD Tissues: A Prostate - Tur (PROSTATE TISSUE) Procedures: HE/2, Gross/Micro L4 -------- Patient: Ashley Staples [id number] (Continued) -------- Specimen: [id number] Received: 11/07/24 (Continued) CPT Codes 91130 -------- -------- Specimen: [id number] Received: 11/07/24 Status: ARA Byers Num: [id number] Spec Type: Surgical Subm Dr: Jb Mitchell MD Tissues: A Prostate - Tur (PROSTATE TISSUE) Procedures: HE/2, Gross/Micro L4 -------- Patient: Ashley Staples [id number] (Continued) -------- Signed (signature on file) Myron Savage MD 11/10/24 1648 Normal [facility] Office Visiton 10-24-2024 Follow-up visit [id number] Ashley Staples 1955 M Date Provider Department Center 10/24/2024 [place] DAVIS MARYSOL [place] Family History Problem Relation Age of Onset No Known Problems Mother No Known Problems Father Family Status - Relation Status Age at Mother Alive Father Level of Service:32934 [place] OFFICE/OUTPATIENT NEW MODERATE MDM 45 MINUTES Normal [facility] ALL CBC WITH AUTO DIFFon BASOPHILS ABSOLUTE AUTO 0.1 [facility] Basophils/100 WBC (Bld) 1.1 % 0.2 - 2.0 % [facility] Eosinophils/100 WBC (Bld) 2.6 % 0.9 - 7.0 % [facility] Erythrocyte distribution width (RBC) [Ratio] 13.1 % 11.0 - 15.0 % [facility] Hematocrit (Bld) [Volume fraction] 49.4 % 42.0 - 54.0 % [facility] Hemoglobin (Bld) [Mass/Vol] 16 g/dL 14.0 - 18.0 g/dL [facility] IMMATURE GRANULOCYTES ABS AUTO 0.09 High [facility] Immature granulocytes/100 WBC (Bld) 1.7 % High 0.0 - 0.5 % [facility] Interpretation and review of laboratory results Abnormal [facility] LYMPHOCYTES ABSOLUTE AUTO 1.6 [facility] Lymphocytes/100 WBC (Bld) 29.4 % 20.5 - 60.0 % [facility] MCH (RBC) [Entitic mass] 28.8 pg 25.9 - 34.0 pg [facility] MCHC (RBC) [Mass/Vol] 32.4 g/dL 29.9 - 35.2 g/dL [facility] MCV (RBC) [Entitic vol] 89 fL 80.0 - 94.0 fL [facility] MONOCYTES ABSOLUTE AUTO 0.5 [facility] Monocytes/100 WBC (Bld) 8.7 % 1.7 - 12.0 % [facility] NEUTROPHILS ABSOLUTE AUTO 3.1 [facility] Neutrophils/100 WBC (Bld) 56.5 % 43.0 - 75.0 % [facility] Platelet mean volume (Bld) [Entitic vol] 10 fL 9.5 - 13.5 fL [facility] TBH EO # 0.1 [facility] TB PLT 142 Low [facility] RBC 5.55 [facility] WBC 5.4 [facility] US aortaon 09-25-2024 aorta [facility] [address] [place] [address] Ultrasound Report Signed Patient: Ashley Staples MR#: [id number] : 1955 Acct:[id number] Age/Sex: 69 / M ADM Date: 09/25/24 Loc: [facility] Room: Type: [facility] Attending Dr: Favian Baldwin MD Ordering Provider: Favian Baldwin MD Date of Service: 09/25/24 US/US aorta: I71.4 Copies to: Favian Baldwin MD ULTRASOUND OF THE ABDOMINAL AORTA: CLINICAL INFORMATION: Infrarenal abdominal aortic aneurysm. COMPARISON : 3.4 cm infrarenal abdominal aortic aneurysm from an ultrasound dated 2 years ago. TECHNIQUE AND FINDINGS: Multiple ultrasonographic scans of the abdominal aorta were obtained and show: Following measurement were obtained: Proximal height: Not visualized width : Not visualized Mid height: 2 cm width : 2.69 cm Distal height: 3.15 cm width : 3.48 cm US/US aorta IMPRESSION: Stable, 3.5 cm infrarenal abdominal aortic aneurysm without, complicating features. Impression dictated by: Favian Baldwin MD09/25/2024 1:23 PM Dictation Location: [place] [address] Tech: Lexii Vitale Transcribed By: LING 09/25/24 1323 Dictated By: Favian Baldwin MD 09/25/24 1321 Signed By: 09/25/24 1323 Normal [facility] CT Chest, Low Dose Screening on 07-08-2024 CT Chest, Low Dose Screening Exam Date/Time: 07/07/2024 16:13 EDT Reason for Exam: Screening;F17.210 Report IMPRESSION: Lung RADS category 2: Benign appearance and behavior. Follow-up screening CT chest in [address] IMAGING OF THE CHEST WITHOUT INTRAVENOUS CONTRAST MEDIUM. HISTORY: Tobacco use. TECHNICAL FACTORS: Low dose CT imaging of the chest was obtained and formatted as 2.5 mm contiguous axial images from the thoracic inlet through the adrenal glands. Sagittal and coronal reconstructions obtained during postprocessing. Intravenous contrast medium: None. Comparison: None FINDINGS: Right lung: Scarring right lung apex. 3.8 mm mm pleural-based noncalcified right lower lobe nodule (series 2, image 73). No consolidation, pleural effusion, pneumothorax. Left lung: Scarring left lung apex. No nodules, masses, consolidation, pleural effusion, pneumothorax. Scarring base lingula Lymph nodes: No hilar, mediastinal, or axillary lymph node enlargement. Thoracic aorta: Normal in course and caliber. Cardiac: Size normal. No pericardial effusion. Coronary artery calcification demonstrated Upper abdomen:Limited imaging upper abdomen shows no gross anomaly. Musculoskeletal:No osteoblastic, and no osteolytic lesions. All CT scans at this facility use dose modulation, iterative reconstruction, and/or weight based dosing when appropriate to reduce radiation dose to as low as reasonably Report achievable. Ordering Provider: Sunita Carty FINAL REPORT Dictated: 07/08/2024 11:33 am Shubham Echeverria MD Signed (Electronic Signature): 07/08/2024 11:33 am Signed by: Shubham Echeverria MD Transcribed by: DP Technologist: CML Normal [facility] Testosterone F&Ton Testosterone [Mass/Vol] 698 ng/dL Invalid Interpretation Code 264-916 [facility] Comment on above: Result Comment: Adul t male reference interval is based on a population of healthy nonobese males (BMI <30) between 19 and 39 years old. Leeroy et.al. JCEM 2017,102;2516-9373. PMID: [id number]. Performed By: #### 1 [id number] ####[facility] [address] [place] [address] Testosterone Free [Mass/Vol] 10.4 pg/mL Invalid Interpretation Code 6.6-18.1 [facility] Comment on above: Result Comment: Perf ormed at: [facility] [address] [id number] PhD Reji Kang Performed at: [facility] [address] [id number] MD Arnold Colvin Performed By: #### 1 [id number] ####[facility] [address] [place] [address] Ambulatory Visit Summaryon 0 05-20-2024 Ambulatory Visit Summary Ambulatory Visit Summary ASHLEY STAPLES :1955 Visit Date:05/20/2024 Ambulatory Visit Instructions Your Diagnosis Hypogonadism male Primary hypertension Heart murmur Gastroesophageal reflux disease without esophagitis Nicotine dependence in remission Encounter for screening colonoscopy Your Care Team Attending Physician - Sunita Carty MD Primary Care Physician - Sunita Carty MD This Is Your Medications List Misc Prescription (Misc DME Prescription) Misc Prescription (Misc DME Prescription) alfuzosin (alfuzosin 10 mg ER Tab) atorvastatin (atorvastatin 20 mg Tab) cholecalciferol (Vitamin D3) dicyclomine (dicyclomine 20 mg Tab) lansoprazole (lansoprazole 30 mg Cap-DR) losartan (losartan 100 mg Tab) testosterone (Testosterone Cypionate 200 mg/mL intramuscular solution) [...] of varicose vein of lower limb (10/15/1989), Cataract, Cholecystectomy, History of shoulder surgery, LASIK, Low back disc surgery, Torn meniscus repair. Discharge Vitals Temperature (Temporal Artery) 36.5 ?C Heart Rate (Peripheral) 72 Respiratory Rate 16 Blood Pressure 120/82 Height 176 cm Height 69 in Weight 86.1 kg Weight 189.42 lb BMI 27.8 What to do next Scheduled Follow-Up Appointments Sunday 8:20 AM EDT With: Where: [address] [address]- Sunday 10:00 AM EST With: Keyshawn RODGERS, Sunita Zamarripa Where: [address] [address]- Sunday 1:00 PM EDT With: Where: [address] [address]- You Need to Complete the Following Testosterone F&T, Blood, Routine collect, 05/20/24, Order for future visit, Lab Collect, Hypogonadism male Primary hypertension Heart murmur Gastroesophageal reflux disease without esophagitis Nicotine dependence in remission Encounter for screening colonosco... CT Chest, Low Dose Screening, 05/20/24, Routine, Order for future visit, Transport Mode: Ambulatory, Reason: Screening, Yes, Yes, Yes, 1, 30, Yes, 5, [id number], No, Encounter for screening colonoscopy Hypogonadism male Primary hypertension Heart murmur Gastroesophageal re... Medications What How Much When Instructions Unchanged alfuzosin (alfuzosin 10 mg ER Tab) 1 Tablets By Mouth Every day Unchanged atorvastatin (atorvastatin 20 mg Tab) See instructions TAKE 1 TABLET BY MOUTH DAILY Unchanged cholecalciferol (Vitamin D3) By Mouth Every day Unchanged dicyclomine (dicyclomine 20 mg Tab) See instructions TAKE 1 TABLET BY MOUTH THREE TIMES A DAY Unchanged lansoprazole (lansoprazole 30 mg Cap-DR) See instructions TAKE 1 CAPSULE BY MOUTH DAILY Unchanged losartan (losartan 100 mg Tab) See instructions TAKE 1 TABLET BY MOUTH DAILY Unchanged Misc Prescription (Misc DME Prescription) See instructions 18G 1 needles to use to draw up his testosterone Unchanged Misc Prescription (Misc DME Prescription) See instructions 3ml syringes w/ 21G X 1 needles to administer the testosterone every 2 weeks Unchanged testosterone (Testosterone Cypionate 200 mg/ mL intramuscular solution) 1 Milliliter Intramuscular Every other week Unchanged vortioxetine (Trintellix 5 mg oral tablet) 1 Tablets By Mouth Every day Allergies No Known Allergies Problems Ongoing - Any problem that you are currently receiving treatment for. BPH with obstruction/lower urinary tract symptoms CPAP (continuous positive airway pressure) dependence Encounter for screening colonoscopy Gastroesophageal reflux disease without esophagitis Glaucoma Heart murmur Hypercholesterolemia Hypogonadism male Incomplete bladder emptying Low back pain Nicotine dependence in remission Over weight Primary hypertension Prostate cancer screening Shoulder pain, left Sleep apnea Historical - Any problem that you are no longer receiving treatment for. BPH (benign prostatic hyperplasia) Enlarged prostate Hypogonadism in male Patient Survey You may receive a survey via text or e-mail asking about your office visit. Please share your experience with us by completing your survey. We appreci (more content not included)... Normal [facility] Family Medicine Office/Clini c Noteon 05-20-2024 Family Medicine Office/Clinic Note Family Medicine Office/Clinic Note HPI Staff Ashley is a 68 year old male presenting for 6 month follow up htn, hypogonadism Patient is here for follow up on hypertension. How often are you checking your blood pressure? Doesnt check BP at home What are your average readings? N/A, Not checking at home Yearly BMP: 12/04/23_ questions/concerns: needs his atorvastatin refilled History of Present Illness - Pt is here for follow up. - NO concerns - Wants a LDCT scan for lung cancer - Unsure when his last Colonoscopy was. Would like to get one. Review of Systems PHQ Score Initial Depression Screen Score: 0 SCORE Physical Exam Vitals & Measurements T: 36.5 ?C(Temporal Artery) HR: 72(Peripheral) RR: 16 BP: 120/82 SpO2: 99% HT: 69 in HT: 176 cm WT: 86.1 kg WT: 189.42 lb BMI: 27.8 General: alert, no acute distress ENMT: oral mucosa moist, Cardiovascular: regular rate and rhythm, normal peripheral perfusion Respiratory: Lungs CTA, respirations non labored Extremities: no deformity, no trauma Neurological: oriented x 4, LOC appropriate for age, CN II-XII intact, motor strength equal & normal bilaterally, speech normal Abdomen: Soft, Nontender, Non-distended, + BS Assessment/Plan 1. Hypogonadism male (E29.1: Testicular hypofunction) - Will check test levels. - NO symptoms - Will adjust base off labs. Ordered: CT Chest, Low Dose Screening [facility] Internal Ambulatory Referral Testosterone F&T 2. Primary hypertension (I10: Essential (primary) hypertension) - At goal at this time. - Will continue to monitor - Will refill meds. Ordered: CT Chest, Low Dose Screening [facility] Internal Ambulatory Referral Testosterone F&T 3. Heart murmur (R01.1: Cardiac murmur, unspecified) - Stable Ordered: CT Chest, Low Dose Screening [facility] Internal Ambulatory Referral Testosterone F&T 4. Gastroesophageal reflux disease without esophagitis (K21.9: Gastro-esophageal reflux disease without esophagitis) - Stable Ordered: CT Chest, Low Dose Screening [facility] Internal Ambulatory Referral Testosterone F&T 5. Nicotine dependence in remission (F17.201: Nicotine dependence, unspecified, in remission) - LDCT ordered Ordered: CT Chest, Low Dose Screening [facility] Internal Ambulatory Referral Testosterone F&T 6. Encounter for screening colonoscopy (Z12.11: Encounter for screening for malignant neoplasm of colon) - Will order a colonoscopy today. Ordered: CT Chest, Low Dose Screening Testosterone F&T Orders: ketoconazole topical, 1 maine, Topical, Daily, 60 gram, Refill(s) 0, [facility]/pharmacy #[id number], 179, cm, 10/16/23 13:08:00 EST, Height/Length Dosing, 87.1, kg, 10/16/23 13:08:00 EST, Weight Dosing Follow-up No qualifying data available Problem List/Past Medical History Ongoing BPH with obstruction/lower urinary tract symptoms CPAP (continuous positive airway pressure) dependence Encounter for screening colonoscopy Gastroesophageal reflux disease without esophagitis Glaucoma Heart murmur Hypercholesterolemia Hypogonadism male Incomplete bladder emptying Low back pain Nicotine dependence in remission Over weight Primary hypertension Prostate cancer screening [...] of varicose vein of lower limb (10/15/1989), Cataract, Cholecystectomy, History of shoulder surgery, LASIK, Low back disc surgery, Torn meniscus repair. Medications alfuzosin 10 mg ER Tab, 10 mg= 1 tab(s), Oral, Daily, 1 refills atorvastatin 20 mg Tab, See Instructions dicyclomine 20 mg Tab, See Instructions lansoprazole 30 mg Cap-DR, See Instructions losartan 100 mg Tab, See Instructions Misc DME Prescription, See Instructions, 3 refills [facility] DME Prescription, See Instructions, 3 refills Testosterone Cypionate 200 mg/mL intramuscular solution, 200 mg= 1 mL, IntraMuscular, q2wk, 3 refills Trintellix 5 mg oral tablet, 5 mg= 1 tab(s), Oral, Daily Vitamin D3, Oral, Daily Allergies No Known Allergies Social History Alcohol - Low Risk, 03/20/2024 Current, 3-5 times per week, 1 drinks/episode average. 2.00 drinks/episode maximum. Previous treatment: None. Alcohol use interferes with work or home: No. Drinks more than intended: No. Others hurt by drinking: No. Ready to change: No. Household alcohol concerns: No (more content not included)... Normal [facility] Comment on above: Result Comment: Elec tronically Signed By: Keyshawn RODGERS, Sunita Watt.br\Date and Time Signed: 05/20/24 10:49 EDT TESTOSTERONE, TOTALon 2022 Testosterone [Mass/Vol] 912 ng/dL Normal 264-916 [facility] Comment on above: Result Comment: Adul t male reference interval is based on a population of healthy nonobese males (BMI <30) between 19 and 39 years old. Leeroy et.al. JCEM 2017,102;2027-6383. PMID: [id number]. Performed By: #### T ESTTOT #### [facility] [address] [place] [address] Dr. Clive Savage CBC AUTO DIFFon 12-26-2022 BASO # 0.0 103/ul Normal 0.0-0.1 [facility] Comment on above: Performed By: #### C BC #### [facility] [address] [place] [address] Dr. Clive Savage Basophils/100 WBC (Bld) 0.5 % Normal 0.2-2.0 [facility] Comment on above: Performed By: #### C BC #### [facility] [address] [place] [address] Dr. Clive Savage EO # 0.1 103/ul Normal 0.0-0.7 [facility] Comment on above: Performed By: #### C BC #### [facility] [address] [place] [address] Dr. Clive Savage Eosinophils/100 WBC (Bld) 2.1 % Normal 0.9-7.0 [facility] Comment on above: Performed By: #### C BC #### [facility] [address] [place] [address] Dr. Clive Savage Erythrocyte distribution width (RBC) [Ratio] 13.6 % Normal 11.0-15.0 [facility] Comment on above: Performed By: #### C BC #### [facility] [address] [place] [address] Dr. Clive Savage Hematocrit (Bld) [Volume fraction] 52.1 % Normal 42.0-54.0 [facility] Comment on above: Performed By: #### C BC #### [facility] [address] [place] [address] Dr. Clive Savage Hemoglobin (Bld) [Mass/Vol] 16.9 g/dL Normal 14.0-18.0 [facility] Comment on above: Performed By: #### C BC #### [facility] [address] [place] [address] Dr. Clive Savage IG # 0.01 10e3/ul Normal 0.00-0.03 [facility] Comment on above: Performed By: #### C BC #### [facility] [address] [place] [address] Dr. Clive Savage IG % 0.2 % Normal 0.0-0.5 [facility] Comment on above: Performed By: #### C BC #### [facility] [address] [place] [address] Dr. Clive Savage LYMPH # 1.9 103/ul Normal 1.2-3.8 [facility] Comment on above: Performed By: #### C BC #### [facility] [address] [place] [address] Dr. Clive Savage Lymphocytes/100 WBC (Bld) 32.6 % Normal 20.5-60.0 [facility] Comment on above: Performed By: #### C BC #### [facility] [address] [place] [address] Dr. Clive Savage MANUAL DIFF REQ NO Normal [facility] Comment on above: Performed By: #### C BC #### [facility] [address] [address] [address] Clive Savage MCH (RBC) [Entitic mass] 28.5 pg Normal 25.9-34.0 [facility] Comment on above: Performed By: #### C BC #### [facility] [address] [place] [address] Dr. Clive Savage MCHC (RBC) [Mass/Vol] 32.4 g/dL Normal 29.9-35.2 [facility] Comment on above: Performed By: #### C BC #### [facility] [address] [place] [address] Dr. Clive Savage MCV (RBC) [Entitic vol] 87.7 fL Normal 80.0-94.0 [facility] Comment on above: Performed By: #### C BC #### [facility] [address] [place] [address] Dr. Clive Savage MONO # 0.4 103/ul Normal 0.3-0.8 [facility] Comment on above: Performed By: #### C BC #### [facility] [address] [place] [address] Dr. Clive Savage Monocytes/100 WBC (Bld) 6.7 % Normal 1.7-12.0 [facility] Comment on above: Performed By: #### C BC #### [facility] [address] [place] [address] Dr. Clive Savage NEUT # 3.4 103/ul Normal 1.4-6.5 [facility] Comment on above: Performed By: #### C BC #### [facility] [address] [place] [address] Dr. Clive Savage Neutrophils/100 WBC (Bld) 57.9 % Normal 43.0-75.0 [facility] Comment on above: Performed By: #### C BC #### [facility] [address] [place] [address] Dr. Clive Savage Platelet mean volume (Bld) [Entitic vol] 9.1 fL Critically low 9.5-13.5 [facility] Comment on above: Performed By: #### C BC #### [facility] [address] [place] [address] [address] Clive Savage PLT 169 103/ul Normal 150-450 [facility] Comment on above: Performed By: #### C BC #### [facility] [address] [place] [address] [address] Clive Savage RBC 5.94 106/ul Normal 4.70-6.10 [facility] Comment on above: Performed By: #### C BC #### [facility] [address] [address] [address] Clive Savage WBC 5.8 103/ul Normal 4.0-11.0 [facility] Comment on above: Performed By: #### C BC #### [facility] [address] [address] [address] Clive Savage LIPID PROFILEon 12-26-2022 CHOL-HDL RATIO NORM SEE BELOW Normal [facility] Comment on above: Result Comment: 3.3 - 4.4 LOW RISK 4.4 - 7.1 AVERAGE RISK 7.1 - 11.0 MODERATE RISK >11.0 HIGH RISK Performed By: #### L IPID, CMP #### [facility] [address] [address] [address] Clive Savage Cholesterol [Mass/Vol] 132 mg/dL Normal <=200 [facility] Comment on above: Performed By: #### L IPID, CMP #### [facility] [address] [place] [address] Dr. Clive Savage Cholesterol in HDL [Mass/Vol] 45 mg/dL Normal 40-60 [facility] Comment on above: Performed By: #### L IPID, CMP #### [facility] [address] [address] [address] Clive Savage Cholesterol in LDL [Mass/Vol] 70.8 mg/dL Normal [facility] Comment on above: Performed By: #### L IPID, CMP #### [facility] [address] [address] [address] Clive Savage Cholesterol.total/Chol esterol in HDL [Mass ratio] 2.9 {ratio} Normal [facility] Comment on above: Performed By: #### L IPID, CMP #### [facility] [address] [address] [address] Clive Savage HDL NORMAL > or = 60 mg/dl - LO W CARDIOVASCULAR RISK <40 mg/dl - HIGH CARDIOVASCULAR RISK Normal [facility] Comment on above: Performed By: #### L IPID, CMP #### [facility] [address] [address] [address] Clive Savage LDL CALC NORMAL SEE BELOW Normal [facility] Comment on above: Result Comment: <100 mg/dl OPTIMAL 100 - 129 mg/dl NEAR OR ABOVE OPTIMAL 130 - 159 mg/dl BORDERLINE HIGH 160 - 189 mg/dl HIGH >190 mg/dl VERY HIGH Performed By: #### L IPID, CMP #### [facility] [address] [place] [address] Dr. Clive Savage Triglyceride [Mass/Vol] 81 mg/dL Normal <=150 [facility] Comment on above: Performed By: #### L IPID, CMP #### [facility] [address] [address] [address] Clive Savage VLDL CALC 16.2 mg/dL Normal [facility] Comment on above: Performed By: #### L IPID, CMP #### [facility] [address] [place] [address] Dr. Clive Savage PROF 14(COMP METB)on 023 Albumin [Mass/Vol] 4.0 g/dL Normal 3.4-5.0 [facility] Comment on above: Performed By: #### L IPID, CMP #### [facility] [address] [place] [address] Dr. Clive Savage Albumin/Globulin [Mass ratio] 1.2 {ratio} Normal [facility] Comment on above: Performed By: #### L IPID, CMP #### [facility] [address] [place] [address] Dr. Clive Savage ALP [Catalytic activity/Vol] 60 U/L Normal 46-116 [facility] Comment on above: Performed By: #### L IPID, CMP #### [facility] [address] [address] [address] Clive Savage ALT [Catalytic activity/Vol] 42 U/L Normal 16-63 [facility] Comment on above: Performed By: #### L IPID, CMP #### [facility] [address] [address] [address] Clive Savage Anion gap [Moles/Vol] 6.6 mmol/L Normal [facility] Comment on above: Performed By: #### L IPID, CMP #### [facility] [address] [address] [address] Clive Saavge AST [Catalytic activity/Vol] 17 U/L Normal 15-37 [facility] Comment on above: Performed By: #### L IPID, CMP #### [facility] [address] [place] [address] Dr. Clive Savage Bilirubin [Mass/Vol] 0.4 mg/dL Normal 0.2-1.0 [facility] Comment on above: Performed By: #### L IPID, CMP #### [facility] [address] [address] [address] Clive Savage Calcium [Mass/Vol] 9.4 mg/dL Normal 8.5-10.1 [facility] Comment on above: Performed By: #### L IPID, CMP #### [facility] [address] [address] [address] Clive Savage Chloride [Moles/Vol] 102 mmol/L Normal 98-107 [facility] Comment on above: Performed By: #### L IPID, CMP #### [facility] [address] [address] [address] Clive Savage CO2 [Moles/Vol] 34.8 mmol/L Critically high 21.0-32.0 [facility] Comment on above: Performed By: #### L IPID, CMP #### [facility] [address] [address] [address] Clive Savage Creatinine [Mass/Vol] 0.88 mg/dL Normal 0.70-1.30 [facility] Comment on above: Performed By: #### L IPID, CMP #### [facility] [address] [address] [address] Clive Savage EGFR-AF ARGENTINE >60 Normal >=[facility] Comment on above: Performed By: #### L IPID, CMP #### [facility] [address] [address] [address] Clive Savage EGFR-NON AF ARGENTINE >60 Normal >=60 [facility] Comment on above: Performed By: #### L IPID, CMP #### [facility] [address] [address] [address] Clive Savage Globulin (S) [Mass/Vol] 3.3 g/dL Normal [facility] Comment on above: Performed By: #### L IPID, CMP #### [facility] [address] [address] [address] Clive Savage Glucose [Mass/Vol] 123 mg/dL Critically high 74-106 T [facility] Comment on above: Performed By: #### L IPID, CMP #### [facility] [address] [address] [address] Clive Savage Potassium [Moles/Vol] 4.4 mmol/L Normal 3.5-5.1 [facility] Comment on above: Performed By: #### L IPID, CMP #### [facility] [address] [address] [address] Clive Savage Protein [Mass/Vol] 7.3 g/dL Normal 6.4-8.2 [facility] Comment on above: Performed By: #### L IPID, CMP #### [facility] [address] [address] [address] Clive Savage Sodium [Moles/Vol] 139 mmol/L Normal 136-145 [facility] Comment on above: Performed By: #### L IPID, CMP #### [facility] [address] [address] [address] Clive Savage Urea nitrogen [Mass/Vol] 9.0 mg/dL Normal 7.0-18.0 [facility] Comment on above: Performed By: #### L IPID, CMP #### [facility] [address] [place], [place] [address] Dr. Clive Savage Urea nitrogen/Creatinine [Mass ratio] 10.2 mg/mg Normal [facility] Comment on above: Performed By: #### L IPID, CMP #### [facility] [address] [place], [place] [address] Dr. Clive Savage MRI Shoulder w/o Lefton 03-16 MRI Shoulder [...] Acromioclavicular Joint: Mild degenerative changes. Other: Mild subacromial-subdeltoi d bursal thickening/fluid. IMPRESSION: Rotator cuff tendinosis without tear. Findings associated with adhesive capsulitis. 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 Referral by: Aure Mckeon [address]ook 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 --- What would you like to accomplish with this visit today? I want more information about what I got. Vital Signs: BP 148/79 Pulse 68 Wt 83.5 kg (184 lb) Dakota Barron MD 12/16/2021 10:13 AM Signed [facility] New Patient Evaluation Ashley Staples : 1955 12/15/2021 9:30 AM Referral Source Aure Mckeon [address] [facility] [address] Accompanied by: spouse Identifying Information: Ashley Staples is a 66 year old White, male with a past medical history of HTN, HLD, T2DM, AVS, AAA, testicular hypofunction, migraines and past neuropsychiatric history of anxiety who is presenting to [facility] today with a chief complaint of [...] isolated to comments made by a specific editorial cartoonist. They were beginning to bother him over the summer and he became increasing hyper-focused on them and distressed by them around thanksgiving. When describes the panic attack she states [...] tegretol increased appetite, 10lb weight gain ? Hallucinations/Delusi ons: ? Socially inappropriate behavior: none ? Perseverative [...] Abdominal ao (more content not included)... Normal [facility] Vital Signs Date Time Vital Sign Value Performing Clinician Facility 04-07-2025 08:51-0400 Body height 175.3 cm Ashley Stein DO Work Phone: [facility] 04-07-2025 08:51-0400 Body mass index (BMI) [Ratio] 26.43 kg/m2 Ashley Stein DO Work Phone: [facility] 04-07-2025 08:51-0400 Body weight 81.19 kg Ashley Stein DO Work Phone: [facility] 09-21-2022 12:00-0500 Body height 180.34 cm Favian Baldwin Other [facility] Other 09-21-2022 12:00-0500 Body mass index (BMI) [Ratio] 25.38 kg/m2 Favian Baldwin Other [facility] Other 09-21-2022 12:00-0500 Body temperature 97.4 [degF] Favian Baldwin Other [facility] Other 09-21-2022 12:00-0500 Body weight 82.56 kg Favian Baldwin Other [facility] Other 09-21-2022 12:00-0500 Diastolic blood pressure 66 mm[Hg] Favian Baldwin Other [facility] Other 09-21-2022 12:00-0500 SaO2% (BldA) [Mass fraction] 99 % Favian Baldwin Other [facility] Other 09-21-2022 12:00-0500 Systolic blood pressure 116 mm[Hg] Favian Baldwin Other [facility] Other 06-15-2022 13:30-0400 Body height 180.34 cm Favian Nicolasa Other [facility] Other 06-15-2022 13:30-0400 Body mass index (BMI) [Ratio] 25.38 kg/m2 Favian Nicolasa Other [facility] Other 06-15-2022 13:30-0400 Body temperature 97.4 [degF] Favian Nicolasa Other [facility] Other 06-15-2022 13:30-0400 Body weight 82.56 kg Favian Nicolasa Other [facility] Other 06-15-2022 13:30-0400 Diastolic blood pressure 78 mm[Hg] Favian Baldwin Other [facility] Other 06-15-2022 13:30-0400 SaO2% (BldA) [Mass fraction] 98 % Favian Nicolasa Other [facility] Other 06-15-2022 13:30-0400 Systolic blood pressure 128 mm[Hg] Favian Baldwin Other [facility] Other Encounters Encounter Date Encounter Type Care Provider Facility Start: 07-27-2025 ambulatory Jb Laws ty:[facility] Start: 05-19-2025 ambulatory Sunita Carty Facility :[facility] Start: 05-05-2025 ambulatory Shanti L Sameer Facility: [facility] Start: 04-13-2025 End: 04-13-2025 ambulatory Shanti L Sameer Facility:[facility] Start: 04-07-2025 End: 04-07-2025 Angel Stein DO Work Phone: [facility] Start: 04-07-2025 End: 04-07-2025 Bamboo flowsheet Ashley Stein DO Work Phone: [facility] Start: 04-07-2025 End: 04-07-2025 Patient encounter procedure Ashley Stein DO Work Phone: [facility] Comment on above: Left knee pain, unsp ecified chronicity (Primary Dx); Primary osteoarthritis of left knee Start: 04-07-2025 End: 04-07-2025 ambulatory ASHLEY STEIN Not Available Start: 03-30-2025 ambulatory MD Sunita Carty [facility] ity:[facility] Start: 03-27-2025 End: 03-27-2025 ambulatory Jb R STEPHEN Facility:[facility] Start: 03-20-2025 End: 03-20-2025 Bamboo flowsheet Guille Nathan [employer] Work Phone: [facility] Start: 03-20-2025 End: 03-20-2025 Bamboo flowsheet Guille Nathan [employer] Work Phone: [facility] Start: 03-20-2025 End: 03-20-2025 Office outpatient visit 15 minutes Guille Nathan [employer] Work Phone: [facility] Comment on above: Primary osteoarthrit is of left knee (Primary Dx); Left knee pain, unspecified chronicity Start: 03-20-2025 End: 03-20-2025 ambulatory GUILLE NATHAN Not Available Start: 02-27-2025 End: 02-27-2025 ambulatory MD Sunita Carty Facility:[facility] Start: 02-19-2025 End: 02-19-2025 ambulatory Sunita Carty Facility:[facility] Start: 11-25-2024 End: 11-25-2024 Bamboo flowsheet Josie East PA Work Phone: [facility] Start: 11-25-2024 End: 11-25-2024 Bamboo flowsheet Josie Northnubiam PA Work Phone: [facility] Start: 11-25-2024 End: 11-25-2024 Office outpatient new 30 minutes Josie East PA Work Phone: [facility] Comment on above: Capillary angioma (P rimary Dx); Seborrheic keratosis; Melanocytic nevus of trunk; Lentigo simplex; Actinic keratosis Start: 11-25-2024 End: 11-25-2024 ambulatory JOSIE EAST Not Available Start: 11-24-2024 End: 11-24-2024 ambulatory Jb MITCHELL Facility:[facility] Start: 11-18-2024 End: 11-18-2024 ambulatory MD Sunita Carty Facility:[facility] Start: 11-10-2024 End: 11-10-2024 ambulatory Jb MITCHELL Facility:[facility] Start: 11-06-2024 End: 11-06-2024 ambulatory Jb Mitchell Facility:[facility] Start: 11-06-2024 End: 11-06-2024 ambulatory Jb MITCHELL Facility:CD:[id number] Start: 10-24-2024 End: 10-24-2024 ambulatory [facility] Start: 10-20-2024 End: 10-20-2024 Clinisync Result Encounter Generic External Data Provider [facility] External Department Unsolicited Start: 10-20-2024 End: 10-20-2024 Clinisync Result Encounter Generic External Data Provider [facility] External Department Unsolicited Start: 09-25-2024 End: 09-25-2024 ambulatory Favian Baldwin Facility:[facility] Start: 09-23-2024 End: 09-24-2024 Telephone encounter Guille Nathan [employer] Work Phone: [facility] Comment on above: PT Start: 09-09-2024 End: 09-09-2024 Bamboo flowsheet Guille Nathan [employer] Work Phone: [facility] Start: 09-09-2024 End: 09-09-2024 Bamboo flowsheet Guille Nathan [employer] Work Phone: [facility] Start: 09-09-2024 End: 09-09-2024 ambulatory GUILLE NATHAN Not Available Start: 09-09-2024 End: 09-09-2024 Office outpatient visit 10 minutes Guille Nathan [employer] Work Phone: [facility] Comment on above: Primary osteoarthrit is of left knee (Primary Dx); Primary osteoarthritis of right knee Start: 07-07-2024 End: 07-07-2024 ambulatory Suntia Carty Facility:[facility] Start: 06-02-2024 End: 06-02-2024 ambulatory Guerrero Tallei Deanmaggie Facility:[facility] Start: 05-27-2024 End: 05-27-2024 ambulatory MD Sunita Carty Facility:[facility] Start: 05-20-2024 ambulatory MD Sunita Carty Facility :[facility] Start: 05-20-2024 End: 05-20-2024 ambulatory MD Sunita Carty Facility:[facility] Start: 04-28-2024 End: 04-28-2024 ambulatory GUILLE NATHAN Not Available Start: 04-15-2024 End: 04-15-2024 ambulatory GUILLE NATHAN Not Available Start: 04-14-2024 End: 04-14-2024 ambulatory MAYE WASHINGTON Not Available Start: 12-26-2022 End: 12-27-[address] AURE MCKEON . Facility: Start: 09-21-2022 End: 09-21-2022 ambulatory Favian Baldwin Other [facility] Other Start: 09-21-2022 Office outpatient vi sit 15 minutes Favian Baldwin [facility] V[facility] Start: 06-15-2022 End: 06-15-2022 ambulatory Favian Baldwin Other [facility] Other Start: 06-15-2022 Office outpatient vi sit 15 minutes Favian Baldwin [facility] Vascular Surgery Procedures Date Procedure Procedure Detail Performing Clinician Start: 03-20-2025 Radiologic examinati on knee 3 views Guille Nathan [employer] Work Phone: Start: 11-25-2024 CRYOTHERAPY SKIN LESION Josie VICENTE Work Phone: Start: 10-20-2024 ALL CBC WITH AUTO DIFF Generic External Data Provider Start: 12-26-[address] AURE WALKER . Comment on above: Performed By: #### P SAD #### [facility] [address] [address] [address] Clive Savage Plan of Treatment Date Care Activity Detail Author Start: 04-07-2025 End: 04-07-2025 Patient encounter procedure 04/07/2025 9:00 AM EDT Office Visit [facility] [address] [place] [id number] Ashley Stein, [address] [place] [address] Left knee pain, unspecified chronicity (Primary Dx); Primary osteoarthritis of left knee [facility] Comment on above: Left knee pain, unsp ecified chronicity (Primary Dx); Primary osteoarthritis of left knee Start: 03-20-2025 End: 03-20-2025 Patient encounter procedure 03/20/2025 8:45 AM EDT Office Visit [facility] [address] [place] [address] Guille Nathan, [employer] [address] [place] [address] Arrived [facility] Comment on above: Arrived Start: 11-25-2024 End: 11-25-2024 Patient encounter procedure 11/25/2024 11:00 AM EST Office Visit [facility] [address] [place] [address] Josie East PA [address] [place] [address] Arrived [facility] Comment on above: Arrived Payers Date Payer Category Payer Self-pay 2023 Medicare (Managed Care) 1.2. [id number] 2022 Private Health Insurance [id number] 1959 Medicare [id number] 1955 Unknown [id number] 2.16.84 0.1.979608.3.579.2.593 1955 Unknown [id number] 2.16.8 40.1.844543.3.579.2.72 1955 Unknown [id number] 2.16.8 40.1.499962.3.579.2.72 1954 Unknown [id number] 2.16.8 40.1.430384.3.579.2.72 1954 Unknown [id number] 2.16.8 40.1.730035.3.579.2.72 1954 Unknown [id number] 2.16.8 40.1.180113.3.579.2.72 1954 Unknown [id number] 2.16.8 40.1.497341.3.579.2.72 1954 Unknown [id number] 2.16.8 40.1.526164.3.579.2.72 1954 Unknown [id number] 2.16.8 40.1.018059.3.579.2.72 1954 Unknown [id number] 2.16.8 40.1.039166.3.579.2.72 1954 Unknown [id number] 2.16.8 40.1.028779.3.579.2.72 1954 Unknown [id number] 2.16.8 40.1.729195.3.579.2.72 1954 Unknown [id number] 2.16.8 40.1.106620.3.579.2.72 1954 Unknown [id number] 2.16.8 40.1.658455.3.579.2.727 1954 Unknown [id number] 2.16.8 40.1.870560.3.579.2.727 1954 Unknown [id number] 2.16.8 40.1.926772.3.579.2.727 1954 Unknown [id number] 2.16.8 40.1.811584.3.579.2.1259 1954 Unknown [id number] 2.16.8 40.1.146139.3.579.2.1259 1954 Unknown [id number] 2.16.8 40.1.177682.3.579.2.1259 1954 Unknown [id number] 2.16.84 0.1.297301.3.579.2.1259 1954 Unknown [id number] 2.16.84 0.1.484250.3.579.2.1259 1954 Unknown [id number] 2.16.84 0.1.753361.3.579.2.1259 1954 Unknown [id number] 2.16.84 0.1.029338.3.579.2.1259 1954 Unknown [id number] 2.16.84 0.1.139718.3.579.2.1259 1954 Unknown [id number] 2.16.84 0.1.933858.3.579.2.1259 1954 Unknown [id number] 2.16.8 40.1.507317.3.579.2.727 1954 Unknown [id number] 2.16.8 40.1.234534.3.579.2.727 1954 Unknown [id number] 2.16.8 40.1.439956.3.579.2.727 1955 Unknown [id number] 2.16.8 40.1.216820.3.579.2.727 Medicare [id number] 2 .16.840.1.669397.19 Unknown [id number] 2.16.8 40.1.963936.3.579.2.531 Unknown [id number] 2.16.8 40.1.408502.3.579.2.531 Social History Date Type Detail Facility Start: 04-28-2024 End: 04-07-2025 Sex Assigned At [facility] [employer] Other Start: 04-14-2024 [facility] History of tobacco use Current smoker [facility] History of tobacco use Cigarette Smoker [facility] Start: 04-28-2024 End: 04-07-2025 History of Social function [facility] Start: 1955 Sex assigned at Not on file N [facility] [place] [facility] Clinical Notes 12-15-2021 to 04-07-2025 Aure Rankin - 04/07/2025 9:00 AM Meir Nathan NP - 03/20/2025 8:45 AM CINTHIA Almaguer - 11/25/2024 11:00 AM ESTTelephone Encounter - Rose Vann ARRT - 09/23/2024 3:46 PM EST Note Date & Type Note Facility 04-07-2025 History of Present illness Narrative Images from the original note were not included. Ashley Staples is a 69 y.o. male presents with chief complaint of left knee pain and stiffness. History of low back issues with neuropathy. HPI: Alejandro is here as a 69-year-old male referral from Guille Nathan, nurse practitioner, with his knee pain. He has had prior scopes with Dr. Mejia years ago of both knees with meniscal tearing. He states for the last several months, he has had left knee pain despite conservative care. He has had prior cortisone injections. He has tried bracing. He has pain, swelling and mechanical symptoms. He has stiffness. He does get some back issues with some radiation into his legs with cramping. No falls or trauma reported as of recent. SUBJECTIVE: MEDICATIONS: Current Outpatient Medications Medication Instructions alfuzosin ER (UROXATRAL) 10 mg, Daily atorvastatin (LIPITOR) 20 mg, Daily B-D 5CC LUER-ALEX SYR 21GX1 21G X 1 5 ML misc USE TO ADMINISTER TESTOSTERONE EVERY 2 WEEKS Cholecalciferol (Vitamin D3) 125 MCG (5000 UT) tablet dispersible dicyclomine (BENTYL) 20 mg, 3 times daily lansoprazole (Prevacid) [address] capsule latanoprost (Xalatan) 0.005 % ophthalmic solution Every 24 hours losartan (Cozaar) 100 MG tablet Every 24 hours pseudoephedrine (Sudafed) 30 MG tablet Every 6 hours Rexulti 1 MG tablet tamsulosin (Flomax) 0.4 MG 24 hr capsule TAKE 1 CAPSULE BY MOUTH ONCE A DAY *MONITOR FOR LIGHTHEADEDNESS OR DIZZINESS* testosterone cypionate (Depo-Testosterone) 200 MG/ML injection timolol (Betimol) 0.25 % ophthalmic solution Every 24 hours Vortioxetine HBr (Trintellix) 10 MG tablet Take by mouth ALLERGIES: No Known Allergies SURGICAL HISTORY: Past Surgical History: Procedure Laterality Date BACK SURGERY CHOLECYSTECTOMY ELBOW SURGERY Left Dr Mejia KNEE SURGERY Right torn meniscus - Dr Mejia LASIK Bilateral [address] Mejia VARICOSE VEIN SURGERY FAMILY HISTORY: Family History Problem Relation Name Age of Onset Hypertension Mother Hypertension Brother SOCIAL HISTORY: Social History Tobacco Use Smoking status: Former Current packs/day: 1.50 Types: Cigarettes Depression: Not on file REVIEW OF SYMPTOMS: The review of systems, history and current medications list are all reviewed today. OBJECTIVE: Visit Vitals Ht 5' 9 Wt 179 lb BMI 26.43 kg/m Smoking Status Former BSA 1.99 m Physical Exam On physical exam, he is alert and oriented. Vital signs are stable. There is no obvious sign of rash or infection. Bilateral arthroscopic portal incisions are clean, dry and intact. There is a moderate amount of tightness of both hamstrings. It appears to be lumbar neuropathic based with loss of extension within approximately 7-8 degrees of both knees. Passively I can get him within 2-3 degrees with tightness. He flexes his knees and legs to 115. Crepitance is present, left worse than right. Grind test is positive on the left. Collateral ligaments are intact. Dao and drawer are stable. He does get a low back neuropathic component with bench testing. X-rays and imaging permanently saved to the patient's record were reviewed bilateral knee AP, lateral and sunrise views weight bearing films show grade III, early IV degenerative changes. There is no fracture, dislocation, tumor or infection seen. These are taken through [facility] dated 03-20-2025 from their permanent record. ASSESSMENT AND PLAN: Assessment/Plan Bilateral knee advanced osteoarthritis, left worse than right; remote history of knee arthroscopy; lumbar neuropathy with significantly tight hamstrings. The nature of the findings were discussed at length. His left knee has become painful and restricted. He has tried conservative and injection management. We will get authorization for Visco supplementation. The amber injection course, pros, cons, risks, benefits and reasonable expectations were reviewed. We discussed ad terminal makeup operator the definitive role of total knee replacement. He appears to be having more neuropathic issues out of his back with tightness of his hamstrings. He has done physical therapy in the past. He would like to consider getting back into this after his knee has calmed down. We discussed formal work up of his back with x-rays and MRI and potential referral to pain management. This may be a big stimulus of his leg discomfort as well as bilateral tight hamstrings. He voices verbal understanding. He is discharged in stable condition. Numerous questions were answered. Follow up will be for further discussion of Visco supplementation. The patient was seen and examined. From the time of check in, nurse triage, vital signs, x-ray, x-ray interpretation, review of systems, comprehensive history and physical exam as well as setting up treatment plan and further management took 35 minutes. Cosigned by Ashley Stein DO at 04/13/2025 12:12 PM EDT documented in this encounter [facility] 03-27-2025 Note Patient Education Urology Benign Prostatic Hyperplasia Benign [...] or symptoms? Symptoms of this condition include: ??? Getting up often during the night to urinate. ??? Needing to urinate frequently during the day. ??? Difficulty starting urine flow. ??? Decrease in size and strength of your urine stream. ??? Leaking (dribbling) after urinating. ??? Inability to pass urine. This needs immediate treatment. ??? Inability to completely empty your bladder. ??? Pain when you pass urine. This is more common if there is also an infection. ??? Urinary tract infection (UTI). How is this diagnosed? This condition is diagnosed based on your medical history, a physical exam, and your symptoms. Tests will also be done, such as: ??? A post-void bladder scan. This measures any amount of urine that may remain in your bladder after you finish urinating. ??? A digital rectal exam. In a rectal exam, your health care provider checks your prostate by putting a lubricated, gloved finger into your rectum to feel the back of your prostate gland. This exam detects the size of your gland and any abnormal lumps or growths. ??? An exam of your urine (urinalysis). ??? A prostate specific antigen (PSA) screening. This is a blood test used to screen for prostate cancer. ??? An ultrasound. This test uses sound waves [...] severity of your condition. Treatment may include: ??? Observation and yearly exams. This may be the only treatment needed if your condition and symptoms are mild. ??? Medicines to relieve your symptoms, including: ? Medicines to shrink the prostate. ? Medicines to relax the muscle of the prostate. ??? Surgery in severe cases. Surgery may include: [...] the urethra. Follow these instructions at home: ??? Take acxf-zur-ykizfwe and prescription medicines only as told by your health care provider. ??? Monitor your symptoms for any changes. Contact your health care provider with any changes. ??? Avoid drinking large amounts of liquid before going to bed or out in public. ??? Avoid or reduce how much caffeine or alcohol you drink. ??? Give yourself time when you urinate. ??? Keep all follow-up visits. This is important. Contact a health care provider if: ??? You have unexplained back pain. ??? Your symptoms do not get (more content not included)... [facility] 03-20-2025 History of Present illness Narrative Images from the original note were not included. HISTORY OF PRESENT ILLNESS: EST PT Ashley Staples is an 69 y.o. @ male. (EST PT, LAST TX 09/09/24) LT KNEE PAIN, INTERMITTENT. XRAY TODAY MAG 03/20/25 XRAY EPIC 04/28/24 DEPO INJECTION 04/28/24 PT AT PROGRESSIVE PT HX KNEE SCOPE - ARTHRITIS - DR KIRANANIC WALKING UNASSISTED. PAIN IS MOSTLY MEDIAL KNEE, CAN MOVE AROUND. +IBU. PAIN WILL BE SHARP WITH TWISTING. DENIES POPPING, GRINDING-MIGHT POP WHEN HE STANDS. DOING HEP. TRIED A BRACE BUT WOULD IRRITATE HIS KNEE. GIVING OUT SENSATION WITH STAIRS. INTERESTED IN GEL INJECTIONS. ALLERGIES: No Known Allergies HOME MEDICATIONS: Current Outpatient Medications Medication Instructions alfuzosin ER (UROXATRAL) 10 mg, Oral, Daily, Do not crush, chew, or split. atorvastatin (LIPITOR) 20 mg, Oral, Daily Cholecalciferol (Vitamin D3) 125 MCG (5000 UT) tablet dispersible as directed Orally dicyclomine (BENTYL) 20 mg, Oral, 3 times daily lansoprazole (Prevacid) [address] capsule latanoprost (Xalatan) 0.005 % ophthalmic solution Every 24 hours losartan (Cozaar) 100 MG tablet Every 24 hours pseudoephedrine (Sudafed) 30 MG tablet Every 6 hours testosterone cypionate (Depo-Testosterone) 200 MG/ML injection timolol (Betimol) 0.25 % ophthalmic solution Every 24 hours Vortioxetine HBr (Trintellix) 10 MG tablet Oral PHYSICAL EXAM: Right Knee Exam Tenderness The patient is experiencing tenderness in the medial joint line. Range of Motion Extension: normal Flexion: normal Tests Dawit: Medial - positive Varus: negative Valgus: negative Drawer: Anterior - negative Other Erythema: absent Sensation: normal Pulse: present Swelling: mild Vitals: There is no height or weight on file to calculate BMI. Tobacco Use: Medium Risk (03/20/2025) Patient History Smoking Tobacco Use: Former Smokeless Tobacco Use: Unknown Passive Exposure: Not on file Alcohol Use: Not on file IMAGING: XR knee 3 views left Imaging Result: 03/20/2025: AP, Lat and [place] view of the left knee demonstrates medial joint space narrowing with subchondral sclerosis and flattening of the surfaces of tibial plateau and femoral condyle. Patella is noted to be midline with marginal osteophyte formation. Impression: osteoarthritis of the left knee. Guille Nathan APRN, LIVESTOCK TRUCKER-C Procedures Orders Placed This Encounter Procedures XR knee 3 views left Reason for exam:: pain ASSESSMENT: ICD-10-CM 1. Primary osteoarthritis of left knee M17.12 2. Left knee pain, unspecified chronicity M25.562 XR knee 3 views left PLAN: I reviewed xray findings with the patient and discussed treatment options, answered questions. He states he did not have much relief with cortisone injection and would like to meet with Dr. Stein to further discuss visco injections. Questions answered in laymen terms at the bedside. The diagnosis, home exercise plan and any ongoing restrictions/ recommendations reviewed. If unable to be reached in office, I recommend evaluation at nearest Emergency Room if any symptoms worsened or new symptoms develop for requiring urgent evaluation. documented in this encounter [facility] 11-25-2024 History of Present illness Narrative Skin Check Location: Patient requests a skin examination from the waist up Dermatologic history: no history of skin cancer, no history of atypical moles, no family history of melanoma Last visit: New patient Lesions: Location: nose Duration: months Quality: denies pain, denies itch, denies bleeding Modifying factors: aggravated by picking Associated symptoms: rough, scaly Treatments: none All pertinent medical history, medications, and allergies were reviewed. General Exam: alert, oriented to person, place, and time, normal affect, well appearing Unaccompanied A complete skin exam was offered, pt declined. Areas not examined despite medical recommendation: From the waist down Scalp, Examined Head, Face Examined Neck Examined Chest Examined Back Examined Abdomen Examined Right arm Examined Left arm Examined Hands Examined Digits,nails: Examined Lymphatics: Not examined 1. Seborrheic keratosis Torso - Posterior (Back) Stuck on verrucous, young-brown papules and plaques. Patient was counseled regarding these benign growths. Removal is normally not necessary, but they may be removed if they are symptomatic or for cosmetic reasons. 2. Capillary angioma (3) Abdomen (Lower Torso, Anterior), Chest (Upper Torso, Anterior), Torso - Posterior (Back) Scattered oneal-red papule(s). The patient was informed that angiomas are benign growths on the the skin. No treatment is necessary. 3. Melanocytic nevus of trunk (3) Abdomen (Lower Torso, Anterior), Chest (Upper Torso, Anterior), Torso - Posterior (Back) Scattered benign appearing, regular brown to light brown melanocytic papules and macules with similar morphology Counseled regarding these benign growths. Rarely, a nevus can develop into malignant melanoma, so any changing nevi should be promptly re-evaluated. 4. Lentigo simplex (5) Chest (Upper Torso, Anterior), Head - Anterior (Face), Left Arm, Neck, Right Arm Scattered young macules in sun-exposed areas. The patient was informed that lentigines are benign pigmented lesions that occur on sun-exposed and sun-damaged skin. No treatment is necessary. Recommended regular use of broad spectrum sunscreen SPF 30 or higher 5. Actinic keratosis Mid Supratip of Nose Erythematous scaly papules Patient was counseled regarding these sun-induced growths that can develop into squamous cell carcinoma if left untreated. Discussed treatment with cryotherapy. It was emphasized that any treated lesions that fail to resolve should be re-evaluated. Cryotherapy performed today; see procedure note Diagnosis: Actinic keratosis Indication: Precancerous Location: see skin exam Consent: Verbal consent was obtained and risks were discussed, including, but not limited to risks of scarring, darker or township supervisor pigmentary changes, recurrence, incomplete removal and infection. Method: Liquid nitrogen was used to treat the lesion(s) with two 5-10 second freeze-thaw cycles. Number of lesions treated: 1 Post-procedure instructions: Instructions were given orally and in writing. The office will be contacted if the lesion fails to resolve despite treatment, or if a side effect develops such as abnormal crusting, scabbing, redness or tenderness Cryotherapy, skin lesion - Mid Supratip of Nose Next Visit: recommended 1 year skin check, pt declined at this time documented in this encounter [facility] 11-24-2024 Note Patient Education Urology Benign Prostatic Hyperplasia Benign [...] or symptoms? Symptoms of this condition include: ??? Getting up often during the night to urinate. ??? Needing to urinate frequently during the day. ??? Difficulty starting urine flow. ??? Decrease in size and strength of your urine stream. ??? Leaking (dribbling) after urinating. ??? Inability to pass urine. This needs immediate treatment. ??? Inability to completely empty your bladder. ??? Pain when you pass urine. This is more common if there is also an infection. ??? Urinary tract infection (UTI). How is this diagnosed? This condition is diagnosed based on your medical history, a physical exam, and your symptoms. Tests will also be done, such as: ??? A post-void bladder scan. This measures any amount of urine that may remain in your bladder after you finish urinating. ??? A digital rectal exam. In a rectal exam, your health care provider checks your prostate by putting a lubricated, gloved finger into your rectum to feel the back of your prostate gland. This exam detects the size of your gland and any abnormal lumps or growths. ??? An exam of your urine (urinalysis). ??? A prostate specific antigen (PSA) screening. This is a blood test used to screen for prostate cancer. ??? An ultrasound. This test uses sound waves [...] severity of your condition. Treatment may include: ??? Observation and yearly exams. This may be the only treatment needed if your condition and symptoms are mild. ??? Medicines to relieve your symptoms, including: ? Medicines to shrink the prostate. ? Medicines to relax the muscle of the prostate. ??? Surgery in severe cases. Surgery may include: [...] the urethra. Follow these instructions at home: ??? Take tgyi-udm-sucobuu and prescription medicines only as told by your health care provider. ??? Monitor your symptoms for any changes. Contact your health care provider with any changes. ??? Avoid drinking large amounts of liquid before going to bed or out in public. ??? Avoid or reduce how much caffeine or alcohol you drink. ??? Give yourself time when you urinate. ??? Keep all follow-up visits. This is important. Contact a health care provider if: ??? You have unexplained back pain. ??? Your symptoms do not get (more content not included)... [facility] 10-24-2024 Note Cardiology Clinic No te Chief Complaint: No chief complaint on file. HPI: Ashley Staples is a 69 y.o. male who has a past medical history of Abnormal ECG, Heart murmur, Hyperlipidemia, Hypertension, and Sleep apnea. that is referred to Cardiology clinic for surgery clearance and abnormal ECG. Has hx of heart murmur, hypertension, and hyperlipidemia per Dr. Mitchell' office notes. He does not recall prior cardiac cath, stress test, and/or echo. He rides an exercise bike and is able to complete 8+ minutes without chest pain and SOB. Denies palpitations and lightheadedness. TURP is scheduled for 11/06/2024. Patient denies any previous history of CVA, PVD, DM, HTN, Depressed LVEF, and CAD. ROS 10 point ROS is performed and is negative unless otherwise specified in HPI Past Medical History He has a past medical history of Abnormal ECG, Heart murmur, Hyperlipidemia, Hypertension, and Sleep apnea. Surgical History He has a past surgical history that includes Shoulder surgery and Knee surgery. Social History He reports that he has quit smoking. His smoking use included cigarettes. He has never used smokeless tobacco. He reports that he does not currently use alcohol. No history on file for drug use. Family History Family History Problem Relation Name Age of Onset No Known Problems Mother No Known Problems Father Medications Current Outpatient Medications on File Prior to Visit Medication Sig Dispense Refill alfuzosin (Uroxatral) 10 mg 24 hr tablet Take 10 mg by mouth in the morning. atorvastatin (Lipitor) 20 mg tablet Take 20 mg by mouth at bedtime. lansoprazole (Prevacid) [address] capsule Take 30 mg by mouth before breakfast. losartan (Cozaar) 100 mg tablet Take 100 mg by mouth in the morning. testosterone cypionate (Depo-Testosterone) 200 mg/mL injection Trintellix 5 mg tablet Take 5 mg by mouth 1 (one) time each day at the same time. No current facility-administered medications on file prior to visit. Allergies Patient has no known allergies. Physical Exam VITAL SIGNS: BP 142/84 (BP Location: Left arm, Patient Position: Sitting) Pulse 74 Ht 1.778 m (5' 10 ) Wt 86.2 kg (190 lb) SpO2 99% BMI 27.26 kg/m??? Constitutional: Well developed, Well nourished, No acute distress, Non-toxic appearance. HENT: Normocephalic, Atraumatic, Bilateral external ears have normal appearance, Nose appears normal, nares are patent. Eyes: PERRLA, EOMI, Conjunctiva normal, No discharge. Neck: Normal range of motion, No tenderness, Supple, No stridor. No cervical lymphadenopathy noted. Cardiovascular: Normal heart rate, Normal rhythm, No murmurs, No rubs, No gallops. Thorax & Lungs: Normal breath sounds, No respiratory distress, No wheezing, No chest tenderness to palpation. Abdomen: Bowel sounds normal, Soft, Nontender, No masses, No pulsatile masses. Skin: Warm, Dry, No erythema, No rash. Back: No tenderness, No CVA tenderness. Extremities: Intact distal pulses, No edema, No tenderness, No cyanosis, No clubbing. Musculoskeletal: Grossly normal strength in extremities Neurologic: Alert & oriented x 3, no gross focal neurological deficits Psychiatric: Affect normal, Judgment normal, Mood normal. EKG results: No results found for this or any previous visit (from the past 4464 hour(s)). Echo results: No echocardiogram results found for the past 12 months Radiology: No image results found. Assessment/Plan: Ashley Staples is a 69 y.o. male with Encounter for pre-operative cardiovascular clearance Heart murmur Will obtain echocardiogram to assess LVEF, wall motion, valvular function, in light of history of murmur He denies any cardiac complaints or concerns. Reports being able to complete greater than 4 METS of activity without cardiac symptoms. Pending no significant abnormalities on echo, patient will be moderate risk for procedure. optimize medical management Aggressive risk factor modification Plan of care discussed with patient. All questions were answered. Patient voices understanding and is agreeable with current plan. Patient was educated on red flag symptoms. Strict return precautions were provided. Patient verbalizes understanding Follow-up in cardiology clinic in 3 months, or sooner as needed Thank you for allowing us to participate in the care of your patient. Please do not hesitate to contact cardiology with any questions or concerns. Radha Davis MD Interventional Cardiology [facility] 09-23-2024 Telephone encounter Note Referral was already faxed. I will re-fax again. Fax number [phone]. I called [facility] at [phone] and they confirmed that they received the referral. [facility] 09-23-2024 Miscellaneous Notes Referral was already faxed. I will re-fax again. Fax number [phone]. I called [facility] at [phone] and they confirmed that they received the referral. Pt called and stated Guille had ordered PT and he has not heard from them to schedule. [facility]. Their number is [phone] he stated. His call back [phone] documented in this encounter [facility] 09-23-2024 Telephone encounter Note Pt called and stated Guille had ordered PT and he has not heard from them to schedule. [facility]. Their number is [phone] he stated. His call back [phone] [facility] 09-09-2024 History of Present illness Narrative Images from the original note were not included. No chief complaint on file. HISTORY OF PRESENT ILLNESS: Ashley Staples is an 69 y.o. @ male. (EST PT) LT KNEE PAIN, INTERMITTENT. LAST INJ 04/28 - LITTLE RELIEF. XRAY CHANGE 04/28/24 DEPO INJECTION 04/28/24 HX KNEE SCOPE - ARTHRITIS - DR STEPANIC PAIN IS INTERMITTENT, MOSTLY WITH ACTIVITY. PAIN WILL BE ANTERIOR-MEDIAL, CAN BE DIFFUSE. TAKING IBU PRN. +WEAKNESS. UNABLE TO WALK VERY FAR. USING ICE PRN. DENIES N/T, SWELLING. DENIES POPPING/GRINDING. OCCAS GIVING OUT, USUALLY WITH STAIRS. ALLERGIES: No Known Allergies HOME MEDICATIONS: Current Outpatient Medications Medication Instructions alfuzosin ER (UROXATRAL) 10 mg, Oral, Daily, Do not crush, chew, or split. atorvastatin (LIPITOR) 20 mg, Oral, Daily Cholecalciferol (Vitamin D3) 125 MCG (5000 UT) tablet dispersible as directed Orally dicyclomine (BENTYL) 20 mg, Oral, 3 times daily lansoprazole (Prevacid) [address] capsule latanoprost (Xalatan) 0.005 % ophthalmic solution Every 24 hours losartan (Cozaar) 100 MG tablet Every 24 hours pseudoephedrine (Sudafed) 30 MG tablet Every 6 hours testosterone cypionate (Depo-Testosterone) 200 MG/ML injection timolol (Betimol) 0.25 % ophthalmic solution Every 24 hours Vortioxetine HBr (Trintellix) 10 MG tablet Oral REVIEW OF SYSTEMS: General: Denies fever, fatigue or weight loss Skin: Denies rash, sores or skin changes Eyes: Denies visual disturbance or pain GI: Denies indigestion or abdominal pain Neuro: Denies numbness or tingling, denies new onset paralysis Musculoskeletal: ( see note) PHYSICAL EXAM: Right Knee Exam Tenderness The patient is experiencing tenderness in the medial joint line. Range of Motion Extension: 0 Flexion: 120 Tests Varus: negative Valgus: negative Other Erythema: absent Scars: absent Sensation: normal Pulse: present Swelling: mild Left Knee Exam Tenderness The patient is experiencing tenderness in the medial joint line. Range of Motion Extension: 0 Flexion: 130 Tests Varus: negative Valgus: negative Other Erythema: absent Scars: absent Sensation: normal Pulse: present Swelling: mild Vitals: There is no height or weight on file to calculate BMI. IMAGING: ASSESSMENT: ICD-10-CM 1. Primary osteoarthritis of left knee M17.12 2. Primary osteoarthritis of right knee M17.11 Procedures PLAN: Patient states that he would like to do PT for both of his knees as he feels they are getting weak. We will send in PT order for patient and he will follow up in 6-8 weeks for RCK. Questions answered in laymen terms at the bedside. The diagnosis, home exercise plan and any ongoing restrictions/ recommendations reviewed. If unable to be reached in office, I recommend evaluation at nearest Emergency Room if any symptoms worsened or new symptoms develop for requiring urgent evaluation. 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: Testicular hypofunction) Medications alfuzosin 10 mg ER Tab, 10 mg= 1 tab(s), Oral, Daily, 1 refills atorvastatin 20 mg Tab, See Instructions dicyclomine 20 mg Tab, See Instructions lansoprazole 30 mg Cap-DR, See Instructions losartan 100 mg Tab, See Instructions Misc DME Prescription, See Instructions, 3 refills Misc DME Prescription, See Instructions, 3 refills Testosterone Cypionate 200 mg/mL intramuscular solution, 200 mg= 1 mL, IntraMuscular, q2wk, 3 refills Trintellix 5 mg oral tablet, 5 mg= 1 tab(s), Oral, Daily Vitamin D3, Oral, Daily Allergies No Known Allergies Immunizations Vaccine Date Status influenza virus vaccine, inactivated 08/29/2023 Recorded influenza virus vaccine, inactivated 08/07/2022 Recorded SARS-CoV-2 (COVID-19) mRNA BNT-162b2 vax 10/05/2021 Recorded influenza virus vaccine, inactivated 08/26/2021 Recorded SARS-CoV-2 (COVID-19) mRNA-1273 vaccine 01/05/2021 Recorded SARS-CoV-2 (COVID-19) mRNA-1273 vaccine 12/09/2020 Recorded zoster vaccine, inactivated 10/02/2020 Recorded pneumococcal 13-valent vaccine 09/13/2020 Recorded zoster vaccine, inactivated 07/29/2020 Recorded influenza virus vaccine, inactivated 07/27/2020 Recorded influenza virus vaccine, inactivated 09/02/2019 Recorded influenza virus vaccine, inactivated 08/26/2018 Recorded zoster vaccine live 09/28/2014 Recorded [facility] 09-21-2022 Evaluation note Encounter Date Diagnosis Assessment [...] likely this patient will never need repair. [facility] 09-01-2022 Evaluation note* Encounter Date Diagnosis Assessment Notes Treatment Notes Treatment Clinical Notes Jun, Abdominal aortic aneurysm (AAA) 3.0 [...] the plan all his questions were addressed. [facility] Other 03-03-2022 NoteHNO ID: [id number] Author: Dakota Barron MD Service: ? Author Type: Physician Type: Progress Notes Filed: 12/16/2021 10:13 AM Note Text: [facility] New Patient Evaluation Ashley Staples : 1955 12/15/2021 9:30 AM Referral Source Aure Mckeon [address] [facility] [address] Accompanied by: spouse Identifying Information: Ashley Staples is a 66 year old White, male with a past medical history of HTN, HLD, T2DM, AVS, AAA, testicular hypofunction, migraines and past neuropsychiatric history of anxiety who is presenting to [facility] today with a chief complaint of [...] isolated to comments made by a specific editorial cartoonist. They were beginning to bother him over [...] - atorvastatin (LIPITOR) 20 (more content not included)...[facility] Diagnosis Primary osteoarthritis of left knee- Primary Primary osteoarthritis of right knee documented in this encounter [facility] Healthcare[facility]* Diagnosis Capillary angioma- Primary Nevus, non-neoplastic Seborrheic keratosis Melanocytic nevus of trunk Benign neoplasm of skin of trunk, except scrotum Lentigo simplex Other dyschromia Actinic keratosis documented in this encounter [facility] HealthcareEvaluation note* Diagnosis Primary osteoarthritis of left knee- Primary Left knee pain, unspecified chronicity documented in this encounter [facility] HealthcareEvaluation note* Diagnosis Left knee pain, unspecified chronicity- Primary Primary osteoarthritis of left knee documented in this encounter [facility] HealthcareHistory general Narrative - Reported* Type Description Date Medical History venous insufficiency Medical History AAA Surgical History back surgery 2010 Surgical History vein stripping 1989 Surgical History gall bladder Hospitalization History see surgical history [facility] Other History general Narrative - Reported* Type Description Date Medical History venous insufficiency Medical History AAA Surgical History back surgery 2010 Surgical History vein stripping 1989 Surgical History gall bladder 2000 Hospitalization History see surgical history [facility] Other Summary Purpose Family History No Family [...] section and content) DATE CREATED AUTHOR 01/06/2022 [facility] DATE CREATED AUTHOR AUTHOR'S ORGANIZ ATION 04/13/2022 [facility]ical Specialist DATE CREATED AUTHOR AUTHOR'S ORGANIZ ATION 01/02/2023 [facility] DATE CREATED AUTHOR AUTHOR'S ORGANIZ ATION 11/11/2024 [facility] DATE CREATED AUTHOR AUTHOR'S ORGANIZ ATION 11/24/2024 [facility] DATE CREATED AUTHOR AUTHOR'S ORGANIZ ATION 03/01/2025 [facility] DATE CREATED AUTHOR AUTHOR'S ORGANIZ ATION 03/30/2025 [facility] DATE CREATED AUTHOR AUTHOR'S ORGANIZ ATION 04/08/2025 [facility] Specialists [facility] DATE CREATED AUTHOR AUTHOR'S ORGANIZ ATION 04/14/2025 [place] [facility] ical Center REASON FOR VISIT (unrecogniz ed section and content) Reason Comments Pain Reason Onset Date Comments PT 09/23/2024 Reason Comments Skin Check Specialty Diagnoses / Procedures Referred By Contac t Referred To Contact Dermatology Diagnoses skin lesion on back Procedures office visit Sunita Carty MD [address] [place] [address] Phone: tel: fax: Yahaira Sutherland MD [address] [facility] [address] [place] [address] Phone: tel: fax: Referral ID Status Reason Start Date Expiration Date Visits Re quested Visits Authorized [id number] Closed 11/20/2024 05/19/2025 1 1 Reason Comments Pain Specialty Diagnoses / Procedures Referred By Marika becerra Referred To Contact Orthopaedic Surgery Diagnoses Primary osteoarthritis of left knee Guille Nathan, LIVESTOCK TRUCKER [address] [place] [address] Phone: tel: fax: Ashley Stein, DO [address] [facility] [place] [address] Phone: tel: fax: Referral ID Status Reason Start Date Expiration Date V isits Requested Visits Authorized [id number] Closed Specialty Services Required 03/20/2025 09/16/2025 1 1 Care Teams (unrecognized sec tion and content) Accounts Payable Manager Relationship Specialty Start Date End Date Sunita Carty MD PCP - General Family Medicine 10/23/23 Accounts Payable Manager Relationship Specialty Start Date End Date Sunita Carty MD PCP - General Family Medicine 10/23/23 Accounts Payable Manager Relationship Specialty Start Date End Date uSnita Carty MD PCP - General Family Medicine 10/23/23 Accounts Payable Manager Relationship Specialty Start Date End Date Sunita Carty MD [address] [place] [phone] PCP - General Family Medicine 10/23/23 Accounts Payable Manager Relationship Specialty Start Date End Date Sunita Carty MD [address] [place] [phone] PCP - General Family Medicine 10/23/23 Accounts Payable Manager Relationship Specialty Start Date End Date Sunita Carty MD [address] [place] [address] PCP - [facility] Medicine 10/23/23 Accounts Payable Manager Relationship Specialty Start Date End Date Sunita Carty MD [address] [place] [address] PCP - [facility] 10/23/23 Accounts Payable Manager Relationship Specialty Start Date End Date Sunita Carty MD [address] [place] [address] PCP - General Family [facility] 10/23/23 FOR RECORDS PERTAINING TO PATIENTS WHO ARE [...] BE BASED ON THE PRIMARY CLINICAL RECORDS. [facility]. provides no warranty or guarantee of the accuracy or completeness of information in this document.
--- NOTE | 2025-04-22 22:36 | ECG_ITS ---
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
--- OUTSIDE RECORDS SUMMARY | 2025-04-22 22:55 | XMS_ITS | CCD ---
Author Organization [facility] Care Team Providers Care Electrical Tryout Person Name Role Phone Favian Baldwin Unavailable MCKEON ., DR AURE Chaudhry Attending Unavailable MCKEON ., DR AURE Chaudhry Consulting Unavailable MCKEON ., DR AURE Chaudhry Primary Care Unavailable MCKEON ., DR AURE Chaudhry Admitting Unavailable Sunita Carty MD Primary Care Provider [phone] Jb Mitchell Admitting Unavailable Jb Mitchell Attending Unavailable Favian Baldwin Admitting UnavailFavian Clarke Attending UnavailSunita Melchor Primary Care Unavailable RADHA DAVIS Attending Sunita Quarles MD Primary Care Provider [phone] MD Sunita Carty Admitting Unavailable MD Sunita Carty Attending Unavailable Sunita Carty Attending Unavailable Sunita Carty Attending Unavailable Sunita Carty Attending Unavailable Jb MITCHELL Attending Unavailable Jb MITCHELL Attending Unavailable Jb MITCHELL Attending Unavailable Sunita Carty Attending Unavailable Sunita Carty Referring Unavailable Sunita Carty Admitting Unavailable Sunita Carty Admitting Unavailable Sunita aCrty Attending Unavailable Jb MITCHELL Attending Unavailable MD Sunita Carty Admitting Unavailable MD Sunita Carty Attending Unavailable Yolanda Guajardo Attending Unavaila MD Sunita Rashid Attending Unavailable MD Sunita Carty Attending Unavailable MD Sunita Carty Attending Unavailable MD Sunita Carty Attending Unavailable JOSIE EAST Attending Unavailable SUNITA CARTY Referring Unavailable GUILLE NATHAN Attending Unavailable GUILLE NATHAN Referring Unavailable ASHLEY STEIN Attending Unavailable UGILLE NATHAN Referring Unavailable MAYE WASHINGTON Attending Unavailable [...] Appointments Sunday 8:20 AM EDT With: Where: [address] [address]- Sunday 11:00 AM EDT With: Where: [address] [address]- Sunday 12:15 PM EDT With: STEPHEN RODGERS, Jb Abad Where: [facility] [address] [place] [address]- Medications What How Much When Why Instructions [...] DAY FOR 30 DAYS Unchanged Misc Prescription ([facility] Prescription) See instructions 18G 1 needles [...] back pain (more content not included)... Normal [facility] Family Medicine Office/Clini c Noteon 04-13-2025 Family [...] states that Losartan is being sent to [facility] and he wants that to be mail [...] influenza v (more content not included)... Normal [facility] Comment on above: Result Comment: Elec tronically [...] feel free to contact me at extension [phone]. Thank you! Henrietta Siegel LPN Clinical Quick Print Operator [place] [phone] Extension: [phone] [email or web address] From: Shanti Augustin To: Henrietta Siegel; Sent: 04/13/2025 11:35:20 EDT Subject: RE: Pre-Visit Planning Caller Name: ASHLEY STAPLES; Caller Number: Rajani , M His depression score was 0 today. 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 Normal [facility] Ambulatory Visit Summaryon 0 03-27-2025 Ambulatory Visit [...] Appointments Sunday 1:00 PM EDT With: Where: [address] [address]- Sunday 10:00 AM EDT With: Keyshawn RODGERS, Sunita Zamarripa Where: [address] [address]- You Need to Schedule the Following Appointments Follow Up with STEPHEN RODGERS, LEXIS Herrera When: Where: [address] [place] [address]- Medications What How Much When Why Instructions New tamsulosin (tamsulosin 0.4 mg Cap) 1 Capsules By Mouth Every day Refills: 11 Monitor for lightheadedness or dizziness. Pickup at [facility]/pharmacy #0177 Unchanged brexpiprazole (Rexulti 1 mg oral tablet) [...] Unchanged vort (more content not included)... Normal [facility] Urology Office/Clinic Noteon 03-27-2025 Urology Office/Clinic Note [...] Contact Information Jb MITCHELL MD, URL [address] [id number]- Additional Instructions: 4 mos w/ PVR Patient [...] operative ble (more content not included)... Normal [facility] Comment on above: Result Comment: Elec tronically Signed By: Jb MITCHELL MD\.br\Date and Time Signed: 03/27/25 11:24 EDT\.br\Electronically Co-Signed By: Stacia Garcia\.br\Date and Time Co-Signed: 03/27/25 11:22 EDT XR Knee - left 3 [facility] Result: 03/20/2025: AP, Lat and Earling view of the left knee demonstrates medial joint space narrowing with subchondral sclerosis and flattening of the surfaces of tibial plateau and femoral condyle. Patella is noted to be midline with marginal osteophyte formation. Impression: osteoarthritis of the left knee. Guille Nathan APRN, SEWING MACHINE ADJUSTER-C [facility] Radiology Study observation (narrative) [facility] Testosterone F&Ton Testosterone [Mass/Vol] 1086 ng/dL High 264-916 [facility] Comment on above: Result Comment: Adul t male reference interval is based on a population of healthy nonobese males (BMI <30) between 19 and 39 years old. Leeroy, et.al. JCEM 2017,102;1360-7638. PMID: [id number]. Performed By: #### 1 [id number] #### [facility] [address] [place] [address] Testosterone Free [Mass/Vol] 18.9 pg/mL High 6.6-18.1 [facility] Comment on above: Result Comment: Perf ormed at: [facility] [address] [id number] PhD Reji Kang Performed at: [facility] [address] [id number] MD rAnold Colvin Performed By: #### 1 [id number] #### [facility] [address] [place] [address] Ambulatory Visit Summaryon 0 02-27-2025 Ambulatory Visit [...] Jb MITCHELL MD Where: [facility] [address] [place] [id number]- Sunday 1:00 PM EDT With: Where: [place] [id number]- Sunday 10:00 AM EDT With: Sunita Carty MD Where: [address] [address]- Medications What How Much When [...] care. [I (more content not included)... Normal [facility] CBC w/ Auto Diffon 5 Basophils/100 WBC (Bld) 0.5 % Normal 0.0-2.0 [facility] Comment on above: Performed By: #### 2 [id number] #### [facility] [address] [place] [address] Basophils/Leukocytes Auto (Bld) [Pure # fraction] 0.0 E9/L Normal 0.0-0.2 [facility] Comment on above: Performed By: #### 2 [id number] #### [facility] [address] [place] [address] Eosinophils (Bld) [#/Vol] 0.1 E9/L Normal 0.0-0.5 [facility] Comment on above: Performed By: #### 2 [id number] #### [facility] [address] [place] [address] Eosinophils/100 WBC (Bld) 2.2 % Normal 0.0-8.0 [facility] Comment on above: Performed By: #### 2 [id number] #### [facility] [address] [place] [address] Erythrocyte distribution width (RBC) [Ratio] 14.2 % Normal 10.9-14.2 [facility] Comment on above: Performed By: #### 2 641329 #### [facility] [address] [place] [address] Hematocrit (Bld) [Volume fraction] 48.7 % Normal 37.7-49.0 [facility] Comment on above: Performed By: #### 2 622620 #### [facility] [address] [place] [address] Hemoglobin (Bld) [Mass/Vol] 16.3 g/dL Normal 13.5-17.5 [facility] Comment on above: Performed By: #### 2 [id number] #### [facility] [address] [place] [address] Lymphocytes (Bld) [#/Vol] 1.8 E9/L Normal 1.0-4.0 [facility] Comment on above: Performed By: #### 2 406398 #### [facility] [address] [place] [address] Lymphocytes/100 WBC (Bld) 30.9 % Normal 14.0-50.0 [facility] Comment on above: Performed By: #### 2 512767 #### [facility] [address] [place] [address] MCH (RBC) [Entitic mass] 28.7 pg Normal 27.0-34.0 [facility] Comment on above: Performed By: #### 2 690667 #### [facility] [address] [place] [address] MCHC (RBC) [Mass/Vol] 33.5 g/dL Normal 31.4-36.0 [facility] Comment on above: Performed By: #### 2 127365 #### [facility] [address] [place] [address] MCV (RBC) [Entitic vol] 85.6 fL Normal 80.0-100.0 [facility] Comment on above: Performed By: #### 2 007816 #### [facility] [address] [place] [address] Monocytes (Bld) [#/Vol] 0.3 E9/L Normal 0.2-1.0 [facility] Comment on above: Performed By: #### 2 962189 #### [facility] [address] [place] [address] Neutrophils (Bld) [#/Vol] 3.5 E9/L Normal 2.0-7.5 [facility] Comment on above: Performed By: #### 2 432314 #### [facility] [address] [place] [address] Neutrophils/100 WBC (Bld) 61.2 % Normal 36.0-75.0 [facility] Comment on above: Performed By: #### 2 023237 #### [facility] [address] [place] [address] Platelet mean volume (Bld) [Entitic vol] 8.7 fL Normal 6.4-10.8 [facility] Comment on above: Performed By: #### 2 367965 #### [facility] [address] [place] [address] Platelets (Bld) [#/Vol] 170.0 E9/L Normal 150.0-500.0 [facility] Comment on above: Performed By: #### 2 142780 #### [facility] [address] [place] [address] RBC (Bld) [#/Vol] 5.7 E12/L Normal 4.3-5.9 [facility] Comment on above: Performed By: #### 2 196545 #### [facility] [address] [place] [address] WBC corrected for nucl RBC Auto (Bld) [#/Vol] 5.7 E9/L Normal 4.0-11.0 [facility] Comment on above: Performed By: #### 2 409352 #### [facility] [address] [place] [address] CMPon 02-27-2025 Albumin [Mass/Vol] 4.5 g/dL Normal 3.3-5.0 [facility] Comment on above: Performed By: #### 2 400597 #### [facility] [address] [place] [address] Albumin/Globulin (S) [Mass conc ratio] 1.6 Normal 1.1-2.2 [facility] Comment on above: Performed By: #### 2 392603 #### [facility] [address] [place] [address] ALP [Catalytic activity/Vol] 52 Int._Unit/L Normal 21-98 [facility] Comment on above: Performed By: #### 2 831634 #### [facility] [address] [place] [address] ALT No additional P-5'-P [Catalytic activity/Vol] 11 Int._Unit/L Normal 6-46 [facility] Comment on above: Performed By: #### 2 031974 #### [facility] [address] [place] [address] Anion gap [Moles/Vol] 12 mmol/L Normal 6-16 [facility] Comment on above: Performed By: #### 2 643232 #### [facility] [address] [place] [address] AST [Catalytic activity/Vol] 23 Int._Unit/L Normal 5-43 [facility] Comment on above: Performed By: #### 2 850875 #### [facility] [address] [place] [address] Bilirubin [Mass/Vol] 0.6 mg/dL Normal 0.0-1.1 [facility] Comment on above: Performed By: #### 2 011432 #### [facility] [address] [place] [address] Calcium [Mass/Vol] 9.3 mg/dL Normal 8.9-11.1 [facility] Comment on above: Performed By: #### 2 303082 #### [facility] [address] [place] [address] Chloride [Moles/Vol] 101 mmol/L Normal 101-111 [facility] Comment on above: Performed By: #### 2 693486 #### [facility] [address] [place] [address] CO2 [Moles/Vol] 26 mmol/L Normal 21-31 [facility] Comment on above: Performed By: #### 2 191328 #### [facility] [address] [place] [address] Creatinine [Mass/Vol] 0.8 mg/dL Normal 0.5-1.3 [facility] Comment on above: Performed By: #### 2 341644 #### [facility] [address] [place] [address] Globulin (S) [Mass/Vol] 2.8 g/dL Normal 1.4-4.0 [facility] Comment on above: Performed By: #### 2 617791 #### [facility] [address] [place] [address] Glucose [Mass/Vol] 101 mg/dL Normal 55-199 [facility] Comment on above: Performed By: #### 2 338790 #### [facility] [address] [place] [address] Potassium [Moles/Vol] 4.7 mmol/L Normal 3.5-5.3 [facility] Comment on above: Performed By: #### 2 719517 #### [facility] [address] [place] [address] Protein [Mass/Vol] 7.3 g/dL Normal 6.0-7.8 [facility] Comment on above: Performed By: #### 2 977622 #### [facility] [address] [place] [address] Sodium [Moles/Vol] 134 mmol/L Low 135-145 [facility] Comment on above: Performed By: #### 2 715426 #### [facility] [address] [place] [address] Urea nitrogen [Mass/Vol] 14 mg/dL Normal 5-21 [facility] Comment on above: Performed By: #### 2 615731 #### [facility] [address] [place] [address] Urea nitrogen/Creatinine [Mass ratio] 18 No Units Normal 10-20 [facility] Comment on above: Performed By: #### 2 145732 #### [facility] [address] [place] [address] Lipid Panelon 02-27-2025 Cholesterol [Mass/Vol] 151 mg/dL Normal 120-200 [facility] Comment on above: Performed By: #### 2 919884 #### [facility] [address] [place] [address] Cholesterol in HDL [Mass/Vol] 51 mg/dL Invalid Interpretation Code [facility] Comment on above: Result Comment: '>= 60 LOW RISK' '<= 40 HIGH RISK' Performed By: #### 2 261407 #### [facility] [address] [place] [address] Cholesterol in LDL [Mass/Vol] 86 mg/dL Normal <=129 [facility] Comment on above: Performed By: #### 2 453633 #### [facility] [address] [place] [address] Cholesterol in VLDL [Mass/Vol] 13 mg/dL Normal 7-40 [facility] Comment on above: Performed By: #### 2 135534 #### [facility] [address] [place] [address] Triglyceride [Mass/Vol] 65 mg/dL Normal <=149 [facility] Comment on above: Performed By: #### 2 940706 #### [facility] [address] [place] [address] PSA Screen, Totalon 02-28-20 25 Prostate specific Ag [Mass/Vol] 0.5 ng/mL Normal 0.1-3.5 [facility] Comment on above: Result Comment: The concentration of PSA determined by different manufacturers can vary due to differences in assay methods and reagent specificity. Values obtained from different assay methods cannot be used interchangeably. The methodology used for this result was chemiluminescence using [employer]'s Access Hybritech PSA reagent. Performed By: #### 1 [id number] #### [facility] [address] [place] [address] eGFRon 02-27-2025 eGFR 95 mL/min/1.73 m2 Normal >=59 [facility] Comment on above: Performed By: #### 1 0885966 #### [facility] [address] [place] [address] Ambulatory Visit Summaryon 0 02-19-2025 Ambulatory Visit Summary Ambulatory Visit Summary ASHLEY TSAPLES :1955 Visit Date:02/19/2025 Ambulatory Visit Instructions Your [...] Appointments Sunday 9:20 AM EDT With: Where: [address] [address]- Sunday 10:15 AM EDT With: Jb MITCHELL MD Where: [facility] [address] [place] [address]- Sunday 1:00 PM EDT With: Where: [address] [address]- Sunday 10:00 AM EDT With: Keyshawn RODGERS, Sunita Zamarripa Where: [facility] [place] [address] [place] [address]- Medications What How Much When Instructions Unchanged [...] for choosing us for your care. Normal [facility] Family Medicine Office/Clini c Noteon 02-19-2025 Family [...] day, # 6 tab(s), Refills(s) 0, Pharmacy: [facility] #6177, 179, cm, 02/19/25 9:54:00 EDT, Height/Length Dosing, 85.2, kg, ... tramadol, 50 mg = 1 tab(s), Oral, q6hr, # 12 tab(s), Refills(s) 0, Pharmacy: [facility] #6177, 179, cm, 02/19/25 9:54:00 EDT, Height/Length [...] day, # 6 tab(s), Refills(s) 0, [facility], cm, 02/19/25 9:54:00 EDT, Height/Length Dosing, 85.2, kg, 05/0... tramadol, 50 mg = 1 tab(s), Oral, q6hr, # 12 tab(s), Refills(s) 0, [facility], 179, cm, 02/19/25 9:54:00 EDT, Height/Length [...] day, # 6 tab(s), Refills(s) 0, Pharmacy: [facility] #[facility], 179, cm, 02/19/25 9:54:00 EDT, Height/Length Dosing, 85.2, kg, 05/0... tramadol, 50 mg = 1 tab(s), Oral, q6hr, # 12 tab(s), Refills(s) 0, Pharmacy: [facility] #6177, 179, cm, 02/19/25 9:54:00 EDT, Height/Length [...] day, # 6 tab(s), Refills(s) 0, Pharmacy: [facility]/pharm[facility] #6177, 179, cm, 02/19/25 9:54:00 EDT, Height/Length Dosing, 85.2, kg, 05/0... tramadol, 50 mg = 1 tab(s), Oral, q6hr, # 12 tab(s), Refills(s) 0, Pharmacy: [facility]/pharm[facility] #6177, 179, cm, 02/19/25 9:54:00 EDT, Height/Length [...] day, # 6 tab(s), Refills(s) 0, Pharmacy: [facility] #6177, 179, cm, 02/19/25 9:54:00 EDT, Height/ (more content not included)... Normal [facility] Comment on above: Result Comment: Elec tronically Signed By: Keyshawn RODGERS, Sunita Zamarripa\.br\Date and Time Signed: 02/19/25 10:16 EDT No Panel InformationOrdered By: Vanessa Perez on 11-25-2024 [facility] Ambulatory Visit Summaryon 0 11-24-2024 [...] Jb MITCHELL MD Where: [facility] [address] [address]- Sunday 1:00 PM EDT With: Where: [address] [address]- Sunday 10:00 AM EDT With: Keyshawn RODGERS, Sunita Zamarripa Where: [address] [address]- You Need to Schedule the Following Appointments Follow Up with STEPHEN RODGERS, LEXIS Herrera When: In 4 days Where: [facility] [address], [place] [address]- Medications What How Much When Instructions Unchanged [...] t (more content not included)... Normal [facility] Urology Office/Clinic Noteon 11-24-2024 Urology Office/Clinic Note [...] francesco Amaral (more content not included)... Normal [facility] Comment on above: Result Comment: Elec tronically [...] Jb MITCHELL MD Where: [facility] [address] [place] [id number]- Sunday 1:00 PM EDT With: Where: [place] [id number]- Sunday 10:00 AM EDT With: Sunita Carty MD Where: [address] [address]- Medications What How Much When [...] for choosing us for your care. Reba [facility] Office/Clini c Noteon 11-18-2024 Family [...] sun protection and prior geographical residency in [place]. - Refilled testosterone therapy with adequate monitoring [...] Current blood pressure control is satisfactory. Ordered: [facility] 2. Gastroesophageal reflux disease without esophagitis (K21.9: Gastro-esophageal reflux disease without esophagitis) Symptoms under control with current therapy. Advise continued avoidance of trigger foods to prevent exacerbation. Ordered: [facility] 3. BMI 28.0-28.9,adult (Z68.28: Body mass index [BMI] 28.0-28.9, adult) BMI education added Ordered: [facility] External Amb[facility] Referral 4. Overweight (BMI 25.0-29.9) (E66.3: Overweight) Suggest maintaining healthy diet and exercise regimen to manage weight effectively. Ordered: [facility] Amb[facility] Ref[facility] 5. Former smoker (Z87.891: Personal history of nicotine dependence) Former smoker status noted, with no further management required for dependence. Ordered: [facility] Ref[facility] 6. Hypogonadism male (E29.1: [...] 1 TABLE (more content not included)... Normal [facility] Comment on above: Result Comment: Elec tronically Signed By: Keyshawn RODGERS, Sunita Watt.helena\Date and Time Signed: 11/18/24 10:22 EST Ron 11-06-2024 L - -------- Specimen: [id number] Received: 11/07/24 Status: ARA Byers Num: [id number] Spec Type: Surgical Subm Dr: Jb Mitchell MD Tissues: A Prostate - Tur (PROSTATE TISSUE) Procedures: HE/2, Gross/Micro L4 -------- Age/ Patient Sex Location Account Attending Physician -------- Ashley Staples 69/Opal LABELL [id number] Jb Mitchell MD -------- SPEC NUM: [id number] RECD: 11/07/24 STATUS: ARA BYERS NUM: [id number] THOMAS: 11/06/[address] [facility] DR: Jb Mitchell MD ENTERED: 11/07/[address] [facility] [address]: Daniela Gamble SPEC TYPE: Surgical [...] [id number] Received: 11/07/24 Status: ARA Thad Num: [id number] Spec Type: Surgical Subm Dr: Jb Mitchell MD Tissues: A Prostate - Tur (PROSTATE TISSUE) Procedures: HE/2, Gross/Micro L4 -------- Patient: Ashley Staples [id number] (Continued) -------- Specimen: [id number] Received: 11/07/24 (Continued) Signed (signature on file) Myron Savage MD 11/10/24 1648 -------- Specimen: [id number] Received: 11/07/24 Status: ARA Byers Num: [id number] Spec Type: Surgical Subm Dr: Jb Mitchell MD Tissues: A Prostate - Tur (PROSTATE TISSUE) Procedures: HE/2, Gross/Micro L4 -------- Patient: Ashley Staples [id number] (Continued) -------- Specimen: [id number] Received: 11/07/24 (Continued) CPT Codes 23046 -------- -------- Specimen: [id number] Received: 11/07/24 Status: ARA Byers Num: [id number] Spec Type: Surgical Subm Dr: Jb Mitchell MD Tissues: A Prostate - Tur (PROSTATE TISSUE) Procedures: HE/2, Gross/Micro L4 -------- Patient: Ashley Staples [id number] (Continued) -------- Signed (signature on file) Myron Savage MD 11/10/24 1648 Normal [facility] Office Visiton 10-24-2024 Follow-up visit [id number] Ashley Staples 1955 M Date Provider Department Center 10/24/2024 [place]-RADHA DAVIS MARYSOL Clark Family History Problem Relation Age of Onset No Known Problems Mother No Known Problems Father Family Status - Relation Status Age at Mother Alive Father Level of Service:49093 MA OFFICE/OUTPATIENT NEW MODERATE MDM 45 MINUTES Normal [facility] ALL CBC WITH AUTO DIFFon BASOPHILS ABSOLUTE AUTO 0.1 [facility] Basophils/100 WBC (Bld) 1.1 % 0.2 - 2.0 % [facility] Eosinophils/100 WBC (Bld) 2.6 % 0.9 - 7.0 % [facility] Erythrocyte distribution width (RBC) [Ratio] 13.1 % 11.0 - 15.0 % [facility] Hematocrit (Bld) [Volume fraction] 49.4 % 42.0 - 54.0 % [facility] Hemoglobin (Bld) [Mass/Vol] 16 g/dL 14.0 - 18.0 g/dL [facility] IMMATURE GRANULOCYTES ABS AUTO 0.09 High [facility] Immature granulocytes/100 WBC (Bld) 1.7 % High 0.0 - 0.5 % [facility] Interpretation and review of laboratory results Abnormal [facility] LYMPHOCYTES ABSOLUTE AUTO 1.6 [facility] Lymphocytes/100 WBC (Bld) 29.4 % 20.5 - 60.0 % [facility] MCH (RBC) [Entitic mass] 28.8 pg 25.9 - 34.0 pg [facility] MCHC (RBC) [Mass/Vol] 32.4 g/dL 29.9 - 35.2 g/dL [facility] MCV (RBC) [Entitic vol] 89 fL 80.0 - 94.0 fL [facility] MONOCYTES ABSOLUTE AUTO 0.5 [facility] Monocytes/100 WBC (Bld) 8.7 % 1.7 - 12.0 % [facility] NEUTROPHILS ABSOLUTE AUTO 3.1 [facility] Neutrophils/100 WBC (Bld) 56.5 % 43.0 - 75.0 % [facility] Platelet mean volume (Bld) [Entitic vol] 10 fL 9.5 - 13.5 fL [facility] TBH EO # 0.1 [facility] TB PLT 142 Low [facility] RBC 5.55 [facility] WBC 5.4 [facility] US aortaon 09-25-[address] [facility] [address] [place] [address] Ultrasound Report Signed Patient: Ashley Staples MR#: [id number] : 1955 Acct:[id number] Age/Sex: 69 / M ADM Date: 09/25/24 Loc: [facility] Room: Type: [facility] Attending Dr: Favian Baldwin MD Ordering Provider: [...] Favian Baldwin MD09/25/2024 1:23 PM Dictation Location: [place] [address] Tech: Lexii Vitale Transcribed By: LING 09/25/24 1323 Dictated By: Favian Baldwin MD 09/25/24 1321 Signed By: 09/25/24 1323 Normal [facility] CT Chest, Low Dose Screening [...] MD Transcribed by: DP Technologist: CML Normal [facility] Testosterone F&Ton Testosterone [Mass/Vol] 698 ng/dL Invalid Interpretation Code 264-916 [facility] Comment on above: Result Comment: Adul t male reference interval is based on a population of healthy nonobese males (BMI <30) between 19 and 39 years old. Leeroy et.al. JCEM 2017,102;8288-2718. PMID: [id number]. Performed By: #### 1 [id number] ####[facility] [address] [place] [address] Testosterone Free [Mass/Vol] 10.4 pg/mL Invalid Interpretation Code 6.6-18.1 [facility] Comment on above: Result Comment: Perf ormed at: [facility] [address] [id number] PhD Reji Kang Performed at: [facility] [address] [id number] MD Arnold Colvin Performed By: #### 1 [id number] ####[facility] [address] [place] [address] Ambulatory Visit Summaryon 0 05-20-2024 Ambulatory Visit [...] Appointments Sunday 8:20 AM EDT With: Where: [address] [address]- Sunday 10:00 AM EST With: Keyshawn RODGERS, Sunita Zamarripa Where: [address] [address]- Sunday 1:00 PM EDT With: Where: [address] [address]- You Need to Complete the Following Testosterone F&T, Blood, Routine collect, 05/20/24, Order for future visit, Lab Collect, Hypogonadism male Primary hypertension Heart murmur Gastroesophageal reflux disease without esophagitis Nicotine dependence in remission Encounter for screening colonosco... CT Chest, Low Dose Screening, 05/20/24, Routine, Order for future visit, Transport Mode: Ambulatory, Reason: Screening, Yes, Yes, Yes, 1, 30, Yes, 5, [id number], No, Encounter for screening colonoscopy Hypogonadism male [...] appreci (more content not included)... Normal [facility] Office/Clini c Noteon 05-20-2024 Family [...] labs. Ordered: CT Chest, Low Dose Screening [facility] [place] Amb[facility] Referral Testosterone F&T 2. Primary hypertension (I10: Essential (primary) hypertension) - At goal at this time. - Will continue to monitor - Will refill meds. Ordered: CT Chest, Low Dose Screening [facility] Ambulatory Referral Testosterone F&T 3. Heart murmur (R01.1: Cardiac murmur, unspecified) - Stable Ordered: CT Chest, Low Dose Screening [facility] Ambulatory Referral Testosterone F&T 4. Gastroesophageal reflux disease without esophagitis (K21.9: Gastro-esophageal reflux disease without esophagitis) - Stable Ordered: CT Chest, Low Dose Screening [facility] Ambulatory Referral Testosterone F&T 5. Nicotine dependence in remission (F17.201: Nicotine dependence, unspecified, in remission) - LDCT ordered Ordered: CT Chest, Low Dose Screening [facility] Ambulatory Referral Testosterone F&T 6. Encounter for screening colonoscopy (Z12.11: Encounter for screening for malignant neoplasm of colon) - Will order a colonoscopy today. Ordered: CT Chest, Low Dose Screening Testosterone F&T Orders: ketoconazole topical, 1 maine, Topical, Daily, 60 gram, Refill(s) 0, [facility]pharmacy #[id number], 179, cm, 10/16/23 13:08:00 EST, Height/Length [...] Misc DME Prescription, See Instructions, 3 refills [facility] DME Prescription, See Instructions, 3 refills Testosterone [...] concerns: No (more content not included)... Normal [facility] Comment on above: Result Comment: Elec tronically Signed By: Keyshawn RODGERS, Sunita Watt.br\Date and Time Signed: 05/20/24 10:49 EDT TESTOSTERONE, TOTALon 2022 Testosterone [Mass/Vol] 912 ng/dL Normal 264-916 [facility] Comment on above: Result Comment: Adul t male reference interval is based on a population of healthy nonobese males (BMI <30) between 19 and 39 years old. Leeroy et.al. JCEM 2017,102;4763-3974. PMID: [id number]. Performed By: #### T ESTTOT #### [facility] [address] [place] [address] Dr. Clive Savage CBC AUTO DIFFon 12-26-2022 BASO # 0.0 103/ul Normal 0.0-0.1 [facility] Comment on above: Performed By: #### C BC #### [facility] [address] [place] [address] Dr. Clive Savage Basophils/100 WBC (Bld) 0.5 % Normal 0.2-2.0 [facility] Comment on above: Performed By: #### C BC #### [facility] [address] [place] [address] Dr. Clive Savage EO # 0.1 103/ul Normal 0.0-0.7 [facility] Comment on above: Performed By: #### C BC #### [facility] [address] [place] [address] Dr. Clive Savage Eosinophils/100 WBC (Bld) 2.1 % Normal 0.9-7.0 [facility] Comment on above: Performed By: #### C BC #### [facility] [address] [place] [address] Dr. Clive Savage Erythrocyte distribution width (RBC) [Ratio] 13.6 % Normal 11.0-15.0 [facility] Comment on above: Performed By: #### C BC #### [facility] [address] [place] [address] Dr. Clive Savage Hematocrit (Bld) [Volume fraction] 52.1 % Normal 42.0-54.0 [facility] Comment on above: Performed By: #### C BC #### [facility] [address] [place] [address] Dr. Clive Savage Hemoglobin (Bld) [Mass/Vol] 16.9 g/dL Normal 14.0-18.0 [facility] Comment on above: Performed By: #### C BC #### [facility] [address] [place] [address] Dr. Clive Savage IG # 0.01 10e3/ul Normal 0.00-0.03 [facility] Comment on above: Performed By: #### C BC #### [facility] [address] [place] [address] Dr. Clive Savage IG % 0.2 % Normal 0.0-0.5 [facility] Comment on above: Performed By: #### C BC #### [facility] [address] [place] [address] Dr. Clive Savage LYMPH # 1.9 103/ul Normal 1.2-3.8 [facility] Comment on above: Performed By: #### C BC #### [facility] [address] [place] [address] Dr. Clive Savage Lymphocytes/100 WBC (Bld) 32.6 % Normal 20.5-60.0 [facility] Comment on above: Performed By: #### C BC #### [facility] [address] [place] [address] Dr. Clive Savage MANUAL DIFF REQ NO Normal [facility] Comment on above: Performed By: #### C BC #### [facility] [address] [address] [address] Clive Savage MCH (RBC) [Entitic mass] 28.5 pg Normal 25.9-34.0 [facility] Comment on above: Performed By: #### C BC #### [facility] [address] [place] [address] Dr. Clive Savage MCHC (RBC) [Mass/Vol] 32.4 g/dL Normal 29.9-35.2 [facility] Comment on above: Performed By: #### C BC #### [facility] [address] [place] [address] Dr. Clive Savage MCV (RBC) [Entitic vol] 87.7 fL Normal 80.0-94.0 [facility] Comment on above: Performed By: #### C BC #### [facility] [address] [place] [address] Dr. Clive Savage MONO # 0.4 103/ul Normal 0.3-0.8 [facility] Comment on above: Performed By: #### C BC #### [facility] [address] [place] [address] Dr. Clive Savage Monocytes/100 WBC (Bld) 6.7 % Normal 1.7-12.0 [facility] Comment on above: Performed By: #### C BC #### [facility] [address] [place] [address] Dr. Clive Savage NEUT # 3.4 103/ul Normal 1.4-6.5 [facility] Comment on above: Performed By: #### C BC #### [facility] [address] [place] [address] Dr. Clive Savage Neutrophils/100 WBC (Bld) 57.9 % Normal 43.0-75.0 [facility] Comment on above: Performed By: #### C BC #### [facility] [address] [place] [address] Dr. Clive Savage Platelet mean volume (Bld) [Entitic vol] 9.1 fL Critically low 9.5-13.5 [facility] Comment on above: Performed By: #### C BC #### [facility] [address] [address] [address] Clive Savage PLT 169 103/ul Normal 150-450 [facility] Comment on above: Performed By: #### C BC #### [facility] [address] [address] [address] Clive Savage RBC 5.94 106/ul Normal 4.70-6.10 [facility] Comment on above: Performed By: #### C BC #### [facility] [address] [address] [address] Clive Savage WBC 5.8 103/ul Normal 4.0-11.0 [facility] Comment on above: Performed By: #### C BC #### [facility] [address] [address] [address] Clive Savage LIPID PROFILEon 12-26-2022 CHOL-HDL RATIO NORM SEE BELOW Normal [facility] Comment on above: Result Comment: 3.3 - 4.4 LOW RISK 4.4 - 7.1 AVERAGE RISK 7.1 - 11.0 MODERATE RISK >11.0 HIGH RISK Performed By: #### L IPID, CMP #### [facility] [address] [address] [address] Clive Savage Cholesterol [Mass/Vol] 132 mg/dL Normal <=200 [facility] Comment on above: Performed By: #### L IPID, CMP #### [facility] [address] [place] [address] Dr. Clive Savage Cholesterol in HDL [Mass/Vol] 45 mg/dL Normal 40-60 [facility] Comment on above: Performed By: #### L IPID, CMP #### [facility] [address] [address] [address] Clive Savage Cholesterol in LDL [Mass/Vol] 70.8 mg/dL Normal [facility] Comment on above: Performed By: #### L IPID, CMP #### [facility] [address] [address] [address] Clive Savage Cholesterol.total/Chol esterol in HDL [Mass ratio] 2.9 {ratio} Normal [facility] Comment on above: Performed By: #### L IPID, CMP #### [facility] [address] [address] [address] Clive Savage HDL NORMAL > or = 60 mg/dl - LO W CARDIOVASCULAR RISK <40 mg/dl - HIGH CARDIOVASCULAR RISK Normal [facility] Comment on above: Performed By: #### L IPID, CMP #### [facility] [address] [address] [address] Clive Savage LDL CALC NORMAL SEE BELOW Normal [facility] Comment on above: Result Comment: <100 mg/dl OPTIMAL 100 - 129 mg/dl NEAR OR ABOVE OPTIMAL 130 - 159 mg/dl BORDERLINE HIGH 160 - 189 mg/dl HIGH >190 mg/dl VERY HIGH Performed By: #### L IPID, CMP #### [facility] [address] [place] [address] Dr. Clive Savage Triglyceride [Mass/Vol] 81 mg/dL Normal <=150 [facility] Comment on above: Performed By: #### L IPID, CMP #### [facility] [address] [address] [address] Clive Savage VLDL CALC 16.2 mg/dL Normal [facility] Comment on above: Performed By: #### L IPID, CMP #### [facility] [address] [place] [address] Dr. Clive Savage PROF 14(COMP METB)on 023 Albumin [Mass/Vol] 4.0 g/dL Normal 3.4-5.0 [facility] Comment on above: Performed By: #### L IPID, CMP #### [facility] [address] [place] [address] Dr. Clive Savage Albumin/Globulin [Mass ratio] 1.2 {ratio} Normal [facility] Comment on above: Performed By: #### L IPID, CMP #### [facility] [address] [place] [address] Dr. Clive Savage ALP [Catalytic activity/Vol] 60 U/L Normal 46-116 [facility] Comment on above: Performed By: #### L IPID, CMP #### [facility] [address] [address] [address] Clive Savage ALT [Catalytic activity/Vol] 42 U/L Normal 16-63 [facility] Comment on above: Performed By: #### L IPID, CMP #### [facility] [address] [address] [address] Clive Savage Anion gap [Moles/Vol] 6.6 mmol/L Normal [facility] Comment on above: Performed By: #### L IPID, CMP #### [facility] [address] [address] [address] Clive Savage AST [Catalytic activity/Vol] 17 U/L Normal 15-37 [facility] Comment on above: Performed By: #### L IPID, CMP #### [facility] [address] [place] [address] Dr. Clive Savage Bilirubin [Mass/Vol] 0.4 mg/dL Normal 0.2-1.0 [facility] Comment on above: Performed By: #### L IPID, CMP #### [facility] [address] [address] [address] Clive Savage Calcium [Mass/Vol] 9.4 mg/dL Normal 8.5-10.1 [facility] Comment on above: Performed By: #### L IPID, CMP #### [facility] [address] [address] [address] Clive Savage Chloride [Moles/Vol] 102 mmol/L Normal 98-107 [facility] Comment on above: Performed By: #### L IPID, CMP #### [facility] [address] [address] [address] Clive Savage CO2 [Moles/Vol] 34.8 mmol/L Critically high 21.0-32.0 [facility] Comment on above: Performed By: #### L IPID, CMP #### [facility] [address] [address] [address] Clive Savage Creatinine [Mass/Vol] 0.88 mg/dL Normal 0.70-1.30 [facility] Comment on above: Performed By: #### L IPID, CMP #### [facility] [address] [address] [address] Clive Savage EGFR-AF SWAZI >60 Normal >=60 [facility] Comment on above: Performed By: #### L IPID, CMP #### [facility] [address] [address] [address] Clive Savage EGFR-NON AF SWAZI >60 Normal >=60 [facility] Comment on above: Performed By: #### L IPID, CMP #### [facility] [address] [address] [address] Clive Savage Globulin (S) [Mass/Vol] 3.3 g/dL Normal [facility] Comment on above: Performed By: #### L IPID, CMP #### [facility] [address] [address] [address] Clive Savage Glucose [Mass/Vol] 123 mg/dL Critically high 74-[address] [facility] Comment on above: Performed By: #### L IPID, CMP #### [facility] [address] [address] [address] Clive Savage Potassium [Moles/Vol] 4.4 mmol/L Normal 3.5-5.1 [facility] Comment on above: Performed By: #### L IPID, CMP #### [facility] [address] [address] [address] Clive Savage Protein [Mass/Vol] 7.3 g/dL Normal 6.4-8.[address] [facility] Comment on above: Performed By: #### L IPID, CMP #### [facility] [address] [address] [address] Clive Savage Sodium [Moles/Vol] 139 mmol/L Normal 136-[address] [facility] Comment on above: Performed By: #### L IPID, CMP #### [facility] [address] [address] [address] Clive Savage Urea nitrogen [Mass/Vol] 9.0 mg/dL Normal 7.0-18.0 [facility] Comment on above: Performed By: #### L IPID, CMP #### [facility] [address] [place], [place] [address] Dr. Clive Savage Urea nitrogen/Creatinine [Mass ratio] 10.2 mg/mg Normal [facility] Comment on above: Performed By: #### L IPID, CMP #### [facility] [address] [place], [place] [address] Dr. Clive Savage MRI Shoulder w/o Lefton [...] by Satnam Clayton on 04/12/2022 1452 Normal [facility] CNOVon 12-15-2021 CNOV Office Visit (MILDREDT ) ASHLEY STAPLES ([id number]) 1955 M Date Time Provider Department 12/15/21 9:00 AM DAKOTA BARRON During your visit today, we recorded the following information about you: Pulse Blood pressure Weight 68/minute 148/79 83.5 kg [place] 12/15/2021 9:13 AM Signed Ashley Staples is a 66 year old year old right handed man Accompanied by: spouse. 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 --- What would you like to accomplish with this visit today? I want more information about what I got. Vital Signs: BP 148/79 Pulse 68 Wt 83.5 kg (184 lb) Dakota Barron MD 12/16/2021 10:13 AM Signed [facility] New Patient Evaluation Ashley Staples : 1955 12/15/2021 9:30 AM Referral Source Aure Mckeon [address] [facility] [address] Accompanied by: spouse Identifying Information: Ashley Stalpes is a 66 year old White, male with a past medical history of HTN, HLD, T2DM, AVS, AAA, testicular hypofunction, migraines and past neuropsychiatric history of anxiety who is presenting to [facility] today with a chief complaint of [...] isolated to comments made by a specific assignment desk editor. They were beginning to bother him [...] Abdominal ao (more content not included)... Normal [facility] Vital Signs Date Time Vital Sign Value Performing Clinician Facility 04-07-2025 08:51-0400 Body height 175.3 cm Ashley Stein DO Work Phone: [facility] 04-07-2025 08:51-0400 Body mass index (BMI) [Ratio] 26.43 kg/m2 Ashley Stein DO Work Phone: [facility] 04-07-2025 08:51-0400 Body weight 81.19 kg Ashley Stein DO Work Phone: [facility] 09-21-2022 12:00-0500 Body height 180.34 cm Favian Baldwin Other [email or web address] Other 09-21-2022 12:00-0500 Body mass index (BMI) [Ratio] 25.38 kg/m2 Favian Baldwin Other [email or web address] Other 09-21-2022 12:00-0500 Body temperature 97.4 [degF] Favian Baldwin Other [email or web address] Other 09-21-2022 12:00-0500 Body weight 82.56 kg Favian Baldwin Other [email or web address] Other 09-21-2022 12:00-0500 Diastolic blood pressure 66 mm[Hg] Favian Baldwin Other [email or web address] Other 09-21-2022 12:00-0500 SaO2% (BldA) [Mass fraction] 99 % Favian Baldwin Other [email or web address] Other 09-21-2022 12:00-0500 Systolic blood pressure 116 mm[Hg] Favian Baldwin Other [email or web address] Other 06-15-2022 13:30-0400 Body height 180.34 cm Favian Nicolasa Other [email or web address] Other 06-15-2022 13:30-0400 Body mass index (BMI) [Ratio] 25.38 kg/m2 Favian Nicolasa Other [email or web address] Other 06-15-2022 13:30-0400 Body temperature 97.4 [degF] Favian Nicolasa Other [email or web address] Other 06-15-2022 13:30-0400 Body weight 82.56 kg Favian Nicolasa Other [email or web address] Other 06-15-2022 13:30-0400 Diastolic blood pressure 78 mm[Hg] Favian Baldwin Other [email or web address] Other 06-15-2022 13:30-0400 SaO2% (BldA) [Mass fraction] 98 % Favian Nicolasa Other [email or web address] Other 06-15-2022 13:30-0400 Systolic blood pressure 128 mm[Hg] Favian Baldwin Other [email or web address] Other Encounters Encounter Date Encounter Type Care Provider Facility Start: 07-27-2025 ambulatory Jb Laws ty:[facility] Start: 05-19-2025 ambulatory Sunita Carty Facility :[facility] Start: 05-05-2025 ambulatory Shanti L Sameer Facility: [facility] Start: 04-13-2025 End: 04-13-2025 ambulatory Shanti L Sameer Facility:[facility] Start: 04-07-2025 End: 04-07-2025 Angel Stein DO [...] Available Start: 03-30-2025 ambulatory MD Sunita Carty [facility] ity:[facility] Start: 03-27-2025 End: 03-27-2025 ambulatory Jb R STEPHEN Facility:[facility] Start: 03-20-2025 End: 03-20-2025 Bamboo flowsheet Guille Nathan SEWING MACHINE ADJUSTER Work Phone: [facility] Start: 03-20-2025 End: 03-20-2025 Bamboo flowsheet Guille Nathan SEWING MACHINE ADJUSTER Work Phone: [facility] Start: 03-20-2025 End: 03-20-2025 Office outpatient visit 15 minutes Guille Nathan SEWING MACHINE ADJUSTER Work Phone: [facility] Comment on above: Primary osteoarthrit is of left knee (Primary Dx); Left knee pain, unspecified chronicity Start: 03-20-2025 End: 03-20-2025 ambulatory GUILLE NATHAN Not Available Start: 02-27-2025 End: 02-27-2025 ambulatory MD Sunita Carty Facility:[facility] Start: 02-19-2025 End: 02-19-2025 ambulatory Sunita Carty Facility:[facility] Start: 11-25-2024 End: 11-25-2024 Bamboo flowsheet Josie [...] Start: 11-24-2024 End: 11-24-2024 ambulatory Jb MITCHELL Facility:[facility] Start: 11-18-2024 End: 11-18-2024 ambulatory MD Sunita Carty Facility:[facility] Start: 11-10-2024 End: 11-10-2024 ambulatory Jb MITCHELL Facility:[facility] Start: 11-06-2024 End: 11-06-2024 ambulatory Jb Mitchell Facility:[facility] Start: 11-06-2024 End: 11-06-2024 ambulatory Jb MITCHELL Facility:CD:[id number] Start: 10-24-2024 End: 10-24-2024 ambulatory [facility] [place] Start: 10-20-2024 End: 10-20-2024 Clinisync Result Encounter Generic External Data Provider [facility] External Department Unsolicited Start: 10-20-2024 End: 10-20-2024 Clinisync Result Encounter Generic External Data Provider [facility] External Department Unsolicited Start: 09-25-2024 End: 09-25-2024 ambulatory Favian Baldwin Facility:[facility] Start: 09-23-2024 End: 09-24-2024 Telephone encounter Guille Nathan SEWING MACHINE ADJUSTER Work Phone: [facility] Comment on above: PT Start: 09-09-2024 End: 09-09-2024 Bamboo flowsheet Guille Nathan SEWING MACHINE ADJUSTER Work Phone: [facility] Start: 09-09-2024 End: 09-09-2024 Bamboo flowsheet Guille Nathan SEWING MACHINE ADJUSTER Work Phone: [facility] Start: 09-09-2024 End: 09-09-2024 ambulatory GUILLE NATHAN Not Available Start: 09-09-2024 End: 09-09-2024 Office outpatient visit 10 minutes Guille Nathan SEWING MACHINE ADJUSTER Work Phone: [facility] Comment on above: Primary osteoarthrit is of left knee (Primary Dx); Primary osteoarthritis of right knee Start: 07-07-2024 End: 07-07-2024 ambulatory Sunita Carty Facility:[facility] Start: 06-02-2024 End: 06-02-2024 ambulatory Guerrero Tallei Deanmaggie Facility:[facility] Start: 05-27-2024 End: 05-27-2024 ambulatory MD Sunita Carty Facility:[facility] Start: 05-20-2024 ambulatory MD Sunita Carty Facility :[facility] Start: 05-20-2024 End: 05-20-2024 ambulatory MD Sunita Carty Facility:[facility] Start: 04-28-2024 End: 04-28-2024 ambulatory GUILLE NATHAN Not Available Start: 04-15-2024 End: 04-15-2024 ambulatory GUILLE NATHAN Not Available Start: 04-14-2024 End: 04-14-2024 ambulatory MAYE WASHINGTON Not Available Start: 12-26-2022 End: 12-27-[address] AURE MCKEON . Facility: Start: 09-21-2022 End: 09-21-2022 ambulatory Favian Baldwin Other [employer] [facility] [employer] Other Start: 09-21-2022 Office outpatient vi sit 15 minutes Favian Baldwin [facility] Start: 06-15-2022 End: 06-15-2022 ambulatory Favian Baldwin Other [email or web address] Other Start: 06-15-2022 Office outpatient vi sit 15 minutes Favian Baldwin [facility] Procedures Date Procedure Procedure Detail Performing Clinician Start: 03-20-2025 Radiologic examinati on knee 3 views Guille Nathan SEWING MACHINE ADJUSTER Work Phone: Start: 11-25-2024 CRYOTHERAPY SKIN LESION Josie VICENTE Work Phone: Start: 10-20-2024 ALL CBC WITH AUTO DIFF Generic External Data Provider Start: 12-26-[address] AURE WALKER . Comment on above: Performed By: #### P SAD #### [facility] [address] [address] [address] Clive Savage Plan of Treatment Date Care Activity Detail Author Start: 04-07-2025 End: 04-07-2025 Patient encounter procedure 04/07/2025 9:00 AM EDT Office Visit [facility] [address] [place] [id number] Ashley Stein, [address] [place] [address] Left knee pain, unspecified chronicity (Primary Dx); Primary osteoarthritis of left knee [facility] Comment on above: Left knee pain, unsp ecified chronicity (Primary Dx); Primary osteoarthritis of left knee Start: 03-20-2025 End: 03-20-2025 Patient encounter procedure 03/20/2025 8:45 AM EDT Office Visit [facility] [address] [place] [address] Guille Nathan, SEWING MACHINE ADJUSTER [address] [place] [address] Arrived [facility] Comment on above: Arrived Start: 11-25-2024 End: 11-25-2024 Patient encounter procedure 11/25/2024 11:00 AM EST Office Visit [facility] [address] [place] [address] Josie East PA [address] [place] [address] Arrived [facility] Comment on above: Arrived Payers Date Payer Category Payer Self-pay 2023 Medicare (Managed Care) 1.2. [id number] 2022 Private Health Insurance [id number] 1959 Medicare [id number] 1955 Unknown [id number] 2.16.84 0.1.841783.3.579.2.593 1955 Unknown [id number] 2.16.8 40.1.474866.3.579.2.72 1954 Unknown [id number] 2.16.8 40.1.345645.3.579.2.72 1954 Unknown [id number] 2.16.8 40.1.181200.3.579.2.72 1954 Unknown [id number] 2.16.8 40.1.324501.3.579.2.72 1954 Unknown [id number] 2.16.8 40.1.566652.3.579.2.72 1954 Unknown [id number] 2.16.8 40.1.549668.3.579.2.72 1954 Unknown [id number] 2.16.8 40.1.398521.3.579.2.72 1954 Unknown [id number] 2.16.8 40.1.033059.3.579.2.72 1954 Unknown [id number] 2.16.8 40.1.351599.3.579.2.72 1954 Unknown [id number] 2.16.8 40.1.556029.3.579.2.72 1954 Unknown [id number] 2.16.8 40.1.031085.3.579.2.72 1954 Unknown [id number] 2.16.8 40.1.842505.3.579.2.72 1954 Unknown [id number] 2.16.8 40.1.187565.3.579.2.727 1954 Unknown [id number] 2.16.8 40.1.398537.3.579.2.727 1954 Unknown [id number] 2.16.8 40.1.279966.3.579.2.727 1954 Unknown [id number] 2.16.8 40.1.332955.3.579.2.1259 1954 Unknown [id number] 2.16.8 40.1.193526.3.579.2.1259 1954 Unknown [id number] 2.16.8 40.1.671979.3.579.2.1259 1954 Unknown [id number] 2.16.84 0.1.764220.3.579.2.1259 1954 Unknown [id number] 2.16.84 0.1.334911.3.579.2.1259 1954 Unknown [id number] 2.16.84 0.1.296174.3.579.2.1259 1954 Unknown [id number] 2.16.84 0.1.888417.3.579.2.1259 1954 Unknown [id number] 2.16.84 0.1.025133.3.579.2.1259 1954 Unknown [id number] 2.16.84 0.1.001527.3.579.2.1259 1954 Unknown [id number] 2.16.8 40.1.657662.3.579.2.727 1954 Unknown [id number] 2.16.8 40.1.989726.3.579.2.727 1954 Unknown [id number] 2.16.8 40.1.001933.3.579.2.727 1954 Unknown [id number] 2.16.8 40.1.924133.3.579.2.727 Medicare [id number] 2 .16.840.1.035823.19 Unknown [id number] 2.16.8 40.1.630963.3.579.2.531 Unknown [id number] 2.16.8 40.1.942527.3.579.2.531 Social History Date Type Detail Facility Start: 04-28-2024 End: 04-07-2025 Sex Assigned At [facility] Other Start: 04-14-2024 [facility] History of tobacco use Current sm[facility] History of tobacco use Cigarette Smoker [facility] Start: 04-28-2024 End: 04-07-2025 History of Social function [facility] Start: 1955 Sex assigned at Not on file [facility] Clinical Notes 12-15-2021 to 04-07-2025 Aure [...] or infection seen. These are taken through [facility] dated 03-20-2025 from their permanent record. [...] and reasonable expectations were reviewed. We discussed terminal superintendent the definitive role of total knee replacement. [...] 12:12 PM EDT documented in this encounter [facility] 03-27-2025 Note Patient Education Urology Benign [...] Follow these instructions at home: ??? Take feum-hzp-ingcshj and prescription medicines only as told by [...] do not get (more content not included)... [facility] 03-20-2025 History of Present illness Narrative Images [...] left Imaging Result: 03/20/2025: AP, Lat and Earling view of the left knee demonstrates medial joint space narrowing with subchondral sclerosis and flattening of the surfaces of tibial plateau and femoral condyle. Patella is noted to be midline with marginal osteophyte formation. Impression: osteoarthritis of the left knee. Guille Nathan APRN, SEWING MACHINE ADJUSTER-C Procedures Orders Placed This Encounter Procedures XR [...] requiring urgent evaluation. documented in this encounter [facility] 11-25-2024 History of Present illness Narrative [...] limited to risks of scarring, darker or geometry teacher pigmentary changes, recurrence, incomplete removal and infection. [...] at this time documented in this encounter [facility] 11-24-2024 Note Patient Education Urology Benign [...] Follow these instructions at home: ??? Take cobh-jdx-lxejnaf and prescription medicines only as told by [...] do not get (more content not included)... [facility] 10-24-2024 Note Cardiology Clinic No te Chief [...] or concerns. Radha Davis MD Interventional Cardiology [facility] 09-23-2024 Telephone encounter Note Referral was already faxed. I will re-fax again. Fax number [phone]. I called [facility] at [phone] and they confirmed that they received the referral. [facility] 09-23-2024 Miscellaneous Notes Referral was already faxed. I will re-fax again. Fax number [phone]. I called [facility] at [phone] and they confirmed that they received the referral. Pt called and stated Guille had ordered PT and he has not heard from them to schedule. [facility]. Their number is [phone] he stated. His call back [phone] documented in this encounter [facility] 09-23-2024 Telephone encounter Note Pt called and stated Guille had ordered PT and he has not heard from them to schedule. [facility]. Their number is [phone] he stated. His call back [phone] [facility] 09-09-2024 History of Present illness Narrative [...] develop for requiring urgent evaluation. Guille Nathan APRN-DIRECTOR OF TESTING documented in this encounter [facility] 05-27-2024 Note Nurse Consultation N ote [...] 08/26/2018 Recorded zoster vaccine live 09/28/2014 Recorded [facility] 09-21-2022 Evaluation note Encounter Date Diagnosis Assessment [...] likely this patient will never need repair. [email or web address] Other 09-01-2022 Evaluation note* Encounter Date Diagnosis [...] the plan all his questions were addressed. [email or web address] Other 03-03-2022 NoteHNO ID: [id number] Author: Dakota Barron MD Service: ? Author Type: Physician Type: Progress Notes Filed: 12/16/2021 10:13 AM Note Text: [facility] New Patient Evaluation Ashley Staples : 1955 12/15/2021 9:30 AM Referral Source Aure Mckeon [address] [facility] [address] Accompanied by: spouse Identifying Information: Ashley Staples is a 66 year old White, male with a past medical history of HTN, HLD, T2DM, AVS, AAA, testicular hypofunction, migraines and past neuropsychiatric history of anxiety who is presenting to [facility] today with a chief complaint of [...] isolated to comments made by a specific assignment desk editor. They were beginning to bother him [...] - atorvastatin (LIPITOR) 20 (more content not included)...[facility] Primary osteoarthritis of left knee- Primary Primary osteoarthritis of right knee documented in this encounter [facility]* Diagnosis Capillary angioma- Primary Nevus, non-neoplastic Seborrheic keratosis Melanocytic nevus of trunk Benign neoplasm of skin of trunk, except scrotum Lentigo simplex Other dyschromia Actinic keratosis documented in this encounter [facility] note* Diagnosis Primary osteoarthritis of left knee- Primary Left knee pain, unspecified chronicity documented in this encounter [facility]* Diagnosis Left knee pain, unspecified chronicity- Primary Primary osteoarthritis of left knee documented in this encounter [facility] HealthcareHistory general Narrative - Reported* Type Description Date Medical History venous insufficiency Medical History AAA Surgical History back surgery 2010 Surgical History vein stripping 1989 Surgical History gall bladder Hospitalization History see surgical history [email or web address] Other History general Narrative - Reported* Type Description Date Medical History venous insufficiency Medical History AAA Surgical History back surgery 2010 Surgical History vein stripping 1989 Surgical History gall bladder 2000 Hospitalization History see surgical history [email or web address] Other Summary Purpose Family History No Family [...] section and content) DATE CREATED AUTHOR 01/06/2022 [facility] DATE CREATED AUTHOR AUTHOR'S ORGANIZ ATION 04/13/2022 [facility] dical Specialist DATE CREATED AUTHOR AUTHOR'S ORGANIZ ATION 01/02/2023 [facility] DATE CREATED AUTHOR AUTHOR'S ORGANIZ ATION 11/11/2024 [facility] DATE CREATED AUTHOR AUTHOR'S ORGANIZ ATION 11/24/2024 [facility] DATE CREATED AUTHOR AUTHOR'S ORGANIZ ATION 03/01/2025 [facility] DATE CREATED AUTHOR AUTHOR'S ORGANIZ ATION 03/30/2025 [facility] DATE CREATED AUTHOR AUTHOR'S ORGANIZ ATION 04/08/2025 [facility] dical Specialists [facility] DATE CREATED AUTHOR AUTHOR'S ORGANIZ ATION 04/14/2025 [facility] REASON FOR VISIT (unrecogniz ed section and content) Reason Comments Pain Reason Onset Date Comments PT 09/23/2024 Reason Comments Skin Check Specialty Diagnoses / Procedures Referred By Contac t Referred To Contact Dermatology Diagnoses skin lesion on back Procedures office visit Sunita Carty MD [address] [place] [address] Phone: tel: fax: Yahaira Sutherland MD [address] [facility] [address] [place] [address] Phone: tel: fax: Referral ID Status Reason Start Date Expiration Date Visits Re quested Visits Authorized [id number] Closed 11/20/2024 05/19/2025 1 1 Reason Comments Pain Specialty Diagnoses / Procedures Referred By Marika becerra Referred To Contact Orthopaedic Surgery Diagnoses Primary osteoarthritis of left knee Guille Nathan, SEWING MACHINE ADJUSTER [address] [place] [address] Phone: tel: fax: Ashley Stein, DO [address] [facility] [place] [address] Phone: tel: fax: Referral ID Status Reason Start Date Expiration Date V isits Requested Visits Authorized [id number] Closed Specialty Services Required 03/20/2025 09/16/2025 1 1 Care Teams (unrecognized sec tion and content) Electrical Tryout Person Relationship Specialty Start Date End Date Sunita Carty MD PCP - General Family Medicine 10/23/23 Electrical Tryout Person Relationship Specialty Start Date End Date Sunita Carty MD PCP - General Family Medicine 10/23/23 Electrical Tryout Person Relationship Specialty Start Date End Date Sunita Carty MD PCP - General Family Medicine 10/23/23 Electrical Tryout Person Relationship Specialty Start Date End Date Sunita Carty MD [address] [place] [phone] PCP - General Family Medicine 10/23/23 Electrical Tryout Person Relationship Specialty Start Date End Date Sunita Carty MD [address] [place] [phone] PCP - General Family Medicine 10/23/23 Electrical Tryout Person Relationship Specialty Start Date End Date Sunita Carty MD [address] [place] [phone] PCP - [facility] Medicine 10/23/23 Electrical Tryout Person Relationship Specialty Start Date End Date Sunita Carty MD [address] [place] [phone] PCP - [facility] 10/23/23 Electrical Tryout Person Relationship Specialty Start Date End Date Sunita Carty MD [address] [place] [phone] PCP - General Family [facility] 10/23/23 FOR RECORDS PERTAINING TO PATIENTS [...] BE BASED ON THE PRIMARY CLINICAL RECORDS. [employer] [facility]. provides no warranty or guarantee of the accuracy or completeness of information in this document.
[2025-04-22] MEDS: ASPIRIN 325 MG TABLET PO (23:14)
[2025-04-22] MEDS: ATORVASTATIN CALCIUM 40 MG TABLET 80 MG PO (23:14)
[2025-04-22] MEDS: HYDRALAZINE HCL 20 MG/ML VIAL 10 MG IVP (23:14)
[2025-04-22] MEDS: AMLODIPINE BESYLATE 5 MG TABLET PO (23:14)
[2025-04-23] VITALS (23 sets, daily range): BP systolic 129–186; BP diastolic 63–84; PULSE 68–108; TEMP 36.6–36.8; O2SAT 95–96
--- NOTE | 2025-04-23 | MR_ITS ---
The [address] [address] Patient Name: ASHLEY CHAPMAN MRN: [id number] date: 1955 Sex: M Assigned Patient Location: [place] Current Patient Location: [place] Accession/Order Number: [id number] Exam Date: 04/23/2025 11:03 Report Date: 04/23/2025 11:06 At the request of: ALBERTINA MCKINNEY MD Procedure: MR head/brain wo con MR head/brain wo con 04/23/2025 11:03 AM SIGN AND SYMPTOMS: Hypertension, memory loss, headache PROTOCOL: Multiplanar multisequence MR images of the brain without IV contrast COMPARISON: 04/22/2025 FINDINGS: Extra axial spaces: Age appropriate. Hemorrhage: None. Ventricular system: Within normal limits. Basal cisterns: Within normal limits and not effaced. Cerebral parenchyma: Periventricular and subcortical white matter T2 and FLAIR hyperintense signal is noted consistent with chronic microvascular ischemic change. Midline shift: None.. Cerebellum: Within normal limits. Brainstem: Within normal limits. OTHER: Calvarium: Normal marrow signal. Vascular system: Satisfactory flow voids within the anterior and posterior circulation. Visualized Paranasal sinuses: Polypoid mucosal thickening is noted in the right maxillary sinus. Visualized Orbits: Within normal limits. Visualized upper cervical spine: Within normal limits. Sella and skull base: Within normal limits. MR/MR head/brain wo con IMPRESSION: No acute intracranial pathology. Periventricular and subcortical white matter T2 and FLAIR hyperintense signal is noted consistent with chronic microvascular ischemic change. Impression dictated by: Arjun Aragon M.D. 04/23/2025 11:06 AM Dictation Location: [place] [address] Electronically authenticated by: [id number] Y Date: 04/23/2025 11:06
[2025-04-23] MEDS: HYDRALAZINE HCL 20 MG/ML VIAL 10 MG IVP (04:15)
[2025-04-23 05:13] LABS: Hematocrit 46.3 % (42.0-54.0); Hemoglobin 15.7 g/dL (14.0-18.0); Mean Corpuscular HGB Conc 33.9 g/dL (29.9-35.2); Mean Corpuscular Hemoglobin 29.5 pg (25.9-34.0); Mean Corpuscular Volume 87.0 fL (80.0-94.0); Platelet Count 177 10^3/uL (150-450); Red Blood Count 5.32 10^6/uL (4.70-6.10); White Blood Count 7.9 10^3/uL (4.0-11.0)
[2025-04-23 05:57] LABS: Alanine Aminotransferase 22 U/L (16-63); Albumin Globulin Ratio 1.1; Albumin Level 3.6 g/dL (3.4-5.0); Alkaline Phosphatase 62 U/L (46-116); Anion Gap 13.0; Aspartate Amino Transferase 14 U/L (15-37); Blood Urea Nitrogen 16.0 mg/dL (7.0-18.0); Calcium 10.0 mg/dL (8.5-10.1); Carbon Dioxide 27.8 mmol/L (21.0-32.0); Chloride 103 mmol/L (98-107); Cholesterol 146 mg/dL (<=200); Estimated GFR (African America >60 (>=60 mL/min/1.73m^2); Estimated GFR (Non-African Ame >60 (>=60 mL/min/1.73m^2); Globulin 3.4 g/dL; Glucose 121 mg/dL (74-106); HDL Cholesterol 55 mg/dL (40-60); Potassium 3.8 mmol/L (3.5-5.1); Sodium 140 mmol/L (136-145); Total Protein 7.0 g/dL (6.4-8.2); Triglycerides 83 mg/dL (<=150); VLDL CHOLESTEROL 16.6 mg/dL
--- NOTE | 2025-04-23 08:37 | SWNOTE1 ---
SW and I stopped in pt's room to discuss d/c needs. Pt is from home and lives with . Pt voiced he is independent. Does not have services coming into home. Pt does not appear to have any concerns for d/c at this time. SW to follow as needed.
--- NOTE | 2025-04-23 08:37 | SWNOTE1 ---
Medicare Outpatient Observation Notice reviewed and discussed with patient. Pt. verbalized understanding and signed the form. Original given to patient and copy placed in patient?s chart.
[2025-04-23] MEDS: ASPIRIN 325 MG TABLET PO (09:35)
[2025-04-23] MEDS: AMLODIPINE BESYLATE 5 MG TABLET PO (09:35)
--- NOTE | 2025-04-23 09:47 | PM.HP ---
HPI H&P: HPI History of Present Illness Chief complaint: TIA Narrative: Mr. Staples is a 69-year-old gentleman who came in yesterday after he developed an episode of confusion and disorientation. Patient went golfing yesterday morning. He had 1 alcoholic beverage. He came back home and sat on the porch. Patient started smoking cigar?subsequently felt as if there is wave coming down his upper arms. Patient reported having headaches. He has a history of migraine headaches. It felt that he was having a migraine attack. reported that the patient became confused and disoriented. No fever or chills. No chest pain or palpitation. No slurred speech. Symptoms lasted for an hour or 2 and subsided spontaneously. Patient is feeling fine this morning. Back to baseline. No acute signs or symptoms Opioid HPI Opioid Management Most Recent Pain and Opioid Data: Last Pain Scale 0 11/07/24, 02:58 Last Pain Assessment Today, 00:00 Last ORT Total Score 0 04/22/25, 23:10 Last ORT Risk Category Low Risk 04/22/25, 23:10 Review of Systems ROS Status of ROS 10 or more systems reviewed and unremarkable except as noted in history and below [facility] Medical History (Updated 04/23/25 @ 09:50 by Baylee Dumont MD) BPH (benign prostatic hyperplasia) ?N40.0 - Benign prostatic hyperplasia without lower urinary tract symptoms (ICD-10) GERD (gastroesophageal reflux disease) ?K21.9 - Gastro-esophageal reflux disease without esophagitis (ICD-10) Glaucoma ?H40.9 - Unspecified glaucoma (ICD-10) Heart murmur ?R01.1 - Cardiac murmur, unspecified (ICD-10) Hypercholesterolemia ?E78.00 - Pure hypercholesterolemia, unspecified (ICD-10) Hypogonadism Overweight ?E66.3 - Overweight (ICD-10) Low back pain ?M54.50 - Low back pain, unspecified (ICD-10) Hypertension ?I10 - Essential (primary) hypertension (ICD-10) Left anterior shoulder pain ?M25.512 - Pain in left shoulder (ICD-10) Sleep apnea ?G47.30 - Sleep apnea, unspecified (ICD-10) Surgical History History of prostate surgery ?Z98.890 - Other specified postprocedural states (ICD-10) Hx of cystoscopy ?Z98.890 - Other specified postprocedural states (ICD-10) S/P lateral meniscal repair ?Z98.890 - Other specified postprocedural states (ICD-10) H/O lumbar discectomy ?Z98.890 - Other specified postprocedural states (ICD-10) Hx of LASIK ?Z98.890 - Other specified postprocedural states (ICD-10) H/O arthroscopy of shoulder ?Z98.890 - Other specified postprocedural states (ICD-10) History of cholecystectomy ?Z90.49 - Acquired absence of other specified parts of digestive tract (ICD-10) H/O varicose vein stripping ?Z98.890 - Other specified postprocedural states (ICD-10) S/P epidural steroid injection ?Z92.241 - Personal history of systemic steroid therapy (ICD-10) Family History (Updated 11/06/24 @ 13:32 by Henrietta Balbuena RN) Other Bipolar 1 disorder Dementia Family history of cancer Family history of hypertension Social History (Updated 11/06/24 @ 13:31 by Henrietta Balbuena RN) Within the past year, how often did you have a drink containing alcohol: monthly or less Smoking status: Former smoker Second hand tobacco smoke exposure: No Non-prescribed substance use: denies use Previous occupational history: retired Highest level of school completed/degree received: high school graduate Little interest or pleasure in doing things: not at all Feeling down, depressed, or hopeless: not at all Meds Home Medications and Allergies Home Medications ?Medication ?Instructions ?Recorded ?Confirmed ?Type atorvastatin 20 mg tablet 20 mg PO DAILY 10/18/23 04/22/25 History cholecalciferol (vitamin D3) 10 2,000 unit PO DAILY 10/18/23 04/22/25 History mcg (400 unit) capsule (Vitamin D3) lansoprazole 15 mg delayed 30 mg PO DAILY 10/18/23 04/22/25 History release,disintegrating tablet losartan 100 mg tablet (Cozaar) 100 mg PO DAILY 10/18/23 04/22/25 History pseudoephedrine HCl 30 mg tablet 30 mg PO Q4H PRN nasal congestion 10/18/23 04/23/25 History (Sudafed) testosterone cypionate 200 mg/mL 100 mg IM .Q14 days 10/18/23 04/22/25 History intramuscular oil dicyclomine 20 mg tablet 20 mg PO TID 10/20/24 04/22/25 History vortioxetine 5 mg tablet 5 mg PO DAILY 10/20/24 04/22/25 History (Trintellix) brexpiprazole 1 mg tablet (Rexulti) 1 mg PO DAILY 04/22/25 04/22/25 History tamsulosin 0.4 mg capsule 0.4 mg PO Q24H 04/22/25 04/22/25 History Allergies Allergy/AdvReac Type Severity Reaction Status Date / Time No Known Drug Allergies Allergy Verified 04/22/25 19:18 Exam Narrative Exam Narrative: [pt is awake and alert. oriented to place, time and person HEENT: [place] conjunctiva and NL buccal mucosa Neck: Supple, no tenderness Endocrine: No Thyromegaly. Vascular: No JVD or carotid bruit. Lymphatic: No cervical lymphadenopathy. Chest: CTA no DTP. Heart RRR, no extra sound or murmur. Abd: Soft, no tenderness, no rebound and no rigidity. Increase abd girth therefore clinically I could not exclude the possibility of intra abd mass or organomegaly. LE: No cyanosis or clubbing, no varices or edema. Neuro: A A O. Nl speech, comprehension and attention. Nl and symetrical motor and tone examination through out. Normal speech, normal focus, normal facial symmetry, no nystagmus, normal finger-nose testing, no ataxia with walking. []] Constitutional Vital Signs, click to edit/add: Last Vital Signs Temp 98.2 F 04/23/25 08:03 Pulse 91 H 04/23/25 08:03 Resp 16 04/23/25 08:03 BP 166/82 H 04/23/25 09:35 Pulse Ox 95 04/23/25 08:03 O2 Del Method Room Air 04/23/25 08:03 Results Labs Labs: Short CBC 04/22/25 04/23/25 Range/Units 21:15 05:05 WBC 7.9 7.9 (4.0-11.0) 10^3/uL Hgb 15.5 15.7 (14.0-18.0) g/dL Hct 46.2 46.3 (42.0-54.0) % Plt Count 174 177 (150-450) 10^3/uL BMP 04/22/25 04/23/25 21:15 05:05 Sodium 141 140 Potassium 3.8 3.8 Chloride 101 103 Carbon Dioxide 32.0 27.8 BUN 13.0 16.0 Creatinine 0.78 0.89 Glucose 105 121 H Calcium 9.9 10.0 Liver Function 04/23/25 Range/Units 05:05 Total Bilirubin 0.8 (0.2-1.0) mg/dL AST 14 L (15-37) U/L ALT 22 (16-63) U/L Alkaline Phosphatase 62 (46-116) U/L Albumin 3.6 (3.4-5.0) g/dL Assessment and Plan Assessment and Plan (1) Hypertension: (2) TIA (transient ischemic attack): (3) Confusion: Plan Transient episode of confusion, disorientation which could be multifactorial and carry broad differential diagnosis. DD includes but not limited to TIA, atypical migraine, atypical seizure, hypertensive encephalopathy, PRES, adverse effect from cigar smoking, heat exposure while golfing in the setting of his poor show after that in an [address] scan does not show any acute intracranial process. I started patient on aspirin daily and high-dose statin. I requested MRI of the brain, carotid ultrasound and echocardiogram. Control his blood pressure to keep systolic between 145 and 165. Further needed diagnostic and therapeutic intervention will be determined based on MRI and other test findings. Hypertensive urgency Patient had received a dose of the hydralazine intravenously and started on amlodipine. Continue to titrate to keep systolic blood pressure between 145 and 165. Daily cigar smoking Counseling to quit DVT prophylaxis Lovenox subcu
[2025-04-23] MEDS: TAMSULOSIN HCL 0.4 MG CAPSULE PO (11:11)
[2025-04-23] MEDS: BREXPIPRAZOLE 1 MG PO (11:12)
[2025-04-23] MEDS: CHOLECALCIFEROL (VITAMIN D3) 25 MCG/1,000 UNITS TABLET 50 MCG PO (11:12)
[2025-04-23] MEDS: LOSARTAN POTASSIUM 50 MG TABLET PO ×2 (11:12→20:01)
[2025-04-23] MEDS: VORTIOXETINE 5 MG 5 EACH PO (11:13)
[2025-04-23] MEDS: PREVACID 15 MG 30 EACH PO (11:20)
[2025-04-23] MEDS: ATORVASTATIN CALCIUM 40 MG TABLET 80 MG PO (21:05)
--- NOTE | 2025-04-23 22:37 | CA_ITS ---
Patient Name: ASHLEY CHAPMAN MR#: [id number] : 1955 Exam Date: 04/23/2025 Ordering Doctor: ALBERTINA MCKINNEY ECHOCARDIOGRAM REPORT PROCEDURE: CA ECHO DOPPLER COMPLETE INDICATIONS: TIA, hypertension, sleep apnea, GERD COMPARISON: None. DESCRIPTION: COMPLETE ECHOCARDIOGRAM Real-time transthoracic echocardiography with 2D, M-mode, spectral and color flow Doppler performed. QUALITY: Technical quality was good. LEFT VENTRICLE: Normal chamber size. Moderate concentric left ventricular hypertrophy. Hyperdynamic left ventricle with almost obliteration of left ventricle cavity, Calculated left ventricular ejection fraction is 82%. No wall motion abnormalities LV EF: Hyperdynamic, ejection fraction above 80% DIASTOLIC: Grade 1 diastolic dysfunction ATRIAL SEPTUM: Visually appears intact. LEFT ATRIUM: Normal chamber size. RIGHT ATRIUM: Mild dilatation. RIGHT VENTRICLE: Normal chamber size. Normal right ventricular systolic function. TRICUSPID VALVE: Normal mobility and thickness. No stenosis with trivial regurgitation. No evidence of pulmonary hypertension.RVSP 16 mmHg MITRAL VALVE: Normal mobility and thickness. Mild mitral valve stenosis. Mild mitral annular calcification. No mitral regurgitation. AORTIC VALVE: Normal trileaflet appearance. Mildly calcified aortic valve. Normal leaflet mobility. No evidence of aortic valve stenosis. No aortic regurgitation. AORTIC ROOT: Normal diameter and appearance. PULMONIC VALVE: Normal thickness and mobility. No stenosis. No regurgitation. PERICARDIUM: No evidence of pericardial effusion. IVC: Collapes with inspirations. IVC is normal in size. PLEURA: CONCLUSION: Moderate concentric left ventricle hypertrophy Hyperdynamic left ventricle without segmental motion abnormalities, ejection fraction 82% Grade 1 left ventricular diastolic dysfunction Normal right ventricle size and systolic function Normal right-sided pressures, RVSP 16 mmHg Mild mitral annulus calcification Mild mitral valve stenosis Adult Echocardiography Procedure Report Left Ventricle LVEDD (3.7 - 5.6 cm): 3.44 cm LVESD (2.2 - 4.0 cm): 2.03 cm LVIVS thickness (0.6 - 1.2 cm): 1.72 cm LVPW thickness (0.5 - 1.0 cm): 1.32 cm e': 0.07 m/s E - e': 12.94 LVOT Max Gradient: 8.40 mm[Hg] LVOT Area (cm2): 1.45 m/s Peak Velocity (LVOT): 1.45 m/s Mean Velocity (LVOT): 0.90 m/s LVOT Diameter 2.09 cm Left Ventricular Ejection Fraction: 82.22 % Left Atrium LA Volume Index (2D A2C): 34.77 ml/m2 Left Atrium Systolic Dimension: 3.87 cm Mitral Valve MV E to A Ratio: 0.52 MV Max Gradient: MV Mean Gradient: Mitral Valve A-Wave Peak Velocity: 1.68 m/s Mitral Valve E-Wave Peak Velocity: 0.88 m/s Cardiovascular Orifice Area: Right Ventricle RV Internal Diastolic Dimension: Aorta AO Root Diam: 3.65 cm Ascending Ao Diam: Aortic Valve AoV Area (Peak Alexis): 2.75 cm2, 2.75 cm2 AoV Area (VTI): 3.13 cm2, 3.13 cm2 Deceleration [place]: Pressure Half-Time: Peak Velocity(Antegrade Flow): 1.81 m/s Peak Gradient(Antegrade Flow): 13.14 mm[Hg] Mean Velocity(Antegrade Flow): 1.41 m/s Mean Gradient(Antegrade Flow): 8.75 mm[Hg] Velocity Time Integral: 40.07 cm Tricuspid Valve Peak Velocity (Regurgitant Flow): 1.83 m/s Peak Velocity: Pulmonic Valve Mean Gradient: Mean Velocity: Peak Velocity: Peak Gradient: 9.65 mm[Hg], 7.24 mm[Hg] Right Atrium Right Atrium Systolic Pressure: 57.09 ml, 57.09 ml Dictated by: Jeremiah Lala MD on 04/24/2025 at 16:48 Approved by: Jeremiah Lala MD on 04/24/2025 at 16:57
[2025-04-24 01:58] VITALS: PULSE 83
[2025-04-24 03:59] VITALS: PULSE 61
[2025-04-24 04:00] VITALS: BP 146/69; PULSE 79; TEMP 36.4; O2SAT 97
[2025-04-24] MEDS: PREVACID 15 MG 30 EACH PO (05:33)
[2025-04-24 05:56] VITALS: PULSE 81
[2025-04-24 07:50] VITALS: PULSE 62
[2025-04-24 09:15] VITALS: BP 160/72; PULSE 72; TEMP 36.5; O2SAT 97
[2025-04-24] MEDS: BREXPIPRAZOLE 1 MG PO (09:31)
[2025-04-24] MEDS: CHOLECALCIFEROL (VITAMIN D3) 25 MCG/1,000 UNITS TABLET 50 MCG PO (09:31)
[2025-04-24] MEDS: VORTIOXETINE 5 MG 5 EACH PO (09:31)
[2025-04-24] MEDS: LOSARTAN POTASSIUM 50 MG TABLET 100 MG PO (09:31)
[2025-04-24] MEDS: TAMSULOSIN HCL 0.4 MG CAPSULE PO (09:31)
[2025-04-24] MEDS: ASPIRIN 325 MG TABLET PO (09:31)
--- NOTE | 2025-04-24 09:32 | PM.DS1 ---
DS: Providers Provider Date of admission: 04/22/25 22:48 Primary care physician: FLAVIO GUALLPA Consults: 04/22/25 22:30 Occupational Therapy Eval and Treat Routine Reason for consultation: TIA Physical Therapy Eval and Treat Routine Reason for consultation: TIA Has provider been notified: Yes DS: Diagnosis Discharge Diagnosis (1) Hypertension: (2) TIA (transient ischemic attack): (3) Confusion: Plan As listed above and others that are not listed DS: Summary Hospital Course Hospital Course: Mr. Staples is a 69-year-old gentleman who came in with confusion, disorientation and that was found to have the following Transient episode of confusion, disorientation which could be multifactorial and carry broad differential diagnosis. DD includes but not limited to TIA, atypical migraine, atypical seizure, hypertensive encephalopathy, PRES, adverse effect from cigar smoking, heat exposure while golfing in the setting of his poor show after that in an [address] scan does not show any acute intracranial process. I started patient on aspirin daily and high-dose statin. I requested MRI of the brain, carotid ultrasound and echocardiogram. MRI does not show any acute intracranial process but positive for microvascular disease Carotid ultrasound does not show any significant stenosis Echocardiogram does not show cardiomyopathy or significant valvular disease Control his blood pressure to keep systolic between 145 and 165. Continue losartan 100 mg daily. Added amlodipine 2.5 mg daily. Continue aspirin and statin for secondary stroke prevention Hypertensive urgency Patient had received a dose of the hydralazine intravenously and started on amlodipine. Continue to titrate to keep systolic blood pressure between 145 and 165. Daily cigar smoking Counseling to quit DVT prophylaxis Lovenox subcu I discussed his case with his at the bedside. Patient has few medical issues as listed above and others that are not listed. All appear to be stable. I do not have any clear or strong clinical justification to extend inpatient hospitalization. Patient however will require close and frequent monitoring as well as additional work-up, investigation and therapeutic intervention that could take place from this point on post discharge. That is to prevent relapse, decompensation, rehospitalization and other medical implications. I instructed patient to ask her primary care doctor to obtain [facility] record entirely to address abnormalities seen on labs and imaging that I have and have not addressed during this hospitalization, follow-up on pending blood work, imaging and pathology is if available and to follow-up on needed medical care in the outpatient setting. Time Spent with Patient Time attestation: Total time spent providing and/or coordinating discharge services: Exam Narrative Exam Narrative: [pt is awake and alert. oriented to place, time and person HEENT: [place] conjunctiva and NL buccal mucosa Neck: Supple, no tenderness Endocrine: No Thyromegaly. Vascular: No JVD or carotid bruit. Lymphatic: No cervical lymphadenopathy. Chest: CTA no DTP. Heart RRR, no extra sound or murmur. Abd: Soft, no tenderness, no rebound and no rigidity. Increase abd girth therefore clinically I could not exclude the possibility of intra abd mass or organomegaly. LE: No cyanosis or clubbing, no varices or edema. Neuro: A A O. Nl speech, comprehension and attention. Nl and symetrical motor and tone examination through out. Normal speech, normal focus, normal facial symmetry, no nystagmus, normal finger-nose testing, no ataxia with walking. []] Constitutional Vital Signs, click to edit/add: Last Vital Signs Temp 97.7 F 04/24/25 09:15 Pulse 72 04/24/25 09:15 Resp 18 04/24/25 09:15 BP 160/72 H 04/24/25 09:15 Pulse Ox 97 04/24/25 09:15 O2 Del Method Room Air 04/24/25 09:15 Discharge Plan Discharge Disposition: Home Health Service Assessment: I may not have addressed or treated all of your medical illnesses or the abnormal blood work or imaging studies during this hospitalization. Please ask your primary care provider to obtain [facility] records entirely to follow up on all of the abnormal physical, laboratory, and imaging findings that I have not addressed. Please return back to the emergency room or seek medical attention if your symptoms worsen or return. Discharging you from [facility] does not mean that your medical care ends here and now. You may still need additional monitoring, work up, investigation, and treatment plan to be handled from this point on by out patient providers including your primary care provider and specialists. For any medication question, please contact your retail pharmacist or your primary care provider. Thank you. Discharge Medications: New aspirin 325 mg Tablet 325 mg PO QD Qty: 120 1RF amlodipine 2.5 mg tablet 2.5 mg PO QD Qty: 30 2RF Continued Trintellix 5 mg tablet 5 mg PO DAILY tamsulosin 0.4 mg capsule 0.4 mg PO Q24H Rexulti 1 mg tablet 1 mg PO DAILY atorvastatin 20 mg tablet 20 mg PO DAILY lansoprazole 15 mg tablet,disintegrat, delay rel 30 mg PO DAILY losartan [Cozaar] 100 mg tablet 100 mg PO DAILY pseudoephedrine HCl [Sudafed] 30 mg tablet 30 mg PO Q4H PRN (Reason: nasal congestion) Rx Instructions: DNExceed 4 doses/24h testosterone cypionate 200 mg/mL oil 100 mg IM .Q14 days cholecalciferol (vitamin D3) [Vitamin D3] 10 mcg (400 unit) capsule 2,000 unit PO DAILY Changed dicyclomine 20 mg tablet 20 mg PO TID PRN (Reason: abdominal cramps) Qty: 0 0RF Print Language: Korean Forms: Portal Instructions
--- NOTE | 2025-04-29 13:58 | CM.DCFOLLOWU ---
1st attempt 04/29/25, no answer
--- NOTE | 2025-04-30 15:17 | CM.DCFOLLOWU ---
2nd attempt 04/30/25, no answer
== END 2025-04-24 10:25 | disposition home or self-care (01) ==
LOC: ER 22:22 → MS 22:51
PROVIDERS: Admitting Provider Internal Medicine; Emergency Provider Internal Medicine; PCP Nurse Practitioner; Visit Provider Internal Medicine
DX: G45.9 Transient cerebral ischemic attack, unspecified (principal); I10 Essential (primary) hypertension; Z90.49 Acquired absence of other specified parts of digestive tract; F17.290 Nicotine dependence, other tobacco product, uncomplicated; R41.0 Disorientation, unspecified; I16.0 Hypertensive urgency; H53.8 Other visual disturbances; R51.9 Headache, unspecified; I05.0 Rheumatic mitral stenosis
CPT/HCPCS: 36415; 70450; 70551; 80048; 80053; 80061; 84484; 85025; 85027; 93005; 93306; 93880; 96374; 96376; 97161; 97165; 97535; 99285; G0378; J0360

== ENCOUNTER 2025-07-30 09:14 | Outpatient (OUT) | payer MEDICARE, SELFPAY ==
--- OUTSIDE RECORDS SUMMARY | 2025-07-30 09:22 | XMS_ITS | CCD ---
Author Organization [facility] CliniSyal Care Team Providers Care Restaurant Hourly Manager Name Role Phone Favian Baldwin Unavailable MCKEON ., DR AURE Chaudhry Attending Unavailable MCKEON ., DR AURE Chaudhry Consulting Unavailable MCKEON ., DR AURE Chaudhry Primary Care Unavailable MCKEON ., DR AURE Chaudhry Admitting Unavailable Sunita Carty MD Primary Care Provider [phone] Jb Mitchell Admitting Unavailable Jb Mitchell Attending Unavailable Favian Baldwin Admitting UnavailFavian Clarke Attending UnavailSunita Melchor Primary Care Unavailable RADHA DAVIS Attending Unavailable Sunita Carty MD Primary Care Provider MD Sunita Carty Admitting Unavailable MD Sunita Carty Attending Unavailable Sunita Carty Attending Unavailable Sunita Carty Attending Unavailable Sunita Carty Attending Unavailable Jb MICTHELL Attending Unavailable Jb MITCHELL Attending Unavailable Jb MITCHELL Attending Unavailable Sunita Carty Attending Unavailable Sunita Carty Referring Unavailable Sunita Carty Admitting Unavailable Sunita Carty Admitting Unavailable Sunita Carty Attending Unavailable Jb MITCHELL Attending Unavailable MD Sunita Carty Admitting Unavailable MD Sunita Carty Attending Unavailable Yolanda Guajardo Attending Unavaila MD Sunita Rahsid Attending Unavailable MD Sunita Carty Attending Unavailable MD Sunita Carty Attending Unavailable MD Sunita Carty Attending Unavailable JOSIE EAST Attending Unavailable SUNITA CARTY Referring Unavailable GUILLE NATHAN Attending Unavailable GUILLE NATHAN Referring Unavailable ASHLEY STEIN Attending Unavailable GUILLE NATHAN Referring Unavailable ASHLEY STEIN Attending Unavailable ASHLEY STEIN Referring Unavailable ASHLEY STEIN Attending Unavailable STEIN, ASHLEY T Referring Unavailable GUILLE NATHAN Attending Unavailable STEIN, ASHLEY Shipman Attending Unavailable STEIN, ASHLEY T Referring Unavailable Shraddha Yeung APRN Attending Provider NON STAFF Primary Care Provider Unavailviky Estrella, Shanti Lock Attending Unavailable Sameer, Shanti Lock Attending Unavailable Sameer, Shanti L Attending Unavailable Sameer, Shanti L Attending Unavailable Sameer, Shanti L Attending Unavailable Sameer, Shanti L Attending Unavailable Sameer, Shanti L Attending Unavailable Sameer, Shanti L Admitting Unavailable Sameer, Shanti L Referring Unavailable Sameer, Shanti L Attending Unavailable uSnita Carty Attending Unavailable Sameer, Shanti Lock Attending Unavailable Sameer, Shanti Lock Attending Unavailable Jb MITCHELL Attending Unavailable Sameer, Shanti L Admitting Unavailable Sameer, Shanti L Attending Unavailable Sameer, Shanti L Admitting Unavailable Sameer, Shanti L Attending Unavailable Medications Current Medications Medication Drug Class(es) Dates Sig (Normalized) Sig (Original) 24 hr alfuzosin hydrochloride 10 mg extended release oral tablet (20 sources) alpha-Adrenergic Arturo take 1 tablet by mouth once daily, then take 1 tablet by mouth every twenty-four hours alfuzosin ER (Uroxatral) 10 MG 24 hr tablet Take 10 mg by mouth Daily Do not crush, chew, or split. Active amLODIPine 2.5 mg oral tablet (3 sources) Dihydropyridine Calcium Channel Arturo Start: 04-24-2025 take 1 tablet by mouth once daily amLODIPine (Norvasc) 2.5 MG tablet Take 2.5 mg by mouth Daily 04/24/2025 Active aspirin 325 mg oral tablet (3 sources) Platelet Aggregation Inhibitor, Nonsteroidal Anti-inflammatory Drug Start: 04-24-2025 take 1 tablet by mouth once daily aspirin 325 MG tablet Take 325 mg by mouth Daily 04/24/2025 Active atorvastatin 20 mg oral tablet (20 sources) HMG-CoA Reductase Inhibitor Start: 09-25-2024 B-D 5CC LUER-ALEX SYR 21GX1 21G X 1 5 ML misc (8 sources) Start: 03-26-2025 B-D 5CC LUER-ALEX SYR 21GX1 21G X 1 5 ML misc USE TO ADMINISTER TESTOSTERONE EVERY 2 WEEKS 03/26/2025 Active brexpiprazole 1 mg oral tablet (8 sources) Atypical Antipsychotic Start: 03-25-2025 Rexulti 1 MG tablet 03/25/2025 Active busPIRone hydrochloride 5 mg oral tablet (3 sources) Start: 09-25-2024 take 1 tablet by mouth twice daily take 1 tablet by jasiel th every twelve hours busPIRone HCl 5 MG 1 tablet Orally Twice a day Not-Taking cholecalciferol 0.125 mg disintegrating oral tablet (20 sources) Vitamin D Cholecalciferol (Vitamin D3) 125 MCG (5000 UT) tablet dispersible Active Citalopram (1 source) Serotonin Reuptake Inhibitor Citalopram Hydrobrom laisha Active Cpap (Continuous Positive Airway Pressure) unit (1 source) Start: Cpap (Continuous Positive Airway Pressure) unit Active 0 .ROUTE 1 June 11, 2025 12:00am New CPAP machine with set pressure at 10cm H2O, ramp time 20 minutes, heated humidification Mask and supplies for one year DX LUCIA dicyclomine hydrochloride 20 mg oral tablet (20 sources) Anticholinergic Start: 4 Dicyclomine HCl 20 MG Oral for 90 Days Active DULoxetine 60 mg delayed release oral capsule (2 sources) Serotonin and Norepinephrine Reuptake Inhibitor Start: 09-25-2024 DULoxetine HCl 6 0 MG Oral for 90 Days Active lansoprazole 30 mg delayed release oral capsule (20 sources) Proton Pump Inhibitor Start: 12-18-2023 lansoprazole (Prevacid) [address] capsule 12/18/2023 Active Prevacid Active latanoprost 0.05 mg/ml ophth almic solution (20 sources) Prostaglandin Analog Start: 09-25-2024 latanoprost (Xal atan) 0.005 % ophthalmic solution 1 (one) time each day at the same time Active Latanoprost 0.00 5 % Ophthalmic for 108 Days Not-Taking losartan potassium 50 mg oral tablet (20 sources) Angiotensin 2 Receptor Arturo Start: 09-25-2024 take 1 tablet by mouth once daily losartan (Cozaar ) 100 MG tablet 1 (one) time each day at the same time Active Losartan Potassi um Active meloxicam 15 mg oral tablet (3 sources) Nonsteroidal Anti-inflammatory Drug Start: 09-25-2024 take 1 tablet by mouth once daily take 1 tablet by jasiel th every twenty-four hours Meloxicam 15 MG 1 tablet Orally Once a day Active pseudoephedrine hydrochloride 30 mg oral tablet (20 sources) alpha-Adrenergic Agonist pseudoephedrine (Sudafed) 30 MG tablet every 6 (six) hours Active tamsulosin hydrochloride 0.4 mg oral capsule (8 sources) alpha-Adrenergic Arturo Start: 2024 take 1 capsule by mouth once daily for dizziness tamsulosin (Flomax) 0.4 MG 24 hr capsule TAKE 1 CAPSULE BY MOUTH ONCE A DAY *MONITOR FOR LIGHTHEADEDNESS OR DIZZINESS* 03/27/2025 Active 1 ml testosterone cypionate 200 mg/ml injection (20 sources) Androgen Start: 2023 Start: 09-24-2023 testosterone c ypionate (Depo-Testosterone) 200 MG/ML injection 09/24/2023 Active Testosterone Cyp ionate 200 MG/ML Intramuscular for 84 Days Active Timolol Maleate (20 sources) beta-Adrenergic Arturo Start: 09-25-2024 timolol (Betimol ) 0.25 % ophthalmic solution 1 (one) time each day at the same time Active Timolol Maleate 0.5 % Ophthalmic for 80 Days Active vortioxetine 10 mg oral tabl et (20 sources) Vortioxetine HBr (Trintellix) 10 MG tablet Take by mouth Active Completed/Discontinued Medications Medication Drug Class(es) Dates Sig (Normalized) Sig (Original) 2 ml sodium hyaluronate 8.4 mg/ml prefilled syringe (6 sources) Start: 05-05-2025 End: 05-05-2025 sodium hyaluronate (Gelsyn-3) injection 2 mL Start: 05-05-2025 End: 05-05-2025 2 mL, Intra-articular, Once PRN Procedure, Starting on Sun05/05/25 at 1101, For 1 dose Start: 04-28-2025 End: 04-28-2025 sodium hyaluronate (Gelsyn-3 ) injection 2 mL Start: 04-28-2025 End: 04-28-2025 2 mL, Intra-articular, Once PRN Procedure, Starting on Sun04/28/25 at 1055, For 1 dose Start: 04-21-2025 End: 04-21-2025 sodium hyaluronate (Gelsyn-3 ) injection 2 mL Start: 04-21-2025 End: 07-08-2025 2 mL, Intra-articular, Once PRN Procedure, Starting on Sun04/21/25 at 1042, For 1 dose Problems Problem Classification Problem Date Documented Date Episodic/Chronic Aortic; peripheral; and visceral artery aneurysms (5 sources) Abdominal aortic aneurysm 3.0 to 5.5 [...] [ESSENTIAL PRIMARY HYPERTENSION] Onset: 3 Chronic Glaucoma (20 sources) Primary open angle glaucoma; Translations: [Primary open-angle glaucoma, bilateral, mild stage] Onset: 4 01-17-2024 Chronic Osteoarthritis (19 sources) Osteoarthritis of left knee joint; Translations: [Osteoarthritis of right knee joint] 09-10-2024 Chronic Other and unspecified benign neoplasm (2 sources) Melanocytic nevus of trunk; Translations: [Melanocytic nevi of trunk] 11-25-2024 Episodic Other circulatory disease (2 sources) Spider nevus; Translations: [Nevus, non-neoplastic] 11-25-2024 Episodic Other diseases of veins and lymphatics (1 source) Vascular insufficiency; Translations: [Venous insufficiency (chronic) (peripheral)] 09-25-2024 Episodic Other endocrine disorders (1 source) Testicular hypofunction; Translations: [TESTICULAR HYPOFUNCTION] Onset: 3 Chronic Other male genital disorders (1 source) Disorder of prostate, unspecified; Translations: [DISORDER OF PROSTATE UNSPECIFIED] Onset: 3 Episodic Other non-traumatic joint disorders (6 sources) Pain in left knee; Translations: [Pain [...] [Abdominal aortic aneurysm, without rupture, unspecified] Onset: Unclassified (1 source) Left knee pain, unspecified chronicity 04-28-2025 Results Test Name Value Interpretation Reference Range Facility Ambulatory Visit Summaryon 1 Ambulatory Visit Summary Ambulatory Visit Summary ASHLEY STAPLES :1955 Visit Date:07/24/2025 Ambulatory Visit Instructions Your Diagnosis Hypertension BMI 26.0-26.9,adult Former smoker Your Care Team Attending Physician - Shanti Augustin Primary Care Physician - Shanti Augustin This Is Your Medications List Misc Prescription (Misc DME Prescription) Misc Prescription (Misc DME Prescription) amlodipine (amLODIPine 5 mg Tab) aspirin atorvastatin (atorvastatin 20 mg Tab) brexpiprazole (Rexulti 1 mg oral tablet) cholecalciferol (Vitamin D3) dicyclomine (Bentyl 10 mg Cap) dicyclomine (Bentyl) lansoprazole (lansoprazole 30 mg Cap-DR) losartan (losartan 100 mg Tab) sumatriptan (SUMAtriptan 50 mg Tab) tamsulosin (tamsulosin 0.4 mg Cap) [...] meniscus repair. Discharge Vitals Temperature (Temporal Artery) 36.1 ???C Heart Rate (Peripheral) 84 Respiratory Rate 20 Blood Pressure 130/78 Height 70 in Height 179.0 cm Weight 185.188 lb Weight 84.0 kg BMI 26.22 What to do next Scheduled Follow-Up Appointments Sunday 12:15 PM EDT With: STEPHEN RODGERS, Jb Abad Where: [facility] [address] [address]- Sunday2025 10:20 AM EDT With: Shanti Augustin Where: [address] [address]- Sunday2025 11:00 AM EDT With: Where: [address] [address]- Medications What How Much When Instructions Unchanged amlodipine (amLODIPine 5 mg Tab) See instructions TAKE 1 TABLET BY MOUTH EVERY DAY Unchanged aspirin 325 Milligram By Mouth Every day Unchanged atorvastatin (atorvastatin 20 mg Tab) See instructions TAKE 1 TABLET BY MOUTH DAILY Unchanged brexpiprazole (Rexulti 1 mg oral tablet) By Mouth Every day Unchanged cholecalciferol (Vitamin D3) 50 Microgram By Mouth Every day Unchanged dicyclomine (Bentyl 10 mg Cap) 1 Capsules By Mouth 4 times a day as needed for Spasm Pickup at [facility] Unchanged dicyclomine (Bentyl) Unchanged lansoprazole (lansoprazole 30 mg Cap-DR) See [...] administer the testosterone every 2 weeks Unchanged sumatriptan (SUMAtriptan 50 mg Tab) See instructions TAKE 1 TABLET BY MOUTH ONCE DAILY NEEDED FOR MIGRAINE HEADACHE DIRECTED Unchanged tamsulosin (tamsulosin 0.4 mg Cap) 1 Capsules By Mouth Every day Monitor for lightheadedness or dizziness. Unchanged testosterone (Testosterone Cypionate 200 mg/ mL intramuscular solution) 1 Milliliter Intramuscular Every 3 weeks Duration: 90 Days Unchanged vortioxetine (Trintellix 5 mg oral tablet) 1 Tablets By Mouth Every day Pharmacy Information [facility]: [address] [facility] [address], [place] [id number] [phone] Allergies No Known Allergies Problems Ongoing - Any problem that you are currently receiving treatment for. AAA (abdominal aortic aneurysm) without rupture Back pain with sciatica BPH with obstruction/lower urinary tract symptoms Cerumen impaction CPAP (continuous positive airway pressure) dependence Feeling of incomplete bladder emptying Former smoker Gastroesophageal reflux disease without esophagitis Glaucoma Heart murmur Hypercholesterolemia Hypertension Hypogonadism male Incomplete bladder emptying Left knee pain Low back pain Major depressive disorder, recurrent, mild Migraine Primary hypertension Sleep apnea Historical - Any problem that you are no longer receiving treatment for. BMI 2 (more content not included)... Normal [facility] Family Medicine Office/Clini c Noteon 07-24-2025 Family Medicine Office/Clinic Note Family Medicine Office/Clinic Note HPI Staff Pt is here for 8 week f/u Patient is here for follow up on hypertension. How often are you checking your blood pressure? he stopped taking it home because it is always high What are your average readings? _ Yearly BMP: _ refills for dicyclomine He went bowling and ate fries with to much salt he felt flush after eating them History of Present Illness pt presents today for BP follow up Review of Systems PHQ Score Initial Depression Screen Score: 0 SCORE Physical Exam Vitals & Measurements T: 36.1 ???C(Temporal Artery) HR: 84(Peripheral) RR: 20 BP: 130/78 SpO2: 99% HT: 70 in HT: 179.0 cm WT: 185.188 lb WT: 84.0 kg BMI: 26.22 General: alert, no acute distress ENMT: oral mucosa moist, no pharyngeal erythema or exudate Cardiovascular: regular rate and rhythm, normal peripheral perfusion Respiratory: Lungs CTA, respirations non labored Extremities: no deformity, no trauma Neurological: oriented x 4, LOC appropriate for age, CN II-XII intact, motor strength equal & normal bilaterally, speech normal Assessment/Plan 1. Hypertension (I10: Essential (primary) hypertension) pt presents today for BP follow up. pt has not been checking it at home because it makes him anxious. pt may be getting knee replacement soon. he sees Dr. Stein next week. refills send in. all questions answered. RTC 6 months. Orders: dicyclomine, 10 mg = 1 cap(s), Oral, QID, PRN Spasm, # 120 cap(s), Refills(s) 1, Pharmacy: [facility], 179, cm, 07/24/25 12:50:00 EDT, Height/Length Dosing, 84, kg, 07/24/25 12:50:00 EDT, Weight Dosing dicyclomine, 10 mg = 1 cap(s), Oral, QID, PRN Spasm, # 120 cap(s), Refills(s) 1, Pharmacy: [facility], 179, cm, 06/11/25 8:41:00 EDT, Height/Length Dosing, 83, kg, 06/11/25 8:41:00 EDT, Weight Dosing Follow-up No qualifying data available Problem List/Past Medical History Ongoing AAA (abdominal aortic aneurysm) without rupture Back pain with sciatica BPH with obstruction/lower urinary tract symptoms Cerumen impaction CPAP (continuous positive airway pressure) dependence Feeling of incomplete bladder emptying Former smoker Gastroesophageal reflux disease without esophagitis Glaucoma Heart murmur Hypercholesterolemia Hypertension Hypogonadism male Incomplete bladder emptying Left knee pain Low back pain Major depressive disorder, recurrent, mild Migraine Primary hypertension Sleep apnea Historical BMI 26.0-26.9,adult BPH (benign prostatic hyperplasia) Enlarged prostate Hypogonadism [...] back disc surgery, Torn meniscus repair. Medications amLODIPine 5 mg Tab, See Instructions, 4 refills aspirin, 325 mg, Oral, Daily atorvastatin 20 mg Tab, See Instructions, 4 refills Bentyl Bentyl 10 mg Cap, 10 mg= 1 cap(s), Oral, QID, PRN, 1 refills lansoprazole 30 mg Cap-DR, See Instructions losartan 100 mg Tab, See Instructions Misc DME Prescription, See Instructions, 3 refills Misc DME Prescription, See Instructions, 3 refills Rexulti 1 mg oral tablet, Oral, Daily SUMAtriptan 50 mg Tab, See Instructions tamsulosin 0.4 mg Cap, 0.4 mg= 1 cap(s), Oral, Daily, 11 refills Testosterone Cypionate 200 mg/mL intramuscular solution, 200 mg= 1 mL, IntraMuscular, q3wk, 1 refills Trintellix 5 mg oral tablet, 5 mg= 1 tab(s), Oral, Daily Vitamin D3, 50 mcg, Oral, Daily Allergies No Known Allergies Social History Alcohol - Low Risk, 03/20/2024 Current, Beer, Liquor, 1-2 times per week, 05/19/2025 Substance Abuse - Denies Substance Abuse, 10/18/2016 Never, 05/19/2025 Tobacco - Denies Tobacco Use, 10/18/2016 Former smoker, quit more than 30 days ago Tobacco Use:. Never Smokeless Tobacco Use:. Cigarettes, Started age 15.0 Years. Stopped age 64 Years. Household tobacco concerns: No. Yes, 07/24/2025 Family History Dementia: Father. Immunizations Vaccine Date Status influenza virus vaccine, inactivated 08/20/2024 Recorded influenza virus vaccine, inactivated 08/29/2023 Recorded influenza virus vaccine, inactivated 08/07/2022 Recorded SARS-CoV-2 (COVID-19) mRNA [id number] vax 10/05/2021 Recorded influenza virus vaccine, inactivated 08/26/20 (more content not included)... Normal [facility] Comment on above: Result Comment: Elec tronically Signed By: Shanti Augustin\.br\Date and Time Signed: 07/24/25 13:[address] Chest, Low Dose Screening on 07-20-2025 CT Chest, Low Dose Screening Exam Date/Time: 07/20/2025 09:13 EDT Reason for Exam: Screening;[id number] Report IMPRESSION: Lung RADS category 1: Negative. No nodules and/or definitely benign nodules. Continue annual screening with screening CT chest in [address] IMAGING OF THE CHEST WITHOUT INTRAVENOUS CONTRAST MEDIUM. HISTORY: Tobacco use. TECHNICAL FACTORS: Low dose CT imaging of the chest was obtained and formatted as 2.5 mm contiguous axial images from the thoracic inlet through the adrenal glands. Sagittal and coronal reconstructions obtained during postprocessing. Intravenous contrast medium: None. Comparison: 07/07/2024 FINDINGS: Right lung: No nodules, masses, consolidation, pleural effusion, pneumothorax. Left lung: No nodules, masses, consolidation, pleural effusion, pneumothorax. Lymph nodes: No hilar, mediastinal, or axillary lymph node enlargement. Thoracic aorta: Normal in course and caliber. Cardiac: Size normal. No pericardial effusion. Coronary artery calcification identified. Calcification visualized mitral valve/annulus. Upper abdomen:Limited imaging upper abdomen shows no gross anomaly. Musculoskeletal:No osteoblastic, and no osteolytic lesions. All CT scans at this facility use dose modulation, iterative reconstruction, and/or weight based dosing when appropriate to reduce radiation dose to as low as reasonably achievable. Report Ordering Provider: Shanti Estrella FINAL REPORT Dictated: 07/20/2025 10:52 am Shubham Echeverria MD Signed (Electronic Signature): 07/20/2025 10:52 am Signed by: Shubham Echeverria MD Transcribed by: FELICIA Technologist: HERIBERTO Normal [facility] Ambulatory Visit Summaryon 0 07-13-2025 Ambulatory Visit Summary Ambulatory Visit Summary KOURTNEYNUPURBouchraASHLEY :1955 Visit Date:07/13/2025 Ambulatory Visit Instructions Your Care Team Attending Physician - Shanti Augustin Primary Care Physician - Shanti Augustin This Is Your Medications List Misc Prescription (Misc DME Prescription) Misc Prescription (Misc DME Prescription) amlodipine (amLODIPine 5 mg Tab) aspirin atorvastatin (atorvastatin 20 mg Tab) brexpiprazole (Rexulti 1 mg oral tablet) cholecalciferol (Vitamin D3) dicyclomine (Bentyl 10 mg Cap) dicyclomine (Bentyl) lansoprazole (lansoprazole 30 mg Cap-DR) losartan (losartan 100 mg Tab) sumatriptan (SUMAtriptan 50 mg Tab) tamsulosin (tamsulosin 0.4 mg Cap) [...] Follow-Up Appointments Sunday 9:00 AM EDT With: Where: [facility] Sunday 1:00 PM EDT With: Shanti Augustin Where: [facility] [address] [address]- Sunday 12:15 PM EDT With: Jb MITCHELL MD Where: [facility] [address] [address]- Sunday2025 11:00 AM EDT With: Where: [address] [address]- Medications What How Much When Instructions Unchanged amlodipine (amLODIPine 5 mg Tab) See instructions TAKE 1 TABLET BY MOUTH EVERY DAY Unchanged aspirin 325 Milligram By Mouth Every day Unchanged atorvastatin (atorvastatin 20 mg Tab) See instructions TAKE 1 TABLET BY MOUTH DAILY Unchanged brexpiprazole (Rexulti 1 mg oral tablet) By Mouth Every day Unchanged cholecalciferol (Vitamin D3) 50 Microgram By Mouth Every day Unchanged dicyclomine (Bentyl 10 mg Cap) 1 Capsules By Mouth 4 times a day as needed for Spasm Unchanged dicyclomine (Bentyl) Unchanged lansoprazole (lansoprazole 30 mg Cap-DR) See instructions TAKE 1 CAPSULE BY MOUTH DAILY Unchanged losartan (losartan 100 mg Tab) See instructions TAKE 1 TABLET BY MOUTH DAILY Unchanged Misc Prescription (Mis DME Prescription) See instructions 18G 1 needles to use to draw up his testosterone Unchanged Misc Prescription (Misc DME Prescription) See instructions 3ml syringes w/ 21G X 1 needles to administer the testosterone every 2 weeks Unchanged sumatriptan (SUMAtriptan 50 mg Tab) See instructions TAKE 1 TABLET BY MOUTH ONCE DAILY NEEDED FOR MIGRAINE HEADACHE DIRECTED Unchanged tamsulosin (tamsulosin 0.4 mg Cap) 1 Capsules By Mouth Every day Monitor for lightheadedness or dizziness. Unchanged testosterone (Testosterone Cypionate 200 mg/ mL intramuscular solution) 1 Milliliter Intramuscular Every 3 weeks Duration: 90 Days Unchanged vortioxetine (Trintellix 5 mg oral tablet) 1 Tablets By Mouth Every day Allergies No Known Allergies Problems Ongoing - Any problem that you are currently receiving treatment for. AAA (abdominal aortic aneurysm) without rupture Back pain with sciatica BMI 25.0-25.9,adult BPH with obstruction/lower urinary tract symptoms Cerumen impaction CPAP (continuous positive airway pressure) dependence Feeling of incomplete bladder emptying Former smoker Gastroesophageal reflux disease without esophagitis Glaucoma Heart murmur Hypercholesterolemia Hypertension Hypogonadism male Incomplete bladder emptying Left knee pain Low back pain Major depressive disorder, recurrent, mild Migraine Overweight (BMI 25.0-29.9) Primary hypertension Sleep apnea Historical - Any problem that you are no longer receiving treatment for. BMI 26.0-26.9,adult BPH (benign prostatic hyperplasia) Enlarged prostate Hypogonadism in male Patient Survey You may receive a survey via text or e-mail asking about your office visit. Please share your experience with us by completing your survey. We appreciate your feedback and thank you for choosing us for your ca (more content not included)... Normal [facility] Family Medicine Office/Clini c Noteon 06-11-2025 Family Medicine Office/Clinic Note Family Medicine Office/Clinic Note HPI Staff Ashley is a 69 year old male presenting with left ear is plugged has been using debrox drops He said it still feels like he is under water History of Present Illness pt presents today for left ear feeling like its under water Review of Systems PHQ Score Initial Depression Screen Score: 0 SCORE Physical Exam Vitals & Measurements T: 36.3 ???C(Temporal Artery) HR: 64(Peripheral) RR: 18 BP: 112/80 SpO2: 100% HT: 70 in HT: 179.0 cm WT: 182.983 lb WT: 83.0 kg BMI: 25.9 General: alert, no acute distress ENMT: oral mucosa moist, no pharyngeal erythema or exudate, left ear canal impacted with cerumen Cardiovascular: regular rate and rhythm, normal peripheral perfusion Respiratory: Lungs CTA, respirations non labored Extremities: no deformity, no trauma Neurological: oriented x 4, LOC appropriate for age, CN II-XII intact, motor strength equal & normal bilaterally, speech normal Assessment/Plan 1. Cerumen impaction (H61.20: Impacted cerumen, unspecified ear) pt c/o feeling like his left ear is under water. he used debrox one night and his tried to flush with peroxide but it did not help. will irrigate in office today. if no results he will use debrox for 7-10 days and return for nurse visit. all questions answered. large amount of wax was irrigated. pt feels better. RTC as needed 2. BMI 25.0-25.9,adult (Z68.25: Body mass index [BMI] 25.0-25.9, adult) BMI education Ordered: Body Mass Index (BMI) documented 3008F Current tobacco non-user 1036F Depression Screening Negative 3352F Influenza immunization status assessed 1030F Most recent diastolic blood pressure 80-89 mm Hg 3079F Patient screen for fall risk: no falls in last year or 1 fall with no injury in last year 1101F Systolic BP <130 mm Hg (Most Recent) 3074F 3. Former smoker (Z87.891: Personal history of nicotine dependence) continue not smoking Ordered: Body Mass Index (BMI) documented 3008F Current tobacco non-user 1036F Depression Screening Negative 3352F Influenza immunization status assessed 1030F Most recent diastolic blood pressure 80-89 mm Hg 3079F Patient screen for fall risk: no falls in last year or 1 fall with no injury in last year 1101F Systolic BP <130 mm Hg (Most Recent) 3074F Follow-up No qualifying data available Problem List/Past Medical History Ongoing AAA (abdominal aortic aneurysm) without rupture Back pain with sciatica BMI 25.0-25.9,adult BPH with obstruction/lower urinary tract symptoms Cerumen impaction CPAP (continuous positive airway pressure) dependence Feeling of incomplete bladder emptying Former smoker Gastroesophageal reflux disease without esophagitis Glaucoma Heart murmur Hypercholesterolemia Hypertension Hypogonadism male Incomplete bladder emptying Left knee pain Low back pain Major depressive disorder, recurrent, mild Migraine Overweight (BMI 25.0-29.9) Primary hypertension Sleep apnea Historical BMI 26.0-26.9,adult BPH (benign prostatic hyperplasia) Enlarged prostate Hypogonadism [...] back disc surgery, Torn meniscus repair. Medications amLODIPine 5 mg Tab, See Instructions aspirin, 325 mg, Oral, Daily atorvastatin 20 mg Tab, See Instructions, 4 refills Bentyl lansoprazole 30 mg Cap-DR, See Instructions losartan 100 mg Tab, See Instructions Misc DME Prescription, See Instructions, 3 refills Misc DME Prescription, See Instructions, 3 refills Rexulti 1 mg oral tablet, Oral, Daily SUMAtriptan 50 mg Tab, See Instructions tamsulosin 0.4 mg Cap, 0.4 mg= 1 cap(s), Oral, Daily, 11 refills Testosterone Cypionate 200 mg/mL intramuscular solution, 200 mg= 1 mL, IntraMuscular, q3wk, 1 refills Trintellix 5 mg oral tablet, 5 mg= 1 tab(s), Oral, Daily Vitamin D3, 50 mcg, Oral, Daily Allergies No Known Allergies Social History Alcohol - Low Risk, 03/20/2024 Current, Beer, Liquor, 1-2 times per week, 05/19/2025 Substance Abuse - Denies Substance Abuse, 10/18/2016 Never, 05/19/2025 Tobacco - Denies Tobacco Use, 10/18/2016 Former smoker, quit more than 30 days ago Tobacco Use:. Never Smokeless Tobacco Use:. Cigarettes, (more content not included)... Normal [facility] Comment on above: Result Comment: Elec tronically Signed By: Shanti Augustin\.br\Date and Time Signed: 06/11/25 09:09 EDT Ambulatory Visit Summaryon 0 05-29-2025 Ambulatory Visit Summary Ambulatory Visit Summary ASHLEY STAPLES Bradley :1955 Visit Date:05/29/2025 Ambulatory Visit Instructions Your Diagnosis Hypertension Your Care Team Attending Physician - Shanti Augustin Primary Care Physician - Shanti Augustin This Is Your Medications List Misc Prescription [place] [place]) Mis Prescription ([facility] [place]) amlodipine (amLODIPine 5 mg Tab) aspirin atorvastatin (atorvastatin 20 mg Tab) brexpiprazole (Rexulti 1 mg oral tablet) cholecalciferol (Vitamin D3) dicyclomine (Bentyl) lansoprazole (lansoprazole 30 mg Cap-DR) losartan (losartan 100 mg Tab) sumatriptan (SUMAtriptan 50 mg Tab) tamsulosin (tamsulosin 0.4 mg Cap) testosterone (Testosterone Cypionate) vortioxetine (Trintellix 5 mg oral tablet) Procedures [...] meniscus repair. Discharge Vitals Temperature (Temporal Artery) 36.2 ???C Heart Rate (Peripheral) 78 Respiratory Rate 20 Blood Pressure 128/84 Height 179.0 cm Height 70 in Weight 82.9 kg Weight 182.763 lb BMI 25.87 What to do next Scheduled Follow-Up Appointments Sunday 9:40 AM EDT With: Shanti Augustin Where: [address] [id number]- Sunday 12:15 PM EDT With: Jb MITCHELL MD Where: [facility] [address] [address]- Sunday2025 11:00 AM EDT With: Where: [address] [address]- Medications What How Much When Instructions Unchanged amlodipine (amLODIPine 5 mg Tab) See instructions TAKE 1 TABLET BY MOUTH EVERY DAY Unchanged aspirin 325 Milligram By Mouth Every day Unchanged atorvastatin (atorvastatin 20 mg Tab) See instructions TAKE 1 TABLET BY MOUTH DAILY Unchanged brexpiprazole (Rexulti 1 mg oral tablet) By Mouth Every day Unchanged cholecalciferol (Vitamin D3) 50 Microgram By Mouth Every day Unchanged dicyclomine (Bentyl) Unchanged lansoprazole (lansoprazole 30 mg Cap-DR) See [...] administer the testosterone every 2 weeks Unchanged sumatriptan (SUMAtriptan 50 mg Tab) See instructions TAKE 1 TABLET BY MOUTH ONCE DAILY NEEDED FOR MIGRAINE HEADACHE DIRECTED Unchanged tamsulosin (tamsulosin 0.4 mg Cap) 1 Capsules By Mouth Every day Monitor for lightheadedness or dizziness. Unchanged testosterone (Testosterone Cypionate) 200 Milligram Intramuscular Every 3 weeks Unchanged vortioxetine (Trintellix 5 mg oral tablet) 1 Tablets By Mouth Every day Allergies No Known Allergies Problems Ongoing - Any problem that you are currently receiving treatment for. AAA (abdominal aortic aneurysm) without rupture BMI 25.0-25.9,adult BPH with obstruction/lower urinary tract symptoms CPAP (continuous positive airway pressure) dependence Feeling of incomplete bladder emptying Former smoker Gastroesophageal reflux disease without esophagitis Glaucoma Heart murmur Hypercholesterolemia Hypertension Hypogonadism male Incomplete bladder emptying Left knee pain Low back pain Major depressive disorder, recurrent, mild Migraine Overweight (BMI 25.0-29.9) Primary hypertension Sleep apnea Historical - Any problem that you are no longer receiving treatment for. BMI 26.0-26.9,adult BPH (benign prostatic hyperplasia) Enlarged prostate Hypogonadism in male Patient Survey You may receive a survey via text or e-mail asking about your office visit. Please share your experience with us by completing your survey. We appreciate your feedback and thank you for choosing us for your care. Patient Portal You may access all of your results and other me (more content not included)... Normal [facility] Family Medicine Office/Clini c Noteon 05-29-2025 Family Medicine Office/Clinic Note Family Medicine Office/Clinic Note HPI Staff Ashley is a 69 year old male presenting with 4 week f/u for HTN ER started Amlodipine 2.5 mg- this was increased to 5 mg pt is to bring b/p log with him Patient is here for follow up on hypertension. How often are you checking your blood pressure? daily What are your average readings? 150/80 Yearly BMP: _ History of Present Illness pt presents today for BP follow up Review of Systems PHQ Score Initial Depression Screen Score: 0 SCORE Physical Exam Vitals & Measurements T: 36.2 ???C(Temporal Artery) HR: 78(Peripheral) RR: 20 BP: 128/84 SpO2: 97% HT: 179.0 cm HT: 70 in WT: 182.763 lb WT: 82.9 kg BMI: 25.87 General: alert, no acute distress ENMT: oral mucosa moist, no pharyngeal erythema or exudate Cardiovascular: regular rate and rhythm, normal peripheral perfusion Respiratory: Lungs CTA, respirations non labored Extremities: no deformity, no trauma Neurological: oriented x 4, LOC appropriate for age, CN II-XII intact, motor strength equal & normal bilaterally, speech normal Assessment/Plan 1. Hypertension (I10: Essential (primary) hypertension) reviewed BP log. most are at goal. some systolic BP's are slightly elevated. but most diastolic are below 90. will continue current dose. encouraged pt to just check BP every other day. so he doesn't have to add stress to his life. pt does not need refills at this time. RTC 8 weeks. 2. Hypogonadism male (E29.1: Testicular hypofunction) will continue testosterone every 3 weeks. needs refill sent 3. Back pain with sciatica (M54.9: Dorsalgia, unspecified) pt has been having back pain and wea sent to PT but was having trouble with knee pain. he is ready to restart. his referral was closed so he is asking for a new referral to [facility] in [place]. Ordered: Physical Therapy Evaluation - External Facility 4. BMI 25.0-25.9,adult (Z68.25: Body mass index [BMI] 25.0-25.9, adult) BMI education given 5. Former smoker (Z87.891: Personal history of nicotine dependence) continue not smoking Sciatica, unspecified side (M54.30: Sciatica, unspecified side) Orders: testosterone, 200 mg = 1 mL, IntraMuscular, q3wk, X 90 day(s), # 30 mL, Refills(s) 1, Pharmacy: [facility], 179, cm, 05/29/25 8:42:00 EDT, Height/Length Dosing, 82.9, kg, 05/29/25 8:42:00 EDT, Weight Dosing Follow-up No qualifying data available Problem List/Past Medical History Ongoing AAA (abdominal aortic aneurysm) without rupture Back pain with sciatica BMI 25.0-25.9,adult BPH with obstruction/lower urinary tract symptoms CPAP (continuous positive airway pressure) dependence Feeling of incomplete bladder emptying Former smoker Gastroesophageal reflux disease without esophagitis Glaucoma Heart murmur Hypercholesterolemia Hypertension Hypogonadism male Incomplete bladder emptying Left knee pain Low back pain Major depressive disorder, recurrent, mild Migraine Overweight (BMI 25.0-29.9) Primary hypertension Sleep apnea Historical BMI 26.0-26.9,adult BPH (benign prostatic hyperplasia) Enlarged prostate Hypogonadism [...] back disc surgery, Torn meniscus repair. Medications amLODIPine 5 mg Tab, See Instructions aspirin, 325 mg, Oral, Daily atorvastatin 20 mg Tab, See Instructions, 4 refills Bentyl lansoprazole 30 mg Cap-DR, See Instructions losartan 100 mg Tab, See Instructions Misc DME Prescription, See Instructions, 3 refills Misc DME Prescription, See Instructions, 3 refills Rexulti 1 mg oral tablet, Oral, Daily SUMAtriptan 50 mg Tab, See Instructions tamsulosin 0.4 mg Cap, 0.4 mg= 1 cap(s), Oral, Daily, 11 refills Testosterone Cypionate, 200 mg, IntraMuscular, q3wk Testosterone Cypionate 200 mg/mL intramuscular solution, 200 mg= 1 mL, IntraMuscular, q3wk, 1 refills Trintellix 5 mg oral tablet, 5 mg= 1 tab(s), Oral, Daily Vitamin D3, 50 mcg, Oral, Daily Allergies No Known Allergies Social History Alcohol - Low Risk, 03/20/2024 Current, Beer, Liquor, 1-2 times per week, 05/19/2025 Substance Abuse - Denies Substance Abuse, 10/18/2016 Never, 05/19/2025 Tobacco - Denies Tobacco Use, 10/18/2016 (more content not included)... Normal [facility] Comment on above: Result Comment: Elec tronically Signed By: Shanti Augustin\.br\Date and Time Signed: 05/29/25 09:04 EDT Ambulatory Visit Summaryon 0 05-19-2025 Ambulatory Visit Summary Ambulatory Visit Summary ASHLEY STAPLES :1955 Visit Date:05/19/2025 Ambulatory Visit Instructions Your Diagnosis Encounter for subsequent annual wellness visit (AWV) in Medicare patient Gastroesophageal reflux disease without esophagitis Hypercholesterolemia Hypertension Major depressive disorder, recurrent, mild Migraine BPH with obstruction/lower urinary tract symptoms History of smoking greater than 50 pack years Overweight Your Care Team Attending Physician - Sunita Carty MD Primary Care Physician - Shanti Augustin This Is Your Medications List Misc Prescription (Misc DME Prescription) Misc Prescription (Misc DME Prescription) amlodipine (amLODIPine 5 mg Tab) aspirin atorvastatin (atorvastatin 20 mg Tab) brexpiprazole (Rexulti 1 mg oral tablet) cholecalciferol (Vitamin D3) dicyclomine (Bentyl) lansoprazole (lansoprazole 30 mg Cap-DR) losartan (losartan 100 mg Tab) sumatriptan (Imitrex 50 mg Tab) tamsulosin (tamsulosin 0.4 mg Cap) testosterone (Testosterone Cypionate) vortioxetine (Trintellix 5 mg oral tablet) Procedures [...] meniscus repair. Discharge Vitals Heart Rate (Peripheral) 67 Respiratory Rate 18 Blood Pressure 138/68 Height 179 cm Height 70 in Weight 80.73 kg Weight 177.979 lb BMI 25.2 What to do next Scheduled Follow-Up Appointments Sunday 8:40 AM EDT With: Shanti Augustin Where: [address] [address]- Sunday 12:15 PM EDT With: Jb MITCHELL MD Where: [facility] [address] [address]- Sunday2025 11:00 AM EDT With: Where: [address] [id number]- You Need to Complete the Following CT Chest, Low Dose Screening, 05/19/25, Routine, Order for future visit, Transport Mode: Ambulatory, Reason: Screening, Yes, No, Yes, 2, 50, Yes, 5, [id number], No, Yes, History of smoking greater than 50 pack years, [email or web address] [facility] Medications What How Much When Why Instructions Unchanged amlodipine (amLODIPine 5 mg Tab) 1 Tablets By Mouth Every day Unchanged aspirin 325 Milligram By Mouth Every day Unchanged atorvastatin (atorvastatin 20 mg Tab) See instructions TAKE 1 TABLET BY MOUTH DAILY Unchanged brexpiprazole (Rexulti 1 mg oral tablet) By Mouth Every day Unchanged cholecalciferol (Vitamin D3) 50 Microgram By Mouth Every day Unchanged dicyclomine (Bentyl) Unchanged lansoprazole (lansoprazole 30 mg Cap-DR) See instructions TAKE 1 CAPSULE BY MOUTH DAILY Unchanged losartan (losartan 100 mg Tab) See instructions TAKE 1 TABLET BY MOUTH DAILY Unchanged Misc Prescription ([facility] [place]) See instructions 18G 1 needles to use to draw up his testosterone Unchanged Misc Prescription ([facility] [place]) See instructions 3ml syringes w/ 21G X 1 needles to administer the testosterone every 2 weeks Unchanged sumatriptan (Imitrex 50 mg Tab) 1 Tablets By Mouth As Directed as needed for Migraine headache Hypertension Migraine BMI 26.0-26.9,adult Former smoker Overweight (BMI 25.0-29.9) Unchanged tamsulosin (tamsulosin 0.4 mg Cap) 1 Capsules By Mouth Every day Monitor for lightheadedness or dizziness. Unchanged testosterone (Testosterone Cypionate) 200 Milligram Intramuscular Every 3 weeks Unchanged vortioxetine (Trintellix 5 mg oral tablet) 1 Tablets By Mouth Every day Allergies No Known Allergies Problems Ongoing - Any problem that you are currently receiving treatment for. AAA (abdominal aortic aneurysm) without rupture BMI 25.0-25.9,adult BPH with obstruction/lower urinary tract symptoms CPAP (continuous positive airway pressure) dependence Feeling of incomplete bladder emptying Former smoker Gastroesophageal reflux disease without esophagitis Glaucoma Heart murmur Hypercholesterolemia Hypertension Hypogonadism male Incomplete bladder emptying Left knee pain Low back (more content not included)... Normal [facility] Family Medicine Office/Clini c Noteon 05-19-2025 Family Medicine Office/Clinic Note Family Medicine Office/Clinic Note Chief Complaint Subsequent Medicare Wellness Review of Systems PHQ Score Initial Depression Screen Score: 1 SCORE Physical Exam Vitals & Measurements HR: 67(Peripheral) RR: 18 BP: 138/68 SpO2: 97% HT: 179 cm HT: 70 in WT: 177.979 lb WT: 80.73 kg BMI: 25.2 Procedure I was in the office and available for consultation and to provide direct supervision at the time of this visit. I have provided supervision of the care team and have reviewed this chart and office note and agree with the plan of care. Assessment/Plan 1. Encounter for subsequent annual wellness visit (AWV) in Medicare patient (Z00.00: Encounter for general adult medical examination without abnormal findings) Patient in office today for his Subsequent Medicare Wellness Visit. A customized and personalized print out of all the current AHRQ USPSTF???s recommendations for preventative services and all current CDC recommended immunizations, relevant risk recommendations and the following patient brochures were given. Reviewed What can I expect during my Medicare preventative care visit CDC-Falls Prevention and home safety screening reviewed. Patient denies any falls in last 12 months, voices no worry about falling, exhibits no problems with sitting and standing. Pt voices understanding with keeping walk way area free of clutter to prevent tripping and/or falling. [place] Advance Directives reviewed, at home. Encouraged to bring in to scan into chart. Patient denies any problems with ADL???s and Instrumental ADL???s. Cognitive screening completed with memory and clock face drawing. Immunization Record reviewed with the patient. UTD Shingrix vaccine. 2 COVID vaccines have been administered, 1 booster. Immunization record is up to date. Allergies and medications reviewed and up to date. Patient denies concerns with taking medication as prescribed, reviewed OTC medications with patient with medication list up to date. Blood tests were reviewed: UTD. Colonoscopy up to date, last was 08/16/2016, due for repeat 08/2026. Reviewed concerns with bladder control over past 6 months with no concerns. Reviewed pain symptoms with patient: 02/21 back. Reviewed all outside providers that patient follows. Last visit summary notes available in chart and/or have been requested. Follow up scheduled: 05/29/2025 AWV has been scheduled: 05/24/2026 Medicare provides yearly screening for alcohol and depression concerns. This is completed during our Medicare wellness visit for those who do not have a current diagnosis of depression or concerns with alcohol use. I spent a total of( 12) minutes on this date of service which included preparing to see the patient, face to face patient care, completing clinical documentation, obtaining and/or reviewing separately obtained history, counseling and educating the patient with handouts. Explanations were provided with reviewing questionnaires. AUDIT risk assessment screening completed, risk score(2) with patient denying concerns with use. Completed PHQ-2 risk assessment for depression with risk score(1), negative findings. Patient has been reminded to notify the provider if there would be a change or concerns with symptoms with fear, unable to sleep, worrying too much or feeling down and/or sad with lost of interest with daily activities. Will continue to monitor with screening yearly during Medicare wellness visits. 2. Gastroesophageal reflux disease without esophagitis (K21.9: Gastro-esophageal reflux disease without esophagitis) Patient is aware of diet changes with healthier eating habits, such as not eating late at night, losing or maintaining a healthy weight. Importance of not smoking and avoiding and/or reducing alcohol intake. Avoid tight clothing around the waist line and try to avoid spicy or high acid foods. Patient taking PPI medications as directed with symptom management. Reviewed nutrition therapy with recommended foods to help control your symptoms. 3. Hypercholesterolemia (E78.00: Pure hypercholesterolemia, unspecified) Reviewed healthy lifestyle with low fat diet and exercise regimen. When you are overweight our body produces more lipids. Risk also increases with family history of hyperlipidemia and with monitoring alcohol use and avoid smoking. Pt voices understanding with importance of monitoring dietary intake to reduce risk factors associated with CVA. Taking statin medications daily as directed. Will continue to follow up with office visits with updated labs as directed. 4. Hypertension (I10: Essential (primary) hypertension) Patient is taking losartan daily as directed. Does monitor BP pressure at home. HTN stoplight reviewed with BP goal to be <140/90. Reviewed different factors that can alter blood pressure readings. Education handout provided with s/s to monitor for and report to provider. Patient is encouraged to increase portions of fruit, vegetables, fiber and increase exercise as much as tolerable. Reviewed (more content not included)... Normal [facility] Comment on above: Result Comment: Elec tronically Signed By: BULMARO LAGUERRE CNP\.br\Date and Time Signed: 05/19/25 14:49 EDT\.br\Electronically Co-Signed By: Ro Quintana\.br\Date and Time Co-Signed: 05/19/25 14:23 EDT Population Healthon 05-15-20 [facility] Case Information Case Priority: None Programs: -- Referral Source: [employer] And [employer] Manager Referral Reason: Care coordination Case Type: Transition Care Management Risk Score: -- Case Status: Enrolled (April 28, 2025) Date Assigned: April 27, 2025 Assigned By: Deni Monge Date Enrolled: April 28, 2025 Assigned Primary Personnel: Deni Monge Assigned Secondary Personnel: -- Case Physician: Shanti Augustin Problems Ongoing AAA (abdominal aortic aneurysm) without rupture BMI 26.0-26.9,adult BPH with obstruction/lower urinary tract symptoms CPAP (continuous positive airway pressure) dependence Feeling of incomplete bladder emptying Former smoker Gastroesophageal reflux disease without esophagitis Glaucoma Heart murmur Hypercholesterolemia Hypertension Hypogonadism male Incomplete bladder emptying Left knee pain Low back pain Major depressive disorder, recurrent, mild Migraine Overweight (BMI 25.0-29.9) Primary hypertension Sleep apnea [...] Low back disc surgery, Torn meniscus repair. Home Medications amLODIPine 5 mg Tab, 5 mg= 1 tab(s), Oral, Daily, 1 refills aspirin, 325 mg, Oral, Daily atorvastatin 20 mg Tab, See Instructions, 4 refills Imitrex 50 mg Tab, 50 mg= 1 tab(s), Oral, As Directed, PRN lansoprazole 30 mg Cap-DR, See Instructions losartan 100 mg Tab, See Instructions Misc DME Prescription, See Instructions, 3 refills Misc DME Prescription, See Instructions, 3 refills Rexulti 1 mg oral tablet, Oral, Daily tamsulosin 0.4 mg Cap, 0.4 mg= 1 cap(s), Oral, Daily, 11 refills Testosterone Cypionate, 200 mg, IntraMuscular, q3wk Trintellix 5 mg oral tablet, 5 mg= 1 tab(s), Oral, Daily Vitamin D3, 50 mcg, Oral, Daily Allergies No Known Allergies Social History Alcohol - Low Risk, 03/20/2024 Current. Beer, Liquor. 3-5 times per week., 11/18/2024 Substance Abuse - Denies Substance Abuse, 10/18/2016 Never., 11/18/2024 Tobacco - Denies Tobacco Use, 10/18/2016 Former smoker, quit more than 30 days ago Tobacco Use:. Never Smokeless Tobacco Use:. Cigarettes, Household tobacco concerns: No. Yes, 05/01/2025 Family History Dementia: Father. Screenings and Assessments 04/28/25 09:54:00 Result Name Value Comment Phone Call Monitoring Consent Agreed to continue call Phone Verification Patient Information Full name, street address and date of verified CM Program Enrollment Provides verbal consent for enrollment Goals and Interventions Care Plan Progress Note TCM#3- Spoke to patient for final TCM status update. Patient states his BP seems to stating the same. He has not noticed much more improvement. Reports SPB averages in the 140's but will still spike 150's. He does continue to have knee pain after walking a little distance. He is waiting for his injection to 'kick in.' Patient remains active with golf and walking around his property. Patient has AWV 05/19/25 and PCP follow up 05/29/25. CN advised of final call and for patient to call if needs arise. Nothing further at this time. Communication Events Date: May 15, 2025 Method: Phone call Type: Outbound Duration (min): 9 Outcome: Case discussion Contact Type: Patient Contact Name: ASHLEY STAPLES Notes: TCM#3- Final status update, see tcm note. Created By: Deni Monge Date: May 08, 2025 Method: Phone call Type: Outbound Duration (min): 16 Outcome: Case discussion Contact Type: Patient Contact Name: ASHLEY STAPLES Notes: TCM#2- See TCM note. Created By: Deni Monge Date: May 07, 2025 Method: Phone call Type: Outbound Duration (min): 1 Outcome: Left message-person Contact Type: Spouse Contact Name: -- Notes: TCM#2- Left message with spouse for return call. She will have pt call when he is home. Created By: Deni Monge Date: April 28, 2025 Method: Phone call Type: Outbound Duration (min): 14 Outcome: Case discussion Contact Type: Patient Contact Name: ASHLEY STAPLES Notes: TCM#1- Spoke with patient for initial TCM status update, see tcm (more content not included)... Normal [facility] 05-08-20 [facility] Case Information Case Priority: None Programs: -- Referral Source: B[employer] And [employer] Manager Referral Reason: Care coordination Case Type: Transition Care Management Risk Score: -- Case Status: Enrolled (April 28, 2025) Date Assigned: April 27, 2025 Assigned By: Deni Monge Date Enrolled: April 28, 2025 Assigned Primary Personnel: Deni Monge Assigned Secondary Personnel: -- Case Physician: Shanti Augustin Problems Ongoing AAA (abdominal aortic aneurysm) without rupture BMI 26.0-26.9,adult BPH with obstruction/lower urinary tract symptoms CPAP (continuous positive airway pressure) dependence Feeling of incomplete bladder emptying Former smoker Gastroesophageal reflux disease without esophagitis Glaucoma Heart murmur Hypercholesterolemia Hypertension Hypogonadism male Incomplete bladder emptying Left knee pain Low back pain Major depressive disorder, recurrent, mild Migraine Overweight (BMI 25.0-29.9) Primary hypertension Sleep apnea [...] Low back disc surgery, Torn meniscus repair. Home Medications amLODIPine 5 mg Tab, 5 mg= 1 tab(s), Oral, Daily, 1 refills aspirin, 325 mg, Oral, Daily atorvastatin 20 mg Tab, See Instructions, 4 refills Imitrex 50 mg Tab, 50 mg= 1 tab(s), Oral, As Directed, PRN lansoprazole 30 mg Cap-DR, See Instructions losartan 100 mg Tab, See Instructions Misc DME Prescription, See Instructions, 3 [facility], See Instructions, 3 refills Rexulti 1 mg oral tablet, Oral, Daily tamsulosin 0.4 mg Cap, 0.4 mg= 1 cap(s), Oral, Daily, 11 refills Testosterone Cypionate, 200 mg, IntraMuscular, q3wk Trintellix 5 mg oral tablet, 5 mg= 1 tab(s), Oral, Daily Vitamin D3, 50 mcg, Oral, Daily Allergies No Known Allergies Social History Alcohol - Low Risk, 03/20/2024 Current. Beer, Liquor. 3-5 times per week., 11/18/2024 Substance Abuse - Denies Substance Abuse, 10/18/2016 Never., 11/18/2024 Tobacco - Denies Tobacco Use, 10/18/2016 Former smoker, quit more than 30 days ago Tobacco Use:. Never Smokeless Tobacco Use:. Cigarettes, Household tobacco concerns: No. Yes, 05/01/2025 Family History Dementia: Father. Screenings and Assessments 04/28/25 09:54:00 Result Name Value Comment Phone Call Monitoring Consent Agreed to continue call Phone Verification Patient Information Full name, street address and date of verified CM Program Enrollment Provides verbal consent for enrollment Goals and Interventions Care Plan Progress Note TCM#2- Returned call to patient, states he is 'felling well.' Amlodipine was increased to 5 mg on 05/01, and he thinks it is finally starting to take effect. Notes BP 05/07/25; 148/74 HR 74, BP 133/72, HR 82, BP 137/67, HR 76. Prior to this SBP ranged 150's- 170's. Patient follows recommended BP steps at home. Patient does not consume a lot of sodium and eats healthy through out the day. He likes fruits and drinks half Gatorade half water mostly. He drinks alcohol on a rare occasion. Patient reports he does tire easily, stating he can play golf, and after he is exhausted. Notes several body aches and pains, including knee, back, and muscles. Advised patient pain and discomfort can impact BP. He is anticipating PT in near future. Patient stretches daily at home. Notes he has good balance. Encouraged patient to continue healthy lifestyle choices. No further questions or concerns. POV 05/29/25 Communication Events Date: May 08, 2025 Method: Phone call Type: Outbound Duration (min): 16 Outcome: Case discussion Contact Type: Patient Contact Name: ASHLEY [place] Notes: TCM#2- See TCM note. Created By: Deni Monge Date: May 07, 2025 Method: Phone call Type: Outbound Duration (min): 1 Outcome: Left message-person Contact Type: Spouse Contact Name: -- Notes: TCM#2- Left message with spouse for return call. She will have pt call when he is home. Created By: Deni Monge Date: April 28, 2025 Method: Phone call Type: Outbound Duration (min): 14 Outcome: Case discuss (more content not included)... Normal [facility] Testost Totalon 05-06-2025 Testoster Tot 668 ng/dL Invalid Interpretation Code [id number] [facility] Comment on above: Result Comment: Adul t male reference interval is based on a population of healthy nonobese males (BMI <30) between 19 and 39 years old. Leeroy et.al. JCEM 2017,102;6447-9832. PMID: [id number]. Performed at: [facility] [address] [id number] PhD Reji Kang Performed By: #### 2 [id number] #### [facility] [address] [place] [address] L Inj/Asp: L kneeon 05-05-20 25 Rebecca Clarke MA 05/05/2025 11:23 AM L Inj/Asp: L knee on 05/05/2025 11:01 AM Indications: pain Details: 21 G needle Medications: 2 mL sodium hyaluronate 16.8 MG/2ML [facility] Ambulatory Visit Summaryon 0 05-01-2025 Ambulatory Visit Summary Ambulatory Visit Summary ASHLEY [place] :1955 Visit Date:05/01/2025 Ambulatory Visit Instructions Your Diagnosis Hypertension Migraine BMI 26.0-26.9,adult Former smoker Overweight (BMI 25.0-29.9) Your Care Team Attending Physician - Shanti Augustin Primary Care Physician - Shanti Augustin This Is Your Medications List Misc Prescription (Misc DME Prescription) Misc Prescription (Misc DME Prescription) amlodipine aspirin atorvastatin (atorvastatin 20 mg Tab) brexpiprazole (Rexulti 1 mg oral tablet) cholecalciferol (Vitamin D3) lansoprazole (lansoprazole 30 mg Cap-DR) losartan (losartan 100 mg Tab) tamsulosin (tamsulosin 0.4 mg Cap) testosterone (Testosterone Cypionate) vortioxetine (Trintellix 5 mg oral tablet) Procedures [...] meniscus repair. Discharge Vitals Temperature (Temporal Artery) 36.2 ???C Heart Rate (Peripheral) 78 Respiratory Rate 20 Blood Pressure 140/84 Height 179.0 cm Height 70 in Weight 80.6 kg Weight 177.692 lb BMI 25.16 What to do next Scheduled Follow-Up Appointments Sunday 9:00 AM EDT With: Where: [address] [address]- Sunday 11:00 AM EDT With: Where: [address] [id number]- Sunday 8:40 AM EDT With: Shanti Augustin Where: [address] [address]- Sunday 12:15 PM EDT With: STEPHEN RODGERS, Jb Abad Where: [facility] [address] [place], [place] [id number]- Medications What How Much When Instructions Unchanged amlodipine 2.5 Milligram By Mouth Every day Unchanged aspirin 325 Milligram By Mouth Every day Unchanged atorvastatin (atorvastatin 20 mg Tab) See instructions TAKE 1 TABLET BY MOUTH DAILY Unchanged brexpiprazole (Rexulti 1 mg oral tablet) By Mouth Every day Unchanged cholecalciferol (Vitamin D3) 50 Microgram By Mouth Every day Unchanged lansoprazole (lansoprazole 30 mg Cap-DR) See [...] administer the testosterone every 2 weeks Unchanged tamsulosin (tamsulosin 0.4 mg Cap) 1 Capsules By Mouth Every day Monitor for lightheadedness or dizziness. Unchanged testosterone (Testosterone Cypionate) 200 Milligram Intramuscular Every 3 weeks Unchanged vortioxetine (Trintellix 5 mg oral tablet) [...] disease without esophagitis Glaucoma Heart murmur Hypercholesterolemia Hypertension Hypogonadism male Incomplete bladder emptying Left knee pain Low back pain Major depressive disorder, recurrent, mild Migraine Overweight (BMI 25.0-29.9) Primary hypertension Sleep apnea Historical - Any problem that you are no longer receiving treatment for. BPH (benign prostatic hyperplasia) Enlarged prostate Hypogonadism in male Patient Survey You may receive a survey via text or e-mail asking about your office visit. Please share your experience with us by completing your survey. We appreciate your feedback and thank you for choosing us for your care. Patient Portal You may access all of your results and other medical record information on our secure patient portal. If you are not signed (more content not included)... Normal [facility] Family Medicine Office/Clini c Noteon 05-01-2025 Family Medicine Office/Clinic Note Family Medicine Office/Clinic Note HPI Staff Ashley is a 69 year old male presenting with ER followup: Hospital: [facility] Visit date: 04/22/25- 04/24/25 Symptoms the patient presented with: confusion Current concerns: He did bring in blood pressure log with him History of Present Illness pt presents today for ER follow up. Review of Systems PHQ Score Initial Depression Screen Score: 0 SCORE Physical Exam Vitals & Measurements T: 36.2 ???C(Temporal Artery) HR: 78(Peripheral) RR: 20 BP: 140/84 SpO2: 99% HT: 70 in HT: 179.0 cm WT: 177.692 lb WT: 80.6 kg BMI: 25.16 General: alert, no acute distress ENMT: oral mucosa moist, no pharyngeal erythema or exudate Cardiovascular: regular rate and rhythm, normal peripheral perfusion Respiratory: Lungs CTA, respirations non labored Extremities: no deformity, no trauma Neurological: oriented x 4, LOC appropriate for age, CN II-XII intact, motor strength equal & normal bilaterally, speech normal Assessment/Plan 1. Hypertension (I10: Essential (primary) hypertension) BP was elevated when he go to ER. they started amlodipine 2.5mg. pt brought in BP log. systolic BP 140-160's/70-80's. will increase dose to 5mg. pt will continue keep a log and return in 4 weeks Ordered: sumatriptan, 50 mg = 1 tab(s), Oral, As Directed, PRN Migraine headache, # 9 tab(s), Refills(s) 0, [id number] 179, cm, 05/01/25 9:00:00 EDT, Height/Length Dosing, 80.6, kg, 05/01/25 9:00:00 EDT, Weight Dosing 2. Migraine (G43.909: Migraine, unspecified, not intractable, without status migrainosus) pt feels the episode he had that sent him to ER could have been a migraine that shot up his BP. he has never taken prescription abortive migraine meds. will send in Imitrex. Ordered: sumatriptan, 50 mg = 1 tab(s), Oral, As Directed, PRN Migraine headache, # 9 tab(s), Refills(s) 0, [id number], 179, cm, 05/01/25 9:00:00 EDT, Height/Length Dosing, 80.6, kg, 05/01/25 9:00:00 EDT, Weight Dosing 3. BMI 26.0-26.9,adult (Z68.26: Body mass index [BMI] 26.0-26.9, adult) BMI education given Ordered: sumatriptan, 50 mg = 1 tab(s), Oral, As Directed, PRN Migraine headache, # 9 tab(s), Refills(s) 0, [id number], 179, cm, 05/01/25 9:00:00 EDT, Height/Length Dosing, 80.6, kg, 05/01/25 9:00:00 EDT, Weight Dosing Body Mass Index (BMI) documented 3008F Current tobacco non-user 1036F Depression Screening Negative 3352F Influenza immunization status assessed 1030F Medication list documented in medical record 1159F Most recent diastolic blood pressure 80-89 mm Hg 3079F Patient screen for fall risk: no falls in last year or 1 fall with no injury in last year 1101F Review of all meds by a prescribing practitioner or clinical pharmacist documented in EHR 1160F Systolic BP <130 mm Hg (Most Recent) 3074F 4. Overweight (BMI 25.0-29.9) (E66.3: Overweight) see above Ordered: sumatriptan, 50 mg = 1 tab(s), Oral, As Directed, PRN Migraine headache, # 9 tab(s), Refills(s) 0, Pharmacy: [facility]/pharmacy #[id number], 179, cm, 05/01/25 9:00:00 EDT, Height/Length Dosing, 80.6, kg, 05/01/25 9:00:00 EDT, Weight Dosing Body Mass Index (BMI) documented 3008F Current tobacco non-user 1036F Depression Screening Negative 3352F Influenza immunization status assessed 1030F Medication list documented in medical record 1159F Most recent diastolic blood pressure 80-89 mm Hg 3079F Patient screen for fall risk: no falls in last year or 1 fall with no injury in last year 1101F Review of all meds by a prescribing practitioner or clinical pharmacist documented in EHR 1160F Systolic BP <130 mm Hg (Most Recent) 3074F 5. Former smoker (Z87.891: Personal history of nicotine dependence) continue not smoking Ordered: sumatriptan, 50 mg = 1 tab(s), Oral, As Directed, PRN Migraine headache, # 9 tab(s), Refills(s) 0, Pharmacy: [facility]/pharmacy #[id number], 179, cm, 05/01/25 9:00:00 EDT, Height/Length Dosing, 80.6, kg, 05/01/25 9:00:00 EDT, Weight Dosing Body Mass Index (BMI) documented 3008F Current tobacco non-user 1036F Depression Screening Negative 3352F Influenza immunization status assessed 1030F Medication list documented in medical record 1159F Most recent diastolic blood pressure 80-89 mm Hg 3079F Patient screen for fall risk: no falls in last year or 1 fall with no injury in last year 1101F Review of all meds by a prescribing practitioner or clinical pharmacist documented in EHR 1160F Systolic BP <130 mm Hg (Most Recent) 3074F Orders: amlodipine, 5 mg = 1 tab(s), Oral, Daily, # 30 tab(s), Refills(s) 1, Pharmacy: [facility]/pharmacy #[id number], 179, cm, 05/01/25 9:00:00 EDT, Height/Length Dosing, 80.6, kg, 05/01/25 9:00:00 EDT, Weight Dosing amlodipine, 2.5 mg, Oral, Daily, # 30 tab(s), Refills(s) 1, Pharmacy: [facility]/pharmacy #[id number], 179, cm, 05/01/25 9:00:00 EDT, Height/Length Dosing, 80.6, kg, 05/01/25 9:00:00 EDT, Weight Dosing Follow-up No qualifying data available Problem List/Past Medical Histor (more content not included)... Normal [facility] Comment on above: Result Comment: Elec tronically Signed By: Shanti Augustin\.br\Date and Time Signed: 05/01/25 09:27 EDT L Inj/Asp: L kneeon 04-28-20 Rebecca Clarke MA 04/28/2025 12:04 PM L Inj/Asp: L knee on 04/28/2025 10:55 AM Indications: pain Details: 21 G needle Medications: 2 mL sodium hyaluronate 16.8 MG/2ML [facility] Healthon 04-28-20 [facility] Case Information Case Priority: None Programs: -- Referral Source: [employer] Referral Reason: Care coordination Case Type: Transition Care Management Risk Score: -- Case Status: Enrolled (April 28, 2025) Date Assigned: April 27, 2025 Assigned By: Deni Monge Date Enrolled: April 28, 2025 Assigned Primary Personnel: Deni Monge Assigned Secondary Personnel: -- Case Physician: Shanti Augustin Problems Ongoing AAA (abdominal aortic aneurysm) without rupture [...] Low back disc surgery, Torn meniscus repair. Home Medications atorvastatin 20 mg Tab, See Instructions, [...] No. Yes, 04/13/2025 Family History Dementia: Father. Screenings and Assessments 04/28/25 09:54:00 Result Name Value Comment Phone Call Monitoring Consent Agreed to continue call Phone Verification Patient Information Full name, street address and date of verified CM Program Enrollment Provides verbal consent for enrollment Goals and Interventions Care Plan Progress Note Admit Date: 04/22/25 [facility] Date of Discharge: 04/24/25 Follow-up appointment scheduled? yes, 05/01 TCM f/u with PCP at 0900 Did you understand your discharge instructions? yes Are you able to follow them? yes Did you receive new medications? yes, ASA 325 mg QD, amlodipine 2.5 mg QD Have you filled the Rx's? yes Are you taking them as prescribed? yes Are you having difficulty eating or swallowing your pills? no Are you having any stomach upset, diarrhea or constipation? no How are you sleeping? good Are you having any pain? no Do you have everything you need at home to care for yourself? yes Do you have Home Health? no Called patient for initial Transitional Care Management Program call. Readmission risk is not available. Reviewed d/c instructions and dx of: HTN, TIA, confusion. Medications reconciled with patient list, EHR, and dc list. Reviewed purpose and side effects of the new medications with patient. Patient states he is doing 'good, a lot better.' Patient reports some anxiousness since d/c but is doing ok. Patient went out to golf yesterday and reports, when he was on his way he thought about just going home d/t feeling anxious. States he went and was ok once he was on the green. Patient has been monitoring BP, in the mooring 140'/70's and by evening SBP is as high as 160. Patient is going to bring data to [facility]. Patient does not use a lot of salt. He is eating and drinking well, and h (more content not included)... Normal [facility] L Inj/Asp: L kneeon 04-21-20 Omaira Ramos MA 04/21/2025 11:52 AM L Inj/Asp: L knee on 04/21/2025 10:42 AM Indications: diagnostic evaluation Details: 22 G needle Medications: 2 mL sodium hyaluronate 16.8 MG/2ML Outcome: tolerated well, no immediate complications Consent was given by the patient. [facility] Ambulatory Visit Summaryon 0 04-13-2025 Ambulatory Visit [...] Appointments Sunday 8:20 AM EDT With: Where: [address] [address]- Sunday 11:00 AM EDT With: Where: [address] [address]- Sunday 12:15 PM EDT With: STEPHEN RODGERS, Jb Abad Where: [facility] [address] [place] [address]- Medications What How Much When Why Instructions [...] DAY FOR 30 DAYS Unchanged Misc Prescription ([facility] Prescription) See instructions 18G 1 needles to use to draw up his testosterone Unchanged Misc Prescription [facility] See instructions 3ml syringes w/ [...] (more content not included)... Normal [facility] Family Medicine Office/Clini c Noteon 04-13-2025 Family [...] states that [facility] and he wants that to be mail [...] (more content not included)... Normal [facility] Comment on above: Result Comment: Elec tronically [...] feel free to contact me at extension [phone]. Thank you! Henrietta Siegel LPN Clinical [employer] [place] [id number] Extension: [phone] [email or web address] From: Shanti Augustin To: Henrietta Siegel; Sent: 04/13/2025 11:35:20 EDT Subject: RE: Pre-Visit Planning Caller Name: ASHLEY ST[place]; Caller Number: Rajani , M His depression score was 0 today. 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 Normal [facility] Ambulatory Visit Summaryon 0 03-27-2025 Ambulatory Visit [...] Appointments Sunday 1:00 PM EDT With: Where: [address] [address]- Sunday 10:00 AM EDT With: Keyshawn RODGERS, Sunita Zamarripa Where: [address] [address]- You Need to Schedule the Following Appointments Follow Up with STEPHEN RODGERS, LEXIS Herrera When: Where: [address] [place] [address]- Medications What How Much When Why Instructions New tamsulosin (tamsulosin 0.4 mg Cap) 1 Capsules By Mouth Every day Refills: 11 Monitor for lightheadedness or dizziness. Pickup at [facility] #0125 Unchanged brexpiprazole (Rexulti 1 mg oral tablet) [...] (more content not included)... Normal [facility] Urology Office/Clinic Noteon 03-27-2025 Urology Office/Clinic Note [...] bladder emptying) PVR 01/14/24 - 40 mL 03/27/25 - 278 mL PVR does not warrant [...] primary care. Follow-up With When Contact Information STEPHEN RODGERS, Jb Abad, URL [address] [place] [address]- Additional Instructions: 4 mos w/ PVR Patient [...] (more content not included)... Normal [facility] Comment on above: Result Comment: Elec tronically Signed By: Jb MITCHELL MD\.br\Date and Time Signed: 03/27/25 11:24 EDT\.br\Electronically Co-Signed By: Stacia Garcia.br\Date and Time Co-Signed: 03/27/25 11:22 EDT XR Knee - left 3 [facility] Result: 03/20/2025: AP, Lat and [place] view of the left knee demonstrates medial joint space narrowing with subchondral sclerosis and flattening of the surfaces of tibial plateau and femoral condyle. Patella is noted to be midline with marginal osteophyte formation. Impression: osteoarthritis of the left knee. LUIS M Carlson APRNC [facility] Radiology Study observation (narrative) [facility] Testosterone F&Ton 5 Testosterone [Mass/Vol] 1086 ng/dL High [id number] [facility] Comment on above: Result Comment: Adul t male reference interval is based on a population of healthy nonobese males (BMI <30) between 19 and 39 years old. Leeroy et.al. JCEM 2017,102;9631-3392. PMID: [id number]. Performed By: #### 1 [id number] ####[facility] [address] [place] [address] Testosterone Free [Mass/Vol] 18.9 pg/mL High 6.6-18.1 [facility] Comment on above: Result Comment: Perf ormed at: [facility] [address] [id number] PhD Reji Kang Performed at: [facility] [address] [id number] MD Arnold Colvin Performed By: #### 1 [id number] ####[facility] [address] [place] [address] Ambulatory Visit Summaryon 0 02-27-2025 Ambulatory Visit [...] Jb MITCHELL MD Where: [facility] [address] [place] [address]- Sunday 1:00 PM EDT With: Where: [address] [id number]- Sunday 10:00 AM EDT With: Sunita Carty MD Where: [address] [address]- Medications What How Much When [...] (more content not included)... Normal [facility] CBC w/ Auto Diffon 5 Basophils/100 WBC (Bld) 0.5 % Normal 0.0-2.0 [facility] Comment on above: Performed By: #### 2 [id number] #### [facility] [address] [place] [address] Basophils/Leukocytes Auto (Bld) [Pure # fraction] 0.0 E9/L Normal 0.0-0.2 [facility] Comment on above: Performed By: #### 2 [id number] #### [facility] [address] [place] [address] Eosinophils (Bld) [#/Vol] 0.1 E9/L Normal 0.0-0.5 [facility] Comment on above: Performed By: #### 2 [id number] #### [facility] [address] [place] [address] Eosinophils/100 WBC (Bld) 2.2 % Normal 0.0-8.0 [facility] Comment on above: Performed By: #### 2 [id number] #### [facility] [address] [place] [address] Erythrocyte distribution width (RBC) [Ratio] 14.2 % Normal 10.9-14.2 [facility] Comment on above: Performed By: #### 2 [id number] #### [facility] [address] [place] [address] Hematocrit (Bld) [Volume fraction] 48.7 % Normal 37.7-49.0 [facility] Comment on above: Performed By: #### 2 [id number] #### [facility] [address] [place] [address] Hemoglobin (Bld) [Mass/Vol] 16.3 g/dL Normal 13.5-17.5 [facility] Comment on above: Performed By: #### 2 [id number] #### [facility] [address] [place] [address] Lymphocytes (Bld) [#/Vol] 1.8 E9/L Normal 1.0-4.0 [facility] Comment on above: Performed By: #### 2 [id number] #### [facility] [address] [place] [address] Lymphocytes/100 WBC (Bld) 30.9 % Normal 14.0-50.0 [facility] Comment on above: Performed By: #### 2 [id number] #### [facility] [address] [place] [address] MCH (RBC) [Entitic mass] 28.7 pg Normal 27.0-34.0 [facility] Comment on above: Performed By: #### 2 [id number] #### [facility] [address] [place] [address] MCHC (RBC) [Mass/Vol] 33.5 g/dL Normal 31.4-36.0 [facility] Comment on above: Performed By: #### 2 [id number] #### [facility] [address] [place] [address] MCV (RBC) [Entitic vol] 85.6 fL Normal 80.0-100.0 [facility] Comment on above: Performed By: #### 2 [id number] #### [facility] [address] [place] [address] Monocytes (Bld) [#/Vol] 0.3 E9/L Normal 0.2-1.0 [facility] Comment on above: Performed By: #### 2 [id number] #### [facility] [address] [place] [address] Neutrophils (Bld) [#/Vol] 3.5 E9/L Normal 2.0-7.5 [facility] Comment on above: Performed By: #### 2 [id number] #### [facility] [address] [place] [address] Neutrophils/100 WBC (Bld) 61.2 % Normal 36.0-75.0 [facility] Comment on above: Performed By: #### 2 [id number] #### [facility] [address] [place] [address] Platelet mean volume (Bld) [Entitic vol] 8.7 fL Normal 6.4-10.8 [facility] Comment on above: Performed By: #### 2 [id number] #### [facility] [address] [place] [address] Platelets (Bld) [#/Vol] 170.0 E9/L Normal 150.0-500.0 [facility] Comment on above: Performed By: #### 2 [id number] #### [facility] [address] [place] [address] RBC (Bld) [#/Vol] 5.7 E12/L Normal 4.3-5.9 [facility] Comment on above: Performed By: #### 2 [id number] #### [facility] [address] [place] [address] WBC corrected for nucl RBC Auto (Bld) [#/Vol] 5.7 E9/L Normal 4.0-11.0 [facility] Comment on above: Performed By: #### 2 [id number] #### [facility] [address] [place] [address] CMPon 02-27-2025 Albumin [Mass/Vol] 4.5 g/dL Normal 3.3-5.0 [facility] Comment on above: Performed By: #### 2 [id number] #### [facility] [address] [place] [address] Albumin/Globulin (S) [Mass conc ratio] 1.6 Normal 1.1-2.2 [facility] Comment on above: Performed By: #### 2 [id number] #### [facility] [address] [place] [address] ALP [Catalytic activity/Vol] 52 Int._Unit/L Normal 21-98 [facility] Comment on above: Performed By: #### 2 [id number] #### [facility] [address] [place] [address] ALT No additional P-5'-P [Catalytic activity/Vol] 11 Int._Unit/L Normal 6-46 [facility] Comment on above: Performed By: #### 2 [id number] #### [facility] [address] [place] [address] Anion gap [Moles/Vol] 12 mmol/L Normal 6-16 [facility] Comment on above: Performed By: #### 2 [id number] #### [facility] [address] [place] [address] AST [Catalytic activity/Vol] 23 Int._Unit/L Normal 5-43 [facility] Comment on above: Performed By: #### 2 [id number] #### [facility] [address] [place] [address] Bilirubin [Mass/Vol] 0.6 mg/dL Normal 0.0-1.1 [facility] Comment on above: Performed By: #### 2 [id number] #### [facility] [address] [place] [address] Calcium [Mass/Vol] 9.3 mg/dL Normal 8.9-11.1 [facility] Comment on above: Performed By: #### 2 [id number] #### [facility] [address] [place] [address] Chloride [Moles/Vol] 101 mmol/L Normal 101-111 [facility] Comment on above: Performed By: #### 2 [id number] #### [facility] [address] [place] [address] CO2 [Moles/Vol] 26 mmol/L Normal 21-31 [facility] Comment on above: Performed By: #### 2 [id number] #### [facility] [address] [place] [address] Creatinine [Mass/Vol] 0.8 mg/dL Normal 0.5-1.3 [facility] Comment on above: Performed By: #### 2 [id number] #### [facility] [address] [place] [address] Globulin (S) [Mass/Vol] 2.8 g/dL Normal 1.4-4.0 [facility] Comment on above: Performed By: #### 2 [id number] #### [facility] [address] [place] [address] Glucose [Mass/Vol] 101 mg/dL Normal 55-199 [facility] Comment on above: Performed By: #### 2 [id number] #### [facility] [address] [place] [address] Potassium [Moles/Vol] 4.7 mmol/L Normal 3.5-5.3 [facility] Comment on above: Performed By: #### 2 729570 #### [facility] [address] [place] [address] Protein [Mass/Vol] 7.3 g/dL Normal 6.0-7.8 [facility] Comment on above: Performed By: #### 2 [id number] #### [facility] [address] [place] [address] Sodium [Moles/Vol] 134 mmol/L Low 135-145 [facility] Comment on above: Performed By: #### 2 [id number] #### [facility] [address] [place] [address] Urea nitrogen [Mass/Vol] 14 mg/dL Normal 5-21 [facility] Comment on above: Performed By: #### 2 775279 #### [facility] [address] [place] [address] Urea nitrogen/Creatinine [Mass ratio] 18 No Units Normal 10-20 [facility] Comment on above: Performed By: #### 2 [id number] #### [facility] [address] [place] [address] Lipid Panelon 02-27-2025 Cholesterol [Mass/Vol] 151 mg/dL Normal 120-200 [facility] Comment on above: Performed By: #### 2 [id number] #### [facility] [address] [place] [address] Cholesterol in HDL [Mass/Vol] 51 mg/dL Invalid Interpretation Code [facility] Comment on above: Result Comment: '>= 60 LOW RISK' '<= 40 HIGH RISK' Performed By: #### 2 800271 #### [facility] [address] [place] [address] Cholesterol in LDL [Mass/Vol] 86 mg/dL Normal <=129 [facility] Comment on above: Performed By: #### 2 643930 #### [facility] [address] [place] [address] Cholesterol in VLDL [Mass/Vol] 13 mg/dL Normal 7-40 [facility] Comment on above: Performed By: #### 2 [id number] #### [facility] [address] [place] [address] Triglyceride [Mass/Vol] 65 mg/dL Normal <=149 [facility] Comment on above: Performed By: #### 2 990418 #### [facility] [address] [place] [address] PSA Screen, Totalon 02-28-20 25 Prostate specific Ag [Mass/Vol] 0.5 ng/mL Normal 0.1-3.5 [facility] Comment on above: Result Comment: The concentration of PSA determined by different manufacturers can vary due to differences in assay methods and reagent specificity. Values obtained from different assay methods cannot be used interchangeably. The methodology used for this result was chemiluminescence using [employer] Access Hybritech PSA reagent. Performed By: #### 1 [id number] #### [facility] [address] [place] [address] eGFRon 02-27-2025 eGFR 95 mL/min/1.73 m2 Normal >=59 [facility] Comment on above: Performed By: #### 1 [id number] #### [facility] [address] [place] [address] Ambulatory Visit Summaryon 0 02-19-2025 Ambulatory Visit [...] Appointments Sunday 9:20 AM EDT With: Where: [address] [address]- Sunday 10:15 AM EDT With: STEPHEN RODGERS, Jb Abad Where: [facility] [address] [place] [address]- Sunday 1:00 PM EDT With: Where: [address] [address]- Sunday 10:00 AM EDT With: Keyshawn RODGERS, Sunita Zamarripa Where: [address] [address]- Medications What How Much When Instructions Unchanged [...] us for your care. Normal [facility] Family Medicine Office/Clini c Noteon 02-19-2025 Family [...] day, # 6 tab(s), Refills(s) 0, Pharmacy: [facility] #[id number], 179, cm, 02/19/25 9:54:00 EDT, Height/Length Dosing, 85.2, kg, 050... tramadol, 50 mg = 1 tab(s), Oral, q6hr, # 12 tab(s), Refills(s) 0, Pharmacy: [facility] #[id number], 179, cm, 02/19/25 9:54:00 EDT, Height/Length [...] day, # 6 tab(s), Refills(s) 0, [id number], cm, 02/19/25 9:54:00 EDT, Height/Length Dosing, 85.2, kg, 05/0... tramadol, 50 mg = 1 tab(s), Oral, q6hr, # 12 tab(s), Refills(s) 0, [id number], cm, 02/19/25 9:54:00 EDT, Height/Length [...] day, # 6 tab(s), Refills(s) 0, Pharmacy: [facility] #[facility], 179, cm, 02/19/25 9:54:00 EDT, Height/Length Dosing, 85.2, kg, 05/0... tramadol, 50 mg = 1 tab(s), Oral, q6hr, # 12 tab(s), Refills(s) 0, Pharmacy: [facility] #6177, 179, cm, 02/19/25 9:54:00 [...] day, # 6 tab(s), Refills(s) 0, Pharmacy: [facility] #6177, 179, cm, 02/19/25 9:54:00 EDT, Height/Length Dosing, 85.2, kg, 05/0... tramadol, 50 mg = 1 tab(s), Oral, q6hr, # 12 tab(s), Refills(s) 0, Pharmacy: [facility] #6177, 179, cm, 02/19/25 9:54:00 [...] day, # 6 tab(s), Refills(s) 0, Pharmacy: [facility] #[id number], 179, cm, 02/19/25 9:54:00 EDT, Height/ (more content not included)... Normal [facility] Comment on above: Result Comment: Elec tronically Signed By: Keyshawn RODGERS, Sunita Zamarripa\.br\Date and Time Signed: 02/19/25 10:16 EDT No Panel InformationOrdered By: Vanessa Perez on 11-25-2024 [facility] Ambulatory Visit Summaryon 0 11-24-2024 Ambulatory Visit Summary Ambulatory Visit Summary ASHLEY STAPLES :1955 Visit Date:11/24/2024 Ambulatory Visit Instructions Your Diagnosis BPH with obstruction/lower urinary tract symptoms Hypogonadism male Other obstructive and reflux uropathy Your Care Team Attending Physician - Jb MITCHELL MD Primary Care Physician - Sunita Carty MD This Is Your Medications List Contact prescribing [...] Jb MITCHELL MD Where: [facility] [address] [address]- Sunday 1:00 PM EDT With: Where: [address] [address]- Sunday 10:00 AM EDT With: Keyshawn RODGERS, Sunita Zamarripa Where: [address] [address]- You Need to Schedule the Following Appointments Follow Up with STEPHEN RODGERS, LEXIS Herrera When: In 4 days Where: [facility] [address], [place] [address]- Medications What How Much When Instructions Unchanged [...] via t (more content not included)... Normal [facility] Urology Office/Clinic Noteon 11-24-2024 Urology Office/Clinic Note [...] (more content not included)... Normal [facility] Comment on above: Result Comment: Elec tronically Signed By: STEPHEN RODGERS, Jb Abad\.br\Date and Time Signed: 11/24/24 11:08 EST\.br\Electronically Co-Signed [...] MD Primary Care Physician - Sunita Carty MD. [...] Follow-Up Appointments Sunday 9:30 AM EST With: STEPHEN RODGERS, Jb Abad Where: [facility] [address] [place] [id number]- Sunday 1:00 PM EDT With: Where: [place] [id number]- Sunday 10:00 AM EDT With: Keyshawn RODGERS, Sunita Zamarripa Where: [address] [address]- Medications What How Much When [...] us for your care. Reba [facility] Family Medicine Office/Clini c Noteon 11-18-2024 Family [...] sun protection and prior geographical residency in [place]. - Refilled testosterone therapy with adequate monitoring [...] Current blood pressure control is satisfactory. Ordered: [facility] Referral 2. Gastroesophageal reflux disease without esophagitis (K21.9: Gastro-esophageal reflux disease without esophagitis) Symptoms under control with current therapy. Advise continued avoidance of trigger foods to prevent exacerbation. Ordered: [facility] External Ambulatory Referral 3. BMI 28.0-28.9,adult (Z68.28: Body mass index [BMI] 28.0-28.9, adult) BMI education added Ordered: [facility] External Ambulatory Referral 4. Overweight (BMI 25.0-29.9) (E66.3: Overweight) Suggest maintaining healthy diet and exercise regimen to manage weight effectively. Ordered: [facility] External Ambulatory Referral 5. Former smoker (Z87.891: Personal history of nicotine dependence) Former smoker status noted, with no further management required for dependence. Ordered: [facility] External Ambulatory Referral 6. Hypogonadism male (E29.1: [...] (more content not included)... Normal [facility] Comment on above: Result Comment: Elec tronically Signed By: Keyshawn RODGERS, Sunita Lemons\Date and Time Signed: 11/18/24 10:22 EST Ron 11-06-2024 L --- Specimen: [id number] Received: 11/07/24168 Status: ARA Oneil Num: [id number] Spec Type: Surgical Subm Dr: Jb Mitchell MD Tissues: A Prostate - Tur (PROSTATE TISSUE) Procedures: HE/2, Gross/Micro L4 Age/ Patient Sex Location Account Attending Physician Ashley Staples 69/M [facility] [id number] Jb Mitchell MD SPEC NUM: [id number] RECD: 11/07/24 STATUS: ARA MODESTA NUM: [id number] THOMAS: 11/06/24-[address] [facility] [address]: Jb Mitchell MD ENTERED: 11/07/24 [facility] DR: Daniela Gamble SPEC TYPE: Surgical [...] is entirely submitted in A1?A2. (2, ns, BS A) Microscopic Description Microscopic examinations are performed supporting the above interpretation Specimen: [id number] Received: 11/07/24 Status: ARA Rayathais Num: [id number] Spec Type: Surgical Subm Dr: Jb Mitchell MD Tissues: A Prostate - Tur (PROSTATE TISSUE) Procedures: HE/Anabel, Gross/Micro L4 Patient: Ashley Staples [id number] (Continued) Specimen: [id number] Received: 11/07/24 (Continued) Signed (signature on file) Myron Savage MD 11/10/24 1648 Specimen: [id number] Received: 11/07/24 Status: ARA Oneil Num: [id number] Spec Type: Surgical Subm Dr: Jb Mitchell MD Tissues: A Prostate - Tur (PROSTATE TISSUE) Procedures: HE/2, Gross/Micro L4 Patient: Ashley Staples [id number] (Continued) Specimen: [id number] Received: 11/07/24 (Continued) CPT Codes 18746 Specimen: [id number] Received: 11/07/24 Status: ARA Oneil Num: [id number] Spec Type: Surgical Subm Dr: Jb Mitchell MD Tissues: A Prostate - Tur (PROSTATE TISSUE) Procedures: HE/2, Gross/Micro L4 Patient: Ashley Staples [id number] (Continued) Signed (signature on file) Myron Savage MD 11/10/24 1648 Normal [facility] Office Visiton 10-24-2024 Follow-up visit [id number] Ashley Staples 1955 M Date Provider Department Center 10/24/2024 [facility]RAD[facility] DAVIS MARYSOL Clark Family History Problem Relation Age of Onset No Known Problems Mother No Known Problems Father Family Status - Relation Status Age at Mother Alive Father Level of Service:69755 CO OFFICE/OUTPATIENT NEW MODERATE MDM 45 MINUTES Normal [facility] ALL CBC WITH AUTO DIFFon BASOPHILS ABSOLUTE AUTO 0.1 [facility] Basophils/100 WBC (Bld) 1.1 % 0.2 - 2.0 % [facility] Eosinophils/100 WBC (Bld) 2.6 % 0.9 - 7.0 % [facility] Erythrocyte distribution width (RBC) [Ratio] 13.1 % 11.0 - 15.0 % [facility] Hematocrit (Bld) [Volume fraction] 49.4 % 42.0 - 54.0 % [facility] Hemoglobin (Bld) [Mass/Vol] 16 g/dL 14.0 - 18.0 g/dL [facility] IMMATURE GRANULOCYTES ABS AUTO 0.09 High [facility] Immature granulocytes/100 WBC (Bld) 1.7 % High 0.0 - 0.5 % [facility] Interpretation and review of laboratory results Abnormal [facility] LYMPHOCYTES ABSOLUTE AUTO 1.6 [facility] Lymphocytes/100 WBC (Bld) 29.4 % 20.5 - 60.0 % [facility] MCH (RBC) [Entitic mass] 28.8 pg 25.9 - 34.0 pg [facility] MCHC (RBC) [Mass/Vol] 32.4 g/dL 29.9 - 35.2 g/dL [facility] MCV (RBC) [Entitic vol] 89 fL 80.0 - 94.0 fL [facility] MONOCYTES ABSOLUTE AUTO 0.5 [facility] Monocytes/100 WBC (Bld) 8.7 % 1.7 - 12.0 % [facility] NEUTROPHILS ABSOLUTE AUTO 3.1 [facility] Neutrophils/100 WBC (Bld) 56.5 % 43.0 - 75.0 % [facility] Platelet mean volume (Bld) [Entitic vol] 10 fL 9.5 - 13.5 fL [facility] TBH EO # 0.1 [facility] TB PLT 142 Low [facility] RBC 5.55 [facility] WBC 5.4 [facility] US aortaon 09-25-2024 aorta [facility] [address] [place] [address] Ultrasound Report Signed Patient: Ashley Staples MR#: [id number] : 1955 Acct:[id number] Age/Sex: 69 / M ADM Date: 09/25/24 Loc: [facility] Room: Type: [facility] Attending Dr: Favian Baldwin MD Ordering Provider: [...] Favian Baldwin MD09/25/2024 1:23 PM Dictation Location: [place] [address] Tech: Lexii Vitale Transcribed By: LING 09/25/24 1323 Dictated By: Favian Baldwin MD 09/25/24 1321 Signed By: 09/25/24 1323 Normal [facility] CT Chest, Low Dose Screening [...] by: DP Technologist: CML Normal [facility] Testosterone F&Ton Testosterone [Mass/Vol] 698 ng/dL Invalid Interpretation Code 264-916 [facility] Comment on above: Result Comment: Adul t male reference interval is based on a population of healthy nonobese males (BMI <30) between 19 and 39 years old. Leeroy et.al. JCEM 2017,102;2238-6072. PMID: [id number]. Performed By: #### 1 [id number] ####[facility] [address] [place] [address] Testosterone Free [Mass/Vol] 10.4 pg/mL Invalid Interpretation Code 6.6-18.1 [facility] Comment on above: Result Comment: Perf ormed at: [facility] [address] [id number] PhD Reji Kang Performed at: [facility] [address] [id number] MD Arnold Colvin Performed By: #### 1 [id number] ####[facility] [address] [place] [address] Ambulatory Visit Summaryon 0 05-20-2024 Ambulatory Visit Summary Ambulatory Visit Summary KOURTNEYNUPURBouchraASHLEY Bradley :1955 Visit Date:05/20/2024 Ambulatory Visit Instructions Your [...] Appointments Sunday 8:20 AM EDT With: Where: [address] [id number]- Sunday 10:00 AM EST With: Keyshawn RODGERS, Sunita Zamarripa Where: [address] [id number]- Sunday 1:00 PM EDT With: Where: [address] [address]- You Need to Complete the Following Testosterone F&T, Blood, Routine collect, 05/20/24, Order for future visit, Lab Collect, Hypogonadism male Primary hypertension Heart murmur Gastroesophageal reflux disease without esophagitis Nicotine dependence in remission Encounter for screening colonosco... CT Chest, Low Dose Screening, 05/20/24, Routine, Order for future visit, Transport Mode: Ambulatory, Reason: Screening, Yes, Yes, Yes, 1, 30, Yes, 5, [id number], No, Encounter for screening colonoscopy Hypogonadism male [...] We appreci (more content not included)... Normal [facility] Family Medicine Office/Clini c Noteon 05-20-2024 Family [...] labs. Ordered: CT Chest, Low Dose Screening [facility] Internal Ambulatory Referral Testosterone F&T 2. Primary hypertension (I10: Essential (primary) hypertension) - At goal at this time. - Will continue to monitor - Will refill meds. Ordered: CT Chest, Low Dose Screening [facility] Internal Ambulatory Referral Testosterone F&T 3. Heart murmur (R01.1: Cardiac murmur, unspecified) - Stable Ordered: CT Chest, Low Dose Screening [facility] Internal Ambulatory Referral Testosterone F&T 4. Gastroesophageal reflux disease without esophagitis (K21.9: Gastro-esophageal reflux disease without esophagitis) - Stable Ordered: CT Chest, Low Dose Screening [facility] Internal Ambulatory Referral Testosterone F&T 5. Nicotine dependence in remission (F17.201: Nicotine dependence, unspecified, in remission) - LDCT ordered Ordered: CT Chest, Low Dose Screening [facility] Internal Ambulatory Referral Testosterone F&T 6. Encounter for screening colonoscopy (Z12.11: Encounter for screening for malignant neoplasm of colon) - Will order a colonoscopy today. Ordered: CT Chest, Low Dose Screening Testosterone F&T Orders: ketoconazole topical, 1 maine, Topical, Daily, 60 gram, Refill(s) 0, [facility] #[id number], 179, cm, 10/16/23 13:08:00 [...] Instructions losartan 100 mg Tab, See Instructions [facility] Prescription, See Instructions, 3 refills [facility] Prescription, See Instructions, 3 refills Testosterone [...] (more content not included)... Normal [facility] Comment on above: Result Comment: Elec tronically Signed By: Keyshawn RODGERS, Sunita Zamarripa\.br\Date and Time Signed: 05/20/24 10:49 EDT TESTOSTERONE, TOTALon 2022 Testosterone [Mass/Vol] 912 ng/dL Normal 264-916 [facility] Comment on above: Result Comment: Adul t male reference interval is based on a population of healthy nonobese males (BMI <30) between 19 and 39 years old. Leeroy et.al. JCEM 2017,102;2581-4224. PMID: [id number]. Performed By: #### T ESTTOT #### [facility] [address] [place] [address] Dr. Clive Savage CBC AUTO DIFFon 12-26-2022 BASO # 0.0 103/ul Normal 0.0-0.1 [facility] Comment on above: Performed By: #### C BC #### [facility] [address] [place] [address] Dr. Clive Savage Basophils/100 WBC (Bld) 0.5 % Normal 0.2-2.0 [facility] Comment on above: Performed By: #### C BC #### [facility] [address] [place] [address] Dr. Clive Savage EO # 0.1 103/ul Normal 0.0-0.7 [facility] Comment on above: Performed By: #### C BC #### [facility] [address] [place] [address] Dr. Clive Savage Eosinophils/100 WBC (Bld) 2.1 % Normal 0.9-7.0 [facility] Comment on above: Performed By: #### C BC #### [facility] [address] [place] [address] Dr. Clive Savage Erythrocyte distribution width (RBC) [Ratio] 13.6 % Normal 11.0-15.0 [facility] Comment on above: Performed By: #### C BC #### [facility] [address] [place] [address] Dr. Clive Savage Hematocrit (Bld) [Volume fraction] 52.1 % Normal 42.0-54.0 [facility] Comment on above: Performed By: #### C BC #### [facility] [address] [place] [address] Dr. Clive Savage Hemoglobin (Bld) [Mass/Vol] 16.9 g/dL Normal 14.0-18.0 [facility] Comment on above: Performed By: #### C BC #### [facility] [address] [place] [address] Dr. Clive Savage IG # 0.01 10e3/ul Normal 0.00-0.03 [facility] Comment on above: Performed By: #### C BC #### [facility] [address] [place] [address] Dr. Clive Savage IG % 0.2 % Normal 0.0-0.5 [facility] Comment on above: Performed By: #### C BC #### [facility] [address] [place] [address] Dr. Clive Savage LYMPH # 1.9 103/ul Normal 1.2-3.8 [facility] Comment on above: Performed By: #### C BC #### [facility] [address] [place] [address] Dr. Clive Savage Lymphocytes/100 WBC (Bld) 32.6 % Normal 20.5-60.0 [facility] Comment on above: Performed By: #### C BC #### [facility] [address] [place] [address] Dr. Clive Savage MANUAL DIFF REQ NO Normal [facility] Comment on above: Performed By: #### C BC #### [facility] [address] [place] [address] Dr. Clive Savage MCH (RBC) [Entitic mass] 28.5 pg Normal 25.9-34.0 [facility] Comment on above: Performed By: #### C BC #### [facility] [address] [place] [address] Dr. Clive Savage MCHC (RBC) [Mass/Vol] 32.4 g/dL Normal 29.9-35.2 [facility] Comment on above: Performed By: #### C BC #### [facility] [address] [place] [address] Dr. Clive Savage MCV (RBC) [Entitic vol] 87.7 fL Normal 80.0-94.0 [facility] Comment on above: Performed By: #### C BC #### [facility] [address] [place] [address] Dr. Clive Savage MONO # 0.4 103/ul Normal 0.3-0.8 [facility] Comment on above: Performed By: #### C BC #### [facility] [address] [place] [address] Dr. Clive Savage Monocytes/100 WBC (Bld) 6.7 % Normal 1.7-12.0 [facility] Comment on above: Performed By: #### C BC #### [facility] [address] [place] [address] Dr. Clive Savage NEUT # 3.4 103/ul Normal 1.4-6.5 [facility] Comment on above: Performed By: #### C BC #### [facility] [address] [place] [address] Dr. Clive Savage Neutrophils/100 WBC (Bld) 57.9 % Normal 43.0-75.0 [facility] Comment on above: Performed By: #### C BC #### [facility] [address] [place] [address] Dr. Clive Savage Platelet mean volume (Bld) [Entitic vol] 9.1 fL Critically low 9.5-13.5 [facility] Comment on above: Performed By: #### C BC #### [facility] [address] [place], [place] [id number] Dr. Clive Savage PLT 169 103/ul Normal 150-450 [facility] [facility] Comment on above: Performed By: #### C BC #### [facility] [address] [place] [address] Dr. Clive Savage RBC 5.94 106/ul Normal 4.70-6.10 [facility] Comment on above: Performed By: #### C BC #### [facility] [address] [place] [address] Dr. Clive Savage WBC 5.8 103/ul Normal 4.0-11.0 [facility] Comment on above: Performed By: #### C BC #### [facility] [address] [place] [address] Dr. Clive Savage LIPID PROFILEon 12-26-2022 CHOL-HDL RATIO NORM SEE BELOW Normal [facility] Comment on above: Result Comment: 3.3 - 4.4 LOW RISK 4.4 - 7.1 AVERAGE RISK 7.1 - 11.0 MODERATE RISK >11.0 HIGH RISK Performed By: #### L IPID, CMP #### [facility] [address] [place] [address] Dr. Clive Savage Cholesterol [Mass/Vol] 132 mg/dL Normal <=200 [facility] Comment on above: Performed By: #### L IPID, CMP #### [facility] [address] [place] [address] Dr. Clive Savage Cholesterol in HDL [Mass/Vol] 45 mg/dL Normal 40-60 [facility] Comment on above: Performed By: #### L IPID, CMP #### [facility] [address] [place] [address] Dr. Clive Savage Cholesterol in LDL [Mass/Vol] 70.8 mg/dL Normal [facility] Comment on above: Performed By: #### L IPID, CMP #### [facility] [address] [place] [address] Dr. Clive Savage Cholesterol.total/Cho lesterol in HDL [Mass ratio] 2.9 {ratio} Normal [facility] Comment on above: Performed By: #### L IPID, CMP #### [facility] [address] [address] [address] Clive Savage HDL NORMAL > or = 60 mg/dl - LO W CARDIOVASCULAR RISK <40 mg/dl - HIGH CARDIOVASCULAR RISK Normal [facility] Comment on above: Performed By: #### L IPID, CMP #### [facility] [address] [address] [address] Clive Savage LDL CALC NORMAL SEE BELOW Normal [facility] Comment on above: Result Comment: <100 mg/dl OPTIMAL 100 - 129 mg/dl NEAR OR ABOVE OPTIMAL 130 - 159 mg/dl BORDERLINE HIGH 160 - 189 mg/dl HIGH >190 mg/dl VERY HIGH Performed By: #### L IPID, CMP #### [facility] [address] [place] [address] Dr. Clive Savage Triglyceride [Mass/Vol] 81 mg/dL Normal <=150 [facility] Comment on above: Performed By: #### L IPID, CMP #### [facility] [address] [address] [address] Clive Savage VLDL CALC 16.2 mg/dL Normal [facility] Comment on above: Performed By: #### L IPID, CMP #### [facility] [address] [place] [address] Dr. Clive Savage PROF 14(COMP METB)on 023 Albumin [Mass/Vol] 4.0 g/dL Normal 3.4-5.0 [facility] Comment on above: Performed By: #### L IPID, CMP #### [facility] [address] [place] [address] Dr. Clive Savage Albumin/Globulin [Mass ratio] 1.2 {ratio} Normal [facility] Comment on above: Performed By: #### L IPID, CMP #### [facility] [address] [place] [address] Dr. Clive Savage ALP [Catalytic activity/Vol] 60 U/L Normal 46-116 [facility] Comment on above: Performed By: #### L IPID, CMP #### [facility] [address] [place] [address] Dr. Clive Savage ALT [Catalytic activity/Vol] 42 U/L Normal 16-63 [facility] Comment on above: Performed By: #### L IPID, CMP #### [facility] [address] [address] [address] Clive Savage Anion gap [Moles/Vol] 6.6 mmol/L Normal [facility] Comment on above: Performed By: #### L IPID, CMP #### [facility] [address] [address] [address] Clive Savage AST [Catalytic activity/Vol] 17 U/L Normal 15-37 [facility] Comment on above: Performed By: #### L IPID, CMP #### [facility] [address] [place] [address] Dr. Clive Savage Bilirubin [Mass/Vol] 0.4 mg/dL Normal 0.2-1.0 [facility] Comment on above: Performed By: #### L IPID, CMP #### [facility] [address] [place] [address] Dr. Clive Savage Calcium [Mass/Vol] 9.4 mg/dL Normal 8.5-10.1 [facility] Comment on above: Performed By: #### L IPID, CMP #### [facility] [address] [place] [address] Dr. Clive Savage Chloride [Moles/Vol] 102 mmol/L Normal 98-107 [facility] Comment on above: Performed By: #### L IPID, CMP #### [facility] [address] [place] [address] Dr. Clive Savage CO2 [Moles/Vol] 34.8 mmol/L Critically high 21.0-32.0 [facility] Comment on above: Performed By: #### L IPID, CMP #### [facility] [address] [place] [address] Dr. Clive Savage Creatinine [Mass/Vol] 0.88 mg/dL Normal 0.70-1.30 [facility] Comment on above: Performed By: #### L IPID, CMP #### [facility] [address] [address] [address] Clive Savage EGFR-AF TURKS AND CAICOS ISLANDER >60 Normal >=[address] [facility] Comment on above: Performed By: #### L IPID, CMP #### [facility] [address] [address] [address] Clive Savage EGFR-NON AF TURKS AND CAICOS ISLANDER >60 Normal >=60 [facility] Comment on above: Performed By: #### L IPID, CMP #### [facility] [address] [address] [address] Clive Savage Globulin (S) [Mass/Vol] 3.3 g/dL Normal [facility] Comment on above: Performed By: #### L IPID, CMP #### [facility] [address] [address] [address] Clive Savage Glucose [Mass/Vol] 123 mg/dL Critically high 74-106 [facility] Comment on above: Performed By: #### L IPID, CMP #### [facility] [address] [address] [address] Clive Savage Potassium [Moles/Vol] 4.4 mmol/L Normal 3.5-5.1 [facility] Comment on above: Performed By: #### L IPID, CMP #### [facility] [address] [address] [address] Clive Savage Protein [Mass/Vol] 7.3 g/dL Normal 6.4-8.2 [facility] Comment on above: Performed By: #### L IPID, CMP #### [facility] [address] [place] [address] Dr. Clive Savage Sodium [Moles/Vol] 139 mmol/L Normal 136-145 [facility] Comment on above: Performed By: #### L IPID, CMP #### [facility] [address] [address] [address] Clive Savage Urea nitrogen [Mass/Vol] 9.0 mg/dL Normal 7.0-18.0 [facility] Comment on above: Performed By: #### L IPID, CMP #### [facility] [address] [place], [place] [address] Dr. Clive Savage Urea nitrogen/Creatinine [Mass ratio] 10.2 mg/mg Normal [facility] Comment on above: Performed By: #### L IPID, CMP #### [facility] [address] [place], [place] [address] Dr. Clive Savage MRI Shoulder w/o Lefton [...] by Satnam Clayton on 04/12/2022 1452 Normal [facility] Control Analyst CNOVon 12-15-2021 CNOV Office Visit (NIEVES ) ASHLEY STAPLES ([id number]) 1955 M Date Time Provider Department 12/15/21 9:00 AM DAKOTA BARRON During your visit today, we recorded the following information about you: Pulse Blood pressure Weight 68/minute 148/79 83.5 kg [place] 12/15/2021 9:13 AM Signed Ashley Staples is a 66 year old year old right handed man Accompanied by: spouse. 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 What would you like to accomplish with this visit today? I want more information about what I got. Vital Signs: BP 148/79 Pulse 68 Wt 83.5 kg (184 lb) Dakota Barron MD 12/16/2021 10:13 AM Signed [facility] New Patient Evaluation Ashley Staples : 1955 12/15/2021 9:30 AM Referral Source Aure Mckeon [address] [facility] [address] Accompanied by: spouse Identifying Information: Ashley Staples is a 66 year old White, male with a past medical history of HTN, HLD, T2DM, AVS, AAA, testicular hypofunction, migraines and past neuropsychiatric history of anxiety who is presenting to [facility] today with a chief complaint [...] isolated to comments made by a specific 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 Hallucinations/Delusion s: ? Socially inappropriate behavior: none ? Perseverative [...] Abdominal ao (more content not included)... Normal [facility] Vital Signs Date Time Vital Sign Value Performing Clinician Facility 06-11-2025 10:56-0400 Body height 175.26 cm Shraddha Yeung APRN Work Phone: [facility] 06-11-2025 10:56-0400 Body mass index (BMI) [Ratio] 26.6 kg/m2 Shraddha Yeung APRN Work Phone: [facility] 06-11-2025 10:56-0400 Body weight 81.64 kg Shraddha Yeung APRN Work Phone: [facility] 06-11-2025 10:56-0400 Diastolic blood pressure 74 mm[Hg] Shraddha Yeung APRN Work Phone: [facility] 06-11-2025 10:56-0400 Heart rate 63 /min Shraddha Yeung APRN Work Phone: [facility] 06-11-2025 10:56-0400 SaO2% (BldA) [Mass fraction] 97 % Shraddha Yeung APRN Work Phone: [facility] 06-11-2025 10:56-0400 Systolic blood pressure 138 mm[Hg] Shraddha Yeung APRN Work Phone: [facility] 05-05-2025 11:01-0400 Body height 175.3 cm Ashley Setin DO Work Phone: [facility] 05-05-2025 11:01-0400 Body mass index (BMI) [Ratio] 26.43 kg/m2 Ashley Stein DO Work Phone: [facility] 05-05-2025 11:01-0400 Body weight 81.19 kg Ashley Stein DO Work Phone: [facility] 04-28-2025 10:55-0400 Body height 175.3 cm Ashley Stein DO Work Phone: [facility] 04-28-2025 10:55-0400 Body mass index (BMI) [Ratio] 26.43 kg/m2 Ashley Stein DO Work Phone: [facility] 04-28-2025 10:55-0400 Body weight 81.19 kg Ashley Stein DO Work Phone: [facility] 04-21-2025 10:42-0400 Body height 175.3 cm Ashley Stein DO Work Phone: [facility] 04-21-2025 10:42-0400 Body mass index (BMI) [Ratio] 26.43 kg/m2 Ashley Stein DO Work Phone: [facility] 04-21-2025 10:42-0400 Body weight 81.19 kg Ashley Stein DO Work Phone: [facility] 04-07-2025 08:51-0400 Body height 175.3 cm Ashley Stein DO Work Phone: [facility] 04-07-2025 08:51-0400 Body mass index (BMI) [Ratio] 26.43 kg/m2 Ashley Stein DO Work Phone: [facility] 04-07-2025 08:51-0400 Body weight 81.19 kg Ashley Stein DO Work Phone: [facility] 09-21-2022 12:00-0500 Body height 180.34 cm Favian Baldwin Other [facility] Other 09-21-2022 12:00-0500 Body mass index (BMI) [Ratio] 25.38 kg/m2 Favian Baldwin Other [facility] Other 09-21-2022 12:00-0500 Body temperature 97.4 [degF] Favian Baldwin Other [facility] Other 09-21-2022 12:00-0500 Body weight 82.56 kg Favian Baldwin Other [facility] Other 09-21-2022 12:00-0500 Diastolic blood pressure 66 mm[Hg] Favian Baldwin Other [facility] Other 09-21-2022 12:00-0500 SaO2% (BldA) [Mass fraction] 99 % Favian Pottsanna Other [facility] Other 09-21-2022 12:00-0500 Systolic blood pressure 116 mm[Hg] Favian Baldwin Other [facility] Other 06-15-2022 13:30-0400 Body height 180.34 cm Favian Nicolasa Other [facility] Other 06-15-2022 13:30-0400 Body mass index (BMI) [Ratio] 25.38 kg/m2 Favian Baldwin Other [facility] Other 06-15-2022 13:30-0400 Body temperature 97.4 [degF] Favian Nicolasa Other [facility] Other 06-15-2022 13:30-0400 Body weight 82.56 kg Favian Nicolasa Other [facility] Other 06-15-2022 13:30-0400 Diastolic blood pressure 78 mm[Hg] Favian Baldwin Other [facility] Other 06-15-2022 13:30-0400 SaO2% (BldA) [Mass fraction] 98 % Favian Baldwin Other [facility] Other 06-15-2022 13:30-0400 Systolic blood pressure 128 mm[Hg] Favian Baldwin Other [facility] Other Encounters Encounter Date Encounter Type Care Provider Facility Start: 05-24-2026 ambulatory Shanti L Sameer Facility: [facility] Start: 01-22-2026 ambulatory Shanti L Sameer Facility: [facility] Start: 07-30-2025 ambulatory Shanti L Sameer Facility: [facility] Start: 07-27-2025 End: 07-27-2025 ambulatory Jb MITCHELL Facility: [place] Start: 07-24-2025 End: 07-24-2025 ambulatory Shanti L Sameer Facility: [facility] Start: 07-20-2025 End: 07-20-2025 ambulatory Shanti L Sameer Facility:[facility] Start: 07-13-2025 End: 07-13-2025 ambulatory Shanti L Sameer Facility: [facility] Start: 06-11-2025 End: 06-11-2025 ambulatory NON STAFF [facility] Work Phone: Start: 06-11-2025 End: 06-11-2025 Patient encounter procedure Shraddha Joseph [employer]USE[employer] ATTENDANT [facility] [place] Work Phone: Start: 06-11-2025 End: 06-11-2025 ambulatory Shanti L Sameer Facility: [facility] Start: 05-29-2025 End: 05-29-2025 ambulatory Shanti L Sameer Facility: [facility] Start: 05-19-2025 End: 05-19-2025 ambulatory Sunita Carty Facility: [facility] Start: 05-05-2025 End: 05-05-2025 Bamboo flowsheet Ashley Stein DO Work Phone: [facility] Start: 05-05-2025 End: 05-05-2025 Bamboo flowsdeborah Stein DO Work Phone: [facility] Start: 05-05-2025 End: 05-05-2025 Patient encounter procedure Ashley Stein DO Work Phone: [facility] Comment on above: Primary osteoarthrit is of left knee (Primary Dx) Start: 05-05-2025 End: 05-05-2025 ambulatory ASHLEY STEIN Not Available Start: 05-04-2025 End: 05-04-2025 ambulatory Shanti L Sameer Facility:[facility] Start: 05-01-2025 End: 05-01-2025 ambulatory Shanti L Sameer Facility:[facility] Start: 04-28-2025 End: 04-28-2025 Bamboo flowsheet Ashley Stein DO Work Phone: [facility] Start: 04-28-2025 End: 04-28-2025 Bamboo flowsheet Ashley Setin DO Work Phone: [facility] Start: 04-28-2025 End: 04-28-2025 Patient encounter procedure Ashley Stein DO Work Phone: [facility] Comment on above: Left knee pain, unsp ecified chronicity (Primary Dx); Primary osteoarthritis of left knee Start: 04-28-2025 End: 04-28-2025 ambulatory ASHLEY STEIN Not Available Start: 04-27-2025 End: 05-29-2025 ambulatory Shanti L Sameer Facility:[id number] Start: 04-21-2025 End: 04-21-2025 Bamboo flowsheet Ashley Stein DO Work Phone: [facility] Start: 04-21-2025 End: 04-21-2025 Bamboo flowsdeborah Stein DO Work Phone: [facility] Start: 04-21-2025 End: 04-21-2025 Patient encounter procedure Ashley Stein DO Work Phone: [facility] Comment on above: Primary osteoarthrit is of left knee (Primary Dx); Left knee pain, unspecified chronicity Start: 04-21-2025 End: 04-21-2025 ambulatory ASHLEY STEIN Not Available Start: 04-13-2025 End: 04-13-2025 ambulatory Shanti L Sameer Facility:[facility] Start: 04-07-2025 End: 04-07-2025 Bamboo flowsdeborah Stein DO Work Phone: [facility] Start: [...] Available Start: 03-30-2025 ambulatory MD Sunita Carty [facility] ity:[facility] Start: 03-27-2025 End: 03-27-2025 ambulatory Jb MITCHELL Facility:[facility] Start: 03-20-2025 End: 03-20-2025 Bamboo flowsheet Guille Nathan BOX OFFICE AGENT Work Phone: [facility] Start: 03-20-2025 End: 03-20-2025 Bamboo flowsheet Guille Nathan BOX OFFICE AGENT Work Phone: [facility] Start: 03-20-2025 End: 03-20-2025 Office outpatient visit 15 minutes Guille Nathan BOX OFFICE AGENT Work Phone: [facility] Comment on above: Primary osteoarthrit is of left knee (Primary Dx); Left knee pain, unspecified chronicity Start: 03-20-2025 End: 03-20-2025 ambulatory GUILLE NATHAN Not Available Start: 02-27-2025 End: 02-27-2025 ambulatory MD Sunita Carty Facility:[facility] Start: 02-19-2025 End: 02-19-2025 ambulatory Sunita Carty Facility:[facility] Start: 11-25-2024 End: 11-25-2024 [facility] Start: 11-25-2024 End: 11-25-2024 Bamboo flowsheet Josie [facility] Work Phone: [facility] Start: 11-25-2024 End: 02-11-2025 Office outpatient new 30 minutes Josie East PA Work Phone: [facility] Comment on above: Capillary angioma (P rimary Dx); Seborrheic keratosis; Melanocytic nevus of trunk; Lentigo simplex; Actinic keratosis Start: 11-25-2024 End: 11-25-2024 ambulatory JOSIE EAST Not Available Start: 11-24-2024 End: 11-24-2024 ambulatory Jb MITCHELL Facility:[facility] Start: 11-18-2024 End: 11-18-2024 ambulatory MD Sunita Carty Facility:[facility] Start: 11-10-2024 End: 11-10-2024 ambulatory Jb MITCHELL Facility:[facility] Start: 11-06-2024 End: 11-06-2024 ambulatory Jb Mitchell Facility:[facility] Start: 11-06-2024 End: 11-06-2024 ambulatory Jb MITCHELL Facility:[id number] Start: 10-24-2024 End: 10-24-2024 ambulatory RADHA [facility] Start: 10-20-2024 End: 10-20-2024 Clinisync Result Encounter Generic External Data Provider [facility] External Department Unsolicited Start: 10-20-2024 End: 10-20-2024 Clinisync Result Encounter Generic External Data Provider [facility] External Department Unsolicited Start: 09-25-2024 End: 09-25-2024 ambulatory Favian Baldwin Facility:[facility] Start: 09-23-2024 End: 09-24-2024 Telephone encounter Guille Nathan BOX OFFICE AGENT Work Phone: [facility] Comment on above: PT Start: 09-09-2024 End: 09-09-2024 Bamboo flowsheet Guille Nathan BOX OFFICE AGENT Work Phone: [facility] Start: 09-09-2024 End: 09-09-2024 Bamboo flowsheet Guille Nathan BOX OFFICE AGENT Work Phone: [facility] Start: 09-09-2024 End: 09-09-2024 ambulatory GUILLE NATHAN Not Available Start: 09-09-2024 End: 09-09-2024 Office outpatient visit 10 minutes Guille Nathan BOX OFFICE AGENT Work Phone: [facility] Comment on above: Primary osteoarthrit is of left knee (Primary Dx); Primary osteoarthritis of right knee Start: 07-07-2024 End: 07-07-2024 ambulatory Sunita Carty Facility:[facility] Start: 06-02-2024 End: 06-02-2024 ambulatory Yolanda Guajardo Facility:[facility] Start: 05-27-2024 End: 05-27-2024 ambulatory MD Sunita Carty Facility:[facility] Start: 05-20-2024 ambulatory MD Sunita Carty Facility :[facility] Start: 05-20-2024 End: 05-20-2024 ambulatory MD Sunita Carty Facility:[facility] Start: 12-26-2022 End: 12-27-[address] AURE MCKEON . Facility: Start: 09-21-2022 End: 09-21-2022 ambulatory Favian Baldwin Other [facility] Other Start: 09-21-2022 Office outpatient vi sit 15 minutes Favian Baldwin [facility] V[facility] Surgery Start: 06-15-2022 End: 06-15-2022 ambulatory Favian Baldwin Other [facility] Other Start: 06-15-2022 Office outpatient vi sit 15 minutes Favian Baldwin [facility] V[facility] Surgery Procedures Date Procedure Procedure Detail Performing Clinician Start: 05-05-2025 Arthrocentesis aspir &/inj major jt/bursa w/o us Ashley Stein DO Work Phone: Start: 04-28-2025 Arthrocentesis aspir &/inj major jt/bursa w/o us Ashley Stein DO Work Phone: Start: 04-21-2025 Arthrocentesis aspir &/inj major jt/bursa w/o us Ashley Stein DO Work Phone: Start: 03-20-2025 Radiologic examinati on knee 3 views Guille Nathan NP Work Phone: Start: 11-25-2024 CRYOTHERAPY SKIN LESION Josie VICENTE Work Phone: Start: 10-20-2024 ALL CBC WITH AUTO DIFF Generic External Data Provider Start: 12-26-[address] AURE WALKER . Comment on above: Performed By: #### P SAD #### [facility] [address] [place] [address] Dr. Clive Savage Plan of Treatment Date Care Activity Detail Author Start: 05-05-2025 End: 05-05-2025 Patient encounter procedure [facility] Comment on above: Primary osteoarthrit is of left knee (Primary Dx) Start: 04-28-2025 End: 04-28-2025 Patient encounter procedure [facility] Comment on above: Left knee pain, unsp ecified chronicity (Primary Dx); Primary osteoarthritis of left knee Start: 04-21-2025 End: 04-21-2025 Patient encounter procedure 04/21/2025 11:00 AM EDT Procedure Visit [facility] [address] [place] [address] Ashley Stein, DO [address] [place] [address] Left knee pain, unspecified chronicity (Primary Dx); Primary osteoarthritis of left knee [facility] Comment on above: Left knee pain, unsp ecified chronicity (Primary Dx); Primary osteoarthritis of left knee Start: 04-07-2025 End: 04-07-2025 Patient encounter procedure 04/07/2025 9:00 AM EDT Office Visit [facility] [address] [place] [address] Ashley Stein, DO [address] [place] [address] Left knee pain, unspecified chronicity (Primary Dx); Primary osteoarthritis of left knee [facility] Comment on above: Left knee pain, unsp ecified chronicity (Primary Dx); Primary osteoarthritis of left knee Start: 03-20-2025 End: 03-20-2025 Patient encounter procedure 03/20/2025 8:45 AM EDT Office Visit [facility] [address] [facility] [place] [address] Guille Nathan, BOX OFFICE AGENT [address] [place] [address] Arrived [facility] Comment on above: Arrived Start: 11-25-2024 End: 11-25-2024 Patient encounter procedure 11/25/2024 11:00 AM EST Office Visit [facility] [address] [place] [address] Josie East PA [address] [place] [address] Arrived [facility] Comment on above: Arrived Payers Date Payer Category Payer Self-pay 2023 Medicare (Managed Care) 1.2. [id number] 2022 Private Health Insurance [id number] 1960 Medicare [id number] 1955 Unknown [id number] .[id number] 1955 Unknown [id number] 2.840.1.630490.3.579.2.727 1954 Unknown [id number] 2.16840.1.528453.3.579.2.72 1954 Unknown [id number] 2.840.1.539779.3.579.2.727 1954 Unknown [id number] 2.840.1.136614.3.579.2.72 1954 Unknown [id number] 2.16.840.1.252397.3.579.2.72 1954 Unknown [id number] 2.16.840.1.069461.3.579.2. 1954 Unknown [id number] 2.16.840.1.620238.3.579.2. 1954 Unknown [id number] 2.16.840.1.528409.3.579.2. 1954 Unknown [id number] 2.16.840.1.887060.3.579.2. 1954 Unknown [id number] 2.16.840.1.757727.3.579.2. 1954 Unknown [id number] 2.16.840.1.732961.3.579.2. 1954 Unknown [id number] 2.16.840.1.525826.3.579.2. 1954 Unknown [id number] 2.16.840.1.339958.3.579.2. 1954 Unknown [id number] 2.16.840.1.669943.3.579.2. 1954 Unknown [id number] 2.16.840.1.849526.3.579.2. 1954 Unknown [id number] 2.16.840.1.054175.3.579.2.125 1954 Unknown [id number] 2.16.840.1.182833.3.579.2.1258 1954 Unknown [id number] 2.16.840.1.627532.3.579.2.1258 1954 Unknown [id number] 2.16.840.1.634024.3.579.2.125 1954 Unknown [id number] 2.16.840.1.775997.3.579.2.1259 1954 Unknown [id number] 2.16.840.1.396521.3.579.2.125 1954 Unknown [id number] 2.16.840.1.519886.3.579.2.125 1954 Unknown [id number] 2.16.840.1.552157.3.579.2.125 1954 Unknown [id number] 2.16.840.1.089562.3.579.2.72 1954 Unknown [id number] 2.16.840.1.209643.3.579.2. 1954 Unknown [id number] 2.16.840.1.969973.3.579.2. 1954 Unknown [id number] 2.16.840.1.165412.3.579.2. 1954 Unknown [id number] 2.16.840.1.599064.3.579.2. 1954 Unknown [id number] 2.16.840.1.302590.3.579.2. 1954 Unknown [id number] 2.16.840.1.140719.3.579.2. 1954 Unknown [id number] 2.16.840.1.483975.3.579.2.72 1954 Unknown [id number] 2.16.840.1.829732.3.579.2.72 1954 Unknown [id number] 2.16.840.1.689746.3.579.2.72 1954 Unknown [id number] 2.16.840.1.698832.3.579.2.72 1954 Unknown [id number] 2.16.840.1.696478.3.579.2.724 Unknown [id number] 2.16.840.1.102397.3.579.2.727 1954 Unknown [id number] 2.16.840.1.867947.3.579.2.727 Medicare [id number] 2 .16.840.1.130262.19 Private Health Insurance [facility] 1 [id number] Unknown [id number] Unknown [id number] Social History Date Type Detail Facility Start: 04-28-2024 End: 04-21-2025 Sex Assigned At [facility] Other Start: 04-14-2024 End: 09-25-2024 Tobacco smoking status NHIS Ex-smoker [facility] History of tobacco use Current smoker [facility] History of tobacco use Cigarette Smoker [facility] Start: 04-28-2024 End: 04-21-2025 History of Social function [facility] Start: 1955 Sex assigned at Not on file [facility] Sex Male (finding) [facility] Start: 1955 Sex Assigned At Male F [facility] Clinical Notes 12-15-2021 to 07-13-2025 Rebecca Clarke MA - 05/05/2025 11:00 AM Lidia Stein DO - 05/05/2025 11:00 AM Chani Clarke MA - 04/28/2025 11:00 AM Subhash Ramos MA - 04/21/2025 11:00 AM EDT Note Date & Type Note Facility 07-13-2025 Note Nurse Consultation N ote Reason for Visit Pt presents today for ear wash. Medications amLODIPine 5 mg Tab, See Instructions, 4 refills aspirin, 325 mg, Oral, Daily atorvastatin 20 mg Tab, See Instructions, 4 refills Bentyl Bentyl 10 mg Cap, 10 mg= 1 cap(s), Oral, QID, PRN, 1 refills lansoprazole 30 mg Cap-DR, See Instructions losartan 100 mg Tab, See Instructions [facility], See Instructions, 3 refills [facility] Prescription, See Instructions, 3 refills Rexulti 1 mg oral tablet, Oral, Daily SUMAtriptan 50 mg Tab, See Instructions tamsulosin 0.4 mg Cap, 0.4 mg= 1 cap(s), Oral, Daily, 11 refills Testosterone Cypionate 200 mg/mL intramuscular solution, 200 mg= 1 mL, IntraMuscular, q3wk, 1 refills Trintellix 5 mg oral tablet, 5 mg= 1 tab(s), Oral, Daily Vitamin D3, 50 mcg, Oral, Daily Allergies No Known Allergies Immunizations Vaccine Date Status influenza virus vaccine, inactivated 08/20/2024 Recorded influenza virus vaccine, inactivated 08/29/2023 Recorded influenza [...] zoster vaccine live 09/28/2014 Recorded [facility] 05-19-2025 Note Patient Education Cardiovascular Managing Your Hypertension Hypertension, also called high blood pressure, is when the force of the blood pressing against the white of the arteries is too strong. Arteries are blood vessels that carry blood from your heart throughout your body. Hypertension forces the heart to work harder to pump blood and may cause the arteries to become narrow or stiff. Understanding blood pressure readings A blood pressure reading includes a higher number over a lower number: ??? The first, or top, number is called the systolic pressure. It is a measure of the pressure in your arteries as your heart beats. ??? The second, or bottom number, is called the diastolic pressure. It is a measure of the pressure in your arteries as the heart relaxes. For most people, a normal blood pressure is below 120/80. Your personal target blood pressure may vary depending on your medical conditions, your age, and other factors. Blood pressure is classified into four stages. Based on your blood pressure reading, your health care provider may use the following stages to determine what type of treatment you need, if any. Systolic pressure and diastolic pressure are measured in a unit called millimeters of mercury (mmHg). Normal ??? Systolic pressure: below 120. ??? Diastolic pressure: below 80. Elevated ??? Systolic pressure: 120?129. ??? Diastolic pressure: below 80. Hypertension stage 1 ??? Systolic pressure: 130?139. ??? Diastolic pressure: 80?89. Hypertension stage 2 ??? Systolic pressure: 140 or above. ??? Diastolic pressure: 90 or above. How can this condition affect me? Managing your hypertension is very important. Over time, hypertension can damage the arteries and decrease blood flow to parts of the body, including the brain, heart, and kidneys. Having untreated or uncontrolled hypertension can lead to: ??? A heart attack. ??? A stroke. ??? A weakened blood vessel (aneurysm). ??? Heart failure. ??? Kidney damage. ??? Eye damage. ??? Memory and concentration problems. ??? Vascular dementia. What actions can I take to manage this condition? Hypertension can be managed by making lifestyle changes and possibly by taking medicines. Your health care provider will help you make a plan to bring your blood pressure within a normal range. You may be referred for counseling on a healthy diet and physical activity. Nutrition ??? Eat a diet that is high in fiber and potassium, and low in salt (sodium), added sugar, and fat. An example eating plan is called the DASH diet. DASH stands for Dietary Approaches to Stop Hypertension. To eat this way: ? Eat plenty of fresh fruits and vegetables. Try to fill one-half of your plate at each meal with fruits and vegetables. ? Eat whole grains, such as whole-wheat pasta, brown rice, or whole-grain bread. Fill about one-fourth of your plate with whole grains. ? Eat low-fat dairy products. ? Avoid fatty cuts of meat, processed or cured meats, and poultry with skin. Fill about one-fourth of your plate with lean proteins such as fish, chicken without skin, beans, eggs, and tofu. ? Avoid pre-made and processed foods. These tend to be higher in sodium, added sugar, and fat. ??? Reduce your daily sodium intake. Many people with hypertension should eat less than 1,500 mg of sodium a day. Lifestyle ??? Work with your health care provider to maintain a healthy body weight or to lose weight. Ask what an ideal weight is for you. ??? Get at least 30 minutes of exercise that causes your heart to beat faster (aerobic exercise) most days of the week. Activities may include walking, swimming, or biking. ??? Include exercise to strengthen your muscles (resistance exercise), such as weight lifting, as part of your weekly exercise routine. Try to do these types of exercises for 30 minutes at least 3 days a week. ??? Do not use any products that contain nicotine or tobacco. These products include cigarettes, chewing tobacco, and vaping devices, such as e-cigarettes. If you need help quitting, ask your health care provider. ??? Control any long-term (chronic) conditions you have, such as high cholesterol or diabetes. ??? Identify your sources of stress and find ways to manage stress. This may include meditation, deep breathing, or making time for fun activities. Alcohol use ??? Do not drink alcohol if: ? Your health care provider tells you not to drink. ? You are , may be , or are planning to become . ??? If you drink alcohol: ? Limit how [...] 1? oz glass of hard liquor (44 mL). Medicines Your health care provider may prescribe medicine if lifestyle changes are not enough (more content not included)... [facility] 05-05-2025 History of Present illness Narrative Associated Order(s): L Inj/Asp: L knee Post-Procedure Diagnose(s): Primary osteoarthritis of left knee L Inj/Asp: L knee on 05/05/2025 11:01 AM Indications: pain Details: 21 G needle Medications: 2 mL sodium hyaluronate 16.8 MG/2ML GelSYn 3 of 3 Injection Left knee Patient is seen and evaluated today for left knee pain and stiffness. Continued swelling and stiffness despite conservative course with ice, Tylenol, NSAID's and compression. Occasional buckle sensation. Pt did well with last two weeks injections without reaction. Physical Exam: The patient is examined in [...] parameters and daily limits for breakt thru pain was reviewed. Cortisone injections can be provided up to 3 per year and no closer than a month interval. Hyaluronic acid viscosupplementation options and expectations were discussed at length. Patient is aware results are not guaranteed. We discussed the role of knee replacement surgery, indications, approach, implants, and rehab process were all reviewed. After lengthy discussion, the patient elects to move forward with the third viscosupplementation injection with GelSYn to the left knee. Under sterile technique with the knee extended and supported, 2 ml of GelSyn was injected to the left knee suprapatellar pouch. Needle was removed and adequate hemostasis was achieved. The patient tolerated the injection well. Post injection restriction of 50% activity reduction the day of the injection with icing techniques 1-2 times per 10-15 minutes to the knee was reviewed. Patient was ambulatory and discharged in stable condition. Any reactions, concerns or continued pain will be reported via phone call or return visit. All questions were answered. Follow-up in 2 months if having pain or concerns. documented in this encounter [facility] 04-28-2025 History of Present illness Narrative Associated Order(s): L Inj/Asp: L knee Post-Procedure Diagnose(s): Left knee pain, unspecified chronicity L Inj/Asp: L knee on 04/28/2025 10:55 AM Indications: pain Details: 21 G needle Medications: 2 mL sodium hyaluronate 16.8 MG/2ML documented in this encounter [facility] 04-21-2025 History of Present illness Narrative Associated Order(s): L Inj/Asp: L knee Post-Procedure Diagnose(s): Primary osteoarthritis of left knee L Inj/Asp: L knee on 04/21/2025 10:42 AM Indications: diagnostic evaluation Details: 22 G needle Medications: 2 mL sodium hyaluronate 16.8 MG/2ML Outcome: tolerated well, no immediate complications Consent was given by the patient. GelSyn 1 of 3 Injection Left knee [...] parameters and daily limits for breakt thru pain was reviewed. Cortisone injections can be provided up [...] with GelSyn to the left knee. Under sterile technique with the knee extended and supported, 2 ml of GelSyn was injected to the left knee suprapatellar pouch. Needle was removed and adequate hemostasis was achieved. The patient tolerated the injection well. Post injection restriction of 50% activity reduction the day of the injection with icing techniques 1-2 times per 10-15 minutes to the knee was reviewed. Patient was ambulatory and discharged in stable condition. Any reactions, concerns or continued pain will be reported via phone call or return visit. All questions were answered. Follow-up next week for second GelSyn injection left knee. documented in this encounter [facility] 04-07-2025 History of Present illness Narrative Images [...] or infection seen. These are taken through [facility] dated 03-20-2025 from their permanent record. [...] and reasonable expectations were reviewed. We discussed ferry terminal agent the definitive role of total knee replacement. [...] 12:12 PM EDT documented in this encounter [facility] 03-27-2025 Note Patient Education Urology Benign [...] Follow these instructions at home: ??? Take grly-yed-ykziklx and prescription medicines only as told by [...] get (more content not included)... [facility] 03-20-2025 History of Present illness Narrative Images from the original note were not included. HISTORY OF PRESENT ILLNESS: EST PT Ashley Staples is an 69 y.o. @ male. (EST PT, LAST TX 09/09/24) LT KNEE PAIN, INTERMITTENT. XRAY TODAY MAG 03/20/25 XRAY EPIC 04/28/24 DEPO INJECTION 04/28/24 PT AT [facility] HX KNEE SCOPE - ARTHRITIS - DR STEPANIC WALKING UNASSISTED. PAIN IS MOSTLY MEDIAL KNEE, [...] left Imaging Result: 03/20/2025: AP, Lat and [place] view of the left knee demonstrates medial joint space narrowing with subchondral sclerosis and flattening of the surfaces of tibial plateau and femoral condyle. Patella is noted to be midline with marginal osteophyte formation. Impression: osteoarthritis of the left knee. Guille Nathan APRN BOX OFFICE AGENT-C Procedures Orders Placed This Encounter Procedures XR [...] requiring urgent evaluation. documented in this encounter [facility] 11-25-2024 History of Present illness Narrative [...] limited to risks of scarring, darker or physician underwriter pigmentary changes, recurrence, incomplete removal and infection. [...] at this time documented in this encounter [facility] 11-24-2024 Note Patient Education Urology Benign [...] Follow these instructions at home: ??? Take mztz-qys-xqdipqy and prescription medicines only as told by [...] get (more content not included)... [facility] 10-24-2024 Note Cardiology Clinic No te Chief [...] or concerns. Radha Davis MD Interventional Cardiology [facility] 09-23-2024 Telephone encounter Note Referral was already faxed. I will re-fax again. Fax number [phone]. I called [facility] at [phone] and they confirmed that they received the referral. [facility] 09-23-2024 Miscellaneous Notes Referral was already faxed. I will re-fax again. Fax number [phone]. I called [facility] at [phone] and they confirmed that they received the referral. Pt called and stated Guille had ordered PT and he has not heard from them to schedule. [facility] in [facility]. Their number is [phone] he stated. His call back [phone] documented in this encounter [facility] 09-23-2024 Telephone encounter Note Pt called and stated Guille had ordered PT and he has not heard from them to schedule. [facility] in [facility]. Their number is [phone] he stated. His call back [phone] [facility] 09-09-2024 History of Present illness Narrative [...] develop for requiring urgent evaluation. Guille Nathan APRN-PEDIATRIC AUDIOLOGIST documented in this encounter [facility] 05-27-2024 Note Nurse Consultation N ote [...] zoster vaccine live 09/28/2014 Recorded [facility] 09-21-2022 Evaluation note Encounter Date Diagnosis Assessment [...] likely this patient will never need repair. [facility] Other 09-01-2022 Evaluation note* Encounter Date Diagnosis [...] the plan all his questions were addressed. [facility] Other 03-03-2022 NoteHNO ID: [id number] Author: Dakota Barron MD Service: ? Author Type: Physician Type: Progress Notes Filed: 12/16/2021 10:13 AM Note Text: [facility] New Patient Evaluation Ashley Staples : 1955 12/15/2021 9:30 AM Referral Source [facility] [place] [address] Accompanied by: spouse Identifying Information: Ashley Staples is a 66 year old White, male with a past medical history of HTN, HLD, T2DM, AVS, AAA, testicular hypofunction, migraines and past neuropsychiatric history of anxiety who is presenting to [facility] today with a chief complaint [...] isolated to comments made by a specific fashion editor. They were beginning to bother him [...] - atorvastatin (LIPITOR) 20 (more content not included)...[facility] Primary osteoarthritis of left knee- Primary Primary osteoarthritis of right knee [facility] Diagnosis Capillary angioma- Primary Nevus, non-neoplastic Seborrheic keratosis Melanocytic nevus of trunk Benign neoplasm of skin of trunk, except scrotum Lentigo simplex Other dyschromia Actinic keratosis documented in this encounter [facility]* Diagnosis Primary osteoarthritis of left knee- Primary Left knee pain, unspecified chronicity documented in this encounter [facility]* Diagnosis Left knee pain, unspecified chronicity- Primary Primary osteoarthritis of left knee documented in this encounter [facility]* Diagnosis Primary osteoarthritis of left knee- Primary Left knee pain, unspecified chronicity documented in this encounter [facility]* Diagnosis Left knee pain, unspecified chronicity- Primary Primary osteoarthritis of left knee documented in this encounter [facility]* Diagnosis Primary osteoarthritis of left knee- Primary documented in this encounter [facility] noteNo assessment information availableSt[facility] Work Phone: History general Narrative - Reported* Type Description Date Medical History venous insufficiency Medical History AAA Surgical History back surgery 2010 Surgical History vein stripping 1989 Surgical History gall bladder Hospitalization History see surgical history [facility] Other History general Narrative - Reported* Type Description Date Medical History venous insufficiency Medical History AAA Surgical History back surgery 2010 Surgical History vein stripping 1989 Surgical History gall bladder 1999 Hospitalization History see surgical history [facility] Other Reason for referral (narrative)No reason for referral information [facility] Work Phone: Summary Purpose Family History No Family History Records Found Relationship Condition Age at Onset Recorded Date/T sinan family member Unknown Advance Directives No Advanced Directives Records Found Advance Directive Response Recorded Date/ Time Advance Directives No May 13 11:35am Chief Complaint and Reason for Visit Chief Complaint Admit Date Follow UP June 11, 2025 10 :30am Additional Source Comments (unrecognized sect ion and [...] section and content) DATE CREATED AUTHOR 01/06/2022 [facility] DATE CREATED AUTHOR AUTHOR'S ORGANIZ ATION 04/13/2022 [facility] dical Specialist DATE CREATED AUTHOR AUTHOR'S ORGANIZ ATION 01/02/2023 [facility] DATE CREATED AUTHOR AUTHOR'S ORGANIZ ATION 11/11/[address] [facility] DATE CREATED AUTHOR AUTHOR'S ORGANIZ ATION 11/24/2024 [facility] DATE CREATED AUTHOR AUTHOR'S ORGANIZ ATION 03/01/2025 [facility] DATE CREATED AUTHOR AUTHOR'S ORGANIZ ATION 03/30/2025 [facility] DATE CREATED AUTHOR AUTHOR'S ORGANIZ ATION 05/06/2025 [facility] EPIC DATE CREATED AUTHOR AUTHOR'S ORGANIZ ATION 07/28/2025 [facility] REASON FOR VISIT (unrecogniz ed section and content) Reason Comments Pain Reason Onset Date Comments PT 09/23/2024 Reason Comments Skin Check Specialty Diagnoses / Procedures Referred By Contac t Referred To Contact Dermatology Diagnoses skin lesion on back Procedures office visit Sunita Carty MD [address] [place] [address] Phone: tel: fax: Yahaira Sutherland MD [address] [address] Phone: tel: fax: Referral ID Status Reason Start Date Expiration Date Visits Re quested Visits Authorized [id number] Closed 11/20/2024 05/19/2025 1 1 Reason Comments Pain Specialty Diagnoses / Procedures Referred By Contac t Referred To Contact Orthopaedic Surgery Diagnoses Primary osteoarthritis of left knee Guille Nathan, BOX OFFICE AGENT [address] [place] [address] Phone: tel: fax: Ashley Stein, DO [address] [place] [address] Phone: tel: fax: Referral ID Status Reason Start Date Expiration Date V isits Requested Visits Authorized [id number] Closed Specialty Services Required 03/20/2025 09/16/2025 1 1 Reason Comments Osteoarthritis Care Teams (unrecognized sec tion and content) Restaurant Hourly Manager Relationship Specialty Start Date End Date Sunita Carty MD PCP - General Family Medicine 10/23/23 Restaurant Hourly Manager Relationship Specialty Start Date End Date Sunita Carty MD PCP - General Family Medicine 10/23/23 Restaurant Hourly Manager Relationship Specialty Start Date End Date Sunita Carty MD PCP - General Family Medicine 10/23/23 Restaurant Hourly Manager Relationship Specialty Start Date End Date Sunita Carty MD [address] [place] [phone] PCP - General Family Medicine 10/23/23 Restaurant Hourly Manager Relationship Specialty Start Date End Date Sunita Carty MD [address] [place] [phone] PCP - General Family Medicine 10/23/23 Restaurant Hourly Manager Relationship Specialty Start Date End Date Sunita Carty MD [address] [place] [phone] PCP - General Family Medicine 10/23/23 Restaurant Hourly Manager Relationship Specialty Start Date End Date Sunita Carty MD [address] [place] [phone] PCP - General Family Medicine 10/23/23 Restaurant Hourly Manager Relationship Specialty Start Date End Date Sunita Carty MD [address] [place] [phone] PCP - General Family Medicine 10/23/23 Restaurant Hourly Manager Relationship Specialty Start Date End Date Sunita Carty MD [address] [place] [address] PCP - General [facility] Medicine 10/23/23 Restaurant Hourly Manager Relationship Specialty Start Date End Date Sunita Carty MD [address] [place] [address] PCP - General Family Medicine 10/23/23 Restaurant Hourly Manager Relationship Specialty Start Date End Date Sunita Carty MD [address] [place] [address] PCP - General [facility] 10/23/23 Restaurant Hourly Manager Relationship Specialty Start Date End Date Sunita Carty MD [address] [place] [address] PCP - [facility] 10/23/23 Team Status: Active Member Role Status Dates NON STAFF Primary Care Provider Active Team Status: Inactive Member Role Status Dates Shraddha Yeung , MINNIE Attending Provider Active Start: June 11, 2025 End: June 11, 2025 NON STAFF Primary Care Provider Active Start: June 11, 2025 End: June 11, 2025 Goals (unrecognized section and content) Goals may be documented in a n alternate section FOR RECORDS PERTAINING TO PATIENTS WHO ARE [...] BE BASED ON THE PRIMARY CLINICAL RECORDS. [employer] provides no warranty or guarantee of the accuracy or completeness of information in this document.
--- NOTE | 2025-07-30 09:28 | XR_ITS ---
The [address] [address] Patient Name: ASHLEY CHAPMAN MRN: [id number] date: 1955 Sex: M Assigned Patient Location: [facility] Current Patient Location: [facility] Accession/Order Number: [id number] Exam Date: 07/30/2025 09:32 Report Date: 07/30/2025 10:21 At the request of: FLAVIO GUALLPA Procedure: XR lumbar spine min 4V LUMBAR SPINE -5 views: CLINICAL HISTORY: Dorsalgia COMPARISON: None AP, lateral, both oblique and lateral coned-down views of the lumbosacral junction were obtained. There is osteopenia. Slight thoracolumbar dextroscoliotic curvature is seen. There is no acute fracture. Alignment is maintained on the lateral views. There is disc space narrowing from L2 - 3 down. There is endplate spurring and facet hypertrophy. No pars defect is identified. The sacroiliac joints are maintained and show minor sclerosis. There are no paraspinal soft tissue abnormalities. Atherosclerotic plaque is visualized at the aorta and iliac arteries. XR/XR lumbar spine min 4V IMPRESSION: OSTEOPENIA, SCOLIOSIS AND MULTILEVEL DEGENERATIVE CHANGES. Impression dictated by: Amira Dumont M.D. 07/30/2025 10:21 AM Dictation Location: [place] [address] Electronically authenticated by: [id number] Date: 07/30/2025 10:21
== END 2025-07-30 09:15 | disposition home or self-care (01) ==
PROVIDERS: PCP Nurse Practitioner; Visit Provider Nurse Practitioner
DX: M54.9 Dorsalgia, unspecified (principal); E66.3 Overweight; Z87.891 Personal history of nicotine dependence; Z68.26 Body mass index [BMI] 26.0-26.9, adult; M85.88 Other specified disorders of bone density and structure, other site; M51.369 Other intervertebral disc degeneration, lumbar region without mention of lumbar back pain or lower extremity pain
CPT/HCPCS: 72110

== ENCOUNTER 2025-08-03 09:37 | Outpatient (OUT) | payer MEDICARE, SELFPAY ==
--- NOTE | 2025-08-03 09:47 | MR_ITS ---
The [address] [address] Patient Name: ASHLEY CHAPMAN MRN: [id number] date: 1955 Sex: M Assigned Patient Location: MRI Current Patient Location: MRI Accession/Order Number: [id number] Exam Date: 08/03/2025 10:00 Report Date: 08/03/2025 16:42 At the request of: FLAVIO GUALLPA Procedure: MR lumbar spine wo con MRI lumbar spine performed without contrast INDICATION: Low back pain, intervertebral disc degeneration radiculopathy, bilateral lower extremity weakness COMPARISON: Lumbar spine x-rays of 07/30/2025 FINDINGS: Mild dextrocurvature thoracolumbar junction. Lumbar vertebral heights are maintained. Moderate to severe disc space disease L3-L4. Moderate disc space disease L2-3 and L4-S1. Evidence of Modic type II endplate changes L3-4 and Modic type I endplate marrow changes at L4-5. Evidence of left hemilaminectomy at L4-5. Evidence of fusiform abdominal aortic aneurysm 3.6 x 3.4 cm. Bilateral renal T2 hyperintensities identified. Right lower pole renal lesion demonstrates intermediate T2 signal possibly due to proteinaceous or hemorrhagic contents. If warranted, consider consider ultrasound correlation. Conus medullaris terminates normally at the superior plate of L2. T12-L1: Schmorl's node deformities. No focal disc protrusion. Facet arthropathy. Canal neural foramina patent. L1-L2: Mild facet arthropathy. Otherwise no significant disc disease central canal or neural foraminal narrowing identified. L2-3: Broad-based disc bulge with endplate osteophytosis and spurring and facet arthropathy. This results in moderate moderate severe right moderate left neural foraminal narrowing. There is moderate central canal stenosis and moderate crowding subarticular zones right greater than left. L3-4: Circumferential disc bulge with endplate osteophytosis extending to both foraminal zones and facet arthropathy. This results in severe right-sided neural foraminal narrowing, correlate with possible right L3 radiculopathy. There is moderate severe right and left subarticular recess narrowing, correlate with bilateral L4 radiculopathy and there is evidence of moderate severe left neural foraminal narrowing. L4-5: Prior left hemilaminectomy there is evidence of a circumferential disc bulge with endplate osteophytosis and spurring extending to both foramina zones. There is evidence of bilateral facet arthropathy, moderate to severe. Moderate severe right greater than left neural foraminal narrowing. There is moderate subarticular recess narrowing greatest the right. [id number] central canal stenosis. L5-S1: Circumferential disc bulge with superimposed left central extrusion which effaces the left subarticular zone and exerts mass effect on the traversing left S1 nerve root. Otherwise bilateral facet arthropathy. [id number]-[id number]. Otherwise the moderate bilateral neural foraminal narrowing identified. MR/MR lumbar spine wo con IMPRESSION: Multilevel degenerative changes with evidence of left hemilaminectomy at L4-5. Multilevel subarticular and foraminal narrowing noted correlate with possible right L3 and right and left L4 radiculopathy and left S1 radiculopathy. Abdominal aortic aneurysm 3.6 cm in greatest dimension. Impression dictated by: Peter Curtis M.D. 08/03/2025 4:42 PM Dictation Location: [place] [id number] Electronically authenticated by: [id number] Y Date: 08/03/2025 16:42
--- OUTSIDE RECORDS SUMMARY | 2025-08-03 09:49 | XMS_ITS | CCD ---
Author Organization [facility] Care Team Providers Care 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 Name Role Phone Favian Baldwin Unavailable MCKEON [...] Unavailable Sunita Carty MD Primary Care Provider [phone] MD Sunita Carty Admitting Unavailable MD Sunita [...] STEIN Referring Unavailable ASHLEY STEIN Attending Unavailable EMIL ASHLEY Shipman Referring Unavailable GUILLE NATHAN Attending Unavailable STEIN, ASHLEY Shipman Attending Unavailable STEIN, ASHLEY Shipman Referring Unavailable Shraddha Yeung APRN Attending Provider NON STAFF Primary Care Provider Unavailviky chaudhry Sameer, Shanti Lock Attending Unavailable Sunita Carty Attending Unavailable Sameer, Shanti L Attending Unavailable Sameer, Shanti L Attending Unavailable Jb MITCHELL Attending Unavailable Sameer, [...] Shanti L Attending Unavailable Sameer, Shanti L Referring Unavailable Sameer, Shanti L Admitting Unavailable Medications Current Medications Medication Drug Class(es) [...] mg oral tablet (20 sources) Anticholinergic Start: Dicyclomine HCl 20 MG Oral for 90 [...] ) injection 2 mL Start: 04-21-2025 End: 04-21-2025 2 mL, Intra-articular, Once PRN Procedure, Starting [...] Ambulatory Visit Summary ASHLEY STAPLES :1955 Visit Date:07/30/2025 Ambulatory Visit Instructions Your Diagnosis Back pain with sciatica BMI 26.0-26.9,adult Former smoker Overweight (BMI 25.0-29.9) Sciatica, unspecified side Tests Performed XR Spine Lumbosacral Minimum 4 Views -- Results Pending -- Please visit your patient portal for your results or contact your primary care physician. Your Care Team Attending Physician - Shanti Augustin Primary Care Physician - Shanti Augustin This Is Your Medications List Misc Prescription (Misc DME Prescription) Misc Prescription (Misc DME Prescription) amlodipine (amLODIPine 5 mg Tab) aspirin atorvastatin (atorvastatin 20 mg Tab) brexpiprazole (Rexulti 1 mg oral tablet) cholecalciferol (Vitamin D3) dicyclomine (Bentyl 10 mg Cap) dicyclomine (dicyclomine 20 mg Tab) lansoprazole (lansoprazole [...] Torn meniscus repair. Discharge Vitals Temperature (Oral) 36.8 ???C Heart Rate (Peripheral) 70 Respiratory Rate 18 Blood Pressure 136/78 Height 179 cm Height 70 in Weight 84.6 kg Weight 186.511 lb BMI 26.4 What to do next Scheduled Follow-Up Appointments Sunday2025 10:20 AM EDT With: Shanti Augustin Where: [address] [address]- Sunday2025 11:00 AM EDT With: Where: [address] [address]- Medications What How Much When [...] day as needed for Spasm Unchanged dicyclomine (dicyclomine 20 mg Tab) See instructions TAKE 1 TABLET BY MOUTH THREE TIMES A DAY Pickup at [facility] Unchanged lansoprazole (lansoprazole 30 mg Cap-DR) See [...] Information [facility]: [address] [place], [place] [id number] [phone] Allergies No Known Allergies Problems Ongoing - Any problem that you are currently receiving treatment for. AAA (abdominal aortic aneurysm) without rupture Back pain with sciatica BMI 26.0-26.9,adult BPH with obstruction/lower urinary tract symptoms Cerumen impaction CPAP (continuous positive airway pressure) dependence Feeling of incomplete bladder emptying Former smoker Gastroesophageal reflux disease without esophagitis Glaucoma Heart murmur Hypercholesterolemia Hypertension Hypogonadism male Incomplete bladder emptying Left knee pain Low back pain Major depressive disorder, r (more content not included)... Normal [facility] Family Medicine Office/Clini c Noteon 07-30-2025 Family Medicine Office/Clinic Note Family Medicine Office/Clinic Note Chief Complaint Back pain HPI Staff Pt presents today for back pain. Pain characteristics: Pain location: Back Intensity:_6/10 Onset: ongoing for yrs Medication used: OTC ibuprofen Would like to discuss getting MRI of back. Is currently in PT. History of Present Illness pt presents today for continued back pain. is currently going to PT Review of Systems PHQ Score Initial Depression Screen Score: 0 SCORE General: alert, no acute distress ENMT: oral mucosa moist, no pharyngeal erythema or exudate Cardiovascular: regular rate and rhythm, normal peripheral perfusion Respiratory: Lungs CTA, respirations non labored Extremities: no deformity, no trauma Neurological: oriented x 4, LOC appropriate for age, CN II-XII intact, motor strength equal & normal bilaterally, speech normal low back pain with right sciatica Physical Exam Vitals & Measurements T: 36.8 ???C(Oral) HR: 70(Peripheral) RR: 18 BP: 136/78 SpO2: 99% HT: 70 in HT: 179 cm WT: 186.511 lb WT: 84.6 kg BMI: 26.4 Assessment/Plan 1. Back pain with sciatica (M54.9: Dorsalgia, unspecified) pt has been struggling with back pain for years. is now looking at needing knee replacement. his gait is changed due to knee pain which in turn is flaring up his back pain. will order x ray. then proceed to MRI depending on x ray results. all questions answered. Declines need or medicaiton or steroid at this time. RTC in January Ordered: XR Spine Lumbosacral Minimum 4 Views 2. BMI 26.0-26.9,adult (Z68.26: Body mass index [BMI] 26.0-26.9, adult) BMI education given Ordered: XR Spine Lumbosacral Minimum 4 Views 3. Former smoker (Z87.891: Personal history of nicotine dependence) continue not smoking Ordered: XR Spine Lumbosacral Minimum 4 Views 4. Overweight (BMI 25.0-29.9) (E66.3: Overweight) see above Ordered: XR Spine Lumbosacral Minimum 4 Views Orders: dicyclomine, See Instructions, TAKE 1 TABLET BY MOUTH THREE TIMES A DAY, # 270 tab(s), Refills(s) 1, Pharmacy: [facility], 179, cm, 07/30/25 8:39:00 EDT, Height/Length Dosing, 84.6, kg, 07/30/25 8:39:00 EDT, Weight Dosing Follow-up No qualifying data available Problem List/Past Medical History Ongoing AAA (abdominal aortic aneurysm) without rupture Back pain with sciatica BMI 26.0-26.9,adult BPH with obstruction/lower urinary tract symptoms Cerumen [...] mg Tab, See Instructions, 4 refills Bentyl 10 mg Cap, 10 mg= 1 cap(s), Oral, QID, PRN, 1 refills dicyclomine 20 mg Tab, See Instructions, [...] Started age 14.0 Years. Stopped age 64 (more content not included)... Normal [facility] Comment on above: Result Comment: Elec tronically Signed By: Shanti Augustin\.br\Date and Time Signed: 07/30/25 09:24 EDT Ambulatory Visit Summaryon 1 Ambulatory Visit Summary [...] Follow-Up Appointments Sunday 12:15 PM EDT With: Jb MITCHELL MD Where: [facility] [address] [address]- Sunday2025 10:20 AM EDT With: Shanti Augustin Where: [address] [address]- Sunday2025 11:00 AM EDT With: Where: [address] [address]- Medications What How Much When Instructions Unchanged [...] Pharmacy Information [facility]: [address] [facility] [address] [place], [place] [id number] [phone] Allergies No Known Allergies Problems Ongoing - [...] BMI 2 (more content not included)... Normal [facility] Family Medicine Office/Clini c Noteon 07-24-2025 Family [...] inactivated 08/26/20 (more content not included)... Normal [facility] Comment on above: Result Comment: Elec [...] Echeverria MD Transcribed by: FELICIA Technologist: HERIBERTO Britton [facility] Ambulatory Visit Summaryon 0 07-13-2025 Ambulatory Visit Summary Ambulatory Visit Summary ASHLEY STAPLES :1955 Visit Date:07/13/2025 Ambulatory Visit Instructions Your [...] 1:00 PM EDT With: Shanti Augustin Where: [address] [address]- Sunday 12:15 PM EDT With: Jb MITCHELL MD Where: [facility] [address] [address]- Sunday2025 11:00 AM EDT With: Where: [address] [address]- Medications What How Much When [...] ca (more content not included)... Normal [facility] Family Medicine Office/Clini c Noteon 06-11-2025 Family [...] Use:. Cigarettes, (more content not included)... Normal [facility] Comment on above: Result Comment: Elec tronically Signed By: Shanti Augustin\.br\Date and Time Signed: 06/11/25 09:09 EDT Ambulatory Visit Summaryon 0 05-29-2025 Ambulatory Visit Summary Ambulatory Visit Summary ASHLEY STAPLES :1955 Visit Date:05/29/2025 Ambulatory Visit Instructions Your [...] 9:40 AM EDT With: Shanti Augustin Where: [address] [address]- Sunday 12:15 PM EDT With: Jb MITCHELL MD Where: [facility] [address] [id number]- Sunday2025 11:00 AM EDT With: Where: [address] [id number]- Medications What How Much When Instructions Unchanged [...] other me (more content not included)... Normal [facility] Family Medicine Office/Clini c Noteon 05-29-2025 Family [...] a new referral to [facility] in [place]. Ordered: Physical Therapy Evaluation - External Facility [...] Instructions losartan 100 mg Tab, See Instructions [facility] Prescription, See Instructions, 3 refills [facility] Prescription, See Instructions, 3 refills Rexulti [...] Use, 10/18/2016 (more content not included)... Normal [facility] Comment on above: Result Comment: Elec [...] Overweight Your Care Team Attending Physician - Keyshawn RODGERS, Sunita Zamarripa Primary Care Physician - Shanti Augustin This [...] 8:40 AM EDT With: Shanti Augustin Where: [address] [id number]- Sunday 12:15 PM EDT With: Jb MITCHELL MD Where: [facility] [address] [id number]- Sunday2025 11:00 AM EDT With: Where: [address] [address]- You Need to Complete the Following CT Chest, Low Dose Screening, 05/19/25, Routine, Order for future visit, Transport Mode: Ambulatory, Reason: Screening, Yes, No, Yes, 2, 50, Yes, 5, [id number], No, Yes, History of smoking greater than 50 pack years, [facility] Medications What How Much When Why Instructions [...] Low back (more content not included)... Normal [facility] Family Medicine Office/Clini c Noteon 05-19-2025 Family [...] of clutter to prevent tripping and/or falling. [place] Advance Directives reviewed, at home. Encouraged to [...] tolerable. Reviewed (more content not included)... Normal [facility] Comment on above: Result Comment: Elec tronically Signed By: BULMARO LAGUERRE CNP\.br\Date and Time Signed: 05/19/25 14:49 EDT\.br\Electronically Co-Signed By: Ro Quintana\.br\Date and Time Co-Signed: 05/19/25 14:23 EDT Population Health 05-15-20 [facility] Health Case Information Case Priority: None Programs: -- Referral Source: Board Certified Family Physician Referral Reason: Care coordination Case Type: Transition Care Management Risk Score: -- Case Status: Enrolled (April 28, 2025) Date Assigned: April 27, 2025 Assigned By: Deni Monge Date Enrolled: April 28, 2025 Assigned Primary Personnel: Deni Monge Assigned Secondary Personnel: -- Case Physician: Sameer BAND INSTRUMENT REPAIRER, Shanti L Problems Ongoing AAA (abdominal aortic aneurysm) without [...] Instructions losartan 100 mg Tab, See Instructions [facility] Prescription, See Instructions, 3 refills [facility] Prescription, See Instructions, 3 refills Rexulti [...] Contact Type: Spouse Contact Name: -- Notes: ALYSA#2- Left message with spouse for return call. She will have pt call when he is home. Created By: Deni Monge Date: April 28, 2025 Method: Phone call Type: Outbound Duration (min): 14 Outcome: Case discussion Contact Type: Patient Contact Name: ASHLEY STAPLES Notes: TCM#1- Spoke with patient for initial TCM status update, see tcm (more content not included)... Normal [facility] 05-08-20 [facility] Case Information Case Priority: None Programs: -- Referral Source: Board Certified Family Physician Referral Reason: Care coordination Case Type: Transition [...] Instructions losartan 100 mg Tab, See Instructions [facility] Prescription, See Instructions, 3 refills [facility] Prescription, See Instructions, 3 refills Rexulti [...] Case discuss (more content not included)... Normal [facility] Testost Totalon 05-06-2025 Testoster Tot 668 ng/dL Invalid Interpretation Code [id number] [facility] Comment on above: Result Comment: Adul t male reference interval is based on a population of healthy nonobese males (BMI <30) between 19 and 39 years old. Leeroy et.al. JCEM 2017,102;8770-7696. PMID: [id number]. Performed at: [facility] [id number] PhD Reji Kang Performed By: #### 2 [id number] #### [facility] [address] [place] [address] L Inj/Asp: L kneeon 05-05-20 Rebecca Clarke MA 05/05/2025 11:23 AM L Inj/Asp: L knee on 05/05/2025 11:01 AM Indications: pain Details: 21 G needle Medications: 2 mL sodium hyaluronate 16.8 MG/2ML [facility] Ambulatory Visit Summaryon 0 05-01-2025 Ambulatory Visit [...] Appointments Sunday 9:00 AM EDT With: Where: [address] [address]- Sunday 11:00 AM EDT With: Where: [address] [address]- Sunday 8:40 AM EDT With: Shanti Augustin Where: [address] [address]- Sunday 12:15 PM EDT With: Jb MITCHELL MD Where: [facility] [address] [place] [address]- Medications What How Much When Instructions Unchanged [...] not signed (more content not included)... Normal [facility] Family Medicine Office/Clini c Noteon 05-01-2025 Family Medicine Office/Clinic Note Family Medicine Office/Clinic Note HPI Staff Ashley is a 69 year old male presenting with ER followup: Hospital: [facility] Visit date: 04/22/25- 04/24/25 Symptoms the [...] headache, # 9 tab(s), Refills(s) 0, Pharmacy: [facility]/pharmacy #[id number], 179, cm, 05/01/25 9:00:00 EDT, [...] headache, # 9 tab(s), Refills(s) 0, Pharmacy: [facility]/pharmacy #[id number], 179, cm, 05/01/25 9:00:00 EDT, Height/Length Dosing, 80.6, kg, 05/01/25 9:00:00 EDT, Weight Dosing 3. BMI 26.0-26.9,adult (Z68.26: Body mass index [BMI] 26.0-26.9, adult) BMI education given Ordered: sumatriptan, 50 mg = 1 tab(s), Oral, As Directed, PRN Migraine headache, # 9 tab(s), Refills(s) 0, Pharmacy: [facility]/pharmacy #[id number], 179, cm, 05/01/25 9:00:00 EDT, [...] headache, # 9 tab(s), Refills(s) 0, Pharmacy: [facility]/pharmacy #[id number], 179, cm, 05/01/25 9:00:00 EDT, [...] headache, # 9 tab(s), Refills(s) 0, Pharmacy: [facility]/pharmacy #[id number], 179, cm, 05/01/25 9:00:00 EDT, [...] Daily, # 30 tab(s), Refills(s) 1, Pharmacy: [facility]/pharmacy #[id number], 179, cm, 05/01/25 9:00:00 EDT, Height/Length Dosing, 80.6, kg, 05/01/25 9:00:00 EDT, Weight Dosing amlodipine, 2.5 mg, Oral, Daily, # 30 tab(s), Refills(s) 1, Pharmacy: [facility]/pharmacy #[id number], 179, cm, 05/01/25 9:00:00 EDT, Height/Length Dosing, 80.6, kg, 05/01/25 9:00:00 EDT, Weight Dosing Follow-up No qualifying data available Problem List/Past Medical Histor (more content not included)... Normal [facility] Comment on above: Result Comment: Elec tronically Signed By: Shanti Augustin\.br\Date and Time Signed: 05/01/25 09:27 EDT L Inj/Asp: L kneeon 04-28-20 Rebecca Clarke MA 04/28/2025 12:04 PM L Inj/Asp: L knee on 04/28/2025 10:55 AM Indications: pain Details: 21 G needle Medications: 2 mL sodium hyaluronate 16.8 MG/2ML [facility] Population Healthon 04-28-20 [facility] Health Case Information Case Priority: None Programs: -- Referral Source: Board Certified Family Physician Referral Reason: Care coordination Case Type: Transition Care Management Risk Score: -- Case Status: Enrolled (April 28, 2025) Date Assigned: April 27, 2025 Assigned By: Deni Moneg Date Enrolled: April 28, 2025 Assigned Primary [...] Care Plan Progress Note Admit Date: 04/22/25 [facility] Date of Discharge: 04/24/25 Follow-up appointment [...] Patient is going to bring data to TCM OV. Patient does not use a lot of salt. He is eating and drinking well, and h (more content not included)... Normal [facility] L Inj/Asp: L kneeon 04-21-20 25 Omaira Ramos [place] 04/21/2025 11:52 AM L Inj/Asp: L knee on 04/21/2025 10:42 AM Indications: diagnostic evaluation Details: 22 G needle Medications: 2 mL sodium hyaluronate 16.8 MG/2ML Outcome: tolerated well, no immediate complications Consent was given by the patient. [facility] Ambulatory Visit Summaryon 0 04-13-2025 Ambulatory Visit Summary Ambulatory Visit Summary ADELA ASHLEY Huerta :1955 Visit Date:04/13/2025 Ambulatory Visit Instructions Your [...] Appointments Sunday 8:20 AM EDT With: Where: [address] [address]- Sunday 11:00 AM EDT With: Where: [facility] [address] [address]- Sunday 12:15 PM EDT With: Jb MITCHELL MD Where: [facility] [address] [place] [address]- Medications What How Much When Why Instructions [...] back pain (more content not included)... Normal [facility] Family Medicine Office/Clini c Noteon 04-13-2025 [...] states that Losartan is being sent to [facility] and he wants that to be mail [...] influenza v (more content not included)... Normal [facility] Comment on above: Result Comment: Elec tronically Signed By: Shanti Augustin\.br\Date and Time Signed: 04/13/25 12:45 EDT Pre-Visit Planningon 025 Pre-Visit Planning Pre-Visit Planning From: Henrietta Siegel To: Shanti Augustin; Sent: 04/10/2025 14:13:36 EDT Subject: Pre-Visit Planning Due Date/Time: 04/10/2025 14:13:00 EDT Caller Name: ASHLEY STAPLES; Caller Number: , Hi Shanti. During a pre-visit planning chart review, I [...] feel free to contact me at extension [phone]. Thank you! Henrietta Siegel LPN Clinical [employer] [place] [address] Extension: [phone] [email or web address] From: Shanti Augustin To: Henrietta Siegel; Sent: 04/13/2025 11:35:20 EDT Subject: RE: Pre-Visit Planning Caller Name: ASHLEY STAPLES; Caller Number: Rajani , M His depression score was 0 today. 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 Normal [facility] Ambulatory Visit Summaryon 0 03-27-2025 Ambulatory [...] Appointments Sunday 1:00 PM EDT With: Where: [address] [address]- Sunday 10:00 AM EDT With: Keyshawn RODGERS, Sunita Zamarripa Where: [address] [address]- You Need to Schedule the Following Appointments Follow Up with STEPHEN RODGERS, LEXIS Herrera When: Where: [address] [place] [address]- Medications What How Much When Why Instructions New tamsulosin (tamsulosin 0.4 mg Cap) 1 Capsules By Mouth Every day Refills: 11 Monitor for lightheadedness or dizziness. Pickup at [facility]/pharmacy #[id number] Unchanged brexpiprazole (Rexulti 1 mg oral tablet) [...] Unchanged vort (more content not included)... Normal [facility] Urology Office/Clinic Noteon 03-27-2025 Urology Office/Clinic [...] Contact Information Jb MITCHELL MD, URL [address] [place] [address]- Additional Instructions: 4 mos w/ PVR Patient Education Benign Prostatic Hyperplasia I, Stacia Garcia, personally scribed for Dr. Mitchell on 03/27/2025 11:22:37. . Documentation recorded by the scribeStacia, accurately reflects the services(s) I performed and [...] operative ble (more content not included)... Normal [facility] Comment on above: Result Comment: Elec tronically Signed By: Jb MITCHELL MD\.br\Date and Time Signed: 03/27/25 11:24 EDT\.br\Electronically Co-Signed By: Stacia Garcia\.br\Date and Time Co-Signed: 03/27/25 11:22 EDT XR Knee - left 3 [facility] Result: 03/20/2025: AP, Lat and Starke view of the left knee demonstrates medial joint space narrowing with subchondral sclerosis and flattening of the surfaces of tibial plateau and femoral condyle. Patella is noted to be midline with marginal osteophyte formation. Impression: osteoarthritis of the left knee. Guille Nathan APRN, SPOOL CLEANER-C [facility] Radiology Study observation (narrative) [facility] Testosterone F&Ton 05-21-202 5 Testosterone [Mass/Vol] 1086 ng/dL High [id number] [facility] Comment on above: Result Comment: Adul t male reference interval is based on a population of healthy nonobese males (BMI <30) between 19 and 39 years old. bruce Umaña.al. JCEM 2017,102;1400-0612. PMID: [id number]. Performed By: #### 1 [id number] ####[facility] [address] [place] [address] Testosterone Free [Mass/Vol] 18.9 pg/mL High 6.6-18.1 [facility] Comment on above: Result Comment: Perf ormed at: [facility] [address] [id number] PhD Reji Kang Performed at: [facility] [address] [id number] MD Arnold Colvin Performed By: #### 1 [id number] ####[facility] [address] [place] [address] Ambulatory Visit Summaryon 0 02-27-2025 Ambulatory Visit [...] Follow-Up Appointments Sunday 10:15 AM EDT With: STEPHEN RODGERS, Jb Abad Where: [facility] [address] [place] [address]- Sunday 1:00 PM EDT With: Where: [address] [address]- Sunday 10:00 AM EDT With: Sunita Carty MD Where: [address] [address]- Medications What How Much When Why Instructions [...] care. [I (more content not included)... Normal [facility] CBC w/ Auto Diffon 5 Basophils/100 WBC (Bld) 0.5 % Normal 0.0-2.0 [facility] Comment on above: Performed By: #### 2 [id number] #### [facility] [address] [place] [address] Basophils/Leukocytes Auto (Bld) [Pure # fraction] 0.0 E9/L Normal 0.0-0.2 [facility] Comment on above: Performed By: #### 2 [id number] #### [facility] [address] [place] [address] Eosinophils (Bld) [#/Vol] 0.1 E9/L Normal 0.0-0.5 [facility] Comment on above: Performed By: #### 2 [id number] #### [facility] [address] [place] [address] Eosinophils/100 WBC (Bld) 2.2 % Normal 0.0-8.0 [facility] Comment on above: Performed By: #### 2 [id number] #### [facility] [address] [place] [address] Erythrocyte distribution width (RBC) [Ratio] 14.2 % Normal 10.9-14.2 [facility] Comment on above: Performed By: #### 2 [id number] #### [facility] [address] [place] [address] Hematocrit (Bld) [Volume fraction] 48.7 % Normal 37.7-49.0 [facility] Comment on above: Performed By: #### 2 [id number] #### [facility] [address] [place] [address] Hemoglobin (Bld) [Mass/Vol] 16.3 g/dL Normal 13.5-17.5 [facility] Comment on above: Performed By: #### 2 [id number] #### [facility] [address] [place] [address] Lymphocytes (Bld) [#/Vol] 1.8 E9/L Normal 1.0-4.0 [facility] Comment on above: Performed By: #### 2 [id number] #### [facility] [address] [place] [address] Lymphocytes/100 WBC (Bld) 30.9 % Normal 14.0-50.0 [facility] Comment on above: Performed By: #### 2 [id number] #### [facility] [address] [place] [address] MCH (RBC) [Entitic mass] 28.7 pg Normal 27.0-34.0 [facility] Comment on above: Performed By: #### 2 [id number] #### [facility] [address] [place] [address] MCHC (RBC) [Mass/Vol] 33.5 g/dL Normal 31.4-36.0 [facility] Comment on above: Performed By: #### 2 [id number] #### [facility] [address] [place] [address] MCV (RBC) [Entitic vol] 85.6 fL Normal 80.0-100.0 [facility] Comment on above: Performed By: #### 2 [id number] #### [facility] [address] [place] [address] Monocytes (Bld) [#/Vol] 0.3 E9/L Normal 0.2-1.0 [facility] Comment on above: Performed By: #### 2 [id number] #### [facility] [address] [place] [address] Neutrophils (Bld) [#/Vol] 3.5 E9/L Normal 2.0-7.5 [facility] Comment on above: Performed By: #### 2 [id number] #### [facility] [address] [place] [address] Neutrophils/100 WBC (Bld) 61.2 % Normal 36.0-75.0 [facility] Comment on above: Performed By: #### 2 [id number] #### [facility] [address] [place] [address] Platelet mean volume (Bld) [Entitic vol] 8.7 fL Normal 6.4-10.8 [facility] Comment on above: Performed By: #### 2 [id number] #### [facility] [address] [place] [address] Platelets (Bld) [#/Vol] 170.0 E9/L Normal 150.0-500.0 [facility] Comment on above: Performed By: #### 2 118305 #### [facility] [address] [place] [address] RBC (Bld) [#/Vol] 5.7 E12/L Normal 4.3-5.9 [facility] Comment on above: Performed By: #### 2 [id number] #### [facility] [address] [place] [address] WBC corrected for nucl RBC Auto (Bld) [#/Vol] 5.7 E9/L Normal 4.0-11.0 [facility] Comment on above: Performed By: #### 2 [id number] #### [facility] [address] [place] [address] CMPon 02-27-2025 Albumin [Mass/Vol] 4.5 g/dL Normal 3.3-5.0 [facility] Comment on above: Performed By: #### 2 [id number] #### [facility] [address] [place] [address] Albumin/Globulin (S) [Mass conc ratio] 1.6 Normal 1.1-2.2 [facility] Comment on above: Performed By: #### 2 [id number] #### [facility] [address] [place] [address] ALP [Catalytic activity/Vol] 52 Int._Unit/L Normal 21-98 [facility] Comment on above: Performed By: #### 2 979204 #### [facility] [address] [place] [address] ALT No additional P-5'-P [Catalytic activity/Vol] 11 Int._Unit/L Normal 6-46 [facility] Comment on above: Performed By: #### 2 [id number] #### [facility] [address] [place] [address] Anion gap [Moles/Vol] 12 mmol/L Normal 6-16 [facility] Comment on above: Performed By: #### 2 [id number] #### [facility] [address] [place] [address] AST [Catalytic activity/Vol] 23 Int._Unit/L Normal 5-43 [facility] Comment on above: Performed By: #### 2 [id number] #### [facility] [address] [place] [address] Bilirubin [Mass/Vol] 0.6 mg/dL Normal 0.0-1.1 [facility] Comment on above: Performed By: #### 2 419444 #### [facility] [address] [place] [address] Calcium [Mass/Vol] 9.3 mg/dL Normal 8.9-11.1 [facility] Comment on above: Performed By: #### 2 199793 #### [facility] [address] [place] [address] Chloride [Moles/Vol] 101 mmol/L Normal 101-111 [facility] Comment on above: Performed By: #### 2 318063 #### [facility] [address] [place] [address] CO2 [Moles/Vol] 26 mmol/L Normal 21-31 [facility] Comment on above: Performed By: #### 2 662725 #### [facility] [address] [place] [address] Creatinine [Mass/Vol] 0.8 mg/dL Normal 0.5-1.3 [facility] Comment on above: Performed By: #### 2 352508 #### [facility] [address] [place] [address] Globulin (S) [Mass/Vol] 2.8 g/dL Normal 1.4-4.0 [facility] Comment on above: Performed By: #### 2 847017 #### [facility] [address] [place] [address] Glucose [Mass/Vol] 101 mg/dL Normal 55-199 [facility] Comment on above: Performed By: #### 2 210326 #### [facility] [address] [place] [address] Potassium [Moles/Vol] 4.7 mmol/L Normal 3.5-5.3 [facility] Comment on above: Performed By: #### 2 424322 #### [facility] [address] [place] [address] Protein [Mass/Vol] 7.3 g/dL Normal 6.0-7.8 [facility] Comment on above: Performed By: #### 2 937271 #### [facility] [address] [place] [address] Sodium [Moles/Vol] 134 mmol/L Low 135-145 [facility] Comment on above: Performed By: #### 2 664907 #### [facility] [address] [place] [address] Urea nitrogen [Mass/Vol] 14 mg/dL Normal 5-21 [facility] Comment on above: Performed By: #### 2 780312 #### [facility] [address] [place] [address] Urea nitrogen/Creatinine [Mass ratio] 18 No Units Normal 10-20 [facility] Comment on above: Performed By: #### 2 149245 #### [facility] [address] [place] [address] Lipid Panelon 02-27-2025 Cholesterol [Mass/Vol] 151 mg/dL Normal 120-200 [facility] Comment on above: Performed By: #### 2 025517 #### [facility] [address] [place] [address] Cholesterol in HDL [Mass/Vol] 51 mg/dL Invalid Interpretation Code [facility] Comment on above: Result Comment: '>= 60 LOW RISK' '<= 40 HIGH RISK' Performed By: #### 2 276771 #### [facility] [address] [place] [address] Cholesterol in LDL [Mass/Vol] 86 mg/dL Normal <=129 [facility] Comment on above: Performed By: #### 2 581454 #### [facility] [address] [place] [address] Cholesterol in VLDL [Mass/Vol] 13 mg/dL Normal 7-40 [facility] Comment on above: Performed By: #### 2 528072 #### [facility] [address] [place] [address] Triglyceride [Mass/Vol] 65 mg/dL Normal <=149 [facility] Comment on above: Performed By: #### 2 [id number] #### [facility] [address] [place] [address] PSA Screen, Totalon 02-28-20 25 Prostate specific Ag [Mass/Vol] 0.5 ng/mL Normal 0.1-3.5 [facility] Comment on above: Result Comment: The concentration of PSA determined by different manufacturers can vary due to differences in assay methods and reagent specificity. Values obtained from different assay methods cannot be used interchangeably. The methodology used for this result was chemiluminescence using [employer]'s Access [employer] PSA reagent. Performed By: #### 1 [id number] #### [facility] [address] [place] [address] eGFRon 02-27-2025 eGFR 95 mL/min/1.73 m2 Normal >=59 [facility] Comment on above: Performed By: #### 1 [id number] #### [facility] [address] [place] [address] Ambulatory Visit Summaryon 0 02-19-2025 Ambulatory Visit Summary Ambulatory Visit Summary AHSLEY STAPLES :1955 Visit Date:02/19/2025 Ambulatory Visit Instructions [...] Appointments Sunday 9:20 AM EDT With: Where: [place] [id number]- Sunday 10:15 AM EDT With: STEPHEN RODGERS, Jb Abad Where: [facility] [address] [place], [place] [id number]- Sunday 1:00 PM EDT With: Where: [address] [id number]- Sunday 10:00 AM EDT With: Keyshawn RODGERS, Sunita Zamarripa Where: [address] [address]- Medications What How Much When [...] DAY FOR 30 DAYS Unchanged Misc Prescription ([facility] Prescription) See instructions 18G 1 needles [...] for choosing us for your care. Normal [facility] Family Medicine Office/Clini c Noteon 02-19-2025 Family Medicine Office/Clinic Note Family Medicine Office/Clinic Note Chief Complaint Acute Visit Pain radiating from the left hip down to the foot HPI Staff Pt presents today for acute visit. Pain characteristics: Pain location: Hip Intensity:10 Onset: 1wk ago Medication used: Not using [...] day, # 6 tab(s), Refills(s) 0, Pharmacy: [id number], 179, cm, 02/19/25 9:54:00 EDT, Height/Length Dosing, 85.2, kg, 05/0... tramadol, 50 mg = 1 tab(s), Oral, q6hr, # 12 tab(s), Refills(s) 0, Pharmacy: [id number], 179, cm, 02/19/25 9:54:00 EDT, Height/Length [...] day, # 6 tab(s), Refills(s) 0, [id number], cm, 02/19/25 9:54:00 EDT, Height/Length Dosing, 85.2, kg, 05/0... tramadol, 50 mg = 1 tab(s), Oral, q6hr, # 12 tab(s), Refills(s) 0, [id number] 179, cm, 02/19/25 9:54:00 EDT, [...] day, # 6 tab(s), Refills(s) 0, [id number] 179, cm, 02/19/25 9:54:00 EDT, Height/Length Dosing, 85.2, kg, 05/0... tramadol, 50 mg = 1 tab(s), Oral, q6hr, # 12 tab(s), Refills(s) 0, Pharmacy: [facility] #[id number], 179, cm, 02/19/25 9:54:00 EDT, Height/Length [...] day, # 6 tab(s), Refills(s) 0, [facility] 179, cm, 02/19/25 9:54:00 EDT, Height/Length Dosing, 85.2, kg, 05/0... tramadol, 50 mg = 1 tab(s), Oral, q6hr, # 12 tab(s), Refills(s) 0, Pharmacy: [facility] #6177, 179, cm, 02/19/25 9:54:00 EDT, [...] day, # 6 tab(s), Refills(s) 0, Pharmacy: [facility] #[id number], 179, cm, 02/19/25 9:54:00 EDT, Height/ (more content not included)... Normal [facility] Comment on above: Result Comment: Elec tronically Signed By: Sunita Carty MD\.br\Date and Time Signed: 02/19/25 10:16 EDT No Panel InformationOrdered By: Vanessa Perez on 11-25-2024 [facility] Ambulatory Visit Summaryon 0 11-24-2024 Ambulatory Visit Summary Ambulatory Visit Summary ASHLEY STAPLES :1955 Visit Date:11/24/2024 Ambulatory Visit Instructions Your Diagnosis BPH with obstruction/lower urinary tract symptoms Hypogonadism male Other obstructive and reflux uropathy Your Care Team Attending Physician - STEPHEN RODGERS, Jb Abad Primary Care Physician - Sunita Carty MD [...] Jb MITCHELL MD Where: [facility] [address] [place] [address]- Sunday 1:00 PM EDT With: Where: [address] [address]- Sunday 10:00 AM EDT With: Keyshawn RODGERS, Suntia Zamarripa Where: [address] [address]- You Need to Schedule the Following Appointments Follow Up with STEPHEN RODGERS, LEXIS Herrera When: In 4 days Where: [facility] [address], [place] [address]- Medications What How Much When Instructions Unchanged [...] via t (more content not included)... Normal [facility] Urology Office/Clinic Noteon 11-24-2024 Urology Office/Clinic [...] francesco Amaral (more content not included)... Normal [facility] Comment on above: Result Comment: Elec tronically Signed By: Jb MITCHELL MD\.br\Date and Time Signed: 11/24/24 11:08 EST\.br\Electronically Co-Signed By: Sanjuanita Espitia\.br\Date and Time Co-Signed: 11/24/24 11:06 EST Ambulatory Visit Summaryon 0 11-18-2024 Ambulatory Visit Summary Ambulatory Visit Summary KOURTNEYNUPURBouchra ASHLEY Huerta :1955 Visit Date:11/18/2024 Ambulatory Visit Instructions Your [...] RODGERS, Jb Abad Where: [facility] [address] [place], [place] [id number]- Sunday 1:00 PM EDT With: Where: [address] [address]- Sunday 10:00 AM EDT With: Sunita Carty MD Where: [address] [id number]- Medications What How Much When Instructions Unchanged [...] for choosing us for your care. Normal [facility] Family Medicine Office/Clini c Noteon 11-18-2024 [...] sun protection and prior geographical residency in [place]. - Refilled testosterone therapy with adequate monitoring [...] Current blood pressure control is satisfactory. Ordered: [facility] Ambulatory Referral 2. Gastroesophageal reflux disease without esophagitis (K21.9: Gastro-esophageal reflux disease without esophagitis) Symptoms under control with current therapy. Advise continued avoidance of trigger foods to prevent exacerbation. Ordered: [facility] External Ambulatory Referral 3. BMI 28.0-28.9,adult (Z68.28: Body mass index [BMI] 28.0-28.9, adult) BMI education added Ordered: [facility] External Ambulatory Referral 4. Overweight (BMI 25.0-29.9) (E66.3: Overweight) Suggest maintaining healthy diet and exercise regimen to manage weight effectively. Ordered: [facility] External Ambulatory Referral 5. Former smoker (Z87.891: Personal history of nicotine dependence) Former smoker status noted, with no further management required for dependence. Ordered: [facility] External Ambulatory Referral 6. Hypogonadism male (E29.1: [...] 1 TABLE (more content not included)... Normal [facility] Comment on above: Result Comment: Elec tronically Signed By: Keyshawn RODGERS, Sunita Watt.helena\Date and Time Signed: 11/18/24 10:22 EST Ron 11-06-2024 L --- Specimen: [id number] Received: 11/07/24 Status: ARA Byers Num: [id number] Spec Type: Surgical Subm Dr: Jb Mitchell MD Tissues: A Prostate - Tur (PROSTATE TISSUE) Procedures: HE/2, Gross/Micro L4 Age/ Patient Sex Location Account Attending Physician Ashley Staples 69/M [facility] [id number] Jb Mitchell MD SPEC NUM: [id number] RECD: 11/07/24 STATUS: ARA BYERS NUM: [id number] THOMAS: 11/06/24 [facility] DR: Jb Mitchell MD ENTERED: 11/07/24 [facility] DR: Mavis,Lab SPEC TYPE: Surgical DEPT: [facility] ORDERED: HE/2, Gross/Micro L4 ORDERED: HE/2, Gross/Micro L4 Pathological Diagnosis Prostate chips, TURP: [...] is entirely submitted in A1?A2. (2, ns, [id number] A)J Microscopic Description Microscopic examinations are performed supporting the above interpretation Specimen: [id number] Received: 11/07/24 Status: ARA Byers Num: [id number] Spec Type: Surgical Subm Dr: Jb Mitchell MD Tissues: A Prostate - Tur (PROSTATE TISSUE) Procedures: HE/2, Gross/Micro L4 Patient: Ashley Staples [id number] (Continued) Specimen: [id number] Received: 11/07/24 (Continued) Signed (signature on file) Myron Savage MD 11/10/24 1648 Specimen: [id number] Received: 11/07/24 Status: ARA Byers Num: [id number] Spec Type: Surgical Subm Dr: Jb Mitchell MD Tissues: A Prostate - Tur (PROSTATE TISSUE) Procedures: HE/2, Gross/Micro L4 Patient: Ashley Staples [id number] (Continued) Specimen: [id number] Received: 11/07/24 (Continued) CPT Codes 50651 Specimen: [id number] Received: 11/07/24 Status: ARA Byers Num: [id number] Spec Type: Surgical Subm Dr: Jb Mitchell MD Tissues: A Prostate - Tur (PROSTATE TISSUE) Procedures: HE/2, Gross/Micro L4 Patient: Ashley Staples [id number] (Continued) Signed (signature on file) Baljeet-Quinton Savage MD 11/10/24 1648 Normal [facility] Office Visiton 10-24-2024 Follow-up visit [id number] Ashley Staples 1955 M Date Provider Department Center 10/24/2024 6328-RADHA DAVIS MARYSOL Clark Family History Problem Relation Age of Onset No Known Problems Mother No Known Problems Father Family Status - Relation Status Age at Mother Alive Father Level of Service:91208 MO OFFICE/OUTPATIENT NEW MODERATE MDM 45 MINUTES Normal [facility] ALL CBC WITH AUTO DIFFon BASOPHILS ABSOLUTE AUTO 0.1 [facility] Basophils/100 WBC (Bld) 1.1 % 0.2 - 2.0 % [facility] Eosinophils/100 WBC (Bld) 2.6 % 0.9 - 7.0 % [facility] Erythrocyte distribution width (RBC) [Ratio] 13.1 % 11.0 - 15.0 % [facility] Hematocrit (Bld) [Volume fraction] 49.4 % 42.0 - 54.0 % [facility] Hemoglobin (Bld) [Mass/Vol] 16 g/dL 14.0 - 18.0 g/dL [facility] IMMATURE GRANULOCYTES ABS AUTO 0.09 High [facility] Immature granulocytes/100 WBC (Bld) 1.7 % High 0.0 - 0.5 % [facility] Interpretation and review of laboratory results Abnormal [facility] LYMPHOCYTES ABSOLUTE AUTO 1.6 [facility] Lymphocytes/100 WBC (Bld) 29.4 % 20.5 - 60.0 % [facility] MCH (RBC) [Entitic mass] 28.8 pg 25.9 - 34.0 pg [facility] MCHC (RBC) [Mass/Vol] 32.4 g/dL 29.9 - 35.2 g/dL [facility] MCV (RBC) [Entitic vol] 89 fL 80.0 - 94.0 fL [facility] MONOCYTES ABSOLUTE AUTO 0.5 [facility] Monocytes/100 WBC (Bld) 8.7 % 1.7 - 12.0 % [facility] NEUTROPHILS ABSOLUTE AUTO 3.1 [facility] Neutrophils/100 WBC (Bld) 56.5 % 43.0 - 75.0 % [facility] Platelet mean volume (Bld) [Entitic vol] 10 fL 9.5 - 13.5 fL [facility] TBH EO # 0.1 [facility]H PLT 142 Low [facility] RBC 5.55 [facility] WBC 5.4 [facility] US aortaon 09-25-2024 aorta [facility] [address] [place] [address] Ultrasound Report Signed Patient: Ashley Staples MR#: [id number] : 1955 Acct:[id number] Age/Sex: 69 / M ADM Date: 09/25/24 Loc: [facility] Room: Type: [facility] Attending Dr: Favian Baldwin MD Ordering Provider: Favian Baldwin MD Date of Service: 09/25/24 US/ aorta: I71.4 Copies to: Favian Baldwin MD [...] Favian Baldwin MD09/25/2024 1:23 PM Dictation Location: [place] [address] Tech: Lexii Vitale Transcribed By: LING 09/25/24 1323 Dictated By: Favian Baldwin MD 09/25/24 1321 Signed By: 09/25/[address] [facility] Physician [facility] CT Chest, Low Dose Screening on 07-08-2024 [...] Carty FINAL REPORT Dictated: 07/08/2024 11:33 am Signer Shubham RODGERS Signed (Electronic Signature): 07/08/2024 11:33 am Signed by: Shubham Echeverria MD Transcribed by: FELICIA Technologist: CML Normal [facility] Testosterone F&Ton Testosterone [Mass/Vol] 698 ng/dL Invalid Interpretation Code 264-766 [facility] Comment on above: Result Comment: Adul t male reference interval is based on a population of healthy nonobese males (BMI <30) between 19 and 39 years old. Leeroy, et.al. JCEM 2017,102;4783-8770. PMID: [id number]. Performed By: #### 1 [id number] ####[facility] [address] [place] [address] Testosterone Free [Mass/Vol] 10.4 pg/mL Invalid Interpretation Code 6.6-18.1 [facility] Comment on above: Result Comment: Perf ormed at: [facility] [address] [id number] PhD Reji Kang Performed at: [facility] [address] [id number] MD Arnold Colvin Performed By: #### 1 [id number] ####[facility] [address] [place] [address] Ambulatory Visit Summaryon 0 05-20-2024 Ambulatory Visit [...] Appointments Sunday 8:20 AM EDT With: Where: [address] [address]- Sunday 10:00 AM EST With: Sunita Carty MD Where: [address] [address]- Sunday 1:00 PM EDT With: Where: [address] [address]- You Need to Complete the Following Testosterone F&T, Blood, Routine collect, 05/20/24, Order for future visit, Lab Collect, Hypogonadism male Primary hypertension Heart murmur Gastroesophageal reflux disease without esophagitis Nicotine dependence in remission Encounter for screening colonosco... CT Chest, Low Dose Screening, 05/20/24, Routine, Order for future visit, Transport Mode: Ambulatory, Reason: Screening, Yes, Yes, Yes, 1, 30, Yes, 5, [id number], No, Encounter for screening colonoscopy Hypogonadism male [...] We appreci (more content not included)... Normal [facility] Family Medicine Office/Clini c Noteon 05-20-2024 Family [...] labs. Ordered: CT Chest, Low Dose Screening [facility] Internal Ambulatory Referral Testosterone F&T 2. Primary hypertension (I10: Essential (primary) hypertension) - At goal at this time. - Will continue to monitor - Will refill meds. Ordered: CT Chest, Low Dose Screening [facility] Internal Ambulatory Referral Testosterone F&T 3. Heart murmur (R01.1: Cardiac murmur, unspecified) - Stable Ordered: CT Chest, Low Dose Screening [facility] Internal Ambulatory Referral Testosterone F&T 4. Gastroesophageal reflux disease without esophagitis (K21.9: Gastro-esophageal reflux disease without esophagitis) - Stable Ordered: CT Chest, Low Dose Screening [facility] Internal Ambulatory Referral Testosterone F&T 5. Nicotine dependence in remission (F17.201: Nicotine dependence, unspecified, in remission) - LDCT ordered Ordered: CT Chest, Low Dose Screening [facility] Internal Ambulatory Referral Testosterone F&T 6. Encounter for screening colonoscopy (Z12.11: Encounter for screening for malignant neoplasm of colon) - Will order a colonoscopy today. Ordered: CT Chest, Low Dose Screening Testosterone F&T Orders: ketoconazole topical, 1 maine, Topical, Daily, 60 gram, Refill(s) 0, [id number], 179, cm, 10/16/23 13:08:00 EST, Height/Length Dosing, 87.1, kg, 01/02/24 13:08:00 EST, Weight Dosing Follow-up No qualifying [...] Instructions losartan 100 mg Tab, See Instructions [facility] Prescription, See Instructions, 3 refills [facility] Prescription, See Instructions, 3 refills Testosterone [...] concerns: No (more content not included)... Normal [facility] Comment on above: Result Comment: Elec tronically Signed By: Keyshawn RODGERS, Sunita Watt.br\Date and Time Signed: 05/20/24 10:49 EDT TESTOSTERONE, TOTALon 2022 Testosterone [Mass/Vol] 912 ng/dL Normal 264-916 [facility] Comment on above: Result Comment: Adul t male reference interval is based on a population of healthy nonobese males (BMI <30) between 19 and 39 years old. bruce Umaña.al. JCEM 2017,102;1344-2732. PMID: [id number]. Performed By: #### T ESTTOT #### [facility] [address] [place] [address] Dr. Clive Savage CBC AUTO DIFFon 12-26-2022 BASO # 0.0 103/ul Normal 0.0-0.[address] [facility] Comment on above: Performed By: #### C BC #### [facility] [address] [place] [address] Dr. Clive Savage Basophils/100 WBC (Bld) 0.5 % Normal 0.2-2.[address] [facility] Comment on above: Performed By: #### C BC #### [facility] [address] [place] [address] Dr. Clive Savage EO # 0.1 103/ul Normal 0.0-0.[address] [facility] Comment on above: Performed By: #### C BC #### [facility] [address] [place] [address] Dr. Clive Savage Eosinophils/100 WBC (Bld) 2.1 % Normal 0.9-7.[address] [facility] Comment on above: Performed By: #### C BC #### [facility] [address] [place] [address] Dr. Clive Savage Erythrocyte distribution width (RBC) [Ratio] 13.6 % Normal 11.0-15.[address] [facility] Comment on above: Performed By: #### C BC #### [facility] [address] [place] [address] Dr. Clive Savage Hematocrit (Bld) [Volume fraction] 52.1 % Normal 42.0-54.[address] [facility] Comment on above: Performed By: #### C BC #### [facility] [address] [place] [address] Dr. Clive Savage Hemoglobin (Bld) [Mass/Vol] 16.9 g/dL Normal 14.0-18.[address] [facility] Comment on above: Performed By: #### C BC #### [facility] [address] [place] [address] Dr. Clive Savage IG # 0.01 10e3/ul Normal 0.00-0.[address] [facility] Comment on above: Performed By: #### C BC #### [facility] [address] [place] [address] Dr. Clive Savage IG % 0.2 % Normal 0.0-0.[address] [facility] Comment on above: Performed By: #### C BC #### [facility] [address] [place] [address] Dr. Clive Savage LYMPH # 1.9 103/ul Normal 1.2-3.[address] [facility] Comment on above: Performed By: #### C BC #### [facility] [address] [place] [address] Dr. Clive Savage Lymphocytes/100 WBC (Bld) 32.6 % Normal 20.5-60.[address] [facility] Comment on above: Performed By: #### C BC #### [facility] [facility] [address] [place] [address] Dr. Clive Savage MANUAL DIFF REQ NO Normal [facility] Comment on above: Performed By: #### C BC #### [facility] [address] [place] [address] Dr. Clive Savage MCH (RBC) [Entitic mass] 28.5 pg Normal 25.9-34.[address] [facility] Comment on above: Performed By: #### C BC #### [facility] [address] [place] [address] Dr. Clive Savage MCHC (RBC) [Mass/Vol] 32.4 g/dL Normal 29.9-35.[address] [facility] Comment on above: Performed By: #### C BC #### [facility] [address] [place] [address] Dr. Clive Savage MCV (RBC) [Entitic vol] 87.7 fL Normal 80.0-94.[address] [facility] Comment on above: Performed By: #### C BC #### [facility] [address] [place] [address] Dr. Clive Savage MONO # 0.4 103/ul Normal 0.3-0.[address] [facility] Comment on above: Performed By: #### C BC #### [facility] [address] [place] [address] Dr. Clive Savage Monocytes/100 WBC (Bld) 6.7 % Normal 1.7-12.[address] [facility] Comment on above: Performed By: #### C BC #### [facility] [address] [place] [address] Dr. Clive Savage NEUT # 3.4 103/ul Normal 1.4-6.[address] [facility] Comment on above: Performed By: #### C BC #### [facility] [address] [place] [address] Dr. Clive Savage Neutrophils/100 WBC (Bld) 57.9 % Normal 43.0-75.[address] [facility] Comment on above: Performed By: #### C BC #### [facility] [address] [place] [address] Dr. Clive Savage Platelet mean volume (Bld) [Entitic vol] 9.1 fL Critically low 9.5-13.[address] [facility] Comment on above: Performed By: #### C BC #### [facility] [address] [place] [address] Dr. Clive Savage PLT 169 103/ul Normal 150-450 [facility] Comment on above: Performed By: #### C BC #### [facility] [address] [place] [address] Dr. Clive Savage RBC 5.94 106/ul Normal 4.70-6.10 [facility] Comment on above: Performed By: #### C BC #### [facility] [address] [address] [address] Clive Savage WBC 5.8 103/ul Normal 4.0-11.[address] [facility] Comment on above: Performed By: #### C BC #### [facility] [address] [address] [address] Clive Savage LIPID PROFILEon 12-26-2022 CHOL-HDL RATIO NORM SEE BELOW Normal [facility] Comment on above: Result Comment: 3.3 - 4.4 LOW RISK 4.4 - 7.1 AVERAGE RISK 7.1 - 11.0 MODERATE RISK >11.0 HIGH RISK Performed By: #### L IPID, CMP #### [facility] [address] [address] [address] Clive Savage Cholesterol [Mass/Vol] 132 mg/dL Normal <=[address] [facility] Comment on above: Performed By: #### L IPID, CMP #### [facility] [address] [address] [address] Clive Savage Cholesterol in HDL [Mass/Vol] 45 mg/dL Normal 40-[address] [facility] Comment on above: Performed By: #### L IPID, CMP #### [facility] [address] [address] [address] Clive Savage Cholesterol in LDL [Mass/Vol] 70.8 mg/dL Normal [facility] Comment on above: Performed By: #### L IPID, CMP #### [facility] [address] [address] [address] Clive Savage Cholesterol.total/Cho lesterol in HDL [Mass ratio] 2.9 {ratio} Normal [facility] Comment on above: Performed By: #### L IPID, CMP #### [facility] [address] [address] [address] Clive Savage HDL NORMAL > or = 60 mg/dl - LO W CARDIOVASCULAR RISK <40 mg/dl - HIGH CARDIOVASCULAR RISK Normal [facility] Comment on above: Performed By: #### L IPID, CMP #### [facility] [address] [address] [address] Clive Savage LDL CALC NORMAL SEE BELOW Normal [facility] Comment on above: Result Comment: <100 mg/dl OPTIMAL 100 - 129 mg/dl NEAR OR ABOVE OPTIMAL 130 - 159 mg/dl BORDERLINE HIGH 160 - 189 mg/dl HIGH >190 mg/dl VERY HIGH Performed By: #### L IPID, CMP #### [facility] [address] [place] [address] Dr. Clive Savage Triglyceride [Mass/Vol] 81 mg/dL Normal <=[address] [facility] Comment on above: Performed By: #### L IPID, CMP #### [facility] [address] [address] [address] Clive Savage VLDL CALC 16.2 mg/dL Normal [facility] Comment on above: Performed By: #### L IPID, CMP #### [facility] [address] [place] [address] Dr. Clive Savage PROF 14(COMP METB)on 023 Albumin [Mass/Vol] 4.0 g/dL Normal 3.4-5.0 [facility] Comment on above: Performed By: #### L IPID, CMP #### [facility] [address] [place] [address] Dr. Clive Savage Albumin/Globulin [Mass ratio] 1.2 {ratio} Normal [facility] Comment on above: Performed By: #### L IPID, CMP #### [facility] [address] [place] [address] Dr. Clive Savage ALP [Catalytic activity/Vol] 60 U/L Normal 46-[address] [facility] Comment on above: Performed By: #### L IPID, CMP #### [facility] [address] [place] [address] Dr. Clive Savage ALT [Catalytic activity/Vol] 42 U/L Normal 16-[address] [facility] Comment on above: Performed By: #### L IPID, CMP #### [facility] [address] [place] [address] Dr. Clive Savage Anion gap [Moles/Vol] 6.6 mmol/L Normal [facility] Comment on above: Performed By: #### L IPID, CMP #### [facility] [address] [place] [address] Dr. Clive Savage AST [Catalytic activity/Vol] 17 U/L Normal 15-[address] [facility] Comment on above: Performed By: #### L IPID, CMP #### [facility] [address] [place] [address] Dr. Clive Savage Bilirubin [Mass/Vol] 0.4 mg/dL Normal 0.2-1.[address] [facility] Comment on above: Performed By: #### L IPID, CMP #### [facility] [address] [place] [address] Dr. Clive Savage Calcium [Mass/Vol] 9.4 mg/dL Normal 8.5-10.1 [facility] Comment on above: Performed By: #### L IPID, CMP #### [facility] [address] [place] [address] Dr. Clive Savage Chloride [Moles/Vol] 102 mmol/L Normal 98-[address] [facility] Comment on above: Performed By: #### L IPID, CMP #### [facility] [address] [place] [address] Dr. Clive Savage CO2 [Moles/Vol] 34.8 mmol/L Critically high 21.0-32.[address] [facility] Comment on above: Performed By: #### L IPID, CMP #### [facility] [address] [place] [address] Dr. Clive Savage Creatinine [Mass/Vol] 0.88 mg/dL Normal 0.70-1.30 [facility] Comment on above: Performed By: #### L IPID, CMP #### [facility] [address] [place] [address] Dr. Clive Savage EGFR-AF SRI LANKAN >60 Normal >=60 [facility] Comment on above: Performed By: #### L IPID, CMP #### [facility] [address] [place] [address] Dr. Clive Savage EGFR-NON AF SRI LANKAN >60 Normal >=[address] [facility] Comment on above: Performed By: #### L IPID, CMP #### [facility] [address] [place] [address] Dr. Clive Savage Globulin (S) [Mass/Vol] 3.3 g/dL Normal [facility] Comment on above: Performed By: #### L IPID, CMP #### [facility] [address] [place] [address] Dr. Clive Savage Glucose [Mass/Vol] 123 mg/dL Critically high 74-106 [facility] Comment on above: Performed By: #### L IPID, CMP #### [facility] [address] [place] [address] Dr. Clive Savage Potassium [Moles/Vol] 4.4 mmol/L Normal 3.5-5.[address] [facility] Comment on above: Performed By: #### L IPID, CMP #### [facility] [address] [place] [address] Dr. Clive Savage Protein [Mass/Vol] 7.3 g/dL Normal 6.4-8.2 [facility] Comment on above: Performed By: #### L IPID, CMP #### [facility] [address] [place] [address] Dr. Clive Savage Sodium [Moles/Vol] 139 mmol/L Normal 136-145 [facility] Comment on above: Performed By: #### L IPID, CMP #### [facility] [address] [place] [address] Dr. Clive Savage Urea nitrogen [Mass/Vol] 9.0 mg/dL Normal 7.0-18.[address] [facility] Comment on above: Performed By: #### L IPID, CMP #### [facility] [address] [place] [address] Dr. Clive Savage Urea nitrogen/Creatinine [Mass ratio] 10.2 mg/mg Normal [facility] Comment on above: Performed By: #### L IPID, CMP #### [facility] [address] [place] [address] Dr. Clive Savage MRI Shoulder w/o Lefton 06- MRI Shoulder w/o Left HISTORY: Anterior and [...] Satnam Clayton on 04/12/2022 1452 Normal [facility] Cloth Measurer Machine CNOVon 12-15-2021 [facility] ASHLEY STAPLES ([id number]) 1955 M Date Time Provider Department 12/15/21 9:00 AM DAKOTA BRARONUmberto During your visit today, we recorded the following information about you: Pulse Blood pressure Weight 68/minute 148/79 83.5 kg [place] 12/15/2021 9:13 AM Signed Ashley Staples is a 66 year old year old right handed man Accompanied by: spouse. 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 What would you like to accomplish with this visit today? I want more information about what I got. Vital Signs: BP 148/79 Pulse 68 Wt 83.5 kg (184 lb) Dakota Barron MD 12/16/2021 10:13 AM Signed [facility] New Patient Evaluation Ashley Staples : 1955 12/15/2021 9:30 AM Referral Source Aure Mckeon [address] [facility] [address] Accompanied by: spouse Identifying Information: Ashley Staples is a 66 year old White, male with a past medical history of HTN, HLD, T2DM, AVS, AAA, testicular hypofunction, migraines and past neuropsychiatric history of anxiety who is presenting to [facility] today with a chief complaint [...] isolated to comments made by a specific magazine editor. They were beginning to bother him [...] Abdominal ao (more content not included)... Normal [facility] Vital Signs Date Time Vital Sign Value Performing Clinician Facility 06-11-2025 10:56-0400 Body height 175.26 cm Shraddha Villavicencioyarelybeatrice MINNIE Work Phone: [facility] 06-11-2025 10:56-0400 Body mass index (BMI) [Ratio] 26.6 kg/m2 Shraddha Yeung APRN Work Phone: [facility] 06-11-2025 10:56-0400 Body weight 81.64 kg Shraddha Yeung APRN Work Phone: [facility] 06-11-2025 10:56-0400 Diastolic blood pressure 74 mm[Hg] Shraddha Yeung APRN Work Phone: [facility] 06-11-2025 10:56-0400 Heart rate 63 /min Shraddha Yeung APRN Work Phone: [facility] 06-11-2025 10:56-0400 SaO2% (BldA) [Mass fraction] 97 % Shraddha Yeung APRN Work Phone: [facility] 06-11-2025 10:56-0400 Systolic blood pressure 138 mm[Hg] Shraddha Yeung APRN Work Phone: [facility] 05-05-2025 11:01-0400 Body height 175.3 cm Ashley Stein DO Work Phone: [facility] 05-05-2025 11:01-0400 Body mass index (BMI) [Ratio] 26.43 kg/m2 Ashley Stein DO Work Phone: [facility] 05-05-2025 11:01-0400 Body weight 81.19 kg Ashley Stein DO Work Phone: [facility] 04-28-2025 10:55-0400 Body height 175.3 cm Ashley Stein DO Work Phone: [facility] 04-28-2025 10:55-0400 Body mass index (BMI) [Ratio] 26.43 kg/m2 Ashley Stein DO Work Phone: [facility] 04-28-2025 10:55-0400 Body weight 81.19 kg Ashley Stein DO Work Phone: [facility] 04-21-2025 10:42-0400 Body height 175.3 cm Ashley Stein DO Work Phone: [facility] [employer] 04-21-2025 10:42-0400 Body mass index (BMI) [Ratio] 26.43 kg/m2 Ashley Stein DO Work Phone: [facility] [employer] 04-21-2025 10:42-0400 Body weight 81.19 kg Ashley Stein DO Work Phone: [facility] 04-07-2025 08:51-0400 Body height 175.3 cm Ashley Stein DO Work Phone: [facility] 04-07-2025 08:51-0400 Body mass index (BMI) [Ratio] 26.43 kg/m2 Ashley Stein DO Work Phone: [facility] 04-07-2025 08:51-0400 Body weight 81.19 kg Ashley Stein DO Work Phone: [facility] 09-21-2022 12:00-0500 Body height 180.34 cm Favian Baldwin Other [facility] Other 09-21-2022 12:00-0500 Body mass index (BMI) [Ratio] 25.38 kg/m2 Favian Baldwin Other [facility] Other 09-21-2022 12:00-0500 Body temperature 97.4 [degF] Favian Baldwin Other [facility] Other 09-21-2022 12:00-0500 Body weight 82.56 kg Favian Baldwin Other [facility] Other 09-21-2022 12:00-0500 Diastolic blood pressure 66 mm[Hg] Favian Baldwin Other [facility] Other 09-21-2022 12:00-0500 SaO2% (BldA) [Mass fraction] 99 % Favian Baldwin Other [facility] Other 09-21-2022 12:00-0500 Systolic blood pressure 116 mm[Hg] Favian Baldwni Other [facility] Other 06-15-2022 13:30-0400 Body height 180.34 cm Favian Baldwin Other [facility] Other 06-15-2022 13:30-0400 Body mass index (BMI) [Ratio] 25.38 kg/m2 Favian Baldwin Other [facility] Other 06-15-2022 13:30-0400 Body temperature 97.4 [degF] Favian Baldwin Other [facility] Other 06-15-2022 13:30-0400 Body weight 82.56 kg Favian Baldwin Other [facility] Other 06-15-2022 13:30-0400 Diastolic blood pressure 78 mm[Hg] Favian Baldwin Other [facility] Other 06-15-2022 13:30-0400 SaO2% (BldA) [Mass fraction] 98 % Favian Baldwin Other [facility] Other 06-15-2022 13:30-0400 Systolic blood pressure 128 mm[Hg] Favian Baldwin Other [facility] Other Encounters Encounter Date Encounter Type Care Provider Facility Start: 07-30-2025 End: 07-30-2025 ambulatory Shanti Estrella Facility[facility] Start: 07-27-2025 End: 07-27-2025 ambulatory Jb MITCHELL Facility:[facility] [place] Start: 07-24-2025 End: 07-24-2025 ambulatory Shanti L Sameer Facility: [facility] Start: 07-20-2025 End: 07-20-2025 ambulatory Shanti L Sameer [facility] Start: 07-13-2025 End: 07-13-2025 ambulatory Shanti L Sameer Facility:[facility] Start: 06-11-2025 End: 06-11-2025 ambulatory NON STAFF [facility] Work Phone: Start: 06-11-2025 End: 06-11-2025 Patient encounter procedure Shraddha Joseph [employer] [facility] Work Phone: Start: 06-11-2025 End: 06-11-2025 ambulatory Shanti L Sameer Facility:[facility] Start: 05-29-2025 End: 05-29-2025 ambulatory Shanti L Sameer Facility:[facility] [place] Start: 05-19-2025 End: 05-19-2025 ambulatory Sunita Carty Facility: [facility] Start: 05-05-2025 End: 05-05-2025 Bamboo flowsheet Ashley Stein DO Work Phone: [facility] Start: 05-05-2025 End: 05-05-2025 Bamboo flowsheet Ashley Stein DO Work Phone: [facility] Start: 05-05-2025 End: 05-05-2025 Patient encounter procedure Ashley Stein DO Work Phone: [facility] Comment on above: Primary osteoarthrit is of left knee (Primary Dx) Start: 05-05-2025 End: 05-05-2025 ambulatory ASHLEY STEIN Not Available Start: 05-04-2025 End: 05-04-2025 ambulatory Shanti L Sameer Facility[facility] Start: 05-01-2025 End: 05-01-2025 ambulatory Sahnti L Sameer Facility:[facility] Start: 04-28-2025 End: 04-28-2025 Bamboo flowsheet Ashley [...] Not Available Start: 04-27-2025 End: 05-29-2025 ambulatory [facility] Facility:[id number] Start: 04-21-2025 End: 04-21-2025 Bamboo flowsheet Ashley Stein DO Work Phone: [facility] Start: 04-21-2025 End: 04-21-2025 Bamboo flowsheet Ashley Stein DO Work Phone: [facility] Start: 04-21-2025 End: 04-21-2025 Patient encounter procedure Ashley Stein DO Work Phone: [facility] Comment on above: Primary osteoarthrit is of left knee (Primary Dx); Left knee pain, unspecified chronicity Start: 04-21-2025 End: 04-21-2025 ambulatory ASHLEY STEIN Not Available Start: 04-13-2025 End: 04-13-2025 ambulatory [facility] Facility:[facility] [place] Start: 04-07-2025 End: 04-07-2025 Bamboo flowsheet Ashley [...] Available Start: 03-30-2025 ambulatory MD Sunita Carty [facility] ity:[facility] Start: 03-27-2025 End: 03-27-2025 ambulatory Jb MITCHELL Facility:[facility] Start: 03-20-2025 End: 03-20-2025 Bamboo flowsheet Guille Nathan SPOOL CLEANER Work Phone: [facility] Start: 03-20-2025 End: 03-20-2025 Bamboo flowsheet Guille Nathan SPOOL CLEANER Work Phone: [facility] Start: 03-20-2025 End: 03-20-2025 Office outpatient visit 15 minutes Guille Nathan [employer] CLEANER Work Phone: [facility] Comment on above: Primary osteoarthrit is of left knee (Primary Dx); Left knee pain, unspecified chronicity Start: 03-20-2025 End: 03-20-2025 ambulatory GUILLE NATHAN Not Available Start: 02-27-2025 End: 02-27-2025 ambulatory MD Sunita Carty Facility[facility] Start: 02-19-2025 End: 02-19-2025 ambulatory Sunita Carty Facility:[facility] Start: 11-25-2024 End: 11-25-2024 Bamboo flowsheet Josie Northeim PA Work Phone: [facility] Start: 11-25-2024 End: 11-25-2024 Bamboo flowsheet Josie Northeim PA Work Phone: [facility] Start: 11-25-2024 End: 11-25-2024 Office outpatient new 30 minutes Josie Northeim PA Work Phone: [facility] Comment on above: Capillary angioma (P rimary Dx); Seborrheic keratosis; Melanocytic nevus of trunk; Lentigo simplex; Actinic keratosis Start: 11-25-2024 End: 11-25-2024 ambulatory JOSIE NORTHEIM Not Available Start: 11-24-2024 End: 11-24-2024 ambulatory Jb MITCHELL Facility:[facility] Start: 11-18-2024 End: 11-18-2024 ambulatory MD Sunita Carty Facility:[facility] Start: 11-10-2024 End: 11-10-2024 ambulatory Jb MITCHELL Facility:[facility] Start: 11-06-2024 End: 11-06-2024 ambulatory Jb Mitchell Facility:[facility] Start: 11-06-2024 End: 11-06-2024 ambulatory Jb MITCHELL Facility:[id number] Start: 10-24-2024 End: 10-24-2024 ambulatory RADHA [facility] Start: 10-20-2024 End: 10-20-2024 Clinisync Result Encounter Generic External Data Provider [facility] External Department Unsolicited Start: 10-20-2024 End: 10-20-2024 Clinisync Result Encounter Generic External Data Provider [facility] External Department Unsolicited Start: 09-25-2024 End: 09-25-2024 ambulatory Favian Baldwin Facility:[facility] Start: 09-23-2024 End: 09-24-2024 Telephone encounter Guille Nathan NP Work Phone: [facility] Comment on above: PT Start: 09-09-2024 End: 09-09-2024 Bamboo flowsheet Guille Nathan SPOOL CLEANER Work Phone: [facility] Start: 09-09-2024 End: 09-09-2024 Bamboo flowsheet Guille Nathan SPOOL CLEANER Work Phone: [facility] Start: 09-09-2024 End: 09-09-2024 ambulatory GUILLE NATHAN Not Available Start: 09-09-2024 End: 09-09-2024 Office outpatient visit 10 minutes Guille Nathan [employer]PO[employer] CLEANER Work Phone: [facility] Comment on above: Primary osteoarthrit is of left knee (Primary Dx); Primary osteoarthritis of right knee Start: 07-07-2024 End: 07-07-2024 ambulatory Sunita Carty Facility[facility] Start: 06-02-2024 End: 06-02-2024 ambulatory Yolanda Guajardo Facility:[facility] Start: 05-27-2024 End: 05-27-2024 ambulatory MD Sunita Carty Facility:[facility] Start: 05-20-2024 ambulatory MD Sunita Carty Facility :[facility] Start: 05-20-2024 End: 05-20-2024 ambulatory MD Sunita Carty Facility:[facility] Start: 12-26-2022 End: 12-27-[address] AURE MCKEON . Facility: Start: 09-21-2022 End: 09-21-2022 ambulatory Favian Pottsanna Other [facility] Other Start: 09-21-2022 Office outpatient vi sit 15 minutes Favian Baldwin [facility] Start: 06-15-2022 End: 06-15-2022 ambulatory Favian Nicolasa Other [facility] Other Start: 06-15-2022 Office outpatient vi sit 15 minutes Favian Baldwin [facility] Procedures Date Procedure Procedure Detail Performing Clinician Start: 05-05-2025 Arthrocentesis aspir &/inj major jt/bursa w/o us Ashley Stein DO Work Phone: Start: 04-28-2025 Arthrocentesis aspir &/inj major jt/bursa w/o us Ashley Stein DO Work Phone: Start: 04-21-2025 Arthrocentesis aspir &/inj major jt/bursa w/o us Ashley Stein DO Work Phone: Start: 03-20-2025 Radiologic examinati on knee 3 views Guille Nathan [employer]POOL CLEANER Work Phone: Start: 11-25-2024 CRYOTHERAPY SKIN LESION Josie VICENTE Work Phone: Start: 10-20-2024 ALL CBC WITH AUTO DIFF Generic External Data Provider Start: 12-26-[address] AURE BECERRAT . Comment on above: Performed By: #### P SAD #### [facility] [address] [address] [address] Clive Savage Plan of Treatment Date Care Activity Detail Author Start: 05-24-2026 ambulatory Ambulatory Facility:[facility] [place] Start: 01-22-2026 ambulatory Ambulatory Facility:[facility] [place] Start: 05-05-2025 End: 05-05-2025 Patient encounter procedure [...] [facility] [address] [place] [id number] Ashley Stein, DO [address] [place] [address] Left knee pain, unspecified chronicity (Primary Dx); Primary osteoarthritis of left knee [facility] Comment on above: Left knee pain, unsp ecified chronicity (Primary Dx); Primary osteoarthritis of left knee Start: 04-07-2025 End: 04-07-2025 Patient encounter procedure 04/07/2025 9:00 AM EDT Office Visit [facility] [address] [place] [id number] Ashley Stein, DO [address] [place] [address] Left knee pain, unspecified chronicity (Primary Dx); Primary osteoarthritis of left knee [facility] Comment on above: Left knee pain, unsp ecified chronicity (Primary Dx); Primary osteoarthritis of left knee Start: 03-20-2025 End: 03-20-2025 Patient encounter procedure 03/20/2025 8:45 AM EDT Office Visit [facility] [address] [place] [address] Guille Nathan, SPOOL CLEANER [address] [place] [address] Arrived [facility] [facility] Comment on above: Arrived Start: 11-25-2024 End: 11-25-2024 Patient encounter procedure 11/25/2024 11:00 AM EST Office Visit [facility] [address] [place] [address] Josie East PA [address] [place] [address] Arrived [facility] Comment on above: Arrived Payers Date Payer Category Payer Self-pay 2023 Medicare (Managed Care) 1.2. [id number] 2022 Private Health Insurance [id number] 1959 Medicare [id number] 1954 Unknown [id number] 2.16.840.1.489426.3.579.2.593 1954 Unknown [id number] 2.16.840.1.845207.3.579.2.72 1954 Unknown [id number] 2.16.840.1.828286.3.579.2.72 1954 Unknown [id number] 2.16.840.1.204251.3.579.2.72 1954 Unknown [id number] 2.16.840.1.480995.3.579.2.72 1954 Unknown [id number] 2.16.840.1.020562.3.579.2.727 1954 Unknown [id number] 2.16.840.1.146367.3.579.2.727 1954 Unknown [id number] 2.16.840.1.722619.3.579.2.727 1954 Unknown [id number] 2.16.840.1.467524.3.579.2. 1954 Unknown [id number] 2.16.840.1.196191.3.579.2. 1954 Unknown [id number] 2.16.840.1.971545.3.579.2. 1954 Unknown [id number] 2.16.840.1.862358.3.579.2. 1954 Unknown [id number] 2.16.840.1.951226.3.579.2. 1954 Unknown [id number] 2.16.840.1.140967.3.579.2. 1954 Unknown [id number] 2.16.840.1.096082.3.579.2. 1954 Unknown [id number] 2.16.840.1.434195.3.579.2. 1954 Unknown [id number] 2.16.840.1.625965.3.579.2.1258 1954 Unknown [id number] 2.16.840.1.174675.3.579.2.1258 1954 Unknown [id number] 2.16.840.1.762355.3.579.2.1258 1954 Unknown [id number] 2.16.840.1.824281.3.579.2.125 1954 Unknown [id number] 2.16.840.1.181688.3.579.2.1258 1954 Unknown [id number] 2.16.840.1.953026.3.579.2.125 1954 Unknown [id number] 2.16.840.1.201893.3.579.2.1259 1954 Unknown [id number] 2.16.840.1.022786.3.579.2.1259 1954 Unknown [id number] 2.16.840.1.185271.3.579.2.727 1954 Unknown [id number] 2.16.840.1.223735.3.579.2.72 1954 Unknown [id number] 2.16.840.1.564047.3.579.2.72 1954 Unknown [id number] 2.16.840.1.973625.3.579.2.72 1954 Unknown [id number] 2.16.840.1.724362.3.579.2.72 1954 Unknown [id number] 2.16.840.1.676327.3.579.2.72 1954 Unknown [id number] 2.16.840.1.452725.3.579.2.72 1954 Unknown [id number] 2.16.840.1.564362.3.579.2.72 1954 Unknown [id number] 2.16.840.1.082944.3.579.2.72 1954 Unknown [id number] 2.16.840.1.104793.3.579.2.72 1954 Unknown [id number] 2.16.840.1.837707.3.579.2.72 1954 Unknown [id number] 2.16.840.1.399243.3.579.2.72 1954 Unknown [id number] 2.16.840.1.018895.3.579.2.72 1954 Unknown [id number] 2.16.840.1.318109.3.579.2.727 Medicare [id number] 2 .16.840.1.446002.19 [facility] Health [facility] [id number] Unknown [id number] 11.30.840.1.970025.3.579.2.531 Unknown [id number] 11.30.840.1.858719.3.579.2.531 Social History Date Type Detail Facility Start: 04-28-2024 End: 04-21-2025 Sex Assigned At [facility] Other Start: 04-14-2024 End: 09-25-2024 Tobacco smoking status MDIS Ex-smoker [facility] History of tobacco use Current smoker [facility] History of tobacco use Cigarette Smoker [facility] Start: 04-28-2024 End: 04-21-2025 History of Social function [facility] Start: 1955 Sex assigned at Not on file N [facility] Sex Male (finding) [facility] Start: 1955 Sex Assigned At Male F [facility] Clinical Notes 12-15-2021 to 07-13-2025 Rebecca Clarke [place] - 05/05/2025 11:00 AM Lidia Stein DO - 05/05/2025 11:00 AM Chani Clarke [place] - 04/28/2025 11:00 AM Subhash Ramos MA [...] 08/26/2018 Recorded zoster vaccine live 09/28/2014 Recorded [facility] 05-19-2025 Note Patient Education Cardiovascular Managing Your [...] are not enough (more content not included)... [facility] 05-05-2025 History of Present illness Narrative Associated [...] pain or concerns. documented in this encounter [facility] 04-28-2025 History of Present illness Narrative Associated Order(s): L Inj/Asp: L knee Post-Procedure Diagnose(s): Left knee pain, unspecified chronicity L Inj/Asp: L knee on 04/28/2025 10:55 AM Indications: pain Details: 21 G needle Medications: 2 mL sodium hyaluronate 16.8 MG/2ML documented in this encounter [facility] 04-21-2025 History of Present illness Narrative [...] injection left knee. documented in this encounter [facility] 04-07-2025 History of Present illness Narrative [...] or infection seen. These are taken through [facility] dated 03-20-2025 from their permanent record. ASSESSMENT [...] and reasonable expectations were reviewed. We discussed tank terminal gauger the definitive role of total knee replacement. [...] PM EDT documented in this encounter [facility] 03-27-2025 Note Patient Education Urology Benign [...] Follow these instructions at home: ??? Take uawf-rey-julwork and prescription medicines only as told by [...] do not get (more content not included)... [facility] 03-20-2025 History of Present illness Narrative Images from the original note were not included. HISTORY OF PRESENT ILLNESS: EST PT Ashley Staples is an 69 y.o. @ male. (EST PT, LAST TX 09/09/24) LT KNEE PAIN, INTERMITTENT. XRAY TODAY MAG 03/20/25 XRAY EPIC 04/28/24 DEPO INJECTION 04/28/24 PT AT [facility] HX KNEE SCOPE - ARTHRITIS - DR MEJIA WALKING UNASSISTED. PAIN IS MOSTLY MEDIAL KNEE, [...] left Imaging Result: 03/20/2025: AP, Lat and Starke view of the left knee demonstrates medial joint space narrowing with subchondral sclerosis and flattening of the surfaces of tibial plateau and femoral condyle. Patella is noted to be midline with marginal osteophyte formation. Impression: osteoarthritis of the left knee. Guille Nathan APRN, NP-C Procedures Orders Placed This Encounter Procedures XR [...] urgent evaluation. documented in this encounter [facility] 11-25-2024 History of Present illness Narrative [...] limited to risks of scarring, darker or vegetable loader machine operator pigmentary changes, recurrence, incomplete removal and infection. [...] this time documented in this encounter [facility] 11-24-2024 Note Patient Education Urology Benign [...] Follow these instructions at home: ??? Take eavw-hjx-ecxnvgo and prescription medicines only as told by [...] do not get (more content not included)... [facility] 10-24-2024 Note Cardiology Clinic No te [...] or concerns. Radha Davis MD Interventional Cardiology [facility] 09-23-2024 Telephone encounter Note Referral was already faxed. I will re-fax again. Fax number [phone]. I called [facility] at [phone] and they confirmed that they received the referral. [facility] 09-23-2024 Miscellaneous Notes Referral was already faxed. I will re-fax again. Fax number [phone]. I called [facility] at [phone] and they confirmed that they received the referral. Pt called and stated Guille had ordered PT and he has not heard from them to schedule. [facility]. Their number is [phone] he stated. His call back [phone] documented in this encounter [facility] 09-23-2024 Telephone encounter Note Pt called and stated Guille had ordered PT and he has not heard from them to schedule. [facility]. Their number is [phone] he stated. His call back [phone] [facility] 09-09-2024 History of Present illness Narrative Images from the original note were not included. No chief complaint on file. HISTORY OF PRESENT ILLNESS: Aslhey Staples is an 69 y.o. @ male. (EST PT) LT KNEE PAIN, INTERMITTENT. LAST INJ 04/28 - LITTLE RELIEF. XRAY CHANGE 04/28/24 DEPO INJECTION 04/28/24 HX KNEE SCOPE - ARTHRITIS - DR MEJIA PAIN IS INTERMITTENT, MOSTLY WITH ACTIVITY. PAIN [...] develop for requiring urgent evaluation. Guille Nathan APRN-OVERHAULER documented in this encounter [facility] 05-27-2024 Note Nurse Consultation N ote [...] 08/26/2018 Recorded zoster vaccine live 09/28/2014 Recorded [facility] 09-21-2022 Evaluation note Encounter Date Diagnosis [...] likely this patient will never need repair. [facility] Other 09-01-2022 Evaluation note* Encounter Date Diagnosis [...] the plan all his questions were addressed. [facility] Other 03-03-2022 NoteHNO ID: [id number] Author: Dakota Barron MD Service: ? Author Type: Physician Type: Progress Notes Filed: 12/16/2021 10:13 AM Note Text: [facility] New Patient Evaluation Ashley Staples : 1955 12/15/2021 9:30 AM Referral Source Aure Mckeon [address] [facility] [id number] Accompanied by: spouse Identifying Information: Ashley Staples is a 66 year old White, male with a past medical history of HTN, HLD, T2DM, AVS, AAA, testicular hypofunction, migraines and past neuropsychiatric history of anxiety who is presenting to [facility] today with a chief complaint [...] isolated to comments made by a specific magazine editor. They were beginning to bother him [...] - atorvastatin (LIPITOR) 20 (more content not included)...[facility] Diagnosis Primary osteoarthritis of left knee- Primary Primary osteoarthritis of right knee documented in this encounter [facility]* Diagnosis Capillary angioma- Primary Nevus, non-neoplastic Seborrheic keratosis Melanocytic nevus of trunk Benign neoplasm of skin of trunk, except scrotum Lentigo simplex Other dyschromia Actinic keratosis documented in this encounter [facility]* Diagnosis Primary osteoarthritis of left knee- Primary Left knee pain, unspecified chronicity [facility] Diagnosis Left knee pain, unspecified chronicity- Primary Primary osteoarthritis of left knee documented in this encounter [facility]* Diagnosis Primary osteoarthritis of left knee- Primary Left knee pain, unspecified chronicity documented in this encounter [facility]* Diagnosis Left knee pain, unspecified chronicity- Primary Primary osteoarthritis of left knee documented in this encounter [facility]* Diagnosis Primary osteoarthritis of left knee- Primary documented in this encounter [facility] Healthcare[facility] noteNo assessment information availableMer[facility] Work Phone: History general Narrative - Reported* Type Description Date Medical History venous insufficiency Medical History AAA Surgical History back surgery 2010 Surgical History vein stripping 1989 Surgical History gall bladder Hospitalization History see surgical history [facility] Other History general Narrative - Reported* Type Description Date Medical History venous insufficiency Medical History AAA Surgical History back surgery 2010 Surgical History vein stripping 1989 Surgical History gall bladder 1999 Hospitalization History see surgical history [facility] Other Reason for referral (narrative)No reason for referral information [facility]Mer[facility] Work Phone: Summary Purpose Family History [...] section and content) DATE CREATED AUTHOR 01/06/2022 [facility] DATE CREATED AUTHOR AUTHOR'S ORGANIZ ATION 04/13/2022 [facility] DATE CREATED AUTHOR AUTHOR'S ORGANIZ ATION 01/02/2023 [facility] DATE CREATED AUTHOR AUTHOR'S ORGANIZ ATION 11/11/2024 [facility] DATE CREATED AUTHOR AUTHOR'S ORGANIZ ATION 11/24/2024 [facility] DATE CREATED AUTHOR AUTHOR'S ORGANIZ ATION 03/01/2025 [facility] DATE CREATED AUTHOR AUTHOR'S ORGANIZ ATION 03/30/2025 [facility] DATE CREATED AUTHOR AUTHOR'S ORGANIZ ATION 05/06/2025 [facility] EP[facility] DATE CREATED AUTHOR AUTHOR'S ORGANIZ ATION 07/28/2025 [facility] DATE CREATED AUTHOR AUTHOR'S ORGANIZ ATION 08/01/2025 [facility] REASON FOR VISIT (unrecogniz ed section and content) Reason Comments Pain Reason Onset Date Comments PT 09/23/2024 Reason Comments Skin Check Specialty Diagnoses / Procedures Referred By Contac t Referred To Contact Dermatology Diagnoses skin lesion on back Procedures office visit Sunita Carty MD [address] [place] [address] Phone: tel: fax: Yahaira Sutherland MD [address] [address] Phone: tel: fax: Referral ID Status Reason Start Date Expiration Date Visits Re quested Visits Authorized [id number] Closed 11/20/2024 05/19/2025 1 1 Reason Comments Pain Specialty Diagnoses / Procedures Referred By Contac t Referred To Contact Orthopaedic Surgery Diagnoses Primary osteoarthritis of left knee Guille Nathan, SPOOL CLEANER [address] [place] [address] Phone: tel: fax: Ashley Stein T, DO [address] [place] [address] Phone: tel: fax: Referral ID Status Reason Start Date Expiration Date V isits Requested Visits Authorized [id number] Closed Specialty Services Required 03/20/2025 09/16/2025 1 1 Reason Comments Osteoarthritis Care Teams (unrecognized sec tion and content) 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 Specialty Start Date End Date Sunita Carty MD PCP - General Family Medicine 10/23/23 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 Specialty Start Date End Date Sunita Carty MD PCP - General Family Medicine 10/23/23 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 Specialty Start Date End Date Sunita Carty MD PCP - General Family Medicine 10/23/23 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 Specialty Start Date End Date Sunita Carty MD [address] [place] [address] PCP - General Family Medicine 10/23/23 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 Specialty Start Date End Date Sunita Carty MD [address] [place] [address] PCP - General Family Medicine 10/23/23 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 Specialty Start Date End Date Sunita Carty MD [address] [place] [address] PCP - General Family Medicine 10/23/23 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 Specialty Start Date End Date Sunita Carty MD [address] [place] [address] PCP - General Family Medicine 10/23/23 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 Specialty Start Date End Date Sunita Carty MD [address] [place] [address] PCP - General Family Medicine 10/23/23 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 Specialty Start Date End Date Sunita Carty MD [address] [place] [address] PCP - [facility] 10/23/23 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 Specialty Start Date End Date Sunita Carty MD [address] [place] [address] PCP - [facility] 10/23/23 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 Specialty Start Date End Date Sunita Carty MD [address] [place] [address] PCP - [facility] 10/23/23 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 [facility] [employer] [facility]. provides no warranty or guarantee of the accuracy or completeness of information in this document.
== END 2025-08-03 09:38 | disposition home or self-care (01) ==
LOC: MRI 09:37
PROVIDERS: PCP Nurse Practitioner; Visit Provider Nurse Practitioner
DX: M54.50 Low back pain, unspecified (principal); F17.210 Nicotine dependence, cigarettes, uncomplicated; M51.369 Other intervertebral disc degeneration, lumbar region without mention of lumbar back pain or lower extremity pain; I71.40 Abdominal aortic aneurysm, without rupture, unspecified
CPT/HCPCS: 72148